=== PATIENT | male | born 1940 | race Caucasian/White ===

== ENCOUNTER 2023-07-18 09:03 | Outpatient (CLI) | payer MEDICARE, SELFPAY ==
--- OUTSIDE RECORDS SUMMARY | 2023-07-23 10:59 | XMS_ITS | Encounter Summary ---
Author Name Unknown Organization [facility] Address [address] [place] [address] Care Team Providers Care Resource Recovery Engineer Name Role Phone Jersey Wilson MD Primary Care Provider [phone] Reason for Visit * Reason Onset Date Comments Refill 05/27/2023 Encounter Details Date Type Department Care Team Description 05/27/2023 Refill [facility] [address] [place] [address] Gaston Ro MD [address] [place], [place] [id number] Refill Social History Tobacco Use Types Packs/Day Years Used Date Smoking Tobacco: Never Smokeless Tobacco: Never Alcohol Use Standard Drinks/Week Comments Yes 3 (1 standard drink = 0.6 oz pur e alcohol) 3-4 drinks a week PHQ-2 Answer Date Recorded PHQ-2 Score 0 11/10/2022 Sex and Gender Information Value Date Recorded Sex Assigned at Not on file Gender Identity Not on file Sexual Orientation Not on file documented as of this encounter Plan of Treatment Upcoming Encounters Date Type Department Care Team Description 07/30/2023 1:00 PM GUT SNATCHER Appointment [facility] [address] [facility] [place] [address] Jersey Wilson MD [address] [place] [address] 08/11/2023 2:15 PM GUT SNATCHER Appointment [facility] [address] [place] [address] Suzanna Terrell MD, PhD [address] [place] [id number] 11/17/2023 1:00 PM CDT Appointment [facility] [address] [place] [address] Jersey Wilson MD [address] [place] [address] documented as of this encounter Visit Diagnoses Not on filedocumented in this encounter Care Teams Resource Recovery Engineer Relationship Specialty Start Date End Date Jersey Wilson MD [address] [facility] [address] [id number] PCP - General Family Practice 07/23/16 documented as of this encounter
--- OUTSIDE RECORDS SUMMARY | 2023-07-23 10:59 | XMS_ITS | Encounter Summary ---
Author Name Unknown Organization [facility] Address [address], [place] [address] Care Team Providers Care External Relations Director Name Role Phone Jersey Wilson MD Primary Care Provider [phone] Reason for Visit * Reason Comments Spine Lumbar Encounter Details Date Type Department Care Team Description 07/06/2023 1:30 PM FLOOR RENOVATOR Therapy [facility] [place] [id number] [place] [phone] [place] [address] [place] [address] Acute bilateral low back pain with bilateral sciatica (HRC) (Primary Dx); Central stenosis of spinal canal Social History Tobacco Use Types Packs/Day Years [...] on file documented as of this encounter Progress Notes * Grace Condon, PT - 07/06/2023 1:30 PM CST [facility] Progress Note Visit Number: 11 Initial Certification Period: 03/10/2023 to 06/08/23; Re-certification Period: 06/08/2023 to 08/13/23 Referring Provider: Og Barnes MD Visit Diagnosis: 1. Acute bilateral low back pain with bilateral sciatica (HRC) 2. Central stenosis of spinal canal Precautions: A Fib. HTN SUBJECTIVE: Patient continues to have a lot of pain. He is overall feeling about the same this week. Woke with less pain this morning but by the time he walked 20 feet it was back. Did the SKTC exercises with out improvements. Reaching overhead is very painful when standing. Taking pain medication due to symptoms. 9/10 pain levels. Plans for surgery at [place] on 07/16/2023. Past Medical History: Pertinent diagnostic tests: MRI 03/09/2023 IMPRESSION: 1. Severe canal stenosis at L3-L4 where a prominent left subarticular disc protrusion also displaces the traversing left L4 nerve root. 2. Multilevel foraminal stenosis, moderate bilaterally at L3-L4. 3. Additional degenerative changes as detailed above. OBJECTIVE Flexed posture, increased thoracic kyphosis. Decreased flexibility of hip flexors and pectorals bilaterally. LE weakness with repeated sit to stand. Treatment/Education Today: Therapeutic Exercise x 42 min: NuStep Level 6, seat 10 x 8 min. Tolerated well with no complaints. Seated row yellow band x 10. Some buttock pain reported. Seated yellow band bilateral external rotation 2 x 10. Sit to stand x 5 from chair. Left LE fatigues. From table x 10 (24 inches). Side lying hip abduction 2 x 10 each LE. Good lateral hip work noted by patient bilaterally. Bridge x 10. Limited ROM today due to back and leg pain. SKTC 5 x 10 sec each LE hook lying. Decreased LE symptoms reported after 5 reps. LTR x 8 with limited ROM. Complaints of right posterior LE pain. Pec stretch hook lying hands behind head 2 x 20 sec. Tolerated well today. Supine hip flexor stretch x 20-30 sec each LE with contralateral knee to chest. Right knee pain. TrA with august hook lying and leg extensions x 5. Pretty easy for him. TrA 90/90 with bicycle x 10. Timed Code Treatment Minutes: 42 Total Treatment Minutes: 42 Current Home Exercise Program List: Access Code: [email or web address] URL: [email or web address] Audio/ Date: 05/14/2023 Prepared by: Grace Condon Exercises - Seated Scapular Retraction - 1 x daily - 7 x weekly - 1-2 sets - 10 reps - Sit to Stand Without Arm Support - 1 x daily - 5 x weekly - 1-2 sets - 10 reps - Standing March with Counter Support - 1 x daily - 5 x weekly - 1-2 sets - 10 reps - Standing Hip Abduction with Counter Support - 1 x daily - 5 x weekly - 1-2 sets - 10 reps - Supine Bridge - 2-3 x daily - 1 sets - 5 reps - 10 hold - Supine Lower Trunk Rotation - 2-3 x daily - 1 sets - 5 reps - 10 hold - Hooklying Single Knee to Chest Stretch - 2-3 x daily - 1 sets - 5 reps - 10 hold - Supine hip flexor stretch - 2-3 x daily - 1 sets - 5 reps - 10 hold ASSESSMENT/PROGRESS TOWARD GOALS: Atif presents with central canal and foraminal stenosis and disc protrusion L3-4 with generalized LE weakness and ROM deficits. He continues with high pain levels aggravated by standing, walking and extension. Exercises primarily done in seated and hook lying positions were tolerated best. Functional Goals/Outcomes: HEP/Independent Management: Demonstrate independence with HEP and self- management following each treatment session. Met Demonstrate normal upright posture in 3-4 weeks. Partially met ADL's: Stand for at least 20-30 minutes without increased symptoms in 8 weeks. 10 minutes at the most. Ambulation: Ambulate for community distance with normal gait without increased symptoms in 12 weeks. Able to ambulate for ADL's but has increased LE pain. PLAN: Discharge to home program as patient will be having surgery next week. Physical Therapy Discharge Summary Outcome measures at discharge: No outcome data collected. Attainment of goals: See above Patient Compliance with Therapy: Patient was compliant with attendance and therapy recommendations. Discharge recommendations: Patient will continue to work independently with home program/self management strategies. He will consult surgeon regarding any need for PT after surgery. R RENOVATOR documented in this encounter Plan of Treatment Upcoming Encounters Date Type Department Care Team Description 07/30/2023 1:00 PM FLOOR RENOVATOR Appointment [place] [place] [address] Jersey Wilson MD [address] [facility] [place] [address] 08/11/2023 2:15 PM FLOOR RENOVATOR Appointment [place] [address] [place] [address] Suzanna Terrell MD, PhD [address] [place] [address] 11/17/2023 1:00 PM CDT Appointment [address] [place] [address] [place] [address] [place] [phone] documented as of this encounter Visit Diagnoses Diagnosis Acute bilateral low back pain with bilateral sciatica (HRC)- Primary Central stenosis of spinal canal documented in this encounter Care Teams External Relations Director Relationship Specialty Start Date End Date Jersey Wilson MD [address] [place] [id number] PCP - General Family Practice 07/23/16 documented as of this encounter
--- OUTSIDE RECORDS SUMMARY | 2023-07-23 10:59 | XMS_ITS | Encounter Summary ---
Author Name Unknown Organization [facility] Address [address], [place] [address] Care Team Providers Care B2B Sales Professional Name Role Phone Jersey Wilson MD Primary Care Provider [phone] Reason for Visit * Reason Comments Spine Lumbar Encounter Details Date Type Department Care Team Description 06/29/2023 3:00 PM DRIER OPERATOR HELPER Therapy [facility] [place] [id number] [place] [address] [phone] [place] [address] [place] [address] Acute bilateral low back pain with bilateral [...] Progress Notes * Grace Condon, PT - 06/29/2023 3:00 PM CST Physical Therapy Re-certification of Plan of Care Re-certification Period: 06/08/2023 to 08/13/23 Treatment diagnosis: 1. Acute bilateral low back pain with bilateral sciatica (HRC) 2. Central stenosis of spinal canal Total visits in past certification period: 8 Updated status: Atif returns for ongoing PT due to ongoing radicular pain bilateral LE and difficulty standing and ambulating. Current beck objective findings: Flexed posture, increased thoracic kyphosis. Decreased flexibility of hip flexors and pectoral bilaterally. LE weakness with repeated sit to stand. ASSESSMENT/PROGRESS TOWARD GOALS: Progress toward goals/functional outcomes: HEP/Independent Management: Demonstrate independence with HEP and self- management following each treatment session. Ongoing Demonstrate normal upright posture in 3-4 weeks. 85% met ADL's: Stand for at least 20-30 minutes without increased symptoms in 8 weeks. Currently not met. Ambulation: Ambulate for community distance with normal gait without increased symptoms in 12 weeks. Able to ambulate for ADL's but has increased LE pain. Updated goals/functional outcomes for re-certification period: Continue above goals. PLAN: Frequency/duration: 1-2 time/week for 6 weeks Treatment Plan: Continue progressive therapeutic exercise for ROM, stretching and strengthening, and flexibility. Check Balance. Aerobic exercise. Consent: Patient and/or family are in agreement with the updated plan. The apartment house manager is completed by the therapist and the referring clinician's electronic signature certifies medical necessity for the plan above. [facility] Physical Therapy Progress Note Visit Number: 9 Initial Certification Period: 03/10/2023 to 06/08/23 Referring Provider: Og Barnes MD Visit Diagnosis: 1. Acute bilateral low back pain with bilateral sciatica (HRC) 2. Central stenosis of spinal canal Precautions: A Fib. HTN SUBJECTIVE: Since our last session the patient had COVID and had to cancel PT and then had to cancel due to a flat tire. He had COVID at the end of May. Injection 05/26/2023 resulted in 10 days of relief. He has had more pain the past 5 days needing to take pain medication. He describes bilateral posterior and anterior thigh pain, buttock and low back pain. He also has pain at the right calf. Standing tolerance is 10 minutes with pain going up to 8-9/10. Walking tolerance 50-100 feet with pain. Symptoms are relieved by sitting. Has worked a few minutes here and there in his kitchen but is frustratedwith his limitations now and after surgery. Plans for surgery at [place] on 07/16/2023. Past Medical History: Pertinent diagnostic tests: MRI 03/09/2023 IMPRESSION: 1. Severe canal stenosis at L3-L4 where a prominent left subarticular disc protrusion also displaces the traversing left L4 nerve root. 2. Multilevel foraminal stenosis, moderate bilaterally at L3-L4. 3. Additional degenerative changes as detailed above. OBJECTIVE Flexed posture, increased thoracic kyphosis. Decreased flexibility of hip flexors and pectoral bilaterally. LE weakness with repeated sit to stand. Treatment/Education Today: Therapeutic activities x 13 minutes: Reassessment of symptoms, response to injection and plan for upcoming surgery. Reassessment of goals for POC. Therapeutic Exercise x 31 min: -NuStep Level 5, seat 10 x 7 min. Tolerated well but had some right sided knee pain. -Pec stretch hook lying hands behind head 2 x 30 sec -LTR x 10 . Tolerated well. -SKTC x 30 sec each LE with contralateral leg flat. -Supine hip flexor stretch x 30 sec each LE. Mild knee pain but felt good hip stretch. -Bridge x 10. Limited ROM today in attempts to control right LE pain. -TrA with march hook lying x 10. -TrA 90/90 with toe taps x 8. -Sit to stand x 10 Timed Code Treatment Minutes: 44 Total Treatment Minutes: 44 Current Home Exercise Program List: Access Code: [email or web address] URL: [email or web address] Date: 05/14/2023 Prepared by: Grace Condon Exercises [...] generalized LE weakness and ROM deficits. He benefit today from gentle exercise reporting some relief at end of the session. He will benefit from additional physical therapy to address deficits, improve strength and mobility in preparation for upcoming surgery. Functional Goals/Outcomes: HEP/Independent Management: Demonstrate independence with HEP and self- management following each treatment session. Ongoing Demonstrate normal upright posture in 3-4 weeks. 85% met ADL's: Stand for at least 20-30 minutes without increased symptoms in 8 weeks. Currently not met. Ambulation: Ambulate for community distance with normal gait without increased symptoms in 12 weeks. Able to ambulate for ADL's but has increased LE pain. PLAN: Progress ROM, strengthening as able. 6 minutes walk test if walking tolerance improves. Balance work. R OPERATOR HELPER documented in this encounter Plan of Treatment Upcoming Encounters Date Type Department Care Team Description 07/30/2023 1:00 PM DRIER OPERATOR HELPER Appointment [address] [address] Jersey Wilson MD [address] [place] [address] 08/11/2023 2:15 PM DRIER OPERATOR HELPER Appointment [place] [address] D[address]ology [address] [place] [address] Suzanna Terrell MD, PhD [address] [place] [address] 11/17/2023 1:00 PM CDT Appointment [address] [place] [address] Jersey Wilson MD [address] [place] [address] documented as of this encounter Visit Diagnoses Diagnosis Acute bilateral low back pain with bilateral sciatica (HRC)- Primary Central stenosis of spinal canal documented in this encounter Care Teams B2B Sales Professional Relationship Specialty Start Date End Date Jersey Wilson MD [address] [facility] [place] [address] PCP - General Family Practice 07/23/16 documented as of this encounter
--- OUTSIDE RECORDS SUMMARY | 2023-07-23 10:59 | XMS_ITS | Encounter Summary ---
Author Name Unknown Organization [facility] Address [address], [place] [address] Care Team Providers Care Stove Installer Name Role Phone Jersey Wilson MD Primary Care Provider [phone] Reason for Visit * Reason Comments Spine Lumbar Encounter Details Date Type Department Care Team Description 07/02/2023 1:00 PM MD ALLERGY IMMUNOLOGY Therapy [facility] [place] [id number] [place] [phone] [place] [address] [place] [address] Acute bilateral low back pain with bilateral [...] Progress Notes * Grace Condon, PT - 07/02/2023 1:00 PM CST [facility] Progress Note Visit Number: 10 Initial Certification Period: 03/10/2023 to 06/08/23; Re-certification Period: 06/08/2023 to 08/13/23 Referring Provider: Og Barnes MD Visit Diagnosis: 1. Acute bilateral low back pain with bilateral sciatica (HRC) 2. Central stenosis of spinal canal Precautions: A Fib. HTN SUBJECTIVE: Patient reports that last session went well but he went grocery shopping after the session and had to lean on the cart, He also went to [employer] and had a lot of pain while shopping. Much work thatnight and into the next day. Used pain medication Wednesday and less activity yesterday. Standing tolerance is 10 minutes. Frustrated that he is losing strength. Plans for surgery at [place] on 07/16/2023. Past Medical History: Pertinent diagnostic [...] to stand. Treatment/Education Today: Therapeutic Exercise x 46 min: -NuStep Level 5, seat 10 x 8 min. Tolerated well but had some right sided knee pain. -Seated row red band x 20. Some buttock pain reported. -Sit to stand x 10 -Standing hip abduction x 15 each LE. Right buttock symptoms but patient felt he could exercise with the symptoms. -Lateral step ups x 10 at stair case. -LTR x 10 . Initially painful. Improved with repetition. -Pec stretch hook lying hands behind head 1 x 20 sec. Was increasing thigh symptoms so not repeatedtoday -SKTC 5 x 10 sec each LE hook lying. This provided a lot of relief today. Repeated at end of session. -Supine hip flexor stretch x 30 sec each LE with contralateral knee to chest. Right knee pain. -Bridge x 10. Limited ROM so tolerated well -TrA with august hook lying x 10 -TrA 90/90 with toe taps x 10. Timed Code Treatment Minutes: 46 Total Treatment Minutes: 46 Current Home Exercise Program List: Access Code: [email or web address] URL: [email or web address] Date: 05/14/2023 Prepared by: Grace Condon Exercises [...] generalized LE weakness and ROM deficits. He had more pain today and needed seated rest breaks between standing exercise. Good relief with SKTC during and at the end of the session. Functional Goals/Outcomes: HEP/Independent Management: Demonstrate independence with [...] pain. PLAN: Progress ROM, strengthening as able. Focus on seated and hook lying exercises to control symptoms as needed. ALLERGY IMMUNOLOGY documented in this encounter Plan of Treatment Upcoming Encounters Date Type Department Care Team Description 07/30/2023 1:00 PM MD ALLERGY IMMUNOLOGY Appointment [facility] [address] [facility] [place] [address] Jersey Wilson MD [address] [place] [address] 08/11/2023 2:15 PM MD ALLERGY IMMUNOLOGY Appointment [facility] [address] [place], [place] [address] Suzanna Terrell MD, PhD [address] [place] [address] 11/17/2023 1:00 PM CDT Appointment [facility] [address] [place] [address] Jersey Wilson MD [address] [place], [place] [phone] documented as of this encounter Visit Diagnoses Diagnosis Acute bilateral low back pain with bilateral sciatica (HRC)- Primary Central stenosis of spinal canal documented in this encounter Care Teams Stove Installer Relationship Specialty Start Date End Date Jersey Wilson MD [address] [place], [place] [address] PCP - General Family Practice 07/23/16 documented as of this encounter
--- OUTSIDE RECORDS SUMMARY | 2023-07-23 10:59 | XMS_ITS | Encounter Summary ---
Author Name Unknown Organization [facility] Address [address] [place] [address] Care Team Providers Care Handbag Parts Cutter Name Role Phone Jersey Wilson MD Primary Care Provider [phone] Reason for Visit * Reason Comments Injection * Procedure/Equipment (Routine) - Closed Specialty Diagnoses / Procedures Referred By Contac t Referred To Contact Diagnoses Spinal stenosis of lumbar region with neurogenic claudication Lumbar radiculopathy Procedures [place] Spinal Injection For Pain Management India Ho APRN, TAX INTERN [address] [place] [address] Referral ID Status Reason Start Date Expiration Date Visits Re quested Visits Authorized [id number] Closed 03/18/2023 06/16/2024 1 1 Encounter Details Date Type Department Care Team Description 04/07/2023 2:00 PM CDT Treatment [place] [facility] [address] [place], [place] [phone] India Ho APRN, TAX INTERN [address] [place] [address] Masha Russell, DO [address] [place] [address] Lumbar radiculopathy (Primary Dx); Spinal stenosis of lumbar region with neurogenic claudication Social History Tobacco Use Types Packs/Day Years [...] on file documented as of this encounter Last Filed Vital Signs Vital Sign Reading Time Taken Comments Blood Pressure 167/98 04/07/2023 1:45 PM CDT Pt reports that he did not take his BP mes today. Instructed pt to take to these once he gets home. Pulse 64 04/07/2023 1:45 PM CDT Temperature - - Respiratory Rate - - Oxygen Saturation - - Inhaled Oxygen Concentration - - Weight - - Height - - Body Mass Index - - documented in this encounter Progress Notes * Masha Russell DO - 04/07/2023 2:00 PM CDT Interventional Pain Management Procedure Note Patient name: Paul Rae Procedure Date: 04/07/2023 Referred by: India Ho APRN, TAX INTERN [address] [place] [address] Pre-Procedural Diagnosis: Lumbar Radiculopathy; Neuroforaminal Spinal Stenosis without myelopathy; Lumbar spondylosis Post-Procedural Diagnosis: Lumbar Radiculopathy; Neuroforaminal Spinal Stenosis without myelopathy;Lumbar spondylosis Name of Procedure: L3-L4 interlaminar epidural steroid injection Performed by: Masha Russell DO Description of Procedure: The patient denies fevers, chills, night sweats, or weight loss. The patient does not take blood thinners or antibiotics for an active infection. We reviewed the risks, alternatives, benefits, and potential complications of an epidural steroid injection which include but are not limited to bleeding, bruising, infection, allergic reaction, increased pain, headache, lack of pain relief, or nerve, spinal cord, and blood vessel injury. 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 After discussion with the patient, he has decided to proceed with the procedure. After verbal and written informed consent, the patient was taken to the procedure suite and placed in a prone position. A preprocedural pause was performed identifying appropriate patient, site, side, and nature of procedure. The overlying skin in the lumbar region was prepped with ChloraPrep solution and draped in a sterile fashion. Fluoroscopy was used to identify the L3-L4 interlaminar space, towards the left and the appropriate site was marked. Aseptic technique was used throughout the procedure. The skin was anesthetized with 1% lidocaine and using AP fluoroscopic guidance at the L3-L4 interspace, a 20-gauge Tuohy needle was advanced contacting the ligamentum flavum which was engaged. Loss of resistance to saline was crisp. A lateral fluoroscopic imaging (and/or Contralateral Oblique view) was used to confirmdepth. After negative aspiration of blood and CSF, a total of 1 mL of Isovue M200 was injected in both AP and lateral view to verify spread within the dorsal epidural space without vascular uptake. After repeat negative aspiration, then 40 mg of triamcinolone combined with 1 mL of preservative-freenormal saline and 2 ml preservative-free 1% lidocaine were injected slowly without difficulty or complication. The needle was removed intact with continuous flush of 1% lidocaine. A bandage was applied and the patient was taken to the recovery room where they were observed for 10- 20 minutes and discharged in good condition. There were no complications noted. 3 mL of Isovue M200 was drawn. 1 mL was used and 2 mL was discarded. 40 mg of triamcinolone was drawn. 40 mg was used and 0 mg was discarded Plan: -The patient will follow up in the outpatient clinic in 2-4 week(s), unless otherwise clinically indicated. -Should the patient have improved pain and/or function from the above injection, then we could consider repeating the injection up to 4 times per year. Masha Russell DO Physical Medicine and Rehabilitation Interventional Pain Management documented in this encounter Nursing Notes * Vangie Cisneros, RN - 04/07/2023 2:00 PM CDT Patient was monitored for 10 minutes post injection. Patient had no signs or symptoms of adverse reaction to injection. Patient was given oral and written discharge instructions and verbalized understanding. 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 documented in this encounter Plan of Treatment Upcoming Encounters Date Type Department Care Team Description 07/30/2023 1:00 PM ASPHALT HEATER OPERATOR Appointment [address] [address] Jersey Wilson MD [address] [place] [address] [phone] 08/11/2023 2:15 PM ASPHALT HEATER OPERATOR Appointment [place] [address] [place] [address] [id number] Suzanna Terrell MD, PhD [address] [place] [address] [phone] 11/17/2023 1:00 PM CDT Appointment [address] [address] Jersey Wilson MD [address] [place] [address] [phone] documented as of this encounter Procedures Procedure Name Priority Date/Time Associated Diagnosis Comments FL SPINAL INJECTION FOR PAIN MANAGEMENT Routine 04/07/2023 2:19 PM CDT Spinal stenosis of lumbar region with neurogenic claudication Lumbar radiculopathy documented in this encounter Results * FL Spinal Injection For Pain Management (04/07/2023 2:19 PM CDT) Anatomical Region Laterality Modality Spine, L-Spine, T-Spine, C-Spine Radiographic Imaging Narrative 04/07/2023 2:20 PM CDT These images were obtained during a surgical procedure. India Ho APRN, TAX INTERN RAD [place] documented in this encounter Visit Diagnoses Diagnosis Lumbar radiculopathy- Primary Thoracic or lumbosacral neuritis or radiculitis, unspecified Spinal stenosis of lumbar region with neurogenic claudication Spinal stenosis, lumbar region, with neurogenic claudication documented in this encounter Care Teams Handbag Parts Cutter Relationship Specialty Start Date End Date Jersey Wilson MD [address] [facility] [place] [address] PCP - General Family Practice 07/23/16 documented as of this encounter
--- OUTSIDE RECORDS SUMMARY | 2023-07-23 10:59 | XMS_ITS | Encounter Summary ---
Author Name Unknown Organization [facility] Address [address] [place] [address] Care Team Providers Care Gallery Manager Name Role Phone Jersey Wilson MD Primary Care Provider [phone] Reason for Visit * Reason Comments Injection * Procedure/Equipment (Routine) - Closed Specialty Diagnoses / Procedures Referred By Contac t Referred To Contact Diagnoses Spinal stenosis of lumbar region with neurogenic claudication Procedures [place] Spinal Injection For Pain Management India [place] APRN, [place] [address] [place] [address] Referral ID Status Reason Start Date Expiration Date Visits Re quested Visits Authorized [id number] Closed 05/11/2023 08/09/2024 1 1 Encounter Details Date Type Department Care Team Description 05/26/2023 1:00 PM BREAD DUMPER Treatment [place] [facility] [address] [place], [place] [phone] [place] [address] [place] [address] Masha Russell, DO [address] [place] [address] Lumbar radiculopathy (Primary Dx); Spinal stenosis of [...] Sign Reading Time Taken Comments Blood Pressure 159/79 05/26/2023 12:35 PM BREAD DUMPER Pulse 64 05/26/2023 12:35 PM BREAD DUMPER Temperature - - Respiratory Rate - - Oxygen Saturation - - Inhaled Oxygen Concentration - - Weight - - Height - - Body Mass Index - - documented in this encounter Progress Notes * Masha Russell DO - 05/26/2023 1:00 PM CST Interventional Pain Management Procedure Note Patient name: Paul Rae Procedure Date: 05/26/2023 Referred by: India Ho, FURNITURE [place] [address] [place] [address] Pre-Procedural Diagnosis: Lumbar Radiculopathy; Neuroforaminal Spinal Stenosis without myelopathy; Lumbar spondylosis Post-Procedural Diagnosis: Lumbar Radiculopathy; Neuroforaminal Spinal Stenosis without myelopathy;Lumbar spondylosis Name of Procedure: Right paramedian L3-L4 interlaminar epidural steroid injection Performed by: [...] 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 After discussion with the patient, he [...] identify the L3-L4 interlaminar space, towards the right and the appropriate site was marked. Aseptic technique was used throughout the procedure. The skin was anesthetized with 1% lidocaine and using AP fluoroscopic guidance at the L3-L4 interspace, a 20-gauge Tuohy needle was advanced contacting the ligamentum flavum which was engaged. Loss of resistance to saline was crisp. A lateral fluoroscopic imaging (and/or Contralateral Oblique view) was used to confirm depth. After negative aspiration of blood and CSF, a total of 1 mL of Isovue M200 was injected in both AP and lateral view to verify spread within the dorsal epidural space without vascular uptake. After repeat negative aspiration, then 40 mg of triamcinolone combined with 1 mL of preservative-free normal saline and 2 ml preservative-free 1% lidocaine [...] Physical Medicine and Rehabilitation Interventional Pain Management D DUMPER documented in this encounter Nursing Notes * Vangie Cisneros RN - 05/26/2023 1:00 PM CST Patient was monitored for 10 minutes post injection. Patient had no signs or symptoms of adverse reaction to injection. Patient was given oral and written discharge instructions and verbalized understanding. Patient [facility] to meet courier delivery driver. D DUMPER documented in this encounter Plan of Treatment Upcoming Encounters Date Type Department Care Team Description 07/30/2023 1:00 PM BREAD DUMPER Appointment [facility] [address] [place] [address] [place] [address] Jersey Wilson MD [address] [place], [place] [phone] 08/11/2023 2:15 PM BREAD DUMPER Appointment [place] [address] [place] [address] [phone] [place] [address] [place] [address] [phone] 11/17/2023 1:00 PM CDT Appointment [address] [place] [address] [place] [address] [place] [address] [phone] documented as of this encounter Procedures Procedure Name Priority Date/Time Associated Diagnosis Comments FL SPINAL INJECTION FOR PAIN MANAGEMENT Routine 05/26/2023 1:07 PM BREAD DUMPER Spinal stenosis of lumbar region with neurogenic claudication documented in this encounter Results * [place] Spinal Injection For Pain Management (05/26/2023 1:07 PM BREAD DUMPER) Anatomical Region Laterality Modality Spine, L-Spine, T-Spine, C-Spine Radiographic Imaging Narrative 05/26/2023 1:08 PM BREAD DUMPER These images were obtained during a surgical procedure. India Ho APRN, GRADUATE RN RAD [place] documented in this encounter Visit Diagnoses Diagnosis Lumbar radiculopathy- Primary Thoracic or lumbosacral neuritis or radiculitis, unspecified Spinal stenosis of lumbar region with neurogenic claudication Spinal stenosis, lumbar region, with neurogenic claudication documented in this encounter Care Teams Gallery Manager Relationship Specialty Start Date End Date Jersey Wilson MD [address] [facility] [place] [address] PCP - General Family Practice 07/23/16 documented as of this encounter
--- OUTSIDE RECORDS SUMMARY | 2023-07-23 10:59 | XMS_ITS | Encounter Summary ---
Author Name Unknown Organization [facility] Address [address] [place] [address] Care Team Providers Care Orthodontist Name Role Phone Jersey Wilson MD Primary Care Provider [phone] Reason for Referral * Procedure/Equipment (Routine) - Closed Specialty Diagnoses / Procedures Referred By Contac t Referred To Contact Diagnoses Spinal stenosis of lumbar region with neurogenic claudication Procedures [place] Spinal Injection For Pain Management India Ho APRN, ANA CRISTINA [address] [place] [address] Referral ID Status Reason Start Date Expiration Date Visits Re quested Visits Authorized [id number] Closed 05/11/2023 08/09/2024 1 1 CIATE CHIEF NURSE Reason for Visit * Reason Comments QUESTIONS, GENERAL Epidural Wearing Off Encounter Details Date Type Department Care Team Description 05/10/2023 [facility]phone [facility] [place] [facility] [address] [facility] [place] [address] India Ho APRN, CNP [address] [place] [address] QUESTIONS, GENERAL (Epidural Wearing Off) Social History Tobacco Use Types Packs/Day Years [...] on file documented as of this encounter Nursing Notes * Yesenia Flores RN - 05/11/2023 9:30 AM CST Repeat lumbar injection has been ordered and pt made aware. CIATE CHIEF NURSE * Lexy Dewey - 05/10/2023 1:05 PM CST GENERAL QUESTIONS How may we help you today? Patient had an epidural on 04/07/23 and his pain has returned. He would like to know if he can schedule another one. He rates his pain about the same as it was prior to theepidural. He is going to be flying to [place] for [place] and won't be able to make it if his pain remains the same. He is trying to do something before his pain returns to the way it was when hewas first seen. Describe your symptoms/concerns: Returning back pain When did the issue start: Has been increasing over the last several days Have you been seen for this recently?: Yes: Date: 03/18/2023 Provider: India Ho APRN, BROADCAST NEWS PRODUCER If we are unable to reach you can we leave a detailed message on your voicemail? Yes If we are unable to reach you can we send you a message in Digital H2O? No [Tangled Yarn Worker/Rod Puller: Relay to patient; We make every effort to get back to you sameday, however it may take 1-2 business days depending on the nature of the communication.] CIATE CHIEF NURSE documented in this encounter Plan of Treatment Upcoming Encounters Date Type Department Care Team Description 07/30/2023 1:00 PM ASSOCIATE CHIEF NURSE Appointment [address] [address] Jersey Wilson MD [address] [place], [place] [phone] 08/11/2023 2:15 PM ASSOCIATE CHIEF NURSE Appointment [facility] [address] [place] [phone] Suzanna Terrell MD[place] PhD [address] [place] [address] [phone] 11/17/2023 1:00 PM CDT Appointment [address] 467279 Jersey Wilson MD [address] [place] [address] [phone] documented as of this encounter Results * [place] Spinal Injection For Pain Management (05/26/2023 1:07 PM ASSOCIATE CHIEF NURSE) Anatomical Region Laterality Modality Spine, L-Spine, T-Spine, C-Spine Radiographic Imaging Narrative 05/26/2023 1:08 PM ASSOCIATE CHIEF NURSE These images were obtained during a surgical procedure. India Ho APRN, BROADCAST NEWS PRODUCER RAD [place] documented in this encounter Visit Diagnoses Diagnosis Spinal stenosis of lumbar region with neurogenic claudication- Primary Spinal stenosis, lumbar region, with neurogenic claudication Lumbar radiculopathy- Primary Thoracic or lumbosacral neuritis or radiculitis, unspecified Spinal stenosis of lumbar region with neurogenic claudication Spinal stenosis, lumbar region, with neurogenic claudication documented in this encounter Care Teams Orthodontist Relationship Specialty Start Date End Date Jersey Wilson MD [address] [place] [address] [phone] PCP - General Family Practice 07/23/16 documented as of this encounter
--- OUTSIDE RECORDS SUMMARY | 2023-07-23 10:59 | XMS_ITS | Encounter Summary ---
Author Name Unknown Organization [facility] Address [address] [place] [address] Care Team Providers Care Orthopedic Nurse Practitioner Name Role Phone Jersey Wilson MD Primary Care Provider [phone] Reason for Referral * Therapies (Routine) - New Request Specialty Diagnoses / Procedures Referred By Contac t Referred To Contact Diagnoses Acute bilateral low back pain with bilateral sciatica (HRC) Central stenosis of spinal canal Og Barnes MD [address] [place] [address] Referral ID Status Reason Start Date Expiration Date V isits Requested Visits Authorized [id number] New Request 04/13/2023 07/12/2024 1 1 Scheduling Instructions If scheduling assistance is needed, please inquire with the medical office staff upon exiting your appointment or contact the ordering clinic for recommended locations. This recommended service/s may not be covered by your insurance coverage. To find out your specific benefit coverage, please call the number on your insurance card. Question Answer Therapy Physical Therapy PT: Follow Up Every week How many times per week? 1 For how many weeks? 2 PT: Visit Type Follow Up PT: Type of Revisit In-Person Visit PT: Treatment Team Primary provider Reason for Visit * Reason Comments Spine Lumbar Encounter Details Date Type Department Care Team Description 04/13/2023 12:45 PM CDT Therapy [facility] [place] [address] [place] [address] [place] [address] [place] [address] Acute bilateral low back pain with bilateral [...] Progress Notes * Grace Condon, PT - 04/13/2023 12:45 PM CDT [facility] Physical Therapy Progress Note Visit Number: 7 Initial Certification Period: 03/10/2023 to 06/08/23 Referring Provider: Og Barnes MD Visit Diagnosis: 1. Acute bilateral low back pain with bilateral sciatica (HRC) 2. Central stenosis of spinal canal Precautions: A Fib. HTN, SUBJECTIVE: Patient had initial complaints of bilateral buttock and anterior and posterior thigh pain worse when standing and walking. He feels that PT gave him mixed results. However, he had an EDSI on 04/07/2023 and his low back is better. Also reports that his thighs are not bothering him since the injection. Catches self standing up straighter. Standing tolerance in his kitchen was 30-45 minutes prior toonset of pain. Walking for ADL's has been OK. Has not been ding his exercises due to the injection. Consulting [place] on 04/23/2023. Continues with knee pain. 1.5 weeks ago, he was lifting his leg and moving his knee in some ROM andnoticed more joint noise and pain since then. Past Medical History: Pertinent diagnostic tests: MRI 03/09/2023 IMPRESSION: 1. Severe canal stenosis at L3-L4 where a prominent left subarticular disc protrusion also displaces the traversing left L4 nerve root. 2. Multilevel foraminal stenosis, moderate bilaterally at L3-L4. 3. Additional degenerative changes as detailed above. OBJECTIVE Current Objective Findings: Much better upright posture today versus first session. Trunk extension Minimal. Low back pain. Trunk Sidebending right WNL (75% at initial session) and left WNL Treatment/Education Today: Therapeutic activities x 16 minutes: Discussed progress, posture, response to EDSI and knee symptoms. He plans to follow up with neurosurgeon at [place] and through [facility]. He is concerned about mcc back issues. Suggested he try cold pack for his knee pain. Reviewed body mechanics for lifting even though he is feeling better. Therapeutic Exercise x 31 min: Pec stretch hook lying 2 x 30 sec LTR x 10 Bridge x 10. Low back pain 1-2 reps then improved. Sit to stand x 10 Tried standing hip flexor stretch x 30 sec each LE. Reports some low back and buttock pain right soaltered to julee each LE x 30 sec. Did well. SKTC x 30 sec each LE with contralateral leg flat. TrA with march hook lying x 10. Timed Code Treatment Minutes:47 Total Treatment Minutes: 47 Current Home Exercise Program List: Access Code: [email or web address] URL: [email or web address] Date: 03/18/2023 Prepared by: Brittany June Exercises - Seated Scapular Retraction - 1 [...] and foraminal stenosis and disc protrusion L3-4 improved by EDSI with functional gains and decreased pain. He tolerated gentle return to exercise well today. He will benefit from additional physical therapy to address deficits, facilitate return to prior level of function and improve quality of life. Functional Goals/Outcomes: HEP/Independent Management: Demonstrate independence with HEP and self- management following each treatment session Demonstrate normal upright posture in 3-4 weeks. 85% met ADL's: Stand for at least 20-30 minutes without increased symptoms in 8 weeks. MET Ambulation: Ambulate for community distance with normal gait without increased symptoms in 12 weeks. Household/ADL ambulation WNL PLAN: Progress ROM, strengthening as able. 6 minutes walk test. Balance work. documented in this encounter Plan of Treatment Upcoming Encounters Date Type Department Care Team Description 07/30/2023 1:00 PM ELECTRONIC COMPONENTS ASSEMBLER Appointment [address] [place] [address] Jersey Wilson MD [address] [place] [phone] 08/11/2023 2:15 PM ELECTRONIC COMPONENTS ASSEMBLER Appointment [facility] [address] D[address] [place] [address] Suzanna Terrell MD, PhD [address] [place] [address] 11/17/2023 1:00 PM CDT Appointment [address] [place] [address] Jersey Wilson MD [address] [place] [address] Scheduled Referrals Name Type Priority Associated Diagnoses Orde r Schedule Rehab Therapies Follow Up Referral Routine Acute bilateral low back pain with bilateral sciatica (HRC) Central stenosis of spinal canal Ordered: 04/13/2023 documented as of this encounter Visit Diagnoses Diagnosis Acute bilateral low back pain with bilateral sciatica (HRC)- Primary Central stenosis of spinal canal documented in this encounter Care Teams Orthopedic Nurse Practitioner Relationship Specialty Start Date End Date Jersey Wilson MD [address] [facility] [place] [address] PCP - General Family Practice 07/23/16 documented as of this encounter
--- OUTSIDE RECORDS SUMMARY | 2023-07-23 10:59 | XMS_ITS | Encounter Summary ---
Author Name Unknown Organization [facility] Address [address] [place] [address] Care Team Providers Care Wet End Helper Name Role Phone Jersey Wilson MD Primary Care Provider [phone] Reason for Referral * Therapies (Routine) - New Request Specialty Diagnoses / Procedures Referred By Contac t Referred To Contact Diagnoses Acute bilateral low back pain with bilateral sciatica (HRC) Central stenosis of spinal canal Og Barnes MD [address] [place] [address] Referral ID Status Reason Start Date Expiration Date V isits Requested Visits Authorized [id number] New Request 05/14/2023 08/12/2024 1 1 Scheduling Instructions If scheduling assistance [...] per week? 1 For how many weeks? 6 PT: Visit Type Follow Up PT: Type of Revisit In-Person Visit PT: Treatment Team Team ING CARE PROFESSIONAL Reason for Visit * Reason Comments Spine Lumbar Encounter Details Date Type Department Care Team Description 05/14/2023 1:45 PM HEARING CARE PROFESSIONAL Therapy [facility] [place] [address] [place] [address] [place] [address] [place] [address] Acute bilateral low back pain with bilateral [...] as of this encounter Progress Notes * Tamera Condonorashantel Fried, PT - 05/14/2023 1:45 PM CST [facility] Physical Therapy Progress Note Visit Number: 8 Initial Certification Period: 03/10/2023 to 06/08/23 Referring Provider: Og Barnes MD Visit Diagnosis: 1. Acute bilateral low back pain with bilateral sciatica (HRC) 2. Central stenosis of spinal canal Precautions: A Fib. HTN, SUBJECTIVE: Patient reports that he is still experiencing pain in the low back, bilateral buttocks and posterior thigh. Pain is still worse when standing and walking. He reports that he had improvement in his symptoms for three weeks following his injection but has returned back to baseline with symptoms sincethen. His standing tolerance in his kitchen is 10-20 minutes prior to onset of pain. He notes he has still been completing household and yard tasks but has pain throughout the task. He has not been doing his HEP the past week due to pain. Atif noted that he has his next injection scheduled for 05/26/2023 and surgery scheduled for 07/16/2023. He noted his concerns for the outcome of the upcoming injection due to a scheduled family trip the week following the injection. Past Medical History: Pertinent diagnostic tests: MRI 03/09/2023 IMPRESSION: 1. Severe canal stenosis at L3-L4 where a prominent left subarticular disc protrusion also displaces the traversing left L4 nerve root. 2. Multilevel foraminal stenosis, moderate bilaterally at L3-L4. 3. Additional degenerative changes as detailed above. OBJECTIVE Treatment/Education Today: Therapeutic activities x 15 minutes: Discussed outcomes for his upcoming injection. He is concerned his back will not be well enough to travel out of town for the holidays. Educated the patient on the importance of HEP to continue mobility to improve low back and glute symptoms as tolerated. Discussed upcoming surgery and outcome benefits for symptom relief. Therapeutic Exercise x 32 min: NuStep Level 5, seat 6 x 7 min Pec stretch hook lying 2 x 30 sec LTR x 10 Moderate hip pain 1-2 reps then improved. Bridge x 10. Improved ROM from last session. SKTC x 30 sec each LE with contralateral leg flat. Supine hip flexor stretch x 30 sec each LE. Mild knee pain but felt good hip stretch. Added to HEP. TrA with march hook lying x 10. Progressed to 90/90 with toe taps x 10. Good challenge. Sit to stand x 10 Timed Code Treatment Minutes:47 Total Treatment Minutes: 47 Current Home Exercise Program List: Access Code: [email or web address] URL: [email or web address] Date: 05/14/2023 Prepared by: Grace Condon Exercises - Seated Scapular Retraction - 1 x daily - 7 x weekly - 1-2 sets - 10 reps - Sit to Stand Without Arm Support - 1 x daily - 5 x weekly - 1-2 sets - 10 reps - Standing August with Counter Support - 1 x daily [...] generalized LE weakness and ROM deficits. He tolerated gentle return to exercise well today despite his complaints of increased symptoms at the start of session. He will benefit from additional physical therapy toaddress deficits, facilitate return to prior level of [...] test if walking tolerance improves. Balance work. Note completed by Jannette CASILLAS, under the supervision of Grace Condon PT. Student performed part of all of the treatment with therapist present in the room directing the service, and making all skilled judgements and clinical decisions. ING CARE PROFESSIONAL documented in this encounter Plan of Treatment Upcoming Encounters Date Type Department Care Team Description 07/30/2023 1:00 PM HEARING CARE PROFESSIONAL Appointment [address] [address] Jersey Wilson MD [address] [place] [id number] 08/11/2023 2:15 PM HEARING CARE PROFESSIONAL Appointment [place] [address] [address] [place] [address] [place] [address] [place] [address] 11/17/2023 1:00 PM CDT Appointment [address] [address] Jersey Wilson MD [address] [place] [address] Scheduled Referrals Name Type Priority Associated Diagnoses Orde r Schedule Rehab Therapies Follow Up Referral Routine Acute bilateral low back pain with bilateral sciatica (HRC) Central stenosis of spinal canal Ordered: 05/14/2023 documented as of this encounter Visit Diagnoses Diagnosis Acute bilateral low back pain with bilateral sciatica (HRC)- Primary Central stenosis of spinal canal documented in this encounter Care Teams Wet End Helper Relationship Specialty Start Date End Date Jersey Wilson MD [address] [place] [address] PCP - General Family Practice 07/23/16 documented as of this encounter
--- OUTSIDE RECORDS SUMMARY | 2023-07-23 10:59 | XMS_ITS | Encounter Summary ---
Author Name Unknown Organization [facility] Address [address] [place] [address] Care Team Providers Care House Carpenter Name Role Phone Jersey Wilson MD Primary Care Provider [phone] Reason for Visit * Reason Comments Suture/Staple Removal Encounter Details Date Type Department Care Team Description 06/08/2023 Telephone [facility] Medicine [address] [facility] [place] [address] Jersey Wilson MD [address] [place], [place] [phone] Suture/Staple Removal Social History Tobacco Use Types Packs/Day Years [...] as of this encounter Nursing Notes * Aranza Bee - 06/15/2023 8:46 AM CST Pt is scheduled. UMER PRODUCT ADVISOR * Roopa Rao LPN - 06/15/2023 8:31 AM CST Spoke with patient. He was driving so requested to be called back to help get scheduled on 07/30 forsuture removal. UMER PRODUCT ADVISOR * Jersey Wilson MD - 06/13/2023 12:53 PM CST Okay to make appointment for suture removal. Patient should determine with surgeon if there are special instructions for this. UMER PRODUCT ADVISOR * Mike Schumacher MA - 06/08/2023 2:49 PM CST Clinician Action: Input needed regarding Suture Removal Clinician Next Step: Route to CSS (Clinical Credit Specialist) pool to follow up Specific Request(s): 1. Please review message below and advise if able/willing to remove sutures after surgery. UMER PRODUCT ADVISOR * Naomie Dugan - 06/08/2023 2:20 PM CST Other Questions/Concerns/FYI Is this a symptom? No What condition are you calling about? Suture Removal What is your question or concern? Pt is having Lumbar surgery at [facility] on 07/16/23 and will need sutures removed week 07/30/23 [place] suggested he check with PCP to see if they could remove sutures to save on a long drive back to [place] In winter. Patient is ok with anyone from [facility] removing them. All treatment other than surgery has all been done through [facility] Have you recently been seen for this? Yes: Jan or Feb - Is it okay to leave a detailed message on your voicemail? Yes Is there anything else I can help you with today? No UMER PRODUCT ADVISOR documented in this encounter Plan of Treatment Upcoming Encounters Date Type Department Care Team Description 07/30/2023 1:00 PM CONSUMER PRODUCT ADVISOR [address]ointment [address] [place] [address] Jersey Wilson MD [address] [facility] [place] [address] 08/11/2023 2:15 PM CONSUMER PRODUCT ADVISOR Appointment [place] [address] [place] [address] [place] [address] [place] [address] 11/17/2023 1:00 PM CDT Appointment [address] [place] [address] [place] [address] [place], [place] [address], [place] [phone] documented as of this encounter Visit Diagnoses Not on filedocumented in this encounter Care Teams House Carpenter Relationship Specialty Start Date End Date Jersey Wilson MD [address] [place], [place] [address] [address] PCP - General Family Practice 07/23/16 documented as of this encounter
--- OUTSIDE RECORDS SUMMARY | 2023-07-23 10:59 | XMS_ITS | Encounter Summary ---
Author Name Unknown Organization [facility] Address [address] [place] [address] Care Team Providers Care Communications Attendant Name Role Phone Jersey Wilson MD Primary Care Provider [phone] Reason for Visit * Reason Onset Date Comments COVID Questions 06/15/2023 Encounter Details Date Type Department Care Team Description 06/15/2023 9:00 AM AIRCRAFT MECHANIC STRUCTURES Lab Visit [facility] [address] [facility] [place], [place] [address] Encounter for screening for other viral diseases (Primary Dx) Social History Tobacco Use Types Packs/Day Years [...] Department Care Team Description 07/30/2023 1:00 PM AIRCRAFT MECHANIC STRUCTURES Appointment [facility] Medicine [address] [facility] [place] [address] Jersey Wilson MD [address] [facility] [place] [address] 08/11/2023 2:15 PM AIRCRAFT MECHANIC STRUCTURES Appointment [facility] [address] D[address] [place], [place] [phone] Suzanna Terrell MD, PhD [address] [place] [address] 11/17/2023 1:00 PM CDT Appointment [facility] [address] [facility] [place], [place] [phone] Jersey Wilson MD [address] [place], [place] [phone] documented as of this encounter Procedures Procedure Name Priority Date/Time Associated Diagnosis Comments 2019 NOVEL CORONAVIRUS Routine 06/15/2023 9:04 AM AIRCRAFT MECHANIC STRUCTURES Encounter for screening for other viral diseases documented in this encounter Results * (ABNORMAL) Asymptomatic - 2019 Novel Coronavirus (COVID-19) (06/15/2023 9:04 AM AIRCRAFT MECHANIC STRUCTURES) COVID-19 Interpretation Detected (A) Not Detected 06/15/2023 10:02 PM AIRCRAFT MECHANIC STRUCTURES [facility] Source Nares, left and right 06/15/2023 10:02 PM AIRCRAFT MECHANIC STRUCTURES [facility] Swab (Source Required) Non-blood Collection / Unknown 06/15/2023 9:04 AM AIRCRAFT MECHANIC STRUCTURES 06/15/2023 9:04 AM AIRCRAFT MECHANIC STRUCTURES Narrative [facility] - 06/15/2023 10:02 PM AIRCRAFT MECHANIC STRUCTURES Test performed by [employer] Operator Mediated Amplification. TMA has been shown to be equivalent to commercial real-time PCR tests. This test has been authorized by the FDA under Emergency Use Authorization (EUA) for use by authorized laboratories. Thai Mccauley MD LAB_1 [facility] [address] [address] [phone] documented in this encounter Visit Diagnoses Diagnosis Encounter for screening for other viral diseases- Primary documented in this encounter Care Teams Communications Attendant Relationship Specialty Start Date End Date Jersey Wilson MD [address] [facility] [place] [address] PCP - General Family Practice 07/23/16 documented as of this encounter
--- OUTSIDE RECORDS SUMMARY | 2023-07-23 10:59 | XMS_ITS | Clinical Summary ---
Author Name Unknown Organization [facility] Address [address] [place] [address] Care Team Providers Care Chief Psychology Name Role Phone Jersey Wilson MD Primary Care Provider [phone] Source Comments You are receiving this document as you are listed as the primary care provider,follow-up provider, or the patient has been referred to you for consultation.This is in compliance with the Medicare andMedicaid EHR Incentive Program,which states Providers who transition their patient to another setting of careor provider of care or refers their patient to another provider of care shouldprovide summary care record for each transition of care or referral. [facility] Allerg[facility] Active Allergy Reactions Criticality Noted Date Comments Hydromorphone Hcl Hives High 03/08/2023 Patient report Meperidine Other, see comments 04/19/2003 SEIZURE Meperidine Hcl Seizures 04/02/2023 Seafood Other, see comments,Hives High 12/11/2022 Shellfish-Derived Products Other, see comments 10/25/2014 Trazodone Syncope 11/10/2022 Medications Medication Sig Dispensed Refills Start Date End Date Status cholecalciferol (VITAMIND3) 50 MCG (1999 UT) tablet Take 1 Tablet (2,000 Units) by mouth daily. 0 Active olopatadine (PATANOL) 0.1 % eye drop solution Place 1-2 Drops into eye(s) two times daily as needed. 0 Active metoclopramide (REGLAN) 5 MG tabletIndications:G astroesophageal reflux disease without esophagitis Take 1 Tablet (5 mg) by mouth two times a day. 180 Tablet 3 11/10/[address] (PROTONIX) 40 MG tabletIndications:G astroesophageal reflux disease without esophagitis Take 1 Tablet (40 mg) by mouth daily. 90 Tablet 3 11/10/2022 Active tamsulosin (FLOMAX) 0.4 MG CAPS capsuleIndications: Benign prostatic hyperplasia, unspecified whether lower urinary tract symptoms present Take 1 Capsule (0.4 mg) by mouth daily. 90 Capsule 3 11/10/2022 Active finasteride (PROSCAR) 5 MG tablet Take 1 Tablet (5 mg) by mouth daily. 0 Active Tadalafil (CIALIS) 5 MG tablet Take 1 Tablet (5 mg) by mouth daily. 0 Active sildenafil (REVATIO) 20 MG tablet Take 1 Tablet (20 mg) by mouth as needed. 0 Active clotrimazole-betame thasone (LOTRISONE) 1-0.05 % cream Apply topically two times a day. 0 Active Loratadine (CLARITIN OR) 0 Active amitriptyline (ELAVIL) 25 MG tablet Take 4 tablets by mouth nightly. 360 Tablet 3 02/25/2023 Active topiramate (TOPAMAX) 100 MG tablet Take 1 Tablet (100 mg) by mouth daily at bedtime. 90 Tablet 3 02/25/2023 02/25/2024 Active SUMAtriptan (IMITREX) 100 MG tablet 1 tab at onset of typical headache. May repeat in 1-2 hours. Max 2/per day. Max 9 days per month. 9 Tablet 5 02/25/2023 Active carvedilol (COREG) 6.25 MG tablet Take 1 Tablet (6.25 mg) by mouth two times a day with meals. 180 Tablet 1 05/27/2023 05/26/2024 Active lisinopril-hydroCHL OROthiazide (PRINZIDE) 20-25 MG tablet Take 1 Tablet by mouth daily. 90 Tablet 1 05/27/2023 05/26/2024 Active oxyCODONE (ROXICODONE) 5 MG immediate release tabletIndications:S [place] stenosis of lumbar region with neurogenic claudication Take 1 Tablet (5 mg) by mouth daily as needed for Pain (severe). Caution with sedation, constipation, addiction. 30 Tablet 0 06/15/2023 Active Active Problems Problem Noted Date Diagnosed Date Leg edema 12/11/2022 History of squamous cell carcinoma of skin 08/03 Overview: SCC, left forehead 01/02 s/p MMS Total knee replacement status, right 03/03/2022 History of basal cell carcinoma 03/17/2021 Overview: Nodular BCC, right upper chest, treated with ED&C 03/17/2021 Adenomatous colon polyp 02/23/2017 Overview: Last done 11/2015; repeat due 11/2020 Obstructive sleep apnea on CPAP 02/19/2017 Overview: Setting: APAP 7-15 Supplied by: [facility] PSG done: 02/09/17 AHI 6 (HTN) RDI 16 Lowest O2 Sat: 83% Kelly/Beatriz 07/25/19 pressure change 02/16/17 new, change 03-09-17; 05/21/17 compliant Cerebral microvascular disease 04/16/2016 Hyperlipidemia 11/01/2015 Gastroesophageal reflux disease without esophagi tis 05/17/2015 Mild dilation of ascending aorta 10/12/2014 Overview: Repeat ECHO in one year. Migraine, chronic, without aura 05/25/2013 IFG (impaired fasting glucose) 02/02/2012 Benign prostatic hyperplasia 02/02/2012 Diverticulitis of colon 07/28/2009 Essential hypertension 03/02/2006 Resolved Problems Problem Noted Date Diagnosed Date Resolved Date Iron deficiency anemia 12/23/201502/23 Duodenal stricture 12/09/2015 8 Iron deficiency anemia 11/13/201512/30 Overview: Work up showed duodenum stricture. Bile-induced gastritis 05/17/201511/17 Situational depression 04/19/201506/30 Gastritis 04/19/2015 05/17/2015 TIA (transient ischemic attack) 10/25/2014 06/30/2017 TIA (transient ischemic attack) 10/19/2014 02/19/2022 Paroxysmal atrial fibrillation 07/15/2014 04/02/2023 Overview: Fibrillation Atrial Paroxysmal (PAF) Intractable chronic migraine without aura 02/23/2013 02/23/2017 Overview: Chronic migraine without aura, with intractable migraine, so stated, without mention of status migrainosus Medication overuse headache 02/23/2013 12/23/2015 Syncope and collapse 03/01/2009 016 Overview: LW Modifier: provoked by abd pain or diarrhea ; Syncope Cardiac dysrhythmia 03/01/2009 02/24/20 17 Overview: LW Modifier: mild chronotropic incompetence ; Bradycardia Cardiomegaly 03/01/2009 06/30/2017 Overview: Left Ventricular Hypertrophy Obesity 03/01/2009 02/23/2017 Cardiac dysrhythmia 03/01/2009 06/30/19 18 Overview: LW Modifier: slow atrial runs on Holter, asymptomatic ; Supraventricular Tachycardia Gastritis and gastroduodenitis 02/20/2009 05/17/2015 Overview: LW Modifier: bile- S/P EGD LW Onset: 08/2008 ; Gastritis Abnormal blood chemistry 04/12/2008 Overview: LW Modifier: Impaired fasting glucose ; Hyperglycemia Benign neoplasm of colon 09/02/200705/2017 Overview: LW Modifier: Repeat colonoscopy in 5 yrs LW Onset: 09/01/07 ; Polyp Colon Adenomatous Headache 03/02/2006 08/19/2011 Overview: LW Modifier: chronic daily ; Headache(784.0) Gastric ulcer 03/02/2006 05/17/2015 Overview: LW Modifier: Aspirin ; Ulcer Gastric Palpitations 03/02/2006 02/23/2017 Overview: LW Modifier: Holter showed PAC's and PVC's Chronic headaches 03/02/2006 06/30/2017 Encounters Date Type Department Care Team Description 07/06/2023 1:30 PM AUTO HIKER Therapy [facility] [place] [id number] [place] [address] Grace Condon, PT Acute bilateral low back pain with bilateral sciatica (HRC) (Primary Dx); Central stenosis of spinal canal 07/02/2023 1:00 PM AUTO HIKER Therapy [facility] [address] [address] Grace Condon, PT Acute bilateral low back pain with bilateral sciatica (HRC) (Primary Dx); Central stenosis of spinal canal 06/29/2023 3:00 PM AUTO HIKER Therapy [facility] [address] [address] Grace Condon, PT Acute bilateral low back pain with bilateral sciatica (HRC) (Primary Dx); Central stenosis of spinal canal 06/15/2023 9:00 AM AUTO HIKER Lab Visit [facility] [address] [place] [address] Encounter for screening for other viral diseases (Primary Dx) 06/11/2023 Nurse Triage [facility] [address] [place] [address] Jersey Wilson MD BACK PAIN 06/08/2023 Telephone [facility] [address] [place] [address] Jersey Wilson MD Suture/Staple Removal 05/27/2023 Refill [facility] [address] [place] [address] Gaston Ro MD Refill 05/26/2023 1:00 PM AUTO HIKER Treatment [facility] [address] [place] [address] India Ho, SWATCH PASTER, DATA ANALYTICS CHIEF SCIENTIST Masha Russell, DO Lumbar radiculopathy (Primary Dx); Spinal stenosis of lumbar region with neurogenic claudication 05/14/2023 1:45 PM AUTO HIKER Therapy [facility] [place] [address] [place] [address] Grace Condon E, PT Acute bilateral low back pain with bilateral sciatica (HRC) (Primary Dx); Central stenosis of spinal canal 05/10/[address] [facility] [address] [place] [address] India Ho, SWATCH PASTER, DATA ANALYTICS CHIEF SCIENTIST QUESTIONS, GENERAL (Epidural Wearing Off) 05/10/2023 Telephone [facility] [address] [place] [address] Masha Russell DO Questions from Last 3 Months Immunizations Name Administration Dates Next Due Flu Vac Preserv Free (3+yrs) 04/02/2012, 02/26/2010,02/20/2009,2005 Influenza IIV3 (Trivalent) F luthomas Highdose, 65+ Yrs (58[address]) 03/14/2019,03/28/2018,02/23/2017,2015,04/01/2015,03/22/2014 Influenza IIV4 (Quadrivalent ) 0.5mL (59793) 06/20/2013 Influenza IIV4 (Quadrivalent ) Fluad, 65+ Yrs 02/19/2022,03/27/2021,03/27/2020 Influenza, Unspecified Formulation 04/02/1995 Moderna Monovalent 12+ 05/02/2021,07/31/2020, PCV13 (Prevnar) 03/22/2014 PPSV23 (Pneumovax) 03/26/2006 TDAP (ADACEL) 02/02/2012 Td 05/08/2002,04/02/1995 Family History Medical History Relation Name Comments Cataract Father Coronary Artery Disease Father Heart Attack Father fatal Migraines Mother Heart Disease Brother Santos Him and 3 sons also Stroke Brother Santos Him and 3 sons also Migraines Daughter Amblyopia/Strabismus Negative Family History Diabetes Negative Family History Glaucoma Negative Family History Macular Degeneration Negative Family History Retinal Detachment Negative Family History Relation Name Status Comments Father Mother Brother Santos Daughter Maternal Grandfather Maternal Grandmother Paternal Grandfather Paternal Grandmother Social History Tobacco Use Types Packs/Day Years Used Date Smoking Tobacco: Never Smokeless Tobacco: Never Tobacco Cessation:Counseling Given: Not Answered Alcohol Use Standard Drinks/Week Comments Yes 3 (1 standard drink = 0.6 oz pur e alcohol) 3-4 drinks a week PHQ-2 Answer Date Recorded PHQ-2 Score 0 11/10/2022 Sex and Gender Information Value Date Recorded Sex Assigned at Not on file Gender Identity Not on file Sexual Orientation Not on file Last Filed Vital Signs Vital Sign Reading Time Taken Comments Blood Pressure 159/79 05/26/2023 12:35 PM AUTO HIKER Pulse 64 05/26/2023 12:35 PM AUTO HIKER Temperature 36.3 ??C (97.3 ??F) 03/16/2023 12:23 PM C DT Respiratory Rate 14 02/25/2023 1:10 PM CDT Oxygen Saturation 98% 11/24/2021 7:22 PM CDT Inhaled Oxygen Concentration - - Weight 92.1 kg (203 lb) 04/02/2023 10:11 AM CDT Height 177.8 cm (5' 10) 04/02/2023 10:11 AM CDT Body Mass Index 29.13 04/02/2023 10:11 AM CDT Plan of Treatment Upcoming Encounters Date Type Department Care Team Description 07/30/2023 1:00 PM AUTO HIKER Appointment [facility] [address] [place] [address] Jersey Wilson MD [address] [facility] [place] [facility] [place] [address] 08/11/2023 2:15 PM AUTO HIKER Appointment [place] [address] [address] [place], [place] [address] Suzanna Terrell MD, PhD [address] [place], [place] [id number] 11/17/2023 1:00 PM CDT Appointment [facility] [address] [place] [address] Jersey Wilson MD [address] [facility] [place] [address] Health Maintenance Due Date Last Done Comments Zoster/Shingles (1 of 2) 1991 Colonoscopy 12/14/2020 12/14/2017, 09/09/2012 (Completed), 07/06/2007 DTaP/Tdap/Td (2 - Tdap) 02/01/2022 02/02/20 12, 05/08/2002, 04/02/1995 COVID-19 Vaccine ( season) 2023 05/02/2021, 07/31/2020, 07/03/2020 Influenza (#1) 2023 02/19/2022, 03/14, 03/27/2020, Additional history exists Medicare Annual Wellness Visit 06/14/2023 11/10/2022, 07/23/2021, 08/27/2020, Additional history exists Prediabetes: HGBA1C 11/11/2023 11/10/2022, 06/02/2021, 05/28/2020, Additional history exists Pneumococcal 65+ Yrs Completed 03/22/2014, 03/26/20 06 HepA Aged Out No longer eligi ble based on patient's age to complete this topic HepB Aged Out No longer eligi ble based on patient's age to complete this topic Hib Aged Out No longer eligi ble based on patient's age to complete this topic IPV (Polio) Aged Out No longer eligi ble based on patient's age to complete this topic MCV4 Aged Out No longer eligi ble based on patient's age to complete this topic Procedures Procedure Name Priority Date/Time Associated Diagnosis Comments 2019 NOVEL CORONAVIRUS Routine 06/15/2023 9:04 AM AUTO HIKER Encounter for screening for other viral diseases [place] SPINAL INJECTION FOR PAIN MANAGEMENT Routine 05/26/2023 1:07 PM AUTO HIKER Spinal stenosis of lumbar region with neurogenic claudication from Last 3 Months Results * (ABNORMAL) Asymptomatic - 2019 Novel Coronavirus (COVID-19) (06/15/2023 9:04 AM AUTO HIKER) COVID-19 Interpretation Detected (A) Not Detected 06/15/2023 10:02 PM AUTO HIKER [facility] Source Nares, left and right 06/15/2023 10:02 PM AUTO HIKER [facility]AL [facility] Swab (Source Required) Non-blood Collection / Unknown 06/15/2023 9:04 AM AUTO HIKER 06/15/2023 9:04 AM AUTO HIKER Narrative [facility] - 06/15/2023 10:02 PM AUTO HIKER Test performed by Pad Assembler Mediated Amplification. TMA has been shown to be equivalent to commercial real-time PCR tests. This test has been authorized by the FDA under Emergency Use Authorization (EUA) for use by authorized laboratories. Thai Mccauley MD LAB_1 [facility] C[facility]AL LAB [address] [phone] * FL Spinal Injection For Pain Management (05/26/2023 1:07 PM AUTO HIKER) Anatomical Region Laterality Modality Spine, L-Spine, T-Spine, C-Spine Radiographic Imaging Narrative 05/26/2023 1:08 PM AUTO HIKER These images were obtained during a surgical procedure. India Ho APRN, DATA ANALYTICS CHIEF SCIENTIST RAD FL from Last 3 Months Care Teams Chief Psychology Relationship Specialty Start Date End Date Jersey Wilson MD [address] [facility] [place] [address] PCP - General Family Practice 07/23/16
--- OUTSIDE RECORDS SUMMARY | 2023-07-23 10:59 | XMS_ITS | Encounter Summary ---
Author Name Unknown Organization [facility] Address [address] [place] [address] Care Team Providers Care Antique Furniture Reproducer Name Role Phone Jersey Wilson MD Primary Care Provider [phone] Reason for Visit * Reason Comments BACK PAIN Encounter Details Date Type Department Care Team Description 06/11/2023 Nurse Triage [facility] [address] [facility] [place], [place] [id number] Jersey Wilson MD [address] [place], [place] [phone] BACK PAIN Social History Tobacco Use Types Packs/Day Years [...] as of this encounter Nursing Notes * Roopa Rao LPN - 06/15/2023 9:05 AM CST Spoke with [facility] and cancelled prescription. TRUING MACHINE OPERATOR * Jersey Wilson MD - 06/15/2023 8:34 AM CST Please call to cancel prescription to [facility]. New prescription sent to [facility]. TRUING MACHINE OPERATOR * Roopa Rao LPN - 06/15/2023 8:28 AM CST Spoke with patient and informed him that it is not recommended that he takes oxycodone for long-term pain control. Will refill once. Needs to be seen to discuss ongoing pain management if not improving with surgery. Also recommended that he ask his surgeon if there are special requirements for suture removal. Patient is requesting that refill be sent to [facility] in [place] instead of [facility]. TRUING MACHINE OPERATOR * Jersey Wilson MD - 06/13/2023 1:08 PM CST PDMP reviewed. Plan: Please call. Would not recommend oxycodone for long-term pain control. Will refill once. Needs to be seen to discuss ongoing pain management if not improving with surgery. Okay to use same day slot for suture removal. After surgery, recommend patient ask their surgeon if there are special requirements for suture removal. TRUING MACHINE OPERATOR * Laurie Petersen RN - 06/11/2023 3:49 PM CST Clinician: Review and advise and Route to CSS Patient/senior care specialist request: New medication - Oxycodone 5 mg. Specific Request: If Pt needs an Appt for this request, OK to use a Same Day slot? He will be having back surgery at [place] on 07-16-2023. He feels he will need more Oxy prior to his surgery. His last Refill was 04-09-2023, # 14 tablets. He has 1 left. His last steroid injection from 05-26-2023 was no longer effective as of 06-07-2023. Pt states he is fairly comfortable with sitting, with pain rated 2-3/10. He is unable to be on his feet for more than about 10 minutes as the pain increases to severe while on his feet longer than that. He is taking Acetaminophen 1 g once or twice daily, with minimal relief. He is able to sleep pretty well. His Oxycodone had been prescribed by a [facility] Provider, who advised he see the pain clinic or discuss further refills with his PCP. Problem list reviewed as related to this call. Reason for Disposition Back pain present > 2 weeks (Recommend physical therapy if no improvement after 2 weeks of home management) Protocols used: Back [id number] with SO TRUING MACHINE OPERATOR * Maxime Ceja - 06/11/2023 3:35 PM CST Other Questions/Concerns/FYI Is this a symptom? No What condition are you calling about? What is your question or concern? Have you recently been seen for this? No Is it okay to leave a detailed message on your voicemail? Yes Is there anything else I can help you with today? TRUING MACHINE OPERATOR documented in this encounter Plan of Treatment Upcoming Encounters Date Type Department Care Team Description 07/30/2023 1:00 PM BALL TRUING MACHINE OPERATOR Appointment [facility] [address] [facility] [place] [address] Jersey Wilson MD [address] [place] [address] 08/11/2023 2:15 PM BALL TRUING MACHINE OPERATOR Appointment [place] [address] Dermatology [address] [place], [place] [address] Suzanna Terrell MD, PhD [address] [place] [address] 11/17/2023 1:00 PM CDT Appointment [facility] [address] [facility] [place] [address] Jersey Wilson MD [address] [facility] [place] [address] documented as of this encounter Visit Diagnoses Diagnosis Spinal stenosis of lumbar region with neurogenic claudication Spinal stenosis, lumbar region, with neurogenic claudication documented in this encounter Care Teams Antique Furniture Reproducer Relationship Specialty Start Date End Date Jersey Wilson MD [address] [facility] [place] [address] PCP - General Family Practice 07/23/16 documented as of this encounter
--- OUTSIDE RECORDS SUMMARY | 2023-07-23 10:59 | XMS_ITS | Encounter Summary ---
Author Name Unknown Organization [facility] Address [address] [place] [address] Care Team Providers Care Certified Nurses Aide Name Role Phone Jersey Wilson MD Primary Care Provider [phone] Reason for Visit * Reason Comments Questions Encounter Details Date Type Department Care Team Description 05/10/2023 Telephone [facility] [address] [place] [address] Masha Russell, DO [address] [place] [address] Questions Social History Tobacco Use Types Packs/Day Years [...] as of this encounter Nursing Notes * Minna Kelly RN - 05/10/2023 1:06 PM CST Patient called in to report his LESI on 04/07 ordered by Orthopedic Provider India Ho CNP only last 4 weeks. Patient has not been evaluated by one of our providers since his consult with Dr. Teixeira over a year ago on 10/14/21. States he wants a repeat injection. Informed him he will need to discuss this with India's team or schedule a follow up with Dr. Teixeira. Reports he is hoping to get a repeat injection before 06/03. Discussed with him that identical injections can only be repeated every 3 months and that we cannot guarantee he would be scheduled with us sooner than 06/03. Informed him there are other health care facilities in the [facility] that may be able to get him in before then but he will need a new order for it. Patient continued to [place] around to the same concern reporting he is anxious about it. Reminded him the first step to take is to call India's office and gave him the phone number. Patient verbalized understanding and took it down. No further questions or concerns noted at this time. [facility] documented in this encounter Plan of Treatment Upcoming Encounters Date Type Department Care Team Description 07/30/2023 1:00 PM EP[facility] Appointment [address] [address] [place] [address] [place] [address] 08/11/2023 2:15 PM EPIC [facility] Appointment [facility] [address] D[address]atology [address] [place] [address] [place] [address] [place] [address] 11/17/2023 1:00 PM CDT Appointment [facility] [address] [place] [address] [place] [address] [place] [address] documented as of this encounter Visit Diagnoses Not on filedocumented in this encounter Care Teams Certified Nurses Aide Relationship Specialty Start Date End Date Jersey Wilson MD [address] [place] [address] PCP - General Family Practice 07/23/16 documented as of this encounter
--- OUTSIDE RECORDS SUMMARY | 2023-07-23 10:59 | XMS_ITS | Encounter Summary ---
Author Name Unknown Organization [facility] Address [address] [place] [address] Care Team Providers Care Sales Trader Name Role Phone Jersey Wilson MD Primary Care Provider [phone] Reason for Visit * Reason Comments Refill Encounter Details Date Type Department Care Team Description 04/08/2023 Refill [facility] [address] [place] [address] India Ho, ASSET PROTECTION SPECIALIST, HEALTH AND SAFETY TRAINER [address] [place] [address] Refill Social History Tobacco Use Types Packs/Day [...] as of this encounter Nursing Notes * Shanti Morgan RN - 04/09/2023 12:50 PM CDT Left vm message informing pt of India's response. Left [facility] call back number if pt has any further questions or would like a referral to the pain clinic. I refilled the prescription for #14; so for 7 days. Please let the patient know I do not recommend continued opioids for pain and he can either follow up with his PCP per our discussion at his clinicvisit or we can refer him to pain management. Thank you. * Mayra Merino - 04/08/2023 11:59 AM CDT MEDICATION QUESTIONS / REFILL REQUESTS Are you calling about medication questions or a refill request? Refill Request REFILL REQUEST What medication are you asking to refill (name or type -- ask patient to provide proper spelling from prescription container): Oxycodone Dose: 5 mg Date last filled: 03/18/2023 Patient states currently takin tabs [facility] [place] [place] [address] [facility] [address] How many doses do you have left: 0 Comments: Patient is calling to report that he would like a refill of this medication to get him through a [address] for a . Patient had his injection on 04/07/2023, but it will not kick in in time for the drive. Patient only wants enough medication to get him through the drive there andback. Patient leaves on Wednesday at the latest, the is on Wednesday. Is another medication refill needed: No If we are unable to reach you can we leave a detailed message on your voicemail? Yes If we are unable to reach you can we send you a message in Vitrina? No [Musculoskeletal Physiotherapist/Event Specialist: Relay to patient; We make every effort to get to you same day,however it may take 1-2 business days depending on the nature of the communication] documented in this encounter Plan of Treatment Upcoming Encounters Date Type Department Care Team Description 07/30/2023 1:00 PM ALARM TECHNICIAN Appointment [facility] [address] [place] [address] [place] [address] Jersey Wilson MD [address] [facility] [place] [address] 08/11/2023 2:15 PM ALARM TECHNICIAN Appointment [place] [address] Dermatology [address] [place] [address] Suzanna Terrell MD, PhD [address] [place] [address] 11/17/2023 1:00 PM CDT [address]ointment [address] [place] [address] Jersey Wilson MD [address] [place], [place] [address] documented as of this encounter Visit Diagnoses Diagnosis Spinal stenosis of lumbar region with neurogenic claudication- Primary Spinal stenosis, lumbar region, with neurogenic claudication documented in this encounter Care Teams Sales Trader Relationship Specialty [place] [address] [place], [place] [address] [address] PCP - General Family Practice 07/23/16 documented as of this encounter
--- OUTSIDE RECORDS SUMMARY | 2023-07-23 11:00 | XMS_ITS | Encounter Summary ---
Author Name Unknown Organization [facility] Address [address] [place] [address] Care Team Providers Care Histologic Aide Name Role Phone Jersey Wilson MD Primary Care Provider [phone] Encounter Details Date Type Department Care Team Description 04/05/2023 Notes/Orders [facility] [address] [facility] [place] [address] Jersey Wilson MD [address] [facility] [place], [place] [address] Social History Tobacco Use Types Packs/Day Years [...] Department Care Team Description 07/30/2023 1:00 PM BLACK TOP ROLLER Appointment [facility] [address] [facility] [place] [place] [address] Jersey Wilson MD [address] [facility] [place] [address] 08/11/2023 2:15 PM BLACK TOP ROLLER Appointment [place] [address] Dermatology [address] [place] [address] Suzanna Terrell MD, PhD [address] [place] [address] 11/17/2023 1:00 PM CDT Appointment [facility] [address] [facility] [place] [address] Jersey Wilson MD [address] [facility] [place] [address] documented as of this encounter Visit Diagnoses Not on filedocumented in this encounter Additional Health Concerns Infection Onset Date Last Indicated Resolved Time COVID19 06/15/2023 06/15/2023 06/26/2023 3:17 AM BLACK TOP ROLLER documented as of this encounter Care Teams Histologic Aide Relationship Specialty Start Date End Date Jersey Wilson MD [address] [facility] [place] [address] PCP - General Family Practice 07/23/16 documented as of this encounter
--- OUTSIDE RECORDS SUMMARY | 2023-07-23 11:00 | XMS_ITS | Encounter Summary ---
Author Name Unknown Organization [facility] Address [address] [place] [address] Care Team Providers Care Pneumatic Tester Mechanic Name Role Phone Jersey Wilson MD Primary Care Provider [phone] Reason for Visit * Reason Comments APPOINTMENT REQUEST Encounter Details Date Type Department Care Team Description 03/22/2023 Telephone [facility] [address] [place] [address] Masha Russell, [address] [place] [address] APPOINTMENT REQUEST Social History Tobacco Use Types Packs/Day Years [...] Nursing Notes * Minna Kelly RN - 03/22/2023 2:41 PM CDT Patient called and reports he is scheduled for a LESI on 04/07 [address] Russell in clinicbefore that and she does not have an opening by then. Informed him he can ask to be added to the cancellation list or ask to see if another provider in our department is available sooner. Patient reports he only wants to go to [place] and does not want to see a PA-C or METAL BASE BLOCKER. Nurse discussed that if he cannot get in with a MD/DO before 04/07 he can consider going to an Orthopedic Urgent Care such as [facility]. Patient verbalized understanding. Nurse offered to transfer patient and he accepted but then suddenly said goodbye and ended the call. documented in this encounter Plan of Treatment Upcoming Encounters Date Type Department Care Team Description 07/30/2023 1:00 PM SENIOR CORPORATE RECRUITER Appointment [address] [address] Jersey Wilson MD [address] [place] [address] 08/11/2023 2:15 PM SENIOR CORPORATE RECRUITER Appointment [facility] [address] Dermatology [address] [place] [address] Suzanna Terrell MD, PhD [address] [place] [address] 11/17/2023 1:00 PM CDT Appointment [address] [address] [place] [address] [place] [address] documented as of this encounter Visit Diagnoses Not on filedocumented in this encounter Care Teams Pneumatic Tester Mechanic Relationship Specialty Start Date End Date Jersey Wilson MD [address] [place] [address] [place] [address] PCP - General Family Practice 07/23/16 documented as of this encounter
--- OUTSIDE RECORDS SUMMARY | 2023-07-23 11:00 | XMS_ITS | Encounter Summary ---
Author Name Unknown Organization [facility] Address [address] [place] [address] Care Team Providers Care Yardage Control Operator Forming Name Role Phone Jersey Wilson MD Primary Care Provider [phone] Reason for Visit * Reason Comments Appt. Work In Request Encounter Details Date Type Department Care Team Description 03/29/2023 Telephone [facility] Medicine [address] [facility] [place] [address] Jersey Wilson MD [address] [place], [place] [address] Appt. Work In Request Social History Tobacco Use Types Packs/Day Years [...] as of this encounter Nursing Notes * Ofelia Motta RN - 03/30/2023 7:58 AM CDT Spoke with patient. Patient is inquiring about scheduling a pre-op appointment for a colonoscopy. Scheduled on 04/05. Patient scheduled for 04/02. Patient verbalizes understanding and no further questions. * Maxime Ceja - 03/29/2023 5:59 PM CDT Appointments - Same Day/Next Day Patient would like appointment with his provider. Current PCP: Jersey Wilson MD If requested clinician is unavailable, is it okay to be seen by another clinician? Yes What is the patient requesting to be seen for? Pre-Op Wants/Needs to be seen within: DOS 04/07/23 Additional comments (related to the above concern): If there are questions regarding your request, is it okay to leave detailed message on your voicemail? Yes documented in this encounter Plan of Treatment Upcoming Encounters Date Type Department Care Team Description 07/30/2023 1:00 PM HAND SOLE SEWER Appointment [address] [place] [address] Jersey Wilson MD [address] [place] [address] 08/11/2023 2:15 PM HAND SOLE SEWER Appointment [place] [address] [address] [place] [address] Suzanna Terrell MD, PhD [address] [place] [address] 11/17/2023 1:00 PM CDT Appointment [facility] [address] [place] [address] [place] [address] Jersey Wilson MD [address] [facility] [place] [address] documented as of this encounter Visit Diagnoses Not on filedocumented in this encounter Care Teams Yardage Control Operator Forming Relationship Specialty Start Date End Date Jersey Wilson MD [address] [facility] [place] [address] PCP - General Family Practice 07/23/16 documented as of this encounter
--- OUTSIDE RECORDS SUMMARY | 2023-07-23 11:00 | XMS_ITS | Encounter Summary ---
Author Name [facility] Address [address] [place] [address] Care Team Providers Care Supervisor Belt And Link Assembly Name Role Phone Jersey Wilson MD Primary Care Provider [phone] Reason for Referral * Therapies (Routine) - New Request Specialty Diagnoses / Procedures Referred By Myrna t Referred To Contact Diagnoses Acute midline low back pain with bilateral sciatica (HRC) Central stenosis of spinal canal Og Barnes MD [address] [place] [address] Referral ID Status Reason Start Date Expiration Date V isits Requested Visits Authorized [id number] New Request 03/09/2023 03/08/2024 [id number] Scheduling Instructions Your clinician has recommended an appointment with [facility]. You can quickly make your appointment online at [employer]/schedule. You can also call [phone] for help scheduling your appointment. We suggest you call your health insurance company about your coverage and benefits for this appointment. Question Answer Appointment Urgency? Non-Urgent Requested Services Evaluate and treat May use saline for irrigation or cleansing Yes dexamethasone use Yes May check glucose per protocol (see policy link below) or if patient has symptoms? Yes Reason for Visit * Reason Comments MRI Results MRI Results lumbar s pine Encounter Details Date Type Department Care Team Description 03/09/2023 2:00 PM CDT Office Visit [facility] [address] [place] [address] Og Barnes MD [address] [place] [address] Acute midline low back pain with bilateral sciatica (HRC) (Primary Dx); Central stenosis of spinal canal; History of gastric ulcer Social History Tobacco Use Types Packs/Day Years [...] Sign Reading Time Taken Comments Blood Pressure - - Pulse - - Temperature 36.3 ??C (97.3 ??F) 03/09/2023 2:01 PM CD T Respiratory Rate - - Oxygen Saturation - - Inhaled Oxygen Concentration - - Weight - - Height - - Body Mass Index - - documented in this encounter Patient Instructions * Patient Instructions* Saira Lam, ATC - 03/09/2023 2:00 PM CDT Thank you for choosing [facility] for your health care visit today. If you have any questions regarding your visit or next steps, please contact us at [phone]. Og Barnes MD Medication Requests: Prescriptions are filled on Weekdays before 3:00PM For all medication refills: Request a refill using MyChart or contact your Pharmacy Paperwork Requests: FMLA or disability paperwork can be faxed to: [phone] Please allow 7-10 business days for completion of all paperwork. [facility] Worker's Compensation Services: E-mail Address: [email or web address] What is Know Your Cost? Know Your Cost is a service for patients and patient/members to call and receive personalized cost information and estimates across our care group. The phone number is (COST) Wednesday - Wednesday 8 AM to 5 PM To request copies of your medical records, call: [phone] (option 4) Diagnosis: Encounter Diagnoses Name Primary? Acute midline low back pain with bilateral sciatica (HRC) Yes Central stenosis of spinal canal History of gastric ulcer Plan: Follow Up: As needed if symptoms are not improving or worsen. Physical Therapy: Our physical therapist will see you today. Subsequent appointments can be made bycalling [phone]. Medications: . -reviewed MRI -start physical therapy today -start Prednisone anti-inflammatory -tylenol - 1-2 tabs 3 times a day at baseline -continue Amitriptyline before bed -- good for sleep and nerve pain -add in Oxycodone for severe pain, take 0.5-2 tabs as needed, use sparingly - caution with sedation, constipation, addiction -- more than 3 tabs in 24hr -stool softener -- sennakot or Miralax daily -Follow up in 1wk - consider TALYA * Attachments The following attachments cannot be sent through Care Everywhere. * Lumbar Spinal Stenosis: Surgery: Deciding About (Tajik) * Herniated Disc (Tajik) documented in this encounter Progress Notes * Og Barnes MD - 03/09/2023 2:00 PM CDT [facility] Date of Service: 03/09/2023 ASSESSMENT/PLAN 1. Acute midline low back pain with bilateral sciatica (HRC) 2. Central stenosis of spinal canal 3. History of gastric ulcer -reviewed MRI -start physical therapy today -start Prednisone anti-inflammatory -tylenol - 1-2 tabs 3 times a day at baseline -continue Amitriptyline before bed -- good for sleep and nerve pain -add in Oxycodone for severe pain, take 0.5-2 tabs as needed, use sparingly - caution with sedation, constipation, addiction -- more than 3 tabs in 24hr -stool softener -- sennakot or Miralax daily -Follow up in 1wk - consider TALYA left L3-L4 Atif Rae is a 83 y.o. male who presents for follow-up on lower back pain with bilateral leg pain particularly down the anterior thighs. Overall patient reports pain is worse in the legs in theback. Pain is definitely worse in the front of the legs and the back of the legs today. Reviewed MRI which is notable for severe spinal canal stenosis with a large disc protrusion at left L3-4. This is consistent with patient's pain and suspect that this is also the cause of his right-sided leg pain. Patient did not start steroids last night due to error of not sending them in. I apologized for this. Patient did use oxycodone which was helpful for sleep. Again emphasized need to take Tylenol atbaseline and then add oxycodone on top. Again patient has history of gastric ulcer so recommend agai nst NSAIDs for him. Reviewed that we already taking a risk with oral steroids but given patient's severe pain feel this is important. Consider option of TALYA injection but patient would like to try the medications 1st given this has fairly invasive. Emphasized concerned about his independence given his difficulty with ADLs related to pain. We will do close follow-up. Orders Placed This Encounter Physical Therapy Og Barnes MD Primary Care Sports Medicine, [facility] SUBJECTIVE MRI Results (MRI Results lumbar spine ) () HPI Back pain Wort pain in legs > back Pain worst in the front of legs Started Oxycodone OBJECTIVE Temp 36.3 ??C (97.3 ??F) (Temporal Artery) Pain Assessment Pain Side/Orientation: lower Pain Location: back (0-10) Pain Rating: Rest: 8 (0-10) Pain Rating: Activity: 9 MR Lumbar Spine WO IV Cont INDICATION: rule out canal stenosis vs bilateral S1 TECHNIQUE: Routine non-contrast MRI of the lumbar spine. COMPARISON: Plain film 03/08/2023. FINDINGS: Five lumbar-type vertebral bodies. The conus medullaris terminates at the level of the [id number]. Normal cord signal. Scattered small Schmorl's nodes. Redundancy of the nerve roots below the L3-L4 stenosis described below. Normal alignment. The visualized paraspinal structures are unremarkable. Axial: T12-L1: Unremarkable. L1-2: Unremarkable. L2-3: Disc bulge. Bilateral facet hypertrophy. Mild canal and mild bilateral foraminal stenosis. L3-4: Large disc bulge and left subarticular disc protrusion.. Mass effect on the traversing left L4 nerve root. Severe canal stenosis. Moderate bilateral foraminal stenosis. L4-5: Disc bulge and small central disc protrusion. Mild facet degenerative changes. Mild bilateralforaminal stenosis. L5-S1: Mild disc bulge. Right extraforaminal annular fissure. No canal stenosis. No foraminal stenosis. IMPRESSION: 1. Severe canal stenosis at L3-L4 where a prominent left subarticular disc protrusion also displaces the traversing left L4 nerve root. 2. Multilevel foraminal stenosis, moderate bilaterally at L3-L4. 3. Additional degenerative changes as detailed above. Comment: Many lumbar spine MRI findings are so common that while we may have reported their presence, they must be interpreted with caution and in the context of the clinical situation. The frequencyof these findings in adults WITHOUT low back pain increases with age and are as follows: disk degeneration (37-96%), disk height loss (24-84%), disk bulge (30-84%), disk protrusion (29- 43%), annular fissure (19-29%), and facet degeneration (4-83%). Frequency percentages adapted from Adithya W, Luyesy PH, Marianna B, et al. AJNR AM J Neuroradiol 2015:36:811-16. documented in this encounter Plan of Treatment Upcoming Encounters Date Type Department Care Team Description 07/30/2023 1:00 PM HOSPITAL CORPSMAN Appointment [address] [place] [address] Jersey Wilson MD [address] [place], [place] [address] [address] 08/11/2023 2:15 PM HOSPITAL CORPSMAN Appointment [address] [place] [address] Suzanna Terrell MD, PhD [address] [place] [address] 11/17/2023 1:00 PM CDT Appointment [facility] [address] [facility] [place], [place] [address] Jersey Wilson MD 1415 [facility] [place], [place] [address] Scheduled Referrals Name Type Priority Associated Diagnoses Orde r Schedule Physical Therapy Referral Routine Acute midline low back pain with bilateral sciatica (HRC) Central stenosis of spinal canal Ordered: 03/09/2023 documented as of this encounter Visit Diagnoses Diagnosis Acute midline low back pain with bilateral sciatica (HRC)- Primary Central stenosis of spinal canal History of gastric ulcer Personal history of other diseases of digestive system documented in this encounter Care Teams Supervisor Belt And Link Assembly Relationship Specialty Start Date End Date Jersey Wilson MD [address] [facility] [place], [place] [address] PCP - General Family Practice 07/23/16 documented as of this encounter
--- OUTSIDE RECORDS SUMMARY | 2023-07-23 11:00 | XMS_ITS | Encounter Summary ---
Author Name Unknown Organization [facility] Address [address] [address] Care Team Providers Care Nickel Plant Operator Name Role Phone Jersey Wilson MD Primary Care Provider [phone] Reason for Visit * Reason Comments Spine Lumbar * Therapies (Routine) - New Request Specialty Diagnoses / Procedures Referred By Contac t Referred To Contact Diagnoses Acute midline low back pain with bilateral sciatica (HRC) Central stenosis of spinal canal Og Barnes MD [address] [place] [address] Referral ID Status Reason Start Date Expiration Date V isits Requested Visits Authorized [id number] New Request 03/09/2023 03/08/2024 999 [id number] Encounter Details Date Type Department Care Team Description 03/15/2023 2:45 PM CDT Therapy [facility] [address] [address] [place] [address] [place], [place] [phone] Acute bilateral low back pain with bilateral [...] as of this encounter Progress Notes * Tye Silverman, PT - 03/15/2023 2:45 PM CDT [facility] Physical Therapy Progress Note Visit Number: 2 Initial Certification Period: 03/10/2023 to 06/08/23 Referring Provider: Og Barnes MD Visit Diagnosis: 1. Acute bilateral low back pain with bilateral sciatica (HRC) 2. Central stenosis of spinal canal Precautions: A Fib. HTN, SUBJECTIVE: New to this PT today. Patient sates he is not any better since his previous visit, still has days where it is much worse. Pain is more in back today but it can be in both legs. Back of leg is more pain, anterior more tingling which is here now and always there. Can't do the one exercise that he's supposed to do on the floor (trunk rotation). Right now back pain is 5-6/10 sitting, 8-9/10 upon standing. Past Medical History: Pertinent diagnostic tests: MRI 03/09/2023 IMPRESSION: 1. Severe canal stenosis at L3-L4 where a prominent left subarticular disc protrusion also displaces the traversing left L4 nerve root. 2. Multilevel foraminal stenosis, moderate bilaterally at L3-L4. 3. Additional degenerative changes as detailed above. Aggravating factors: standing, walking. Relieving factors: Today he is better when sitting. OBJECTIVE Current Objective Findings: Treatment/Education Today: Therapeutic Activity x 30 min: Discussed at great length patient's condition and why he has pain with standing and they are reduced with sitting Discussed possibility of using a walker to allow him to bend forward a little vs being in 8-9/10 pain while walking without walker Discussed with patient that PT will try to help him maintain ROM the best we can to keep him be as active as possible, but also help him modify activity so he can do them in a more tolerable amount of discomfort Therapeutic Exercise x 15 min: Nu step x 8 min Sit to stands x 5 Standing hip flexion x 8 each leg Standing hip abduction x 8 each leg Standing hip extension performed in partial ROM due to back pain at full ROM x 5 each leg Timed Code Treatment Minutes: 45 Total Treatment Minutes: 45 Current Home Exercise Program List: Access Code: [email or web address] URL: [email or web address] Date: 03/15/2023 Prepared by: Tye Silverman Exercises - Seated Scapular Retraction - 1 [...] weekly - 1-2 sets - 10 reps ASSESSMENT/PROGRESS TOWARD GOALS: Atif presents with central canal and foraminal stenosis and disc protrusion L3-4 leading to radiating anterior and posterior LE pain. Patient had some confusion about his condition, stating that he must've just slept wrong. Spend significant amount of time educating patient on his condition and howPT can help benefit him by maintaining/improving functional ROM and finding modifications for the ac tivities he would like to do. Symptoms improve with trunk flexion and worsen with extension, can bepretty severe 8-9/10 with any sort of extension and does go down his legs at times. Patient was able to verbalize understanding. He will benefit from additional physical therapy to address deficits, facilitate return to prior level of function and improve quality of life Functional Goals/Outcomes: HEP/Independent Management: Demonstrate independence with HEP and self- management following each treatment session Demonstrate normal upright posture in 3-4 weeks. ADL's: Stand for at least 20-30 minutes without increased symptoms in 8 weeks. Ambulation: Ambulate for community distance with normal gait without increased symptoms in 12 weeks. PLAN: Try additional lumbar mobility exercises as able, symptoms appear to be pretty severe when he triesto stand up straight. documented in this encounter Plan of Treatment Upcoming Encounters Date Type Department Care Team Description 07/30/2023 1:00 PM ROTO MIXER OPERATOR Appointment [facility] [address] [facility]. [place] [address] Jersey Wilson MD [address] [facility] [place] [address] 08/11/2023 2:15 PM ROTO MIXER OPERATOR Appointment [facility] [address] Dermatology [address] [place] [address] Suzanna Terrell MD, PhD [address] [place], [place] [address] 11/17/2023 1:00 PM CDT Appointment [facility] [address] [place], [place] [address] Jersey Wilson MD [address] [place] [address] Scheduled Referrals Name Type Priority Associated Diagnoses Orde r Schedule Physical Therapy Referral Routine Acute midline low back pain with bilateral sciatica (HRC) Central stenosis of spinal canal Ordered: 03/09/2023 documented as of this encounter Visit Diagnoses Diagnosis Acute bilateral low back pain with bilateral sciatica (HRC)- Primary Central stenosis of spinal canal documented in this encounter Care Teams Nickel Plant Operator Relationship Specialty Start Date End Date Jersey Wilson MD [address] [place] [address] PCP - General Family Practice 07/23/16 documented as of this encounter
--- OUTSIDE RECORDS SUMMARY | 2023-07-23 11:00 | XMS_ITS | Encounter Summary ---
Author Name Unknown Organization [facility] Address [address], [place] [address] Care Team Providers Care Php Software Engineer Name Role Phone Jersey Wilson MD Primary Care Provider [phone] Reason for Visit * Reason Comments Spine Lumbar Encounter Details Date Type Department Care Team Description 04/02/2023 11:45 AM CDT Therapy [facility] [place] [id number] [place] [id number] [place] [address] [place], [place] [phone] Acute bilateral low back pain with bilateral [...] Progress Notes * Tye Silverman, PT - 04/02/2023 11:45 AM CDT Marleni Bolanos [facility] Physical Therapy Progress Note Visit Number:5 Initial Certification Period: 03/10/2023 to 06/08/23 Referring Provider: Og Barnes MD Visit Diagnosis: 1. Acute bilateral low back pain with bilateral sciatica (HRC) 2. Central stenosis of spinal canal Precautions: A Fib. HTN, SUBJECTIVE: No pain pill today so not sure how it will go today. [place] good after last session. Had a pre-op appointment today for his back and everything seemed to check out ok. Colonoscopy on Wednesday, epidural on Wednesday. R knee is hurting him today and he's not sure why. Past Medical History: Pertinent diagnostic tests: MRI 03/09/2023 IMPRESSION: 1. Severe canal stenosis at L3-L4 where a prominent left subarticular disc protrusion also displaces the traversing left L4 nerve root. 2. Multilevel foraminal stenosis, moderate bilaterally at L3-L4. 3. Additional degenerative changes as detailed above. Aggravating factors: standing, walking. Relieving factors: sitting OBJECTIVE Current Objective Findings: Leaning forward at the waist with gait. Back pain today 10/21 R knee pain -01/21 Treatment/Education Today: Therapeutic Exercise x 40 min: above objective measures and: NuStep x 6 min level 5 resistance Sit to stands 2x15 with no UE assistance to get up initially Standing bird dog while leaning on table 2x15 [address] way Standing abduction 2x10 B cues to turn toes in Lateral step ups 1x20 B on first step of stairs Crossover step ups 1x20 B in first step of stairs Less rest breaks needed today Timed Code Treatment Minutes:40 Total Treatment Minutes: 40 Current Home Exercise Program List: Access Code: [email or web address] URL: [email or web address] Date: 03/18/2023 Prepared by: Brittany June Exercises [...] to radiating anterior and posterior LE pain. Able to tolerate increase in activity today despite not taking any of his pain medication. Patient will be having a colonoscopy on 04/05 and an epidural 04/07. He will benefit from additional physical therapy to address deficits, facilitate return to prior level offunction and improve quality of life. Functional Goals/Outcomes: HEP/Independent Management: Demonstrate independence with HEP and self- management following each treatment session Demonstrate normal upright posture in 3-4 weeks. ADL's: Stand for at least 20-30 minutes without increased symptoms in 8 weeks. Ambulation: Ambulate for community distance with normal gait without increased symptoms in 12 weeks. PLAN: Progress ROM, strength as able. EDSI pending 04/07/23. May benefit from more balance work to prevent falls in general documented in this encounter Plan of Treatment Upcoming Encounters Date Type Department Care Team Description 07/30/2023 1:00 PM TRANSPORTATION COORDINATOR Appointment [address] [address] Jersey Wilson MD [address] [place] [address] 08/11/2023 2:15 PM TRANSPORTATION COORDINATOR Appointment [place] [address] [place] [address] Suzanna Terrell MD, PhD [address] [place] [address] 11/17/2023 1:00 PM CDT Appointment [address] [place] [address] Jersey Wilson MD [address] [place] [address] documented as of this encounter Visit Diagnoses Diagnosis Acute bilateral low back pain with bilateral sciatica (HRC)- Primary Central stenosis of spinal canal documented in this encounter Care Teams Php Software Engineer Relationship Specialty Start Date End Date Jersey Wilson MD [address] [facility] [place] [address] PCP - General Family Practice 07/23/16 documented as of this encounter
--- OUTSIDE RECORDS SUMMARY | 2023-07-23 11:00 | XMS_ITS | Encounter Summary ---
Author Name Unknown Organization [facility] Address [address] [place] [address] Care Team Providers Care Cam Specialist Name Role Phone Jersey Wilson MD Primary Care Provider [phone] Encounter Details Date Type Department Care Team Description 04/02/2023 10:30 AM CDT Lab Visit [facility] 14[address] [facility] [place], [place] [address] Preop examination; Essential hypertension (HRC) Social History Tobacco Use Types Packs/Day Years [...] Department Care Team Description 07/30/2023 1:00 PM HUMANITIES PROFESSOR Appointment [facility] [address] [facility] [place] [address] Jersey Wilson MD 14[address] [facility] [place], [place] [address] 08/11/2023 2:15 PM HUMANITIES PROFESSOR Appointment [facility] [address] Derm[address] [place] [address] Suzanna Terrell MD, PhD [address] [place] [address] 11/17/2023 1:00 PM CDT Appointment [facility] [address] [facility] [place], [place] [address] Jersey Wilson MD [address] [place] [address] documented as of this encounter Procedures Procedure Name Priority Date/Time Associated Diagnosis Comments CREATININE / GFR Routine 04/02/2023 10:3 7 AM CDT Preop examination Essential hypertension (HRC) POTASSIUM Routine 04/02/2023 10:37 AM CDT Preop examination Essential hypertension (HRC) documented in this encounter Results * Potassium (04/02/2023 10:37 AM CDT) Potassium 4.2 3.5 - 5.1 mmol/L 04/02/2023 5:54 PM CDT [facility] Blood Venipuncture / Unknown 04/02/2023 10:37 AM CDT 04/02/2023 10:37 AM CDT Jersey Wilson MD LAB_1 [facility] [address] [place] [address], [facility] [phone] * Creatinine / GFR (04/02/2023 10:37 AM CDT) Creatinine 1.10 0.73 - 1.18 mg/dL 04/02/2023 5:54 PM CDT [facility] GFR, Estimated >60 >60 mL/min/1.7 3m2 04/02/2023 5:54 PM CDT [facility] Blood Venipuncture / Unknown 04/02/2023 10:37 AM CDT 04/02/2023 10:37 AM CDT Jersey Wilson MD LAB_1 [facility] [address] [place] [address], [facility] [phone] documented in this encounter Visit Diagnoses Diagnosis Preop examination Preoperative examination, unspecified Essential hypertension (HRC) Unspecified essential hypertension documented in this encounter Care Teams Cam Specialist Relationship Specialty Start Date End Date Jersey Wilson MD [address] [place] [address] PCP - General Family Practice 07/23/16 documented as of this encounter
--- OUTSIDE RECORDS SUMMARY | 2023-07-23 11:00 | XMS_ITS | Encounter Summary ---
Author Name Unknown Organization [facility] Address [address] [place] [address] Care Team Providers Care Promotion Specialist Name Role Phone Jersey Wilson MD Primary Care Provider [phone] Reason for Referral * Consult/Transfer Care (Routine) - New Request Specialty Diagnoses / Procedures Referred By Contac t Referred To Contact Diagnoses Acute midline low back pain with bilateral sciatica (HRC) Central stenosis of spinal canal History of gastric ulcer Og Barnes MD [address] [place] [address] Referral ID Status Reason Start Date Expiration Date V isits Requested Visits Authorized [id number] New Request 03/16/2023 06/14/2024 1 1 Scheduling Instructions Your clinician has recommended an appointment for with [facility]. You can quickly make your appointment online at Socowave/schedule. You can also call [phone] for help scheduling your appointment. We suggest you call your health insurance company about your coverage and benefits for this appointment. Question Answer Appointment Urgency? [facility] evaluation for possible lumbar surgery? No Reason for visit? central stenois of spinal canal Comments Vic scheduled Reason for Visit * Reason Comments Follow-up Low back pain Encounter Details Date Type Department Care Team Description 03/16/2023 12:30 PM CDT Office Visit [facility] [address] [place] [address] Og Barnes MD [address] [place] [address] Acute midline low back pain with [...] - - Temperature 36.3 ??C (97.3 ??F) 03/16/2023 12:23 PM C DT Respiratory Rate - - Oxygen Saturation - - Inhaled Oxygen Concentration - - Weight - - Height - - Body Mass Index - - documented in this encounter Patient Instructions * Patient Instructions* Leonid Kay - 03/16/2023 12:30 PM CDT Thank you for choosing [facility] for your health care visit today. Diagnosis: 1. Acute midline low back pain with bilateral sciatica (HRC) 2. Central stenosis of spinal canal 3. History of gastric ulcer Plan: Spine clinic consult soonest available Continue physical therapy Continue tylenol max 4000mg per day Continue oxycodone, max 15mg per day Order 4 wheeled walker Referral(s): You are being referred to spine clinic for further care. Our office will help coordinate that appointment. * Attachments The following attachments cannot be sent through Care Everywhere. * Lumbar Epidural Steroid Injections: General Info (Bermudian) documented in this encounter Progress Notes * Og Barnes MD - 03/16/2023 12:30 PM CDT [facility] Date of Service: 03/16/2023 ASSESSMENT/PLAN 1. Acute midline low back pain with bilateral sciatica (HRC) 2. Central stenosis of spinal canal 3. History of gastric ulcer Spine clinic consult soonest available Patient will think about TALYA injection bilateral TFESI L3-L4 Continue physical therapy Continue tylenol max 4000mg per day Continue oxycodone, max 15mg per day Order 4 wheeled walker, safe to use, needed for ADLs, relieves symptoms with ability to flex Follow up with spine Atif Rae is a 83 y.o. male who presents for follow-up on severe lower back pain that radiates into both legs equally to the anterior thigh. It does not go past the knees. MRI showed severe spinal canal stenosis with impingement at L3-L4 with disc herniation. Patient reports pain has been persistent despite steroid/prednisone completion. He has been trying to do physical therapy exercises but it is so painful for him to simply lay down that it is difficult. He has been using max Tylenol. He can not take NSAIDs due to history of gastric ulcer. He reports difficulty with ADLs including walking around the house. It is better when he leans forward so requesting walker which is appropriateand will help him significantly. Recommend patient see spine surgery given his ongoing pain that isdifficult to treat plus chronic nature of his problem. Discussed option of TALYA injection but patient wants to hold off. Given information about spinal canal stenosis with extensive discussion about anatomy and mechanics. Also given information about TALYA injections. Orders Placed This Encounter Spine-Medical Consult Adult Walker, Rollating with 4 wheels and seat (E0143, E0156) Og Barnes MD Primary Care Sports Medicine, [facility] SUBJECTIVE Follow-up (Low back pain) () Lowe rback pain Mostly in legs Left = right Worst in anterior legs Some back pain No weakness No numbness Used prednisone -- not helpful Tried Oxycodone -- does not feel dose is high enough, dos not last long -- did not take a ist, forgot Tylenol Tried ot do physical therapy exercises -- very hard jus to get flat OBJECTIVE Pain Assessment (0-10) Pain Rating: Rest: 7 (0-10) Pain Rating: Activity: 8 Back Sensation intact light touch L3 nl, L4 nl, L5 nl, S1 nl Strength hip flexion 5,knee extension 5, dorisflex 5, plantar flex 5, EHL 5 MR Lumbar Spine WO IV Cont INDICATION: rule out canal stenosis vs bilateral S1 TECHNIQUE: Routine non-contrast MRI of the lumbar spine. COMPARISON: Plain film 03/08/2023. FINDINGS: Five lumbar-type vertebral bodies. The conus medullaris terminates at the level of the [id number]. Normal cord signal. Scattered small Schmorl's nodes. [...] (4-83%). Frequency percentages adapted from Adithya W, Taylor PH, Marianna B, et al. AJNR AM J Neuroradiol 2015:36:811-16. documented in this encounter Plan of Treatment Upcoming Encounters Date Type Department Care Team Description 07/30/2023 1:00 PM EDITOR NEWSPAPER Appointment [facility] [address] [facility] [place] [address] Jersey Wilson MD 1415 [facility], [place] [address] 08/11/2023 2:15 PM EDITOR NEWSPAPER Appointment [facility] [address] Dermatology [address] [place], [place] [address] Suzanna Terrell MD, PhD [address] [place], [place] [address] 11/17/2023 1:00 PM CDT Appointment [facility] [address] [place] [address] [place] [address] [place] [address] [place] [phone] Scheduled Referrals Name Type Priority Associated Diagnoses Orde r Schedule Spine-Medical Consult Adult Referral Routine Acute midline low back pain with bilateral sciatica Central stenosis of spinal canal History of gastric ulcer Ordered: 03/16/2023 documented as of this encounter Visit Diagnoses Diagnosis Acute midline low back pain with bilateral sciatica (HRC)- Primary Central stenosis of spinal canal History of gastric ulcer Personal history of other diseases of digestive system documented in this encounter Care Teams Promotion Specialist Relationship Specialty [place] [address] [place], [place] [address], [place] [address] PCP - General Family Practice 07/23/16 documented as of this encounter
--- OUTSIDE RECORDS SUMMARY | 2023-07-23 11:00 | XMS_ITS | Encounter Summary ---
Author Name Unknown Organization [facility] Address [address], [place] [address] Care Team Providers Care Film Editor Supervisor Name Role Phone Jersey Wilson MD Primary Care Provider [phone] Reason for Visit * Reason Comments Questions Encounter Details Date Type Department Care Team Description 03/30/2023 Telephone [facility] [address] [place] [address] Jersey Wilson MD [address] [place], [place] [phone] Questions Social History Tobacco Use Types Packs/Day [...] as of this encounter Nursing Notes * Emily Carvalho RN - 03/30/2023 10:42 PM CDT Pt calling to confirm upcoming appointments. Relayed future appointment information. Future Appointments Provider Department Center 03/31/2023 4:00 PM Tye Silverman, PT [facility] [place] [id number] 04/02/2023 10:00 AM Jersey Wilson MD [facility] [place] 04/02/2023 11:45 AM Tye Silverman, PT [facility] [place] [id number] documented in this encounter Plan of Treatment Upcoming Encounters Date Type Department Care Team Description 07/30/2023 1:00 PM CAR SEAT UPHOLSTERER Appointment [facility] [address] [place] [address] [place] [address] Jersey Wilson MD [address] [place] [address] 08/11/2023 2:15 PM CAR SEAT UPHOLSTERER Appointment [place] [address] [place] [address] Suzanna Terrell MD, PhD [address] [place] [address] 11/17/2023 1:00 PM CDT Appointment [facility] [address] [place] [address] [address] [place] [address] [place] [address] documented as of this encounter Visit Diagnoses Not on filedocumented in this encounter Care Teams Film Editor Supervisor Relationship Specialty [place] [address] [place] [phone] PCP - General Family Practice 07/23/16 documented as of this encounter
--- OUTSIDE RECORDS SUMMARY | 2023-07-23 11:00 | XMS_ITS | Encounter Summary ---
Author Name Unknown Organization [facility] Address [address], [place] [address] Care Team Providers Care Air Transport Professionals Name Role Phone Jersey Wilson MD Primary Care Provider [phone] Reason for Visit * Reason Comments Spine Lumbar Encounter Details Date Type Department Care Team Description 03/26/2023 2:00 PM CDT Therapy [facility] [address] [address] [place] [address] [place] [address] Acute bilateral low back pain with bilateral [...] as of this encounter Progress Notes * Brittany June, PT - 03/26/2023 2:00 PM CDT Marleni Bolanos [facility] Services Physical Therapy Progress Note Visit Number:4 Initial Certification Period: 03/10/2023 to 06/08/23 Referring Provider: Og Barnes MD Visit Diagnosis: 1. Acute bilateral low back pain with bilateral sciatica (HRC) 2. Central stenosis of spinal canal Precautions: A Fib. HTN, SUBJECTIVE: Atif presents for PT follow up. He report persistent moderate to severe central lbp with intermittent bilateral LE radicular pain that increases with sit to stand, standing and gait. Notes no bowel or bladder changes. Pain level a 8/10 at worst. He reports that he had [facility] consultation for consideration of EDSI and has one scheduled for 04/07/23. He notes that he has multiple questions regarding the procedure and eventually would like to discuss possible spinal surgery as a more permanentsolution to his symptoms with a spine surgeon. Past Medical History: Pertinent diagnostic tests: MRI 03/09/2023 IMPRESSION: 1. Severe canal stenosis at L3-L4 where a prominent left subarticular disc protrusion also displaces the traversing left L4 nerve root. 2. Multilevel foraminal stenosis, moderate bilaterally at L3-L4. 3. Additional degenerative changes as detailed above. Aggravating factors: standing, walking. Relieving factors: sitting OBJECTIVE Current Objective Findings: Sit to stand antalgic Standing, gait FF at waist. Independent without AD, short stride. Lumbar AROM is guarded all motions with extension 30% FF 50% feels good Rotation 30% bilaterally Treatment/Education Today: Therapeutic Exercise x 15 min: above objective measures and: Continue diligent self stretches: Supine SKTC x 5 reps . Supine hip sways x 10 reps. Supine bridge x 10 reps. Continue as HEP. Continue sit to stand as exercise Continue standing march and hip abduction Self care x 15': Discussed general injection information. Completed under guided imaging. Anticipation of pain relief for a short period of time. Focus on increasing mobility and strength in the interim. He can attempt to schedule with one of our spine surgeons to see if he is even a surgical candidate. He reports that he has forwarded his imaging to [place]. Proper posture and ergonomic needs for work, sleep and adls discussed and demonstrated in detail with hand out provided. No prolonged sit, walk often. Timed Code Treatment Minutes:30 Total Treatment Minutes: 30 Current Home Exercise Program List: Access Code: [email or web address] URL: [email or web address] Date: 03/18/2023 Prepared by: Brittany June Exercises [...] to radiating anterior and posterior LE pain. Limited ROM, decreased sit to stand and gait ease impacting adls.He will benefit from additional physical therapy to [...] ROM, strength as able. EDSI pending 04/07/23. documented in this encounter Plan of Treatment Upcoming Encounters Date Type Department Care Team Description 07/30/2023 1:00 PM MINE MOTOR OPERATOR Appointment [facility] [address] [place] [address] Jersey Wilson MD [facility] [facility] [address] 08/11/2023 2:15 PM MINE MOTOR OPERATOR Appointment [place] [address] [place] [address] [place] [address] Suzanna Terrell MD, PhD [address] [place] [address] 11/17/2023 1:00 PM CDT Appointment [facility] [address] [facility] [place] [address] Jersey Wilson MD [address] [place] [address] documented as of this encounter Visit Diagnoses Diagnosis Acute bilateral low back pain with bilateral sciatica (HRC)- Primary Central stenosis of spinal canal documented in this encounter Care Teams Air Transport Professionals Relationship Specialty Start Date End Date Jersey Wilson MD [address] [place], [place] [address] PCP - General Family Practice 07/23/16 documented as of this encounter
--- OUTSIDE RECORDS SUMMARY | 2023-07-23 11:00 | XMS_ITS | Encounter Summary ---
Author Name Unknown Organization [facility] Address [address] [place] [address] Care Team Providers Care Manual Arts Teacher Name Role Phone Jersey Wilson MD Primary Care Provider [phone] Reason for Visit * Reason Onset Date Comments Medication Questions 03/26/2023 Encounter Details Date Type Department Care Team Description 03/26/2023 Telephone [facility] Medicine [address] [facility] [place] [address] Jersey Wilson MD [address] [place] [address] Medication Questions Social History Tobacco Use Types Packs/Day [...] as of this encounter Nursing Notes * Tracy Zimmerman LPN - 03/26/2023 1:41 PM CDT Spoke with pharmacist about information proved by pcp * Jersey Wilson MD - 03/26/2023 1:02 PM CDT Please call. This medication was started by Gastroenterology. Okay to stop Reglan and continue pantoprazole. Recommend contacting Gastroenterology for further instructions. * Ofelia Motta RN - 03/26/2023 12:18 PM CDT Clinician Action: Input needed regarding medication Clinician Next Step: pharmacy awaiting pcp input Specific Request(s): 1. Approval on continuing metoclopramide Faxed received from pharmacy. Requesting pcp approval/input on continuing metoclopramide due to black box warning. * Nayely Chávez - 03/26/2023 12:12 PM CDT Fax received from pt's pharmacy, in regards to metoclopramide (REGLAN) 5 MG tablet , with the following message: Your patient is requesting metoclopramide treatment for a duration excedding 12 weeks (84 days). Metoclopramide has a black box warning for causing tardive dyskinesia (TD), which is often irreversible. The risk of TD increases with duration of treatment and cumulative dose Please advise, thank you. [facility] # Case Item# [id number] Rx# [id number] documented in this encounter Plan of Treatment Upcoming Encounters Date Type Department Care Team Description 07/30/2023 1:00 PM VIOLIN TEACHER Appointment [facility] [address] [facility]. [place] [address] Jersey Wilson MD 14[address] [facility] [place] [address] 08/11/2023 2:15 PM VIOLIN TEACHER Appointment [facility] [address] Dermatology [address] [place] [address] Suzanna Terrell MD, PhD [address] [place] [address] 11/17/2023 1:00 PM CDT Appointment [facility] [address] [facility] [place] [address] Jersey Wlison MD [address] [place] [address] documented as of this encounter Visit Diagnoses Not on filedocumented in this encounter Care Teams Manual Arts Teacher Relationship Specialty Start Date End Date Jersey Wilson MD [address] [place] [address] PCP - General Family Practice 07/23/16 documented as of this encounter
--- OUTSIDE RECORDS SUMMARY | 2023-07-23 11:00 | XMS_ITS | Encounter Summary ---
Author Name Unknown Organization [facility] Address [address], [place] [address] Care Team Providers Care Crocodile Farmer Name Role Phone Jersey Wilson MD Primary Care Provider [phone] Reason for Visit * Reason Comments Spine Lumbar Encounter Details Date Type Department Care Team Description 03/31/2023 4:00 PM CDT Therapy [facility] [place] [id number] [place] [id number] [place] [address] [place], [place] [id number] Acute bilateral low back pain with bilateral [...] Progress Notes * Tye Silverman, PT - 03/31/2023 4:00 PM CDT Marleni Bolanos [facility] Services Physical Therapy Progress Note Visit Number:4 Initial Certification Period: 03/10/2023 to 06/08/23 Referring Provider: Og Barnes MD Visit Diagnosis: 1. Acute bilateral low back pain with bilateral sciatica (HRC) 2. Central stenosis of spinal canal Precautions: A Fib. HTN, SUBJECTIVE: Had some really bad pain today in his legs on 2 different occasions. Legs were crossed in gerard position at the time with R over left. Got a lot of knee pain and back pain that lasted into the next day. Pain was severe and he took oxycodone right away. Concerned that epidural with help with pain but not really be helpful for his function. Would still like to have surgery if able to help more withthis. Past Medical History: Pertinent diagnostic tests: MRI [...] 30% bilaterally Treatment/Education Today: Therapeutic Exercise x 40 min: above objective measures and: NuStep x 5 min level 5 resistance Sit to stands 2x10 with UE assistance to get up initially Supine Bridge 9n7--ail some leg pain getting out of this position Standing abduction 2x10 B Lateral step ups 1x15 B on first step of stairs Crossover step ups 1x15 B in first step of stairs Timed Code Treatment Minutes:40 Total Treatment Minutes: 40 Current Home Exercise Program List: Access Code: [email or web address] URL: [email or web address] Date: 03/18/2023 Prepared by: Brittany June Exercises [...] to radiating anterior and posterior LE pain. Did well with session today. He overall has decent functional strength, but does have the occasional shooting pain down into his legs. He will benefit from additional physical therapy [...] Department Care Team Description 07/30/2023 1:00 PM MARINE PIPEFITTER HELPER Appointment [address] [address] Jersey Wilson MD [address] [place] [address] 08/11/2023 2:15 PM MARINE PIPEFITTER HELPER Appointment [place] [address] Dermatology [address] [place] [address] Suzanna Terrell MD, PhD [address] [place] [address] 11/17/2023 1:00 PM CDT Appointment [address] [address] Jersey Wilson MD [address] [facility] [place] [address] documented as of this encounter Visit Diagnoses Diagnosis Acute bilateral low back pain with bilateral sciatica (HRC)- Primary Central stenosis of spinal canal documented in this encounter Care Teams Crocodile Farmer Relationship Specialty Start Date End Date Jersey Wilson MD 14[address] [facility] [place] [address] PCP - General Family Practice 07/23/16 documented as of this encounter
--- OUTSIDE RECORDS SUMMARY | 2023-07-23 11:00 | XMS_ITS | Encounter Summary ---
Author Name Unknown Organization [facility] Address [address], [place] [address] Care Team Providers Care Liquid Natural Gas Plant Operator Name Role Phone Jersey Wilson MD Primary Care Provider [phone] Reason for Visit * Reason Comments Spine Lumbar Encounter Details Date Type Department Care Team Description 03/10/2023 1:30 PM CDT Office Visit [facility] Acute Physical Therapy [address] [place] [address] [place] [address] [place] [address] Acute bilateral low back pain with bilateral [...] Progress Notes * Grace Condon, PT - 03/10/2023 1:30 PM CDT [facility] Physical Therapy - Acute Lumbar Spine Evaluation/Plan of Care Initial Certification Period: 03/10/2023 to 06/08/23 Referring Provider: Og Barnes MD Visit Diagnosis: 1. Acute bilateral low back pain with bilateral sciatica (HRC) 2. Central stenosis of spinal canal Precautions: A Fib. HTN, Orders: Evaluate & treat Onset/Referral Date: Referral date 03/09/2023 SUBJECTIVE Reason for Visit: Paul Rae presents to [facility] with complaints of bilateral buttock and LE pain present for 3-4 months and worsening over the past month. 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 He also was pulling weedsabout 1 month ago and did fall twice needing assist from neighbors to stand up due to his knee. No injury at the time. He started Prednisone yesterday and reports some improvements with walking. Painis located in the anterior thighs bilaterally and posterior thighs bilaterally. Unclear if he has LE paresthesia as he points to some located at the knee but states this seems unrelated. Better when sitting today but this is not consistent. Standing upright increases anterior thigh pain. His steps are short when ambulating but this is better today. Utilizing Tylenol for pain as well. Work/Leisure/Sport: Retired. Recently Experienced (Red Flags): None Recently Experienced (Yellow Flags): None Patient Therapy Goals:not asked. Past Medical History: Pertinent diagnostic tests: MRI 03/09/2023 IMPRESSION: 1. Severe canal stenosis at L3-L4 where a prominent left subarticular disc protrusion also displaces the traversing left L4 nerve root. 2. Multilevel foraminal stenosis, moderate bilaterally at L3-L4. 3. Additional degenerative changes as detailed above. X ray 03/08/2023 IMPRESSION COMPARISON: None. FINDINGS: No acute fracture. No dislocation. Mild/moderate multilevel degenerative changes. Prominent stool in the colon. Patient has a current medication list which includes the following prescription(s): amitriptyline, carvedilol, cholecalciferol, clotrimazole- betamethasone, finasteride, lisinopril-hydrochlorothiazide, loratadine, metoclopramide, olopatadine, oxycodone, pantoprazole , prednisone, sildenafil, sumatriptan, tadalafil, tamsulosin, and topiramate. 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), Gastritis #*LW 9 (02/20/2009), Gastroesophageal reflux disease with esophagitis (04/06/2015), Hyperlipidemia ([facility]) (11/01/2015), Hypertension #*LW 1 (03/02/2006), IFG (impaired fasting glucose) (02/02/2012), Iron deficiency anemia (11/2015), Left Ventricular Hypertrophy #*LW 12 (03/01/2009), Mild dilation of ascending aorta ([facility]) (10/2014), Palpitations #*LW 6 (03/02/2006), 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 Previous Treatment: Medication Benefited from previous treatment: Yes, starting the steroid yesterday has helped. Pain details: Aggravating factors: standing, walking. Relieving factors: Today he is better when sitting. Patient History: Moderate Complexity: 1-2 personal factors and/or comorbidities that impact plan of care: Advanced age. OBJECTIVE Observation: Flexed posture standing and ambulating. Slow january and short step length. Limited right knee extension during stance. Lumbar Exam: Standing Lumbar AROM: Flexion fingertips to mid donald. Reports that this is his norm. Extension Not quite to neutral. Anterior thigh pain. Sidebend left WNL Sidebend right 75% right lateral rib pain SLR Left: Positive for reproduction of symptoms at 40 degrees (hamstring and buttock pain) SLR Right: Positive for hamstring tightness at 45 degrees Hip Screen: Impaired: PROM: right hip flexion 90 degrees with left hip pain. Right external rotation WNL, and internal rotation 20 degrees. Left hip flexion WNL with right hip pain. Left hip externalrotation WNL and internal rotation 10 degrees. From hook lying, patient has full hip flexion bilaterally with out pain. Knee: right knee lacks approximately 15 degrees of extension. Joint Mobility: Not tested today Palpation/Tenderness Right lumbar paraspinals Clinical Examination: High Complexity: Addressed 4 or more elements from body structures and functions (see above), and/or functional limitations as noted below. Today's Intervention/Charges: Physical Therapy Evaluation was completed and the patient was educated on the condition, planned therapy intervention and expectations from treatment. Therapeutic exercise x 18 minutes: Access Code: [email or web address] URL: [email or web address] Date: 03/10/2023 Prepared by: Grace Condon Exercises - Supine Lower Trunk Rotation - 2 x daily - 7 x weekly - 1 sets - 10 reps. Pain free ROM. - Seated Transversus Abdominis Bracing - 2 x daily - 7 x weekly - 1 sets - 10 reps - 5 sec hold - Seated Gluteal Sets - 2 x daily - 7 x weekly - 1 sets - 10 reps - Seated Scapular Retraction - 2 x daily - 7 x weekly - 1 sets - 10 reps - Attempted supine and seated small ROM pelvic tilts but he had significant increase in pain today with attempts so held for now. Therapeutic activities x 5 minutes: Posture. Encouraged patient to work into upright posture as pain allows. Suggested use of cane for support as needed during gait. He has a cane he can use but prefers to avoid use. Answered questions to the best of my ability regarding reason for steroid medication. Timed Code Treatment Minutes: 23 Total Treatment Minutes: 35 Home Program/Gastrofybridge: Access Code: [email or web address] ASSESSMENT Therapist Impression/Summary: Atif presents with central canal and foraminal stenosis and disc protrusion L3-4 leading to radiating anterior and posterior LE pain. Patient demonstrates flexed postureand postural restrictions, loss of range of motion (trunk extension and bilateral hip), and alteredneurodynamics,. He will benefit from additional physical therapy to address deficits, facilitate return to prior level of function and improve quality of life PT Clinical Presentation: High Complexity: Evolving Clinical Presentation with unstable and unpredictable characteristics Clinical Decision Making: Moderate Complexity Significant Impairments: Pain, Muscle tightness/decreased flexibility, ROM Limitation, Postural restrictions, Neurological signs/symptoms Functional Limitations: difficulty with gait and standing Goals/Functional Outcomes: HEP/Independent Management: Demonstrate independence with HEP and self- management following each treatment session Demonstrate normal upright posture in 3-4 weeks. ADL's: Stand for at least 20-30 minutes without increased symptoms in 8 weeks. Ambulation: Ambulate for community distance with normal gait without increased symptoms in 12 weeks. Barriers to Goal Achievement or Learning: none Prognosis: Good PLAN Planned Intervention/Education: Manual Therapy, Neuromuscular Re-education, Therapeutic Activities,Therapeutic Exercise Frequency: 1 x week Duration: 90 days Discharge Plan: Patient will be discharged from therapy when goals are achieved or patient plateausin progress. Informed Consent: Patient and/or family in agreement with the care plan. Plan for Next Treatment: Try additional lumbar mobility exercises as pain improves. Neutral core stability. Chest expansion/thoracic extension. Encourage upright posture. Side lying rotational mobilization. The plastic surgeon is completed by the therapist and the referring clinician's electronic signature certifies medical necessity for the plan above. documented in this encounter Plan of Treatment Upcoming Encounters Date Type Department Care Team Description 07/30/2023 1:00 PM CUTTER BANANA ROOM Appointment [address] [place] [address] Jersey Wilson MD [address] [place] [address] 08/11/2023 2:15 PM CUTTER BANANA ROOM Appointment [place] [address] [place] [address] Suzanna Terrell MD, PhD [address] [place] [address] 11/17/2023 1:00 PM CDT [address]ment [address] [place] [address] Jersey Wilson MD [address] [place], [place] [address] [address] documented as of this encounter Visit Diagnoses Diagnosis Acute bilateral low back pain with bilateral sciatica (HRC)- Primary Central stenosis of spinal canal documented in this encounter Care Teams Liquid Natural Gas Plant Operator Relationship Specialty Start Date End Date Jersey Wilson MD [address] [place] [address] PCP - General Family Practice 07/23/16 documented as of this encounter
--- OUTSIDE RECORDS SUMMARY | 2023-07-23 11:00 | XMS_ITS | Encounter Summary ---
Author Name Unknown Organization [facility] Address [address], [place] [address] Care Team Providers Care Boat Worker Name Role Phone Jersey Wilson MD Primary Care Provider [phone] Reason for Visit * Reason Comments Spine Lumbar Encounter Details Date Type Department Care Team Description 03/18/2023 1:15 PM CDT Therapy [facility] [address] [address] [place] [address] [place] [address] Acute bilateral low back pain with bilateral [...] Progress Notes * Brittany June, PT - 03/18/2023 1:15 PM CDT Marleni Bolanos [facility] Services Physical Therapy Progress Note Visit Number:3 Initial Certification Period: 03/10/2023 to 06/08/23 Referring Provider: Og Barnes MD Visit Diagnosis: 1. Acute bilateral low back pain with bilateral sciatica (HRC) 2. Central stenosis of spinal canal Precautions: A Fib. HTN, SUBJECTIVE: New to this PT today. Persistent moderate to severe central lbp with intermittent bilateral LE radicular pain that increases with sit to stand, standing and gait. Notes no bowel or bladder changes. Pain level a 8/10 at worst. Past Medical History: Pertinent diagnostic tests: MRI 03/09/2023 IMPRESSION: 1. Severe canal stenosis at L3-L4 where a prominent left subarticular disc protrusion also displaces the traversing left L4 nerve root. 2. Multilevel foraminal stenosis, moderate bilaterally at L3-L4. 3. Additional degenerative changes as detailed above. Aggravating factors: standing, walking. Relieving factors: Today he is better when sitting. OBJECTIVE Current Objective Findings: Sit to stand antalgic Standing, gait FF at waist. Independent without AD Lumbar AROM is guarded all motions with extension 30% FF 50% feels good Rotation 30% bilaterally Treatment/Education Today: Therapeutic Exercise x 30 min: above objective measures and: Supine SKTC x 5 reps . Add to HEP. Supine hip sways x 10 reps. Add to HEP. Supine bridge x 10 reps. Add to HEP. Log rolling technique for sit to stand. Proper posture and ergonomic needs for work, sleep and adls discussed and demonstrated in detail with hand out provided. No prolonged sit, walk often. The importance of movement, walking stressed. Ortho follow up this afternoon for pain control options. Continue diligent strength as demonstrated at last session. Timed Code Treatment Minutes:30 Total Treatment Minutes: 30 Current Home Exercise Program List: Access Code: [email or web address] URL: [email or web address] Date: 03/18/2023 Prepared by: Brittany June Exercises [...] weeks. PLAN: Progress ROM, strength as able. documented in this encounter Plan of Treatment Upcoming Encounters Date Type Department Care Team Description 07/30/2023 1:00 PM CHILD ATTENDANT Appointment [address] [address] Jersey Wilson MD [address] [place] [address] 08/11/2023 2:15 PM CHILD ATTENDANT Appointment [place] [address] [place] [address] Suzanna Terrell MD, PhD [address] [place] [address] 11/17/2023 1:00 PM CDT Appointment [address] [place] [address] Jersey Wilson MD [address] [facility] [place] [address] documented as of this encounter Visit Diagnoses Diagnosis Acute bilateral low back pain with bilateral sciatica (HRC)- Primary Central stenosis of spinal canal documented in this encounter Care Teams Boat Worker Relationship Specialty Start Date End Date Jersey Wilson MD [address] [place] [address] PCP - General Family Practice 07/23/16 documented as of this encounter
--- OUTSIDE RECORDS SUMMARY | 2023-07-23 11:00 | XMS_ITS | Encounter Summary ---
Author Name Unknown Organization [facility] Address [address] [place] [address] Care Team Providers Care Student Assistance Counselor Name Role Phone Jersey Wilson MD Primary Care Provider [phone] Reason for Referral * Procedure/Equipment (Routine) - New Request Specialty Diagnoses / Procedures Referred By Contac t Referred To Contact Diagnoses Spinal stenosis of lumbar region with neurogenic claudication Lumbar radiculopathy Procedures Walker, folding with wheels and seat, bariatric ([id number], [id number]) India Ho APRN, RANGER AIDE [address] [place] [address] POS NOT ON FILE Referral ID Status Reason Start Date Expiration Date V isits Requested Visits Authorized [id number] New Request 03/18/2023 09/14/2023 1 1 * Procedure/Equipment (Routine) - Closed Specialty Diagnoses / Procedures Referred By Contac t Referred To Contact Diagnoses Spinal stenosis of lumbar region with neurogenic claudication Lumbar radiculopathy Procedures [place] Spinal Injection For Pain Management India Ho APRN, RANGER AIDE [address] [place] [address] Referral ID Status Reason Start Date Expiration Date Visits Re quested Visits Authorized [id number] Closed 03/18/2023 06/16/2024 1 1 Reason for Visit * Reason Comments CONSULT Low back pain * Consult/Transfer Care (Routine) - New Request Specialty Diagnoses / Procedures Referred By Contac t Referred To Contact Diagnoses Acute midline low back pain with bilateral sciatica (HRC) Central stenosis of spinal canal History of gastric ulcer Og Barnes MD [address] [place] [address] Referral ID Status Reason Start Date Expiration Date V isits Requested Visits Authorized [id number] New Request 03/16/2023 06/14/2024 1 1 Encounter Details Date Type Department Care Team Description 03/18/2023 3:00 PM CDT Office Visit [facility] [address] [place] [address] India Ho APRN, CNP [address] [place] [address] Spinal stenosis of lumbar region with neurogenic claudication (Primary Dx); Lumbar radiculopathy; Acute bilateral low back pain with bilateral sciatica (HRC); Lumbar foraminal stenosis Social History Tobacco Use Types Packs/Day Years [...] on file documented as of this encounter Patient Instructions * Patient Instructions* India Ho APRN, CNP - 03/18/2023 3:00 PM CDT 1) For pain relief: -Trial of heat and/or ice -Over the counter pain medications -Stretches and core exercising as tolerated 2) An L3-4 interlaminar lumbar epidural steroid injection has been ordered for your low back and leg pain. The injection is used both for pain relief and diagnostic purposes. The injection may take up to 10-14 days to feel the full effect. - If you are diabetic the steroid used in the injection may increase your blood sugars. Please monitor your blood sugars closely post injection. Please follow up in clinic or via phone visit 2-3 weeks following the injection. Appointment Scheduling: The clinic will contact you to schedule your injection. 3) Oxycodone as needed for pain sparingly India Ho CNP Orthopedic [facility] documented in this encounter Progress Notes * India Ho APRN, CNP - 03/18/2023 3:00 PM CDT Images from the original note were not included. [facility]: HPI: Paul Rae is an 83 y.o. male who presents today for initial consult for low back pain. He notes having lower back pain all summer but didn't really realize it was pain, I though it was just maybe from gaining weight. He describes the pain worsening a little over a week ago and wasseen at the [facility] initially on 03/08/2023 and was prescribed Oxycodone and oral steroids. A lumbar MRIwas ordered as well with showed severe L3-4 canal stenosis. He states the steroid was helpful and he has decreased his use of Oxycodone to once daily prn. He takes Tylenol prn. He rates his pain 6-9/10. He describes his pain as a constant pain across the lower back with pain along the anterior and posterior thigh. He denies pain extending past the knee. He denies N/T. He denies weakness to the BLE, foot drop/drag or falls. He denies changes to bowel or bladder. He has increased pain with walking and finds it difficult to walk 1/2 a block without significant pain. He has had PT x2. He has not had lumbar injections. He has a h/o TIAs; he denies taking blood thinners. Patient Active Problem List Diagnosis Essential hypertension (HRC) IFG (impaired fasting glucose) Benign prostatic hyperplasia Migraine, chronic, without aura Mild dilation of ascending aorta (HRC) Gastroesophageal reflux disease without esophagitis Hyperlipidemia (HRC) Cerebral microvascular disease Obstructive sleep apnea on CPAP Adenomatous colon polyp History of basal cell carcinoma Paroxysmal atrial fibrillation (HRC) Diverticulitis of colon History of squamous cell carcinoma of skin Leg edema Total knee replacement status, right Past Medical History: Diagnosis Date Bile-induced gastritis 04/06/2015 EGD BPH (benign prostatic hypertrophy) 02/02/2012 Bradycardia #*LW 11 03/01/2009 Cataract RE Cerebral microvascular disease 04/16/2016 Chronic headaches 03/02/2006 Duodenal stricture 12/09/2015 Gastritis #*LW 9 02/20/2009 Gastroesophageal reflux disease with esophagitis 04/06/2015 EGD Hyperlipidemia (HRC) 11/01/2015 Hypertension #*LW 1 03/02/2006 IFG (impaired fasting glucose) 02/02/2012 Iron deficiency anemia 11/2015 Followed by Hematology. Treated with iron infusions. Last GI workup and 12/2017 was negative for GI bleeding. Left Ventricular Hypertrophy #*LW 12 03/01/2009 Improved on ECHO in 07/2018. Mild dilation of ascending aorta (HRC) 10/2014 Last echo on 12/05/22. Repeat due every 2-3 years. Palpitations #*LW 6 03/02/2006 Polyp Colon Adenomatous #*LW 7 09/02/200712/2017. Consider repeat 12/2022 Syncope #*LW 10 03/01/2009 TIA (transient ischemic attack) (ACG) 10/25/2014 Ulcer Gastric #*LW 5 03/02/2006 Review Of Systems Musculoskeletal: back pain Neurologic: negative ROS: 10 point ROS neg other than the symptoms noted above in the HPI. PHYSICAL EXAM: HEENT: Normocephalic, atraumatic. Heart: No peripheral edema Lungs: No SOB Skin: Warm and dry, good capillary refill. Extremities: no edema, cyanosis NEUROLOGICAL EXAMINATION: Mental status: Awake and alert; answers questions appropriately, speech is fluent. Cranial nerves: II-XII grossly intact. Motor: Shoulder Abduction: Right: 5/5 Left: 5/5 Biceps: Right: 5/5 Left: 5/5 Triceps: Right: 5/5 Left: 5/5 Wrist Extensors: Right: 5/5 Left: 5/5 Wrist Flexors: Right: 5/5 Left: 5/5 interosseus : Right: 5/5 Left: 5/5 Hip Flexor: Right: 5/5 Left: 5/5 Hip Adductor: Right: 5/5 Left: 5/5 Hip Abductor: Right: 5/5 Left: 5/5 Gastroc Soleus: Right: 5/5 Left: 55 Tib/Ant: Right: 5 Left: 55 EHL: Right: 5/5 Left: 55 Reflexes: BLE DTR: Patellar: 1+ symmetric Achilles: 1+ symmetric Sensation intact to light touch to BLE Clonus negative Gait: Gait is slow and steady. He has a cane. Cervical examination reveals good range of motion. No tenderness to palpation of the cervical spineor paraspinous muscles bilaterally. Lumbar examination reveals tenderness of the spine midline and bilateral paraspinous muscles. Limited ROM. Hip height is symmetrical. Negative SI joint, sciatic notch or greater trochanteric tenderness to palpation bilaterally. Straight leg raise is negative bilaterally. Imaging: MR Lumbar Spine WO IV Cont Order: [id number] Status: Final result Visible to patient: Yes (seen) Next appt: 03/26/2023 at 02:00 PM in Physical Therapy (Brittany June, PT) Dx: History of gastric ulcer; Severe pain... Details Reading Physician Reading Date Result Priority Tye Candelario MD [phone] 03/09/2023 Routine Narrative & Impression IMPRESSION INDICATION: rule out canal stenosis vs bilateral S1 TECHNIQUE: Routine non-contrast MRI of the lumbar spine. COMPARISON: Plain film 03/08/2023. FINDINGS: Five lumbar-type vertebral bodies. The conus medullaris terminates at the level of the [id number]. Normal cord signal. Scattered small Schmorl's nodes. [...] et al. AJNR AM J Neuroradiol [id number]. Specimen Collected: 03/09/23 13:04 Last Resulted: 03/09/23 13:51 XR Lumbar Spine 2-3 Views Order: [id number] Status: Final result Visible to patient: Yes (seen) Next appt: 03/26/2023 at 02:00 PM in Physical Therapy (Brittany June, PT) Dx: Acute midline low back pain with bila... Details Reading Physician Reading Date Result Priority Bradly Fink, 03/08/2023 Routine Narrative & Impression IMPRESSION COMPARISON: None. FINDINGS: No acute fracture. No dislocation. Mild/moderate multilevel degenerative changes. Prominent stool in the colon. Specimen Collected: 03/08/23 18:28 Last Resulted: 03/08/23 18:43 Assessment: The patient's lumbar MRI films and dermatome map were reviewed in detail. He has severe canal stenosis at L3-L4 where a prominent left subarticular disc protrusion also displaces the traversing left L4 nerve root. He describes his pain consistent with the L3 and L4 dermatomes and has neurogenic claudication. Per records an injection was discussed at the [facility] appointment, however, the patient wanted to think about it. I reviewed ordering an L3-4 lumbar epidural steroid injections in detail and the patient would like to proceed. He does have a colonoscopy scheduled for later this month and will need to schedule his injection around this. He also inquired about a 4WW to use when he has to do any distance walking; I reviewed focusing on standing upright while using his walker. He will follow up after his injection and if he has any increased pain, leg weakness/falls he will contact the clinic. I did refill his Oxycodone for once to twice daily. I reviewed proper use of the medication and to take sparingly and taper off of it as he feels better. If he feels he may need continued prescriptions he plans to discuss with his PCP and understands that I do not recommend ongoing use of the medication. Plan: 1) For pain relief: -Trial of heat and/or ice -Over the counter pain medications -Stretches and core exercising as tolerated 2) An L3-4 interlaminar lumbar epidural steroid injection has been ordered for your low back and leg pain at [facility] in [place]. The injection is used both for pain relief and diagnostic purposes. The injection may take up to 10-14 days to feel the full effect. - If you are diabetic the steroid used in the injection may increase your blood sugars. Please monitor your blood sugars closely post injection. Please follow up in clinic or via phone visit 2-3 weeks following the injection. Appointment Scheduling: The clinic will contact you to schedule your injection. 3) Oxycodone as needed for pain sparingly India Ho CNP [facility] documented in this encounter Plan of Treatment Upcoming Encounters Date Type Department Care Team Description 07/30/2023 1:00 PM DATABASE SECURITY EXPERT Appointment [place] [facility] Medicine [address] [place] [address] Jersey Wilson MD [address] [address] 08/11/2023 2:15 PM DATABASE SECURITY EXPERT Appointment [facility] [address] [place] [address] Suzanna Terrell MD, PhD [address] [place] [address] 11/17/2023 1:00 PM CDT Appointment [facility] [address] [facility] [place], [place] [id number] Jersey Wilson MD [address] [facility] [place], [place] [address] documented as of this encounter Results * FL Spinal Injection For Pain Management (04/07/2023 2:19 PM CDT) Anatomical Region Laterality Modality Spine, L-Spine, T-Spine, C-Spine Radiographic Imaging Narrative 04/07/2023 2:20 PM CDT These images were obtained during a surgical procedure. India Ho APRN, RANGER AIDE RAD [place] documented in this encounter Visit Diagnoses Diagnosis Spinal stenosis of lumbar region with neurogenic claudication- Primary Spinal stenosis, lumbar region, with neurogenic claudication Lumbar radiculopathy Thoracic or lumbosacral neuritis or radiculitis, unspecified Acute bilateral low back pain with bilateral sciatica (HRC) Lumbar foraminal stenosis Spinal stenosis, lumbar region, without neurogenic claudication Lumbar radiculopathy- Primary Thoracic or lumbosacral neuritis or radiculitis, unspecified Spinal stenosis of lumbar region with neurogenic claudication Spinal stenosis, lumbar region, with neurogenic claudication documented in this encounter Care Teams Student Assistance Counselor Relationship Specialty Start Date End Date Jersey Wilson MD [address] [facility] [place], [place] [id number] PCP - General Family Practice 07/23/16 documented as of this encounter
--- OUTSIDE RECORDS SUMMARY | 2023-07-23 11:00 | XMS_ITS | Encounter Summary ---
Author Name Unknown Organization [facility] Address [address] [place] [address] Care Team Providers Care Outfitter Cabin Name Role Phone Jersey Wilson MD Primary Care Provider [phone] Reason for Visit * Reason Comments PRE-OP EXAM Encounter Details Date Type Department Care Team Description 04/02/2023 10:00 AM CDT Pre-Op Visit [facility] [address] [facility] [place], [place] [id number] Jersey Wilson MD [address] [place], [place] [phone] Preop examination (Primary Dx); Adenomatous polyp of colon, unspecified part of colon; Essential hypertension (HRC); Cerebral microvascular disease; Gastroesophageal reflux disease without esophagitis; Mild dilation of ascending aorta (HRC); Obstructive sleep apnea on CPAP Social History Tobacco Use Types Packs/Day Years [...] Sign Reading Time Taken Comments Blood Pressure 130/79 04/02/2023 10:11 AM CDT Pulse 81 04/02/2023 10:11 AM CDT Temperature - - Respiratory Rate - - Oxygen Saturation - - Inhaled Oxygen Concentration - - Weight 92.1 kg (203 lb) 04/02/2023 10:11 AM CDT Height 177.8 cm (5' 10) 04/02/2023 10:11 AM CDT Body Mass Index 29.13 04/02/2023 10:11 AM CDT documented in this encounter Patient Instructions * Patient Instructions* Jersey Wilson MD - 04/02/2023 10:00 AM CDT lisinopril-hydroCHLOROthiazide (PRINZIDE) 20-25 MG tablet [[id number]] - Do not take on morning of procedure. Tadalafil (CIALIS) 5 MG tablet [[id number]] - Do not take within 48 hours of procedure. oxyCODONE (ROXICODONE) 5 MG immediate release tablet [[id number]] - Continue taking your usual doseof this medication. Follow your individualized medication recommendations as described above. In addition, please stop all bije-wzf-uzyskdf medications including aspirin, ibuprofen (Advil, Motrin), naproxen (Aleve, Naprosyn), herbal remedies and supplements one week prior to procedure unless directed otherwise by your care team. You may continue to take acetaminophen (Tylenol) up to the dayof your procedure. Continue all other medications as currently taking. Let your care team know if you have questions. On the day of your procedure, do not wear any hair product including hair sprays and gels and avoidusing body sprays and deodorants/antiperspirants. Bring with you to the site of the procedure: Any oral appliances or CPAP equipment related to sleep apnea Any other health-related equipment or devices you use daily documented in this encounter Progress Notes * Jersey Wilson MD - 04/02/2023 10:00 AM CDT Pre-Operative Assessment 04/02/2023 ET Amb PreOp Assessment Details Procedure Colonoscopy Surgeon Dr Hilario Procedure Date 04/05/2023 Fax Number INOCENCIO Subjective Atif is a 83 y.o. old male here for pre-operative evaluation for procedure noted above. History of essential hypertension, cerebral microvascular disease, GERD, mild dilatation of the ascending aorta, MELECIO. Patient Active Problem List Diagnosis Date Noted Leg edema 12/11/2022 History of squamous cell carcinoma of skin 08/03/2022 Overview Note: SCC, left forehead 01/02 s/p MMS Total knee replacement status, right 03/03/2022 History of basal cell carcinoma 03/17/2021 Overview Note: Nodular BCC, right upper chest, treated with ED&C 03/17/2021 Adenomatous colon polyp 02/23/2017 Overview Note: Last done 11/2015; repeat due 11/2020 Obstructive sleep apnea on CPAP 02/19/2017 Overview Note: Setting: APAP 7-15 Supplied by: [facility] PSG done: 02/09/17 AHI 6 (HTN) RDI 16 Lowest O2 Sat: 83% Kelly/Beatriz 07/25/19 pressure change 02/16/17 new, change 03-09-17; 05/21/17 compliant Cerebral microvascular disease 04/16/2016 Hyperlipidemia (HRC) 11/01/2015 Gastroesophageal reflux disease without esophagitis 05/17/2015 Mild dilation of ascending aorta (HRC) 10/12/2014 Overview Note: Repeat ECHO in one year. Migraine, chronic, without aura 05/25/2013 IFG (impaired fasting glucose) 02/02/2012 Benign prostatic hyperplasia 02/02/2012 Diverticulitis of colon 07/28/2009 Essential hypertension (HRC) 03/02/2006 Past Medical History: Diagnosis Date Bile-induced gastritis [...] (ACG) 10/25/2014 Ulcer Gastric #*LW 5 03/02/2006 Past Surgical History: Procedure Laterality Date CATARACT REMOVAL Left 11/02/2007 [facility] CATARACT REMOVAL Right 03/01/2017 ZCB00 +20.5 Target: [facility] EYE SURGERY 2009 GASTRECTOMY Gastrectomy Partial HX APPENDECTOMY LAP CHOLECYSTECTOMY Cholecystectomy Laparoscopic s/p Current Outpatient Medications Medication Instructions amitriptyline (ELAVIL) 25 MG tablet Take 4 tablets by mouth nightly. carvedilol (COREG) 6.25 mg, Oral, BID WITH MEALS cholecalciferol (VITAMIND3) 50 MCG (1999 UT) tablet 1 Tablet, Oral, DAILY clotrimazole-betamethasone (LOTRISONE) 1-0.05 % cream Topical, BID finasteride (PROSCAR) 5 mg, Oral, DAILY lisinopril-hydroCHLOROthiazide (PRINZIDE) 20-25 MG tablet 1 Tablet, Oral, DAILY Loratadine (CLARITIN OR) No dose, route, or frequency recorded. metoclopramide (REGLAN) 5 mg, Oral, BID olopatadine (PATANOL) 0.1 % eye drop solution 1-2 Drops, Ophthalmic, BID PRN oxyCODONE (ROXICODONE) 5 mg, Oral, Q12H PRN, Caution with sedation, constipation, addiction. pantoprazole DR (PROTONIX) 40 mg, Oral, DAILY sildenafil (REVATIO) 20 mg, Oral, PRN SUMAtriptan (IMITREX) 100 MG tablet 1 tab at onset of typical headache. May repeat in 1-2 hours. Max 2/per day. Max 9 days per month. Tadalafil (CIALIS) 5 mg, Oral, DAILY tamsulosin (FLOMAX) 0.4 mg, Oral, DAILY topiramate (TOPAMAX) 100 mg, Oral, HS Allergies Allergen Reactions Dilaudid [Hydromorphone Hcl] Hives Patient report Seafood Other, see comments and Hives Meperidine Other, see comments SEIZURE Meperidine Hcl Seizures Shellfish-Derived Products Other, see comments Trazodone Syncope Social History Occupational History Occupation: [employer] Employer: [employer] Tobacco Use Smoking status: Never Smokeless tobacco: Never Vaping Use Vaping Use: Never used Substance and Sexual Activity Alcohol use: Yes Alcohol/week: 3.0 - 4.0 standard drinks of alcohol Types: 5 - 6 Standard drinks or equivalent per week Comment: 3-4 drinks a week Drug use: Never Sexual activity: Not Currently Partners: Female No LMP for male patient. Family History Problem Relation Age of Onset Coronary Artery Disease Father Cataract Father Heart Attack Father 59 fatal Migraines Mother Migraines Daughter Stroke Brother 68 Him and 3 sons also Heart Disease Brother Him and 3 sons also Diabetes Negative Family History Glaucoma Negative Family History Macular Degeneration Negative Family History Retinal Detachment Negative Family History Amblyopia/Strabismus Negative Family History Review of Systems: 04/02/2023 ET Amb PreOp Assessment Sx Have you had a heart attack in the last 30 days? No Have you experienced chest tightening or chest pressure with activity? No Do you wake at night with difficulty breathing? No Do you have swelling in your feet or ankles? No Do you get short of breath if lying flat at night? No Do you hear wheezing or whistling when you breathe? No Have you had a cough, runny nose, or cold symptoms in the last 2 weeks? No Have you tested positive for Covid in the last 6 months? No Do you have a long-standing cough? No Do you snore or are you sleepy during the day? Yes Do you or close relatives have bleeding or clotting problems? No Have you taken Aspirin, Ibuprofen (Advil) or Naproxen (Aleve) in the last 7 days? No Do you or close relatives have a history of a severe or life-threatening reaction to anesthesia? Yes Estimated Functional Capacity: Can you climb one flight of stairs, or walk up a gradual uphill without stopping? yes, functional capacity is more than or equal to 4 METS Objective BP 130/79 (BP Location: Left Arm, BP Cuff Size: Regular) Pulse 81 Ht 5' 10 (1.778 m) Wt 203 lb (92.1 kg) BMI 29.13 kg/m?? Physical Exam: General Appearance: alert, well appearing, and in no apparent distress Eyes: lids normal, sclera clear, and conjunctiva normal ENT: oropharynx clear Neck: no lymphadenopathy and no thyromegaly or nodules Heart: regular rate and rhythm and no murmurs, gallops or rubs Lungs: clear to auscultation and no wheezes, rales or rhonchi Abdomen: soft, nondistended, nontender, no palpable masses, and no organomegaly Extremities: no edema Skin: no rashes or worrisome lesions Neurologic: normal speech, no facial droop, alert and oriented x 3, cranial nerves 2 -12 intact, and normal and symmetric deep tendon reflexes upper and lower extremities Data: Labs: Today: 04/02/2023. Latest Reference Range & Units 04/02/23 10:37 Potassium 3.5 - 5.1 mmol/L 4.2 Creatinine 0.73 - 1.18 mg/dL 1.10 GFR, Estimated >60 mL/min/1.73m2 >60 . Latest Reference Range & Units 11/10/22 11:33 WBC 3.5 - 10.5 x10(9)/L 5.4 RBC 4.32 - 5.72 x10(12)/L 4.91 Hemoglobin 13.5 - 17.5 g/dL 15.5 HCT 38.8 - 50.0 % 44.0 MCV 80.0 - 100.0 fL 89.6 MCH 27.6 - 33.3 pg 31.6 MCHC 31.5 - 35.2 g/dL 35.2 RDW 11.9 - 15.5 % 11.9 Platelets 150 - 450 x10(9)/L 230 ECG: Today: 04/02/2023. Sinus rhythm Normal ECG When compared with ECG of 31-DEC-2021 13:25, No significant change was found . Cardiac echo: 11/25/2022.CONCLUSIONS 1. Normal left ventricular size and global and regional function. Mild (1.1-1.3 cm) concentric wall thickening consistent with left ventricular hypertrophy is present. Thickening of the anteroseptal septum [sigmoid septum] is present. Left ventricular ejection fraction is visually estimated at 60%. 2. Normal right ventricle size and normal global function. 3. Trace to mild aortic regurgitation. 4. Estimated pulmonary artery systolic pressure is 21 mm Hg plus right atrial pressure. (normal) 5. Mild dilation of the aorta is present involving the sinuses of Valsalva. (Maximal dimension 4.2 cm). Compared to the prior study dated August 2020, there is no significant change. Aorta dimension is fairly stable. Assessment/Plan Patient is medically optimized for planned procedure(s). ICD-10-CM 1. Preop examination Z01.818 Creatinine / GFR Potassium ECG 12 Lead Outpatient CANCELED: ECG 12 Lead Outpatient 2. Adenomatous polyp of colon, unspecified part of colon D12.6 3. Essential hypertension (HRC) I10 Creatinine / GFR Potassium CANCELED: ECG 12 Lead Outpatient 4. Cerebral microvascular disease I67.89 5. Gastroesophageal reflux disease without esophagitis K21.9 6. Mild dilation of ascending aorta (HRC) I77.810 7. Obstructive sleep apnea on CPAP G47.33 Special risks: At risk for or history of sleep apnea. Recommend RT assessment. Medication recommendations: Patient Instructions lisinopril-hydroCHLOROthiazide (PRINZIDE) 20-25 MG tablet [[id number]] - Do not take on morning of procedure. Tadalafil (CIALIS) 5 MG tablet [[id number]] - Do not take within 48 hours of procedure. oxyCODONE (ROXICODONE) 5 MG immediate release tablet [[id number]] - Continue taking your usual doseof this medication. Follow your individualized medication recommendations as described above. In addition, please stop all sxxh-hlk-rytthbd medications including aspirin, ibuprofen (Advil, Motrin), naproxen (Aleve, Naprosyn), herbal remedies and supplements one week prior to procedure unless directed otherwise by your care team. You may continue to take acetaminophen (Tylenol) up to the dayof your procedure. Continue all other medications as currently taking. Let your care team know if you have questions. On the day of your procedure, do not wear any hair product including hair sprays and gels and avoidusing body sprays and deodorants/antiperspirants. Bring with you to the site of the procedure: Any oral appliances or CPAP equipment related to sleep apnea Any other health-related equipment or devices you use daily Electronically signed by: Jersey Wilson MD 04/02/2023, 10:22 AM documented in this encounter Plan of Treatment Upcoming Encounters Date Type Department Care Team Description 07/30/2023 1:00 PM COLD HEADER OPERATOR Appointment [facility] [address] [place] [address] [place] [address] [place] [address] [phone] 08/11/2023 2:15 PM COLD HEADER OPERATOR Appointment [place] [address] [address] [place] [address] [phone] [place] [address] [place] [address] [phone] 11/17/2023 1:00 PM CDT Appointment [address] [address] [place] [address] [place] [address] [phone] documented as of this encounter Procedures Procedure Name Priority Date/Time Associated Diagnosis Comments ECG 12 LEAD OUTPATIENT Routine 04/02/2023 10:28 AM CDT Preop examination documented in this encounter Results * Potassium (04/02/2023 10:37 AM CDT) [facility] Potassium 4.2 3.5 - 5.1 mmol/L 04/02/2023 5:54 PM CDT [facility] Blood Venipuncture / Unknown 04/02/2023 10:37 AM CDT 04/02/2023 10:37 AM CDT Jersey Wilson MD LAB_1 [facility] [address] [place] [address], [place] [phone] * Creatinine / GFR (04/02/2023 10:37 AM CDT) Creatinine 1.10 0.73 - 1.18 mg/dL 04/02/2023 5:54 PM CDT [facility] GFR, Estimated >60 >60 mL/min/1.7 3m2 04/02/2023 5:54 PM CDT [facility] Blood Venipuncture / Unknown 04/02/2023 10:37 AM CDT 04/02/2023 10:37 AM CDT Jersey Wilson MD LAB_1 Performing Organization Address [facility] Co de Phone Number [facility] [address] [place] [address], [facility] [phone] * ECG 12 Lead Outpatient (04/02/2023 10:28 AM CDT) Ventricular Rate 73 BPM [facility] Atrial Rate 73 BPM [facility] P-R Interval 188 ms [facility] QRS Duration 96 ms [facility] QT 402 ms [facility] QTc 442 ms [facility] P [place] 58 degrees [facility] R [place] -13 degrees [facility] T [place] 25 degrees [facility] 04/02/2023 10:2 8 AM CDT Narrative [facility] - 04/02/2023 10:54 AM CDT Sinus rhythm Normal ECG When compared with ECG of 31-DEC-2021 13:25, No significant change was found Confirmed by Frankie Mancuso ([id number]) on 04/02/2023 10:54:08 AM Procedure Note Frankie Mancuso MD - 04/02/2023 Sinus rhythm Normal ECG When compared with ECG of 31-DEC-2021 13:25, No significant change was found Confirmed by Frankie Mancuso ([id number]) on 04/02/2023 10:54:08 AM Jersey Wilson MD PN ECG ORDERABLES Performing Organization Address City/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
--- OUTSIDE RECORDS SUMMARY | 2023-07-23 11:01 | XMS_ITS | Encounter Summary ---
Author Name Unknown Organization [facility] Address [address] [place] [address] Care Team Providers Care Chemical Reclamation Equipment Operator Name Role Phone Jersey Wilson MD Primary Care Provider [phone] Reason for Visit * Procedure/Equipment (Routine) - Incomplete Specialty Diagnoses / Procedures Referred By Myrna maki Referred To Contact Diagnoses Acute midline low back pain with bilateral sciatica (HRC) Severe pain History of gastric ulcer Procedures MR Lumbar Spine WO IV Cont Og Barnes MD [address] [id number] Referral ID Status Reason Start Date Expiration Date V isits Requested Visits Authorized [id number] Incomplete 03/08/2023 06/06/2024 1 1 Encounter Details Date Type Department Care Team Description 03/09/2023 1:30 PM CDT Ancillary Procedure [facility] [place] [address] [place] [address] Og Barnes MD [address] [address] Acute midline low back pain with bilateral sciatica (HRC); Severe pain; History of gastric ulcer Social History Tobacco [...] Department Care Team Description 07/30/2023 1:00 PM TAPER OPERATOR Appointment [facility] [address] [place] [address] [place] [address] [place] [address] [phone] 08/11/2023 2:15 PM TAPER OPERATOR Appointment [place] [address] [place] [address] [phone] Suzanna Terrell MD, PhD [address] [place] [address] [phone] 11/17/2023 1:00 PM CDT Appointment [address] [address] Jersey Wilson MD [address] [place] [address] [phone] documented as of this encounter Procedures Procedure Name Priority Date/Time Associated Diagnosis Comments MR LUMBAR SPINE WO IV CONT Routine 03/09/2023 1:25 PM CDT Acute midline low back pain with bilateral sciatica (HRC) Severe pain History of gastric ulcer documented in this encounter Results * MR Lumbar Spine WO IV Cont (03/09/2023 1:25 PM CDT) Anatomical Region Laterality Modality Spine, L-Spine, Skeletal, MSK Ma gnetic Resonance 03/09/2023 1:04 PM CDT Impressions 03/09/2023 1:51 PM CDT INDICATION: rule out canal stenosis vs bilateral S1 TECHNIQUE: ??Routine non-contrast MRI of the lumbar spine. COMPARISON: Plain film 03/08/2023. FINDINGS: Five lumbar-type vertebral bodies. The conus medullaris terminates at the level of the ??L1 vertebra. ??Normal cord signal. ??Scattered small Schmorl's nodes. Redundancy of the nerve roots below the L3-L4 stenosis described below. Normal alignment. The visualized paraspinal structures are unremarkable. Axial: T12-L1: Unremarkable. L1-2: Unremarkable. L2-3: Disc bulge. Bilateral facet hypertrophy. Mild canal and mild bilateral foraminal stenosis. ?? L3-4: Large disc bulge and left subarticular disc protrusion.. Mass effect on the traversing left L4 nerve root. Severe canal stenosis. Moderate bilateral foraminal stenosis. L4-5: Disc bulge and small central disc protrusion. Mild facet degenerative changes. Mild bilateral foraminal stenosis. ?? L5-S1: Mild disc bulge. Right extraforaminal annular fissure. No canal stenosis. No foraminal stenosis. ?? IMPRESSION: ?? 1. Severe canal stenosis at L3-L4 where [...] the context of the clinical situation. The frequency of these findings in adults WITHOUT low back pain increases with age and are as follows: disk degeneration (37-96%), disk height loss (24-84%), disk bulge (30-84%), disk protrusion (29-43%), annular fissure (19- 29%), and facet degeneration (4-83%). Frequency percentages adapted from Brjoannaikji W, Luetmer PH, [place] B, et al. AJNR AM J Neuroradiol 2015:36:811-16. Narrative Procedure Note Tye Candelario MD - 03/09/2023 IMPRESSION INDICATION: rule out canal stenosis vs bilateral S1 TECHNIQUE: Routine non-contrast MRI of the lumbar spine. COMPARISON: Plain film 03/08/2023. FINDINGS: Five lumbar-type vertebral bodies. The conus medullaristerminates at the level of the L1 vertebra. Normal cord signal.Scattered small Schmorl's nodes. Redundancy of the nerve roots below theL3-L4 stenosis described below. Normal alignment. The visualizedparaspinal structures are unremarkable. Axial: T12-L1: Unremarkable. L1-2: Unremarkable. L2-3: Disc bulge. Bilateral facet hypertrophy. Mild canal and mildbilateral foraminal stenosis. L3-4: Large disc bulge and left subarticular disc protrusion.. Mass effecton the traversing left L4 nerve root. Severe canal stenosis. Moderatebilateral foraminal stenosis. L4-5: Disc bulge and small central disc protrusion. Mild facetdegenerative changes. Mild bilateral foraminal stenosis. L5-S1: Mild disc bulge. Right extraforaminal annular fissure. No canalstenosis. No foraminal stenosis. IMPRESSION: 1. Severe canal stenosis at L3-L4 where a prominent left subarticular discprotrusion also displaces the traversing left L4 nerve root. 2. Multilevel foraminal stenosis, moderate bilaterally at L3-L4. 3. Additional degenerative changes as detailed above. Comment: Many lumbar spine MRI findings are so common that while we mayhave reported their presence, they must be interpreted with caution and inthe context of the clinical situation. The frequency of these findings inadults WITHOUT low back pain increases with age and are as follows: diskdegeneration (37-96%), disk height loss (24-84%), disk bulge (30-84%),disk protrusion (29-43%), annular fissure (19- 29%), and facet degeneration(4-83%). Frequency percentages adapted from Adithya W, Luetmer PH, [place] B, etal. AJNR AM J Neuroradiol 2015:36:811-16. Og Barnes MD RAD MRI documented in this encounter Visit Diagnoses Diagnosis Acute midline low back pain with bilateral sciatica (HRC) Severe pain History of gastric ulcer Personal history of other diseases of digestive system documented in this encounter Care Teams Chemical Reclamation Equipment Operator Relationship Specialty Start Date End Date Jersey Wilson MD [address] [place] [address] PCP - General Family Practice 07/23/16 documented as of this encounter
--- OUTSIDE RECORDS SUMMARY | 2023-07-23 11:01 | XMS_ITS | Encounter Summary ---
Author Name Unknown Organization [facility] Address [address] [place] [address] Care Team Providers Care Lehr Attendant Name Role Phone Ursula Olea MD Primary Care Provider [phone] Reason for Visit * Consult/Transfer Care (Routine) - New Request Specialty Diagnoses / Procedures Referred By Myrna t Referred To Contact Cardiology Diagnoses Mild dilation of ascending aorta (HRC) Ursula Olea MD [address] [place] [address] Referral ID Status Reason Start Date Expiration Date V isits Requested Visits Authorized [id number] New Request 11/10/2022 02/09/2024 1 1 Encounter Details Date Type Department Care Team Description 12/11/2022 1:30 PM CDT Initial Consult [facility] [address] [place] [id number] Gaston Huerta MD [address] [place] [address] Nurse, Cardiology II [facility] [address] [place] [phone] Ascending aorta dilatation (HRC) (Primary Dx); Essential hypertension (HRC); Leg edema Social History Tobacco Use Types Packs/Day Years [...] Sign Reading Time Taken Comments Blood Pressure 174/85 12/11/2022 1:37 PM CDT Pulse 60 12/11/2022 1:37 PM CDT apica l, reg Temperature - - Respiratory Rate - - Oxygen Saturation - - Inhaled Oxygen Concentration - - Weight 94.3 kg (208 lb) 12/11/2022 1:37 PM CDT Height 175.3 cm (5' 9) 12/11/2022 1:37 PM CDT Body Mass Index 30.72 12/11/2022 1:37 PM CDT documented in this encounter Progress Notes * Gaston Huerta MD - 12/11/2022 12:00 AM CDT NAME: PAUL SAEED CSN: [id number] CLINIC NOTE CARDIOLOGY CONSULTATION DATE OF SERVICE: 12/11/2022 : 1940 CHIEF COMPLAINT: Followup for uncontrolled hypertension, mild ascending aortic dilation, which is stable. HISTORY OF PRESENT ILLNESS: Mr. Saeed is an 82-year-old male with a longstanding history of hypertension, mild ascending aortic dilation, stable over a decade or so, and mild leg edema, who comes for routine followup. He had an echocardiogram, which showed that his aorta is mildly dilated and stable. The patient has elevated blood pressure here, systolic blood pressure 170 to 180 mmHg. The previousblood pressure was about 130 mmHg in the office. He does not take his blood pressure at home. The patient reports that he is not involved in any regular exercise program because of knee surgery, which went well. He has no symptoms with activity in his chest including any shortness of breath or chest pain. No sensation of palpitations. He has edema, which is mild, dependent. He was on amlodipine in the past, but that has been discontinued. The patient tells me that he had tendency to bradycardia while on higher dose of metoprolol. He is on Toprol 25 mg a day now. PAST MEDICAL HISTORY: As dictated in my note from March 01, 2009. CURRENT MEDICATIONS: Verified with the patient include metoprolol 25 mg daily, Oretic 12.5 mg daily, lisinopril 30 mg daily. ALLERGIES: LISTED IN MEDICAL RECORD. SOCIAL HISTORY: Denies active smoking. Denies excessive alcohol use. He is not involved in any regular exercise program. REVIEW OF SYSTEMS: CONSTITUTIONAL: Weight is slightly on the higher end. No fever. CARDIOVASCULAR: No chest pain, shortness of breath. He does complain of mild dependent leg edema. No recent palpitations. No history ofrecent syncope. PHYSICAL EXAMINATION: GENERAL: The patient is alert and oriented x3, not in apparent distress. VITAL SIGNS: Blood pressure 174/85, Omron is 181/93, heart rate of 60, weight is 208. NECK: No JVD. JVP is normal. LUNGS: Clear to auscultation. HEART: Regular. No pathologic murmur. PMI is not displaced. ABDOMEN: Soft, nontender. EXTREMITIES: With trivial edema. LABORATORY DATA: Hemoglobin of 15.5, potassium of 4.1, creatinine 1.2. Lipids from May 2021 showed LDL of 110, TSH of 0.93 from October 2022. Echocardiogram from November 25, 2022, showed normal LV systolic performance, mild concentric LVH, trivial valvular abnormalities. The sinus of Valsalva measured 4.2 cm. There were no major changes compared comparing to 2 years ago. EKG independently reviewed by me from December 31, 2021, showed sinus rhythm with sinus arrhythmia. ThePR interval was normal. IMPRESSION: An 82-year-old male with hypertension, mild ascending aortic dilation. 1. Hypertension associated with left ventricular hypertrophy, control unclear. 2. Mild aortic dilation, stable over a decade. 3. Elevated BMI. 4. Dependent leg edema. RECOMMENDATIONS: 1. The patient sees me for followup of his mild aortic dilation, it is in the range of 4 cm over the last 10 years or so. He may have periodic imaging, but I think it does need to occur more often than every 2 to 3 years given stability of his aorta over a decade. 2. We will focus on blood pressure control. When he is out of lisinopril and HCTZ, he will start combo pill of lisinopril and HCTZ 20/25 mg daily. He can also switch from metoprolol to Coreg 6.25 mg twice a day. 3. The patient expresses some concerns about beta fabiola since he seems to have mild chronotropic incompetence with higher doses. If he needs additional blood pressure medications, Norvasc could be considered, but he also had edema. another option is to consider spironolactone with careful followup potassium and creatinine. I would probably favor increasing dose of Coreg if necessary for blood pressure control and tolerated. He is aware that goal is 130/80 mmHg or lower. If it is not achieved,he should call my office. 4. He will have the echocardiogram with primary care physician in 3 years to look at his aorta. He will get in touch with my office if any new symptoms. Otherwise, follow up in Cardiology on p.r.n. basis. GASTON HUERTA MD MJK/AQS /[id number] cc: URSULA OLEA MD [address] [place] [address] documented in this encounter Plan of Treatment Upcoming Encounters Date Type Department Care Team Description 07/30/2023 1:00 PM BUNG REMOVER Appointment [address] [place] [address] Ursula Olea MD [address] [place] [address] [place] [address] 08/11/2023 2:15 PM BUNG REMOVER Appointment [place] [address] [place] [address] Suzanna Terrell MD, PhD [address] [place] [address] 11/17/2023 1:00 PM CDT Appointment [facility] [address] [facility] [place] [address] Ursula Olea MD [address] [facility] [place] [address] documented as of this encounter Visit Diagnoses Diagnosis Ascending aorta dilatation (HRC)- Primary Thoracic aortic ectasia Essential hypertension (HRC) Unspecified essential hypertension Leg edema Edema documented in this encounter Care Teams Lehr Attendant Relationship Specialty Start Date End Date Ursula Olea MD [address] [facility] [place] [phone] PCP - General Family Practice 07/23/16 documented as of this encounter
--- OUTSIDE RECORDS SUMMARY | 2023-07-23 11:01 | XMS_ITS | Encounter Summary ---
Author Name Unknown Organization [facility] Address [address] [place] [address] Care Team Providers Care Sanitary Landfill Operator Name Role Phone Jersey Wilson MD Primary Care Provider [phone] Encounter Details Date Type Department Care Team Description 11/10/2022 11:30 AM CDT Lab Visit [facility] [address] [facility] [place], [place] [address] Essential hypertension (HRC); IFG (impaired fasting glucose) Social History Tobacco Use Types Packs/Day Years [...] Department Care Team Description 07/30/2023 1:00 PM BOATSWAIN MATE Appointment [facility] [address] [facility] [place], [place] [phone] Jersey Wilson MD [address] [facility] [address] [facility] [place], [place] [address] 08/11/2023 2:15 PM BOATSWAIN MATE Appointment [facility] [address] Dermatology [address] [place], [place] [phone] Suzanna Terrell MD, PhD [address] [place], [place] [address] 11/17/2023 1:00 PM CDT Appointment [facility] [address] [facility] [place], [place] [phone] Jersey Wilson MD [address] [place] [address] documented as of this encounter Procedures Procedure Name Priority Date/Time Associated Diagnosis Comments BASIC METABOLIC PANEL Routine 11/10/2022 11:33 AM CDT Essential hypertension (HRC) COMPLETE BLOOD COUNT-NO DIFF Routine 11/10/2022 11:33 AM CDT Essential hypertension (HRC) TSH, SENSITIVE (WITH REFLEX) Routine 11/10/2022 11:33 AM CDT Essential hypertension (HRC) HGB A1C Routine 11/10/2022 11:33 AM CDT IFG (impaired fasting glucose) documented in this encounter Results * TSH with Free T4 (if TSH Abnormal) (11/10/2022 11:33 AM CDT) TSH, Reflex 0.98 0.30 - 4.50 uIU/mL 11/10/2022 7:15 PM CDT [facility] Blood Venipuncture / Unknown 11/10/2022 11:33 AM CDT 11/10/2022 11:33 AM CDT Jersey Wilson MD LAB_1 [facility] [address] [place], [place] [address] * Hgb A1C (11/10/2022 11:33 AM CDT) Hemoglobin A1C 5.1 <=5.6 % 11/11/2022 8:52 AM CDT [facility] Estimated Average Glucose (Calc) 100 < 117 mg/dL 11/11/2022 8:52 AM CDT [facility] Comment:Estimated average gl ucose (eAG) converts A1c into glucose units (mg/dL) and estimates average glucose over the past approximately 3 months. The eAG reference interval (<117 mg/dL) corresponds to an A1c of <5.7%. Blood Venipuncture / Unknown 11/10/2022 11:33 AM CDT 11/10/2022 11:33 AM CDT Jersey Wilson MD LAB_1 Performing Organization Address City/State/[facility] Co de Phone Number [facility] [address] [phone] * Complete Blood Count-No Diff (11/10/2022 11:33 AM CDT) WBC 5.4 3.5 - 10.5 x10(9)/L 11/10/2022 11:42 AM CDT [facility] RBC 4.91 4.32 - 5.72 x10(12)/L 11/10/2022 11:42 AM CDT [facility] Hemoglobin 15.5 13.5 - 17.5 g/dL 11/10/2022 11:42 AM CDT [facility] HCT 44.0 38.8 - 50.0 % 11/10/2022 11:42 AM CDT [facility] MCV 89.6 80.0 - 100.0 fL 11/10/2022 11:42 AM CDT [facility] MCH 31.6 27.6 - 33.3 pg 11/10/2022 11:42 AM CDT [facility] MCHC 35.2 31.5 - 35.2 g/dL 11/10/2022 11:42 AM CDT [facility] RDW 11.9 11.9 - 15.5 % 11/10/2022 11:42 AM CDT [facility] Platelets 230 150 - 450 x10(9)/L 11/10/2022 11:42 AM [facility] Blood Venipuncture / Unknown 11/10/2022 11:33 AM CDT 11/10/2022 11:33 AM CDT Jersey Wilson MD LAB_1 [facility] [address] [place] [address], [facility] [phone] * (ABNORMAL) Basic Metabolic Panel (11/10/2022 11:33 AM CDT) Sodium 137 136 - 145 mmol/L 11/10/2022 4:19 PM [facility] Potassium 4.1 3.5 - 5.1 mmol/L 11/10/2022 4:19 PM [facility] Chloride 102 98 - 109 mmol/L 11/10/2022 4:19 PM [facility] CO2 24 20 - 29 mmol/L 11/10/2022 4:19 PM [facility] Anion Gap 11 7 - 16 mmol/L 11/10/2022 4:19 PM [facility] Calcium 9.8 8.4 - 10.4 mg/dL 11/10/2022 4:19 PM [facility] BUN 18 7 - 26 mg/dL 11/10/2022 4:19 PM [facility] Creatinine 1.20(H) 0.73 - 1.18 mg/dL 11/10/2022 4:19 PM [facility] Glucose 111(H) 70 - 100 mg/dL 11/10/2022 4:19 PM [facility] Comment:The given reference range is for the fasting state. Non-fasting reference range for glucose is 70 - 180 mg/dL. Hours Fasting 15 11/10/2022 4:19 PM [facility] GFR, Estimated >60 >60 mL/min/1.7 3m2 11/10/2022 4:19 PM [facility] Blood Venipuncture / Unknown 11/10/2022 11:33 AM CDT 11/10/2022 11:33 AM CDT Jersey Wilson MD LAB_1 [facility] [address] [place] [address], [facility] [phone] [facility] [address] [place] [phone], [facility] [phone] documented in this encounter Visit Diagnoses Diagnosis Essential hypertension (HRC) Unspecified essential hypertension IFG (impaired fasting glucose) Impaired fasting glucose documented in this encounter Care Teams Sanitary Landfill Operator Relationship Specialty Start Date End Date Jersey Wilson MD [address] [place], [place] [address] PCP - General Family Practice 07/23/16 documented as of this encounter
--- OUTSIDE RECORDS SUMMARY | 2023-07-23 11:01 | XMS_ITS | Encounter Summary ---
Author Name Unknown Organization [facility] Address [address] [place] [address] Care Team Providers Care Access Consultant Name Role Phone Ursula Olea MD Primary Care Provider [phone] Reason for Visit * Reason Comments Refill tamsulosin (FLOMAX) 0.4 MG CAPS capsule [Pharmacy Med Name: TAMSULOSIN HCL CAPS 0.4MG] Encounter Details Date Type Department Care Team Description 02/06/2023 Refill [facility] [address] [facility]. [place], [place] [phone] Ursula Olea MD [address] [place], [place] [phone] Refill (tamsulosin (FLOMAX) 0.4 MG CAPS capsule [Pharmacy Med Name: TAMSULOSIN HCL CAPS 0.4MG]) Social History Tobacco Use Types Packs/Day Years [...] as of this encounter Nursing Notes * Interface, Out Surescripts Prov Query - 02/06/2023 5:43 PM CDT tamsulosin (FLOMAX) 0.4 MG CAPS capsule [Pharmacy Med Name: TAMSULOSIN HCL CAPS 0.4MG] Medication started: 05/28/2020 Last ordered by URSULA OLEA: 11/10/2022 (88 days ago) QTY: 90, Refills: 3, Sig: take 1 capsule (0.4 mg) by mouth daily. (changed but equivalent) -> The patient is requesting refills too soon, the current prescription is due to run out on 11/05/2023. -> Refill x 12 months, qty: 90, refills: 3 (until due for an office visit) Last qualifying visit: 11/10/2022 (with URSULA OLEA) Next scheduled visit: None Quotations Book Embedded Refills, Reference: [id number], 02/06/2023 5:43:37 PM CDT, Pool: HÉCTOR KEYILL ([id number]) documented in this encounter Plan of Treatment Upcoming Encounters Date Type Department Care Team Description 07/30/2023 1:00 PM CASE RESOURCE MANAGER Appointment [facility] [address] [facility]. [place] [address] Ursula Olea MD [address] [facility] [place] [address] 08/11/2023 2:15 PM CASE RESOURCE MANAGER Appointment [place] [address] Dermatology [address] [place] [address] [place] [address] [place] [phone] 11/17/2023 1:00 PM CDT Appointment [facility] [address] [place] [address] [place] [address] Ursula Olea MD [address] [place] [address] documented as of this encounter Visit Diagnoses Diagnosis Benign prostatic hyperplasia, unspecified whether lower urinary tract symptoms present documented in this encounter Care Teams Access Consultant Relationship Specialty Start Date End Date Ursula Olea MD [address] [place], [place] [phone] PCP - General Family Practice 07/23/16 documented as of this encounter
--- OUTSIDE RECORDS SUMMARY | 2023-07-23 11:01 | XMS_ITS | Encounter Summary ---
Author Name Unknown Organization [facility] Address [address] [place] [address] Care Team Providers Care Manager Night Name Role Phone Jersey Wilson MD Primary Care Provider [phone] Reason for Referral * (Routine) - New Request Specialty Diagnoses / Procedures Referred By Contac t Referred To Contact Diagnoses Adenomatous polyp of colon, unspecified part of colon Procedures Endoscopy, Colon, Screening/Diagnostic Jersey Wilson MD [address] [place] [id number] Referral ID Status Reason Start Date Expiration Date V isits Requested Visits Authorized [id number] New Request 11/10/2022 11/10/2024 1 1 * Consult/Transfer Care (Routine) - New Request Specialty Diagnoses / Procedures Referred By Contac t Referred To Contact Cardiology Diagnoses Mild dilation of ascending aorta (HRC) Jersey Wilson MD [address] [place] [id number] Referral ID Status Reason Start Date Expiration Date V isits Requested Visits Authorized [id number] New Request 11/10/2022 02/09/2024 1 1 Scheduling Instructions Your provider has recommended an appointment with [facility]. You can quickly make your appointment online at [employer]/schedule. You can also call [phone] for help scheduling your appointment. We suggest you call your health insurance company about your coverage and benefits for this appointment. Question Answer Appointment Urgency? Non-Urgent * Procedure/Equipment (Routine) - New Request Specialty Diagnoses / Procedures Referred By Contac t Referred To Contact Diagnoses Mild dilation of ascending aorta (HRC) Procedures Echocardiogram Jersey Wilson MD [address] [facility] [place] [address] Referral ID Status Reason Start Date Expiration Date V isits Requested Visits Authorized [id number] New Request 11/10/2022 02/09/2024 1 1 Reason for Visit * Reason Comments FATIGUE Sleeping too much, l ow energy Annual Exam Encounter Details Date Type Department Care Team Description 11/10/2022 10:30 AM CDT Office Visit [facility] [address] [facility]. [place], [place] [phone] [place] [address] [place] [phone] Encounter for Medicare annual wellness exam (Primary Dx); Well adult exam; Essential hypertension (HRC); Hyperlipidemia, unspecified hyperlipidemia type (HRC); IFG (impaired fasting glucose); Gastroesophageal reflux disease without esophagitis; Cerebral microvascular disease; Benign prostatic hyperplasia, unspecified whether lower urinary tract symptoms present; Mild dilation of ascending aorta (HRC); Chronic migraine without aura without status migrainosus, not intractable; Obstructive sleep apnea on CPAP; Adenomatous polyp of colon, unspecified part of colon Social History Tobacco Use Types Packs/Day Years [...] Sign Reading Time Taken Comments Blood Pressure 130/74 11/10/2022 10:19 AM CDT Pulse 73 11/10/2022 10:19 AM CDT Temperature - - Respiratory Rate - - Oxygen Saturation - - Inhaled Oxygen Concentration - - Weight 91 kg (200 lb 11.2 oz) 11/10/2022 10:19 A M CDT Height 177 cm (5' 9.69) 11/10/2022 10:19 AM CDT Body Mass Index 29.06 11/10/2022 10:19 AM CDT documented in this encounter Patient Instructions * Patient Instructions* Jersey Wilson MD - 11/10/2022 10:30 AM CDT Annual Wellness Visit Summary Your care team is recommending the following tests, procedures or services. Some of these recommendations may not be fully covered by Medicare or your insurance. If you have questions, check with your insurance to determine coverage before completing these services. Health Maintenance Due Health Maintenance Due Topic Date Due ??? Zoster/Shingles (1 of 2) Never done ??? Colonoscopy 12/14/2020 ??? COVID-19 Vaccine (4 - Booster for Moderna series) 06/27/2021 ??? DTaP/Tdap/Td (2 - Tdap) 02/01/2022 ??? Prediabetes: HGBA1C 06/02/2022 ??? Medicare Annual Wellness Visit 06/14/2022 If your Medicare Welcome or Annual Wellness Visit is showing you are due in the above list, this will be updated after this visit. You had this completed today and are not due for another year. documented in this encounter Progress Notes * Jersey Wilson MD - 11/10/2022 10:30 AM CDT Medicare Annual Wellness Visit Subjective/Historical: Paul Rae is a 82 y.o. old male Chief Complaint Patient presents with FATIGUE Sleeping too much, low energy Annual Exam Current Concerns: See below. Mini-Cog was administered today with a total score of: Word Recall: 2 Clock Draw: 2 Total: 4 PHQ-2 was administered today with a total score of: 0 Medicare Annual Wellness Smart Form 11/10/2022 10:30 AM MEDICARE ANNUAL WELLNESS CONCERNS In general, would you say your health is: -- In general, would you say your dental health is: -- Do you or any of your family members have any concerns about your memory? No Does urination or leaking urine cause any problems with your daily activities or sleep? -- Do you have difficulty hearing? Yes Do you use a hearing aid? No Do you have concerns about your sexual health? -- How many servings of fruits and vegetables do you eat a day? 2 to 4 Do you get at least 2 1/2 hours of physical activity in an average week? No Do you have anyone nearby who can help you when needed? -- Do you have difficulty doing any of the following activities? Sleeping Do you have someone to help you with the activities that are difficult? -- Do you miss taking medicine or skip a dose more than once a week? Yes Do you feel unsteady when walking? -- Do you have rugs (not carpet) in your home? -- Have you had any auto accidents in the last 12 months while you were driving? -- Do you always fasten your seat belt when you are in an automobile? -- Do you take illegal drugs or use prescription medications for reasons other than prescribed by a doctor? -- Do you have concerns about your finances? -- Do you ever worry you'll run out of food or medicines before you have money to buy more? -- Advance Directives: No advance directives are on file. Discussed completing advance directives. Written information for advance directives was given. Observed Vitals: BP 130/74 (BP Location: Right Arm, BP Cuff Size: Large) Pulse 73 Ht 5' 9.69 (1.77 m) Wt 200 lb 11.2 oz (91 kg) BMI 29.06 kg/m?? See below. Assessment/Plan Encounter for Medicare annual wellness exam Essential hypertension (HRC) - Basic Metabolic Panel; Future - Complete Blood Count-No Diff; Future Hyperlipidemia, unspecified hyperlipidemia type (HRC) IFG (impaired fasting glucose) - Hgb A1C; Future Gastroesophageal reflux disease without esophagitis Cerebral microvascular disease Benign prostatic hyperplasia, unspecified whether lower urinary tract symptoms present Mild dilation of ascending aorta (HRC) Chronic migraine without aura without status migrainosus, not intractable Obstructive sleep apnea on CPAP Adenomatous polyp of colon, unspecified part of colon Other orders - finasteride (PROSCAR) 5 MG tablet; Take 1 Tablet (5 mg) by mouth daily. - Tadalafil (CIALIS) 5 MG tablet; Take 1 Tablet (5 mg) by mouth daily. 1.Counseling and education provided today includes proper nutrition and health habits, fall prevention, and for those items ordered above. See plan for future preventive services in Patient Instructions. Jersey Wilson MD 11/10/2022, 10:35 AM Preventive Exam SUBJECTIVE: Patient presents for a routine preventive physical exam. Essential hypertension. Treated with hydrochlorothiazide 12.5 mg daily, lisinopril 30 mg daily, and metoprolol XL 25 mg daily. No chest pain or shortness of breath. Hyperlipidemia. No longer taking statin therapy due to side effects. Impaired fasting glucose. No polyuria or polydipsia. Little exercise and not following diet. GERD. Treated with Reglan 5 mg daily and pantoprazole 40 mg daily. Symptoms are well controlled. No melena, no hematochezia. No dysphagia. Cerebrovascular disease. Blood pressure is being treated for hypertension and hyperlipidemia. No longer taking aspirin due to GI issues. No focal weakness, numbness or tingling. BPH. Treated with Flomax 0.4 mg daily and Proscar 5 mg per day. Symptoms controlled. Mild dilatation of the aorta. This was noted on cardiac echo in 10/2014. Repeat cardiac echo in 07/2018 was stable. No chest pain or shortness of breath. Chronic migraine. He is following with Neurology. He is treated with Imitrex, Topamax and amitriptyline. MELECIO. He is followed by Pulmonology. Patient has noticed increased fatigue since not using his CPAP regularly. He has a new machine but is not using it yet. Adenomatous colon polyps. Last colonoscopy done in 12/2017. Consider repeat in 12/2022. Past Medical History: Diagnosis Date Bile-induced gastritis 04/06/15 EGD BPH (benign prostatic hypertrophy) 02/02/2012 Bradycardia #*LW 11 03/01/2009 Cataract RE Cerebral microvascular disease 04/16/2016 Chronic headaches 03/02/2006 Duodenal stricture 12/09/2015 Gastritis #*LW 9 02/20/2009 Gastroesophageal reflux disease with esophagitis 04/06/15 EGD Hyperlipidemia (HRC) 11/01/2015 Hypertension #*LW 1 03/02/2006 IFG (impaired fasting glucose) 02/02/2012 Iron deficiency anemia 11/2015 Followed by Hematology. Treated with iron infusions. Last GI workup and 12/2017 was negative for GI bleeding. Left Ventricular Hypertrophy #*LW 12 03/01/2009 Improved on ECHO in 07/2018. Mild dilation of ascending aorta ([facility]) 10/2014 Last ECHO was 08/2020. Stable. Recheck in 1-2 years. Palpitations #*LW 6 03/02/2006 Polyp Colon Adenomatous #*LW 7 09/02/200712/2017. Consider repeat 12/2022 Syncope #*LW 10 03/01/2009 TIA (transient ischemic attack) [place] 10/25/2014 Ulcer Gastric #*LW 5 03/02/2006 Past Surgical History: Procedure Laterality Date CATARACT REMOVAL Left 11/02/2007 [facility] ABW CATARACT REMOVAL Right 03/01/2017 ZCB00 +20.5 Target: [place] ABW EYE SURGERY 2010 GASTRECTOMY Gastrectomy Partial HX APPENDECTOMY LAP CHOLECYSTECTOMY Cholecystectomy Laparoscopic s/p Allergies Allergen Reactions Meperidine Other, see comments SEIZURE Shellfish-Derived Products Other, see comments Trazodone Syncope Outpatient Medications Prior to Visit Medication Sig Dispense Refill amitriptyline (ELAVIL) 25 MG tablet Take 5 Tablets (125 mg) by mouth daily. 70 Tablet 1 cholecalciferol (VITAMIND3) 50 MCG (2000 UT) tablet Take 1 Tablet (2,000 Units) by mouth daily. finasteride (PROSCAR) 5 MG tablet Take 1 Tablet (5 mg) by mouth daily. hydroCHLOROthiazide 12.5 MG capsule TAKE 1 CAPSULE DAILY 90 Capsule 0 lisinopril (ZESTRIL) 30 MG tablet TAKE 1 TABLET DAILY 90 Tablet 0 metoclopramide (REGLAN) 5 MG tablet TAKE 1 TABLET TWICE A DAY 180 Tablet 1 metoprolol succinate (TOPROL XL) 25 MG 24 hour release tablet TAKE 1 TABLET DAILY 90 Tablet 0 olopatadine (PATANOL) 0.1 % eye drop solution Place 1-2 Drops into eye(s) two times daily as needed. pantoprazole DR (PROTONIX) 40 MG tablet TAKE 1 TABLET DAILY 90 Tablet 0 SUMAtriptan (IMITREX) 100 MG tablet Take 1 Tablet (100 mg) by mouth as needed. Tadalafil (CIALIS) 5 MG tablet Take 1 Tablet (5 mg) by mouth daily. tamsulosin (FLOMAX) 0.4 MG CAPS capsule TAKE 1 CAPSULE DAILY 90 Capsule 0 topiramate (TOPAMAX) 100 MG tablet Take 1 Tablet (100 mg) by mouth daily at bedtime. 90 Tablet 1 hydroCHLOROthiazide (ORETIC) 12.5 MG tablet Take 12.5 mg by mouth daily. nirmatrelvir & ritonavir 300/100 (PAXLOVID) 300 mg & 100 mg tablet combo pack Take 2 nirmatrelvir tablets (300mg) and 1 ritonavir tablet (100mg) by mouth twice daily for 5 days 30 Each 0 topiramate (TOPAMAX) 25 MG tablet TAKE 4 TABLETS AT NIGHT. 360 Tablet 3 No facility-administered medications prior to visit. Family History Problem Relation Age of Onset Coronary Artery Disease Father Cataract Father Heart Attack Father 59 fatal Migraines Mother Migraines Daughter Stroke Brother 68 Him and 3 sons also Heart Disease Brother Him and 3 sons also Diabetes Negative Family History Glaucoma Negative Family History Macular Degeneration Negative Family History Retinal Detachment Negative Family History Amblyopia/Strabismus Negative Family History Habits: Social History Tobacco Use Smoking Status Never Smokeless Tobacco Never Social History Substance and Sexual Activity Alcohol Use Yes Alcohol/week: 3.0 - 4.0 standard drinks Types: 5 - 6 Standard drinks or equivalent per week Comment: 3-4 drinks a week Preventive Health Assessment: Preventive Health screen was reviewed and updated today in EMR. Colonoscopy done: 12/2017. Repeat due 12/2022. Exercise is adequate. Tetanus immunization is up-to-date. Review of Systems: Review of Systems - General ROS: Fatigue Psychological ROS: negative Ophthalmic ROS: negative ENT ROS: negative Hematological and Lymphatic ROS: negative Endocrine ROS: negative Respiratory ROS: negative Cardiovascular ROS: negative Gastrointestinal ROS: negative Genito-Urinary ROS: negative Neurological ROS: negative Dermatological ROS: negative OBJECTIVE: Filed Vitals: 11/10/22 1019 BP: 130/74 Pulse: 73 Weight: 200 lb 11.2 oz (91 kg) Height: 5' 9.69 (1.77 m) General: Patient alert, in NAD. Non-ill appearing HEENT: NC/AT. PERRLA/EOMI. Bilateral TM's, external canals, oropharynx normal. Neck: Supple, without LAD or thyromegaly. CV: RRR without murmurs, rubs or gallops. Resp: Clear to auscultation without crackles, wheezes or distress. Abdomen: Soft, non-tender, non-distended without hepatosplenomegaly, masses. Bowel sounds positive. Extremities: No cyanosis, clubbing or edema. Positive pulses x 4. Genitalia: Testes descended bilaterally. No masses or hernias. Rectal: Normal tone. Prostate is normal size. No nodules noted. Skin: Warm and dry. No rash. Neuro: Alert and oriented x3. CN II-XII are intact. DTR 2+ and symmetric. Normal muscle bulk and tone. Psychiatric: Normal affect and insight. Patient does not appear depressed or anxious. LABS : Pending Cardiac echo: 09/06/2020. 1. Moderate left ventricular hypertrophy. 2. Normal left ventricular function with a visually estimated ejection fraction of 55% and no regional wall motion abnormalities. 3. The aortic valve is tricuspid. There is mild aortic sclerosis without significant stenosis and trace aortic insufficiency. 4. Mild dilation of the aorta measuring 4.1 cm at the sinuses of Valsalva. ASSESSMENT: Diagnosis and Associated Orders ICD-10-CM 1. Encounter for Medicare annual wellness exam Z00.00 2. Well adult exam Z00.00 3. Essential hypertension (HRC) I10 Basic Metabolic Panel Complete Blood Count-No Diff 4. Hyperlipidemia, unspecified hyperlipidemia type (HRC) E78.5 5. IFG (impaired fasting glucose) R73.01 Hgb A1C 6. Gastroesophageal reflux disease without esophagitis K21.9 7. Cerebral microvascular disease I67.89 8. Benign prostatic hyperplasia, unspecified whether lower urinary tract symptoms present N40.0 9. Mild dilation of ascending aorta (HRC) I77.810 10. Chronic migraine without aura without status migrainosus, not intractable G43.709 11. Obstructive sleep apnea on CPAP G47.33 Z99.89 12. Adenomatous polyp of colon, unspecified part of colon D12.6 PLAN: 2. Will check CBC, Lipid panel and BMP. Encouraged regular exercise and healthy diet. Follow-up in 1 year, sooner PRN any concerns. 3. Continue lisinopril, hydrochlorothiazide, and metoprolol XL. Check CBC, TSH and BMP. Recheck in 6-12 months, earlier if blood pressure is not at goal. 4. No longer taking statin therapy. Treat with diet and exercise. Recheck in 6- 12 months, earlier if having abnormal muscle aches or weakness. 5. Check a fasting glucose and A1c. Treat with low-carb diet and recommend regular exercise. Will recheck in 6-12 months depending on results. 6. Continue Reglan and Protonix. Further management per GI. Recheck in 6-12 months. Earlier if symptoms not controlled. 7. Blood pressure is adequately controlled. Patient no longer taking statin therapy. Recheck in 6-12 months. Follow-up immediately if having focal weakness, numbness or tingling. 8. Continue Flomax and Proscar.. PSA is no longer indicated. Recheck in 6-12 months. Earlier if symptoms are not controlled. 9. Last cardiac echo was 08/2020. Arrange for follow-up cardiac echo. Recheck in 6-12 months. Follow up earlier if having symptoms. 10. Continue Imitrex, Topamax and amitriptyline. Further management per Neurology. 11. Restart CPAP. Will check CBC, BMP, TSH to evaluate fatigue further. Follow up with Pulmonology if energy level continues to be low. 12. Consider repeat colonoscopy in 12/2022. He wishes to proceed with colonoscopy through [place] [facility]. Referral provided. Labs: We will send lab results to patient by mail or [employer] account. Preventive health counseling provided: Encouraged regular cardiovascular exercise and balanced diet. 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 [place] [address] Jersey Wilson MD [address] [place] [address] 08/11/2023 2:15 PM MOTION PICTURE PROJECTIONIST Appointment [place] [address] [place] [address] [facility] [place] [address] Suzanna Terrell MD, PhD [address] [place], [place] [id number] 11/17/2023 1:00 PM CDT Appointment [facility] [address] [facility]. [place], [place] [address] Jersey Wilson MD [address] [facility] [place], [place] [phone] Scheduled Orders Name Type Priority Associated Diagnoses Orde r Schedule Endoscopy, Colon, Screening/Diagnosti c GI Routine Adenomatous polyp of colon, unspecified part of colon 1 Occurrences starting 11/10/2022 until 11/10/2024 Scheduled Referrals Name Type Priority Associated Diagnoses Orde r Schedule Cardiology Consult-Adults Referral Routine Mild dilation of ascending aorta (HRC) Ordered: 11/10/2022 documented as of this encounter Results * TSH with Free T4 (if TSH Abnormal) (11/10/2022 11:33 AM CDT) TSH, Reflex 0.98 0.30 - 4.50 uIU/mL 11/10/2022 7:15 PM CDT [facility] Blood Venipuncture / Unknown 11/10/2022 11:33 AM CDT 11/10/2022 11:33 AM CDT Jersey Wilson MD LAB_1 [facility] [address] [place], [place] [address] * Hgb A1C (11/10/2022 11:33 AM CDT) Hemoglobin A1C 5.1 <=5.6 % 11/11/2022 8:52 AM CDT [facility] Estimated Average Glucose (Calc) 100 < 117 mg/dL 11/11/2022 8:52 AM CDT [facility] Comment:Estimated average gl ucose (eAG) converts A1c into glucose units (mg/dL) and estimates average glucose over the past approximately 3 months. The eAG reference interval (<117 mg/dL) corresponds to an A1c of <5.7%. Blood Venipuncture / Unknown 11/10/2022 11:33 AM CDT 11/10/2022 11:33 AM CDT Jersey Wilson MD LAB_1 [facility] [address] [phone] * Complete Blood Count-No Diff (11/10/2022 11:33 AM CDT) WBC 5.4 3.5 - 10.5 x10(9)/L 11/10/2022 11:42 AM CDT [facility] RBC 4.91 4.32 - 5.72 x10(12)/L 11/10/2022 11:42 AM CDT [facility] Hemoglobin 15.5 13.5 - 17.5 g/dL 11/10/2022 11:42 AM CDT [facility] HCT 44.0 38.8 - 50.0 % 11/10/2022 11:42 AM CDT [facility] MCV 89.6 80.0 - 100.0 fL 11/10/2022 11:42 AM CDT [facility] MCH 31.6 27.6 - 33.3 pg 11/10/2022 11:42 AM CDT [facility] MCHC 35.2 31.5 - 35.2 g/dL 11/10/2022 11:42 AM CDT [facility] RDW 11.9 11.9 - 15.5 % 11/10/2022 11:42 AM CDT [facility] Platelets 230 150 - 450 x10(9)/L 11/10/2022 11:42 AM CDT [facility] Blood Venipuncture / Unknown 11/10/2022 11:33 AM CDT 11/10/2022 11:33 AM CDT Jersey Wilson MD LAB_1 Performing Organization Address [facility]/ZIP Co de Phone Number [facility] [address] [place] [address], [facility] [phone] * (ABNORMAL) Basic Metabolic Panel (11/10/2022 11:33 AM CDT) Sodium 137 136 - 145 mmol/L 11/10/2022 4:19 PM [facility] Potassium 4.1 3.5 - 5.1 mmol/L 11/10/2022 4:19 PM [facility] Chloride 102 98 - 109 mmol/L 11/10/2022 4:19 PM [facility] CO2 24 20 - 29 mmol/L 11/10/2022 4:19 PM [facility] Anion Gap 11 7 - 16 mmol/L 11/10/2022 4:19 PM [facility] Calcium 9.8 8.4 - 10.4 mg/dL 11/10/2022 4:19 PM [facility] BUN 18 7 - 26 mg/dL 11/10/2022 4:19 PM [facility] Creatinine 1.20(H) 0.73 - 1.18 mg/dL 11/10/2022 4:19 PM [facility] Glucose 111(H) 70 - 100 mg/dL 11/10/2022 4:19 PM [facility] Comment:The given reference range is for the fasting state. Non-fasting reference range for glucose is 70 - 180 mg/dL. Hours Fasting 15 11/10/2022 4:19 PM [facility] GFR, Estimated >60 >60 mL/min/1.7 3m2 11/10/2022 4:19 PM [facility] Blood Venipuncture / Unknown 11/10/2022 11:33 AM CDT 11/10/2022 11:33 AM CDT Jersey Wilson MD LAB_1 Performing Organization Address [facility]/ZIP Co de Phone Number [facility] [address] [place] [address], [facility] [phone] [facility] [address] [place] [address], [facility] [phone] documented in this encounter Visit Diagnoses Diagnosis Encounter for Medicare annual wellness exam- Primary Well adult exam Routine general medical examination at a [facility] facility Essential hypertension (HRC) Unspecified essential hypertension Hyperlipidemia, unspecified hyperlipidemia type (HRC) IFG (impaired fasting glucose) Impaired fasting glucose Gastroesophageal reflux disease without esophagitis Esophageal reflux Cerebral microvascular disease Cerebrovascular disease, unspecified Benign prostatic hyperplasia, unspecified whether lower urinary tract symptoms present 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
--- OUTSIDE RECORDS SUMMARY | 2023-07-23 11:01 | XMS_ITS | Encounter Summary ---
Author Name Unknown Organization [facility] Address [address] [place] [address] Care Team Providers Care Drawing Box Tender Name Role Phone Ursula Olea MD Primary Care Provider [phone] Reason for Visit * Reason Comments Refill pantoprazole DR (PRO TONIX) 40 MG tablet [Pharmacy Med Name: PANTOPRAZOLE SODIUM DR TABS 40MG]; metoprolol succinate (TOPROL XL) 25 MG 24 hour release tablet [Pharmacy Med Name: METOPROLOL SUCCINATE ER TABS 25MG] Encounter Details Date Type Department Care Team Description 10/22/2022 Refill [facility] [address] [facility] [place] [address] Ursula Olea MD [address] [place] [address] Refill (pantoprazole DR (PROTONIX) 40 MG tablet [Pharmacy Med Name: PANTOPRAZOLE SODIUM DR TABS 40MG]; metoprolol succinate (TOPROL XL) 25 MG 24 hour release tablet [Pharmacy Med Name: METOPROLOL SUCCINATE ER TABS 25MG]) Social History Tobacco Use Types Packs/Day Years [...] as of this encounter Nursing Notes * Nga Wylie, RN - 10/22/2022 4:07 PM CDT Renewed medication per medication refill protocol. Requested Prescriptions Pending Prescriptions Disp Refills pantoprazole DR (PROTONIX) 40 MG tablet [Pharmacy Med Name: PANTOPRAZOLE SODIUM DR TABS 40MG] 90 Tablet 0 Sig: TAKE 1 TABLET DAILY metoprolol succinate (TOPROL XL) 25 MG 24 hour release tablet [Pharmacy Med Name: METOPROLOL SUCCINATE ER TABS 25MG] 90 Tablet 0 Sig: TAKE 1 TABLET DAILY Future Appointments Date Time Provider Department Center 11/10/2022 10:30 AM Ursula Olea MD [facility] 11/11/2022 2:00 PM Makenna Osorio, OD [facility] E[facility] PN RG 02/25/2023 1:15 PM Anushka Curran, PA-C [id number] [facility] PN 3931 08/11/2023 2:15 PM Suzanna Terrell MD, PhD P3800 [facility] PN [id number] * Interface, Out Surescripts Prov Query - 10/22/2022 12:26 PM CDT metoprolol succinate (TOPROL XL) 25 MG 24 hour release tablet [Pharmacy Med Name: METOPROLOL SUCCINATE ER TABS 25MG] Medication started: 12/30/2016 Last ordered by URSULA OLEA: 06/02/2021 (507 days ago) QTY: 90, Refills: 3, Sig: take 1 tablet by mouth daily. (changed but equivalent) -> Refill x 3 months (until due for an office visit) Last qualifying visit: 12/31/2021 (with URSULA OLEA) (A more recent visit (in Family Practice with MARGARET KRISHNA) was found) Next scheduled visit: None [facility] Embedded Refills, Reference: [id number], 10/22/2022 12:26:45 PM CDT, Pool: HÉCTOR REFILL ([id number]) pantoprazole DR (PROTONIX) 40 MG tablet [Pharmacy Med Name: PANTOPRAZOLE SODIUM DR TABS 40MG] Medication started: 06/30/2017 Last ordered by URSULA OLEA: 06/02/2021 (507 days ago) QTY: 90, Refills: 3, Sig: take 1 tablet by mouth daily. (changed but equivalent) -> Refill x 3 months (until due for an office visit) Last qualifying visit: 12/31/2021 (with URSULA OLEA) (A more recent visit (in Family Practice with MARGARET KRISHNA) was found) Next scheduled visit: None [facility] Embedded Refills, Reference: [id number], 10/22/2022 12:26:45 PM CDT, Pool: HÉCTOR REFILL ([id number]) documented in this encounter Plan of Treatment Upcoming Encounters Date Type Department Care Team Description 07/30/2023 1:00 PM ACTUARY CLERK Appointment [facility] [address] [place] [address] Ursula Olea MD [address] [place], [place] [id number] 08/11/2023 2:15 PM ACTUARY CLERK Appoint[address] [facility] [address] [place], [place] [address] Suz[place] [address] [place] [id number] 11/17/2023 1:00 PM CDT Appointment [facility] [address] [facility] [place] [address] [place] [address] [place] [address] [phone] documented as of this encounter Visit Diagnoses Diagnosis Benign prostatic hyperplasia, unspecified whether lower urinary tract symptoms present Essential hypertension (HRC) Unspecified essential hypertension Gastroesophageal reflux disease without esophagitis Esophageal reflux documented in this encounter Care Teams Drawing Box Tender Relationship Specialty [place] [address] [place] [address] [phone] PCP - General Family Practice 07/23/16 documented as of this encounter
--- OUTSIDE RECORDS SUMMARY | 2023-07-23 11:01 | XMS_ITS | Encounter Summary ---
Author Name Unknown Organization [facility] Address [address] [place] [address] Care Team Providers Care Government Program Manager Name Role Phone Jersey Wilson MD Primary Care Provider [phone] Reason for Visit * Reason Comments Refill amitriptyline (ELAVI L) 25 MG tablet [Pharmacy Med Name: AMITRIPTYLINE HCL TABS 25MG] Encounter Details Date Type Department Care Team Description 02/08/2023 Refill [facility] [address] [place], [place] [phone] Kusum Agustin PA-C [address] [place], [place] [phone] Refill (amitriptyline (ELAVIL) 25 MG tablet [Pharmacy Med Name: AMITRIPTYLINE HCL TABS 25MG]) Social History Tobacco Use Types [...] * Interface, Out Surescripts Prov Query - 02/08/2023 11:42 PM CDT amitriptyline (ELAVIL) 25 MG tablet [Pharmacy Med Name: AMITRIPTYLINE HCL TABS 25MG] Antidepressants 1 -> An office visit is overdue (performed over 17 months ago, required every 12 months). Last qualifying visit: 09/10/2021 (in [facility] with KUSUM AGUSTIN) Next scheduled visit: 02/25/2023 (in [facility] with KUSUM AGUSTIN) Last ordered by KUSUM AGUSTIN: 08/13/2022 (179 days ago) QTY: 70, Refills: 1, Sig: take 5 tablets(125 mg) by mouth daily. (changed but equivalent) [facility] Emb[facility]ded Refills, Reference: [id number], 02/08/2023 11:42:34 PM CDT, Pool: [facility]-PN ([id number]) documented in this encounter Plan of Treatment Upcoming Encounters Date Type Department Care Team Description 07/30/2023 1:00 PM WEB MANAGER Appointment [facility] [address] [facility] [place] [address] Jersey Wilson MD [address] [facility] [place] [address] 08/11/2023 2:15 PM WEB MANAGER Appointment [facility] [address] [place], [place] [address] Suzanna Terrell MD, PhD [address] [place] [address] 11/17/2023 1:00 PM CDT Appointment [facility] [address] [place] [address] Jersey Wilson MD [address] [place] [address] documented as of this encounter Visit Diagnoses Not on filedocumented in this encounter Care Teams Government Program Manager Relationship Specialty Start Date End Date Jersey Wilson MD [address] [place], [place] [phone] PCP - General Family Practice 07/23/16 documented as of this encounter
--- OUTSIDE RECORDS SUMMARY | 2023-07-23 11:01 | XMS_ITS | Encounter Summary ---
Author Name Unknown Organization [facility] Address [address] [place] [address] Care Team Providers Care Senior Account Clerk Name Role Phone Jersey Wilson MD Primary Care Provider [phone] Reason for Visit * Reason Comments Eye Exam Encounter Details Date Type Department Care Team Description 11/11/2022 2:00 PM CDT Office Visit [facility] [address] [place], [place] [phone] Makenna Osorio, OD [address] [place] [address] Examination of eyes and vision (Primary Dx); Fuchs' corneal dystrophy of both eyes; Pseudophakia; Regular astigmatism of both eyes; Presbyopia Social History Tobacco Use Types Packs/Day Years [...] this encounter Patient Instructions * Patient Instructions* Makenna Oosrio, OD - 11/11/2022 2:00 PM CDT If you have questions, you can send me a message through [employer] or call [phone]. Call [phone] or [phone] (after hours) with any new or worsening eye symptoms. New glasses prescription given. Fuch's Corneal Dystrophy Fuch's corneal dystrophy is a condition where the front part of the eye (the cornea) becomes cloudy. This can lead to blurry vision. Sometimes zhet-ret-wyzkoau eye drops called Malcolm-128 (or generic sodium chloride 5%) can help improve the vision. The drops may burn when you put them in because theyare salt-based. Use the drops 4 times daily. I also recommend using Malcolm-128 ointment at bedtime. You can also continue to use artificial tear (lubricant) eye drops (like Refresh or Systane) throughout the day. documented in this encounter Progress Notes * Makenna Osorio, OD - 11/11/2022 2:00 PM CDT Paul Rae (Mike) presents for an eye exam. He is alert, well appearing and in no apparent distress. Assessment and Plan: ICD-10-CM 1. Examination of eyes and vision Z01.00 Refractive State, Determination Of 2. Fuchs' corneal dystrophy of both eyes H18.513 3. Pseudophakia Z96.1 4. Regular astigmatism of both eyes H52.223 Refractive State, Determination Of 5. Presbyopia H52.4 Refractive State, Determination Of 1/2. Recommend using the Malcolm 128 drops QID BE, and isai at bedtime. Can consider DMEK in the futureif symptoms progress, but pt got a nice VA improvement with new MR- recommend updating glasses at this time. 3. PCIOL's clear and centered, monitor. 4/5. Update glasses Rx. - New spectacle Rx given. Follow-up in 1 year for eye exam; sooner as needed. The printed AVS handout was given. Call with any changes. documented in this encounter Plan of Treatment Upcoming Encounters Date Type Department Care Team Description 07/30/2023 1:00 PM DIRECTOR ONLINE MARKETING Appointment [facility] [address] [place] [address] [place] [address] Jersey Wilson MD [address] [facility] [place] [address] 08/11/2023 2:15 PM DIRECTOR ONLINE MARKETING Appointment [place] [address] [address] [place] [address] [place] [address] [place] [phone] 11/17/2023 1:00 PM CDT [address]ointment [address] [place] [address] [place] [address] [place], [place] [address] [address] documented as of this encounter Visit Diagnoses Diagnosis Examination of eyes and vision- Primary Fuchs' corneal dystrophy of both eyes Pseudophakia Lens replaced by other means Regular astigmatism of both eyes Regular astigmatism Presbyopia documented in this encounter Care Teams Senior Account Clerk Relationship Specialty Start Date End Date Jersey Wilson MD [address] [place], [place] [address], [place] [address] PCP - General Family Practice 07/23/16 documented as of this encounter
--- OUTSIDE RECORDS SUMMARY | 2023-07-23 11:01 | XMS_ITS | Encounter Summary ---
Author Name Unknown Organization [facility] Address [address] [place] [address] Care Team Providers Care Sole Buffer Name Role Phone Ursula Olea MD Primary Care Provider [phone] Reason for Visit * Reason Comments Refill tamsulosin (FLOMAX) 0.4 MG CAPS capsule [Pharmacy Med Name: TAMSULOSIN HCL CAPS 0.4MG]; hydroCHLOROthiazide 12.5 MG capsule [Pharmacy Med Name: HYDROCHLOROTHIAZIDE CAPS 12.5MG]; lisinopril (ZESTRIL) 30 MG tablet [Pharmacy Med Name: LISINOPRIL TABS 30MG] Encounter Details Date Type Department Care Team Description 10/22/2022 Refill [facility] [address] [place] [address] Ursula Olea MD [address] [place] [address] Refill (tamsulosin (FLOMAX) 0.4 MG CAPS capsule [Pharmacy Med Name: TAMSULOSIN HCL CAPS 0.4MG]; hydroCHLOROthiazide 12.5 MG capsule [Pharmacy Med Name: HYDROCHLOROTHIAZIDE CAPS 12.5MG]; lisinopril (ZESTRIL) 30 MG tablet [Pharmacy Med Name: LISINOPRIL TABS 30MG]) Social History Tobacco Use Types Packs/Day Years [...] Nursing Notes * Nga Wylie, RN - 10/26/2022 6:59 AM CDT Renewed medication per medication refill protocol. Requested Prescriptions Pending Prescriptions Disp Refills tamsulosin (FLOMAX) 0.4 MG CAPS capsule [Pharmacy Med Name: TAMSULOSIN HCL CAPS 0.4MG] 90 Capsule 0 Sig: TAKE 1 CAPSULE DAILY hydroCHLOROthiazide 12.5 MG capsule [Pharmacy Med Name: HYDROCHLOROTHIAZIDE CAPS 12.5MG] 90 Capsule0 Sig: TAKE 1 CAPSULE DAILY lisinopril (ZESTRIL) 30 MG tablet [Pharmacy Med Name: LISINOPRIL TABS 30MG] 90 Tablet 0 Sig: TAKE 1 TABLET DAILY * Interface, Out Surescripts Prov Query - 10/22/2022 12:26 PM CDT hydroCHLOROthiazide 12.5 MG capsule [Pharmacy Med Name: HYDROCHLOROTHIAZIDE CAPS 12.5MG] Medication started: 06/30/2017 Last ordered by URSULA OLEA: 06/02/2021 (507 days ago) QTY: 90, Refills: 3, Sig: take 1 capsule by mouth daily. (changed but equivalent) -> This medication was discontinued on 02/19/2022 by LEANNA LEAVITT -> Refill x 3 months (until due for a(n) Na check) Last qualifying visit: 12/31/2021 (with URSULA OLEA) (A more recent visit (in Family Practice with MARGARET KRISHNA) was found) Next scheduled visit: None Cr: 1.1 mg/dL on 12/31/2021 Na: 135 mEq/L on 11/20/2021 K: 4.1 mEq/L on 12/31/2021 [facility] Embedded Refills, Reference: [id number], 10/22/2022 12:26:46 PM CDT, Pool: HÉCTOR KEYILL ([id number]) lisinopril (ZESTRIL) 30 MG tablet [Pharmacy Med Name: LISINOPRIL TABS 30MG] Medication started: 02/23/2017 Last ordered by URSULA OLEA: 06/02/2021 (507 days ago) QTY: 90, Refills: 3, Sig: take 1 tablet by mouth daily. (changed but equivalent) -> The most recent order on 06/02/2022. -> Refill x 3 months (until due for an office visit, Cr check and K check) Last qualifying visit: 12/31/2021 (with URSULA OLEA) (A more recent visit (in Family Practice with MARGARET KRISHNA) was found) Next scheduled visit: None Cr: 1.1 mg/dL on 12/31/2021 K: 4.1 mEq/L on 12/31/2021 [facility] Embedded Refills, Reference: [id number], 10/22/2022 12:26:46 PM CDT, Pool: HÉCTOR REFILL ([id number]) tamsulosin (FLOMAX) 0.4 MG CAPS capsule [Pharmacy Med Name: TAMSULOSIN HCL CAPS 0.4MG] Medication started: 05/28/2020 Last ordered by URSULA OLEA: 06/02/2021 (507 days ago) QTY: 90, Refills: 3, Sig: take 1 capsule by mouth daily. (changed but equivalent) -> The most recent order on 06/02/2022. -> Refill x 3 months (until due for an office visit) Last qualifying visit: 12/31/2021 (with URSULA OLEA) (A more recent visit (in Family Practice with MARGARET KRISHNA) was found) Next scheduled visit: None [facility] Embedded Refills, Reference: [id number], 10/22/2022 12:26:46 PM CDT, Pool: HÉCTOR REFILL ([id number]) * Interface, Out Surescripts Prov Query - 10/22/2022 12:26 PM CDT The following lab order(s) may be associated with the following Patient Result Comment (Entered by Ursula Olea MD at 12/31/2021 6:28 PM): POTASSIUM Potassium and kidney function tests are normal. * Interface, Out Surescripts Prov Query - 10/22/2022 12:26 PM CDT The following lab order(s) may be associated with the following Patient Result Comment (Entered by Ursula Olea MD at 12/31/2021 6:29 PM): CREATININE / GFR Potassium and kidney function tests are normal. documented in this encounter Plan of Treatment Upcoming Encounters Date Type Department Care Team Description 07/30/2023 1:00 PM DEVELOPMENTAL ELECTRONICS ASSEMBLER Appointment [address] [address] Ursula Olea MD [address] [place] [address] 08/11/2023 2:15 PM DEVELOPMENTAL ELECTRONICS ASSEMBLER Appointment [facility] [address] [place] [address] Suzanna Terrell MD, PhD [address] [place] [address] 11/17/2023 1:00 PM CDT Appointment [address] [place] [address] Ursula Olea MD [address] [place] [phone] documented as of this encounter Visit Diagnoses Not on filedocumented in this encounter Care Teams Sole Buffer Relationship Specialty Start Date End Date Ursula Olea MD [address] [place] [address] PCP - General Family Practice 07/23/16 documented as of this encounter
--- OUTSIDE RECORDS SUMMARY | 2023-07-23 11:01 | XMS_ITS | Encounter Summary ---
Author Name Unknown Organization [facility] Address [address], [place] [address] Care Team Providers Care Stonemason Apprentice Name Role Phone Jersey Wilson MD Primary Care Provider [phone] Reason for Referral * Consult/Transfer Care (Routine) - Incomplete Specialty Diagnoses / Procedures Referred By Contsally t Referred To Contact Diagnoses Depressed mood Anushka Curran, ARVIND-C [address] [place] [address] Referral ID Status Reason Start Date Expiration Date V isits Requested Visits Authorized [id number] Incomplete 02/25/2023 05/26/2024 1 1 Scheduling Instructions Your clinician has recommended an appointment with Behavioral Health. You may call [phone] to schedule your appointment. This recommended service/s may not be covered by your health plan (health insurance). To find out your specific benefit coverage, please call the number on your insurance card.?? Please note that in order to maintain access for all patients, Behavioral Health does have a late cancellation policy. In order to avoid being restricted from scheduling future appointments in Behavioral Health you will need to cancel at least 24 hours in advance. We request you that you arrive 30 minutes before your first appointment to complete paperwork. Question Answer Appointment Urgency? Non-Urgent Reason for request? Depression Requested Services? Therapy/Counseling Pt aware and agrees to this order: Confirmed with patient Reason for Visit * Reason Comments Follow-up Encounter Details Date Type Department Care Team Description 02/25/2023 1:15 PM CDT Office Visit [facility] [address] [place] [address] Anushka Curran PA-C [address], [place] [phone] Chronic migraine without aura without status migrainosus, not intractable (Primary Dx); Insomnia, unspecified type; Essential hypertension (HRC); MELECIO (obstructive sleep apnea); Depressed mood Social History Tobacco Use Types Packs/Day Years [...] Sign Reading Time Taken Comments Blood Pressure 162/82 02/25/2023 1:10 PM CDT Pulse 60 02/25/2023 1:10 PM CDT Temperature - - Respiratory Rate 14 02/25/2023 1:10 PM CDT Oxygen Saturation - - Inhaled Oxygen Concentration - - Weight 91.2 kg (201 lb) 02/25/2023 1:10 PM CDT Height - - Body Mass Index 29.68 12/11/2022 1:37 PM CDT documented in this encounter Patient Instructions * Patient Instructions* Anushka Curran PA-C - 02/25/2023 1:15 PM CDT Chronic migraine Prevention (daily) therapy Continue Amitriptyline 100 mg and Topiramate 100 mg Acute (as needed) therapy Sumatriptan (Imitrex)100 mg - 1 tab at onset of typical headache. May repeat in 1-2 hours. Max 2/per day. Max 9 days per month. Please schedule next follow-up visit in 6-12 months with ARVIND Hopson ([phone]). Please bring your headache calendars to the follow-up appointment. Consider scheduling visit with behavioral health therapist ([phone]) documented in this encounter Progress Notes * Anushka Curran PA-C - 02/25/2023 1:15 PM CDT Clinic Follow-up Date of Visit: 02/25/2023 Date of : 1940 Reason for Visit: Follow-up headache Chief Complaint Patient presents with Follow-up HPI: Atif Rae is a very pleasant 83 year-old male who presents for follow-up of headache. He is a former patient of Dr. Oden, Dr. Woo, Dr. Reese, Dr. Lacey and [facility], [facility]. I saw him initially on and last saw him on 09/10/21. He reported longstanding history of headaches, onset dating to his early 30s with progression to chronic daily pattern many years ago. He was placed on amitriptyline many years ago and has been taking up to 175 mg a day. Whenever he would attempt to lower the dose, would have difficulty sleeping. His primary provider placed him on topiramate, and he was taking 50 mg a day. Due to ongoing high frequency of headache,he was recommended to increase the dose to 50 mg 2 times a day. He was taking ibuprofen 8-14 pills a day, and Fioricet intermittently. He was consuming diet soda. He was recommendeddiscontinuation of Ibuprofen, Fioricet and diet soda. When he developed persistent eye pain, Topiramate was increased to 200 mg. He reported improvement in headache condition. He was feeling the best that he had felt in 40 years. He noted that he had filed for bankruptcy which was a very stressful time, but this had passed which had helped to decrease his stress burden.His has alzheimer's and their DYNAMICS AX SOLUTION ARCHITECT had left the weekprior which was stressful. His daughter also has early-onset alzheimers. He was taking Imitrex 2-3 times per month, which successfully would abort headache. On most days, he did have low grade headache but these were almost unnoticeable and he would not treat these headaches. Vision headaches, which he related to working on the computer, were typically located behind his eyes and in his forehead. Migraines are right-sided. We discussed reducing medications. Advised that he taper down on Topiramate to 100 mg. For acute, continued with Sumatriptan 100 mg. At the time of his next visit, he reported worsened headache condition. He reported that headaches started to worsen two days after his previous visit. He had reduced Topiramate from 200 mg to 100 mg, but was not sure that this had contributed, as headaches had already started increasing. He felt strongly that the increase in headaches was related to stress. He elected to continue with Topiramate 100 mg. We also discussed reducing Amitriptyline. At the time of his next visit, he reported improvement in headache condition. He reported getting amigraine once every two weeks with some scattered lower grade headaches. He had reduced Amitriptyline to 6 tablets and had increased topiramate to 5 tablets daily. He was facing a challenging time with progression of his 's dementia. He elected to continue with Topiramate 125 mg daily and Amitriptyline 150 mg daily. For acute, continued with Sumatriptan 100 mg. At the time of his next visit, he reported that he had been doing well in regard to headaches. He needed to use his Sumatriptan twice per month. Typically he would need to take it two days in a row to abort the headache but he did feel that it was doing its job. He did have frequently lower grade headaches that could come and go throughout the day. These were typically attributed to stress. He was in the process of looking for a snf for his , Raquel. He indicated that her alzheimers had significantly worsened since we had last talked. She at times would become violent and angry. Despite the stress, he felt that he had been coping well. His daughter, whom also has alzheimers andlives in [place] had COVID and was ill again at the time of our visit. Atif had decreased Amitriptyline to 125 mg daily and continued on Topiramate 125 mg daily. He was happy with his current plan. He did see pulmonary/sleep medicine but this was to address sleep apnea, not insomnia. He was not having trouble with sleep. He elected to continue with Amitriptyline 125 mg and Topiramate 125 mg daily. For acute, continued with Imitrex 100 mg. From last visit, 09/10/21: Since his last visit, he reports that things have been going well in regards to migraine. He statesthat with the exception of the last two weeks, his migraines have been in the best shape they have ever been. He is taking Amitriptyline 125 mg nightly. He takes 100 mg instead here and there and states that this is hit or miss. Sometimes he does okay at this dose, other times may get no sleep at al l during the night. He states however that it doesn't seem to matter how much Topiramate he takes. Because he was given a 30 day supply, he was having to ration and at lower doses, did not notice anydifference in symptoms. He is using Sumatriptan 1-3 times per month and this takes effect within 30minutes without side effect. He has had a lot of stress in the last couple years. [facility] and she is now in hospice. He states that despite the increased stress, migraines have overall remained well controlled. The week before last he did have a headache that lasted for four days in a row. He again had a severe headache this week. Yesterday he had treated a headache with Tylenol 3 that he had left from a cyst removal from under his fingernail and a few hours after had severe pain below his right rib cage. EMS was called. He states that this resolvedafter 45 minutes. Atif notes today that in the past he found lidocaine injections to be very helpful in the occipital region and down his neck. He has been having discomfort in this familiar region and notes that it does respond to Sumatriptan but would like to get back in for injections because hewould rather take care of the pain this way. Following last visit, continued with Amitriptyline 125 mg nightly. Advised reducing topiramate to 100 mg daily. For acute, continued with Imitrex 100 mg. He was referred for TPI/ONB. He had TPI on 10/14/21. Atif reports today that there have been a lot of changes since his last visit. His passed awayin April. His son and [id number]-som were unable to find jobs in [place] so moved back and in with him for a while. They have now moved out and are living in [place]. His dog , he now has a new dog. He also underwent knee surgery and was unable to complete PT as recommended because he was taking care of his . He has recognized that he is depressed, not very active at home, and still having trouble with his 's . Atif reports that he is typically getting 3-4 migraines per month. Typically these are 3-4 days in a row. It is rare, but could have up to 8 headache days in a row. Does treat with Sumatriptan each of these days which aborts headache but headache returns the next day. He notes that headaches were more frequent when blood pressure control was poor. He has nothad any migraines in the last month. Atif has reduced topiramate to 100 mg daily and amitriptyline to 100 mg daily. Review of Systems: Pertinent positives as summarized above in history of present illness. Remainder of complete reviewof systems is negative. Past Medical History: Diagnosis Date Bile-induced gastritis [...] in 07/2018. Mild dilation of ascending aorta ([facility]) 10/2014 Last echo on 12/05/22. Repeat due every 2-3 years. Palpitations #*LW 6 03/02/2006 Polyp Colon Adenomatous #*LW 7 09/02/200712/2017. Consider repeat 12/2022 Syncope #*LW 10 03/01/2009 TIA (transient ischemic attack) ([facility]) 10/25/2014 Ulcer Gastric #*LW 5 03/02/2006 Past Surgical History: Procedure Laterality Date CATARACT REMOVAL Left 11/02/2007 [facility] ABW CATARACT REMOVAL Right 03/01/2017 ZCB00 +20.5 [facility]: [facility] ABW EYE SURGERY 2010 GASTRECTOMY Gastrectomy Partial HX APPENDECTOMY LAP CHOLECYSTECTOMY Cholecystectomy Laparoscopic s/p Allergies Allergen Reactions Seafood Other, see comments and Hives Meperidine Other, see comments SEIZURE Shellfish-Derived Products Other, see comments Trazodone Syncope Outpatient Medications Prior to Visit Medication Sig Dispense Refill amitriptyline (ELAVIL) 25 MG tablet TAKE 5 TABLETS DAILY 450 Tablet 0 carvedilol (COREG) 6.25 MG tablet Take 1 Tablet (6.25 mg) by mouth two times a day with meals. 180 Tablet 3 cholecalciferol (VITAMIND3) 50 MCG (2000 UT) tablet Take 1 Tablet (2,000 Units) by mouth daily. clotrimazole-betamethasone (LOTRISONE) 1-0.05 % cream Apply topically two times a day. finasteride (PROSCAR) 5 MG tablet Take 1 Tablet (5 mg) by mouth daily. lisinopril-hydroCHLOROthiazide (PRINZIDE) 20-25 MG tablet Take 1 Tablet by mouth daily. 90 Tablet 3 Loratadine (CLARITIN OR) metoclopramide (REGLAN) 5 MG tablet Take 1 Tablet (5 mg) by mouth two times a day. 180 Tablet 3 olopatadine (PATANOL) 0.1 % eye drop solution Place 1-2 Drops into eye(s) two times daily as needed. pantoprazole DR (PROTONIX) 40 MG tablet Take 1 Tablet (40 mg) by mouth daily. 90 Tablet 3 sildenafil (REVATIO) 20 MG tablet Take 1 Tablet (20 mg) by mouth as needed. SUMAtriptan (IMITREX) 100 MG tablet Take 1 Tablet (100 mg) by mouth as needed. Tadalafil (CIALIS) 5 MG tablet Take 1 Tablet (5 mg) by mouth daily. tamsulosin (FLOMAX) 0.4 MG CAPS capsule Take 1 Capsule (0.4 mg) by mouth daily. 90 Capsule 3 topiramate (TOPAMAX) 100 MG tablet Take 1 Tablet (100 mg) by mouth daily at bedtime. 90 Tablet 1 No facility-administered medications prior to visit. Past Medications Tried: Amitriptyline, Topiramate, Migranal , Sumatriptan Family History Problem Relation Age of Onset Coronary Artery Disease Father Cataract Father Heart Attack Father 59 fatal Migraines Mother Migraines Daughter Stroke Brother 68 Him and 3 sons also Heart Disease Brother Him and 3 sons also Diabetes Negative Family History Glaucoma Negative Family History Macular Degeneration Negative Family History Retinal Detachment Negative Family History Amblyopia/Strabismus Negative Family History Social History Tobacco Use Smoking status: Never Smokeless tobacco: Never Vaping Use Vaping Use: Never used Substance Use Topics Alcohol use: Yes Alcohol/week: 3.0 - 4.0 standard drinks of alcohol Types: 5 - 6 Standard drinks or equivalent per week Comment: 3-4 drinks a week Drug use: Never EXAM: BP (!) 162/82 (BP Location: Left Arm, BP Cuff Size: Regular) Pulse 60 Resp 14 Wt 201 lb (91.2kg) BMI 29.68 kg/m?? GENERAL: Alert, in no acute distress. Appears well for stated age. Maintains good eye contact. NEUROLOGICAL EXAM: Alert and oriented x3. Speech and conversational language are normal. Recent andremote memory intact. Normal attention span and concentration. Fund of knowledge is appropriate. Cranial nerve exam 2 through 12 is normal. ASSESSMENT: 1. Chronic migraine without aura 2. Chronic gastritis and esophagitis 3. Hypertension, controlled on medication. 4. Situational anxiety and depression. 5. Possible transient ischemic attack in October 2014, with negative stroke workup. 6. MELECIO, on CPAP RECOMMENDATIONS: For prophylactic therapy, will continue with topiramate 100 mg daily and amitriptyline 100 mg daily. For acute treatment, will continue with Sumatriptan 100 mg. Discussed that this should be limited to 2-3 days in a week at most. I have placed a referral to behavioral health for therapy in regards to depressed mood. He will follow-up in 6-12 months or sooner if needed. Total time 38 minutes. Anushka Curran PA-C 02/25/2023 documented in this encounter Plan of Treatment Upcoming Encounters Date Type Department Care Team Description 07/30/2023 1:00 PM SCRAP SORTER Appointment [facility] [address] [place] [address]. [place] [address] Jersey Wilson MD [address] [facility] [place], [place] [id number] 08/11/2023 2:15 PM SCRAP SORTER Appointment [facility] [address] [place] [address] [place] [address] [place] [phone] 11/17/2023 1:00 PM CDT Appointment [facility] [address] [facility] [place], [place] [address] Jersey Wilson MD [address] [facility] [place], [place] [address] Scheduled Referrals Name Type Priority Associated Diagnoses Orde r Schedule Behavioral Health Adult/Peds Referral Routine Depressed mood Ordered: 02/25/2023 documented as of this encounter Visit Diagnoses Diagnosis Chronic migraine without aura without status migrainosus, not intractable- Primary Chronic migraine without aura, without mention of intractable migraine without mention of status migrainosus Insomnia, unspecified type Essential hypertension (HRC) Unspecified essential hypertension MELECIO (obstructive sleep apnea) Obstructive sleep apnea (adult) (pediatric) Depressed mood documented in this encounter Care Teams Stonemason Apprentice Relationship Specialty Start [place] [address] [place], [place] [address] [place], [place] [address] PCP - General Family Practice 07/23/16 documented as of this encounter
--- OUTSIDE RECORDS SUMMARY | 2023-07-23 11:01 | XMS_ITS | Encounter Summary ---
Author Name Unknown Organization [facility] Address [address] [place] [address] Care Team Providers Care Auditing Coder Name Role Phone Jersey Wilson MD Primary Care Provider [phone] Reason for Visit * Procedure/Equipment (Routine) - Incomplete Specialty Diagnoses / Procedures Referred By Contac t Referred To Contact Diagnoses Acute midline low back pain with bilateral sciatica (HRC) Procedures XR Lumbar Spine 2-3 Views Og Barnes MD [address] [address] Referral ID Status Reason Start Date Expiration Date V isits Requested Visits Authorized [id number] Incomplete 03/08/2023 06/06/2024 1 1 Encounter Details Date Type Department Care Team Description 03/08/2023 6:35 PM CDT Ancillary Procedure [facility] [address] [address] [address] [place] [address] Og Barnes MD [address] [address] Acute midline low back pain with bilateral sciatica (HRC) Social History Tobacco Use Types Packs/Day [...] Department Care Team Description 07/30/2023 1:00 PM TELEGRAPH OFFICE MANAGER Appointment [address] [place] [address] [place] [address] [place] [phone] 08/11/2023 2:15 PM TELEGRAPH OFFICE MANAGER Appointment [place] [address] [place] [address] Suzanna Terrell MD, PhD [address] [place] [address] [id number] 11/17/2023 1:00 PM CDT Appointment [address] [address] Jersey Wilson MD [address] [place] [address] documented as of this encounter Procedures Procedure Name Priority Date/Time Associated Diagnosis Comments XR LUMBAR SPINE 2-3 VIEWS Routine 03/08/2023 6:39 PM CDT Acute midline low back pain with bilateral sciatica (HRC) documented in this encounter Results * XR Lumbar Spine 2-3 Views (03/08/2023 6:39 PM CDT) Anatomical Region Laterality Modality Spine, L-Spine Digital Radiogra phy 03/08/2023 6:28 PM CDT Impressions 03/08/2023 6:43 PM CDT COMPARISON: ??None. FINDINGS: ??No acute fracture. No dislocation. Mild/moderate multilevel degenerative changes. Prominent stool in the colon. Narrative Procedure Note Bradly Fink, DO - 03/08/2023 IMPRESSION COMPARISON: None. FINDINGS: No acute fracture. No dislocation. Mild/moderate multileveldegenerative changes. Prominent stool in the colon. Og Barnes MD RAD GD documented in this encounter Visit Diagnoses Diagnosis Acute midline low back pain with bilateral sciatica (HRC) documented in this encounter Care Teams Auditing Coder Relationship Specialty Start Date End Date Jersey Wilson MD [address] [place] [address] PCP - General Family Practice 07/23/16 documented as of this encounter
--- OUTSIDE RECORDS SUMMARY | 2023-07-23 11:01 | XMS_ITS | Encounter Summary ---
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) Severe pain History of gastric ulcer Procedures MR Lumbar Spine WO IV Cont Boyd Chapa MD [address] [place] [address] Referral ID Status Reason Start Date Expiration Date V isits Requested Visits Authorized [id number] Incomplete 03/08/2023 06/06/2024 1 1 * Procedure/Equipment (Routine) - Incomplete Specialty Diagnoses / Procedures Referred By Contac t Referred To Contact Diagnoses Acute midline low back pain with bilateral sciatica (HRC) Procedures XR Lumbar Spine 2-3 Views Boyd Chapa MD [address] [address] Referral ID Status Reason Start Date Expiration Date V isits Requested Visits Authorized [id number] Incomplete 03/08/2023 06/06/2024 1 1 Reason for Visit * Reason Comments BACK PAIN, LOW Bilateral with bilat eral radiculopathy, no injury, ongoing x1 month. 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/2022 Encounter Details Date Type Department Care Team Description 03/08/2023 5:10 PM CDT Office Visit [facility] [address] [place] [address] Boyd Chapa MD [address] [address] Acute midline low back pain with bilateral sciatica (HRC) (Primary Dx); Severe pain; History of gastric ulcer Social [...] - - Temperature 36.3 ??C (97.3 ??F) 03/08/2023 5:24 PM CD T Respiratory Rate - - Oxygen Saturation - - Inhaled Oxygen Concentration - - Weight 94.8 kg (209 lb) 03/08/2023 5:24 PM CDT Height 177.8 cm (5' 10) 03/08/2023 5:24 PM CDT Body Mass Index 29.99 03/08/2023 5:24 PM CDT documented in this encounter Patient Instructions * Patient Instructions* Leonid Kay P - 03/08/2023 5:10 PM CDT Thank you for choosing [facility] for your health care visit today. If you have any questions regarding your visit or next steps, please contact us at [phone]. Boyd Chapa MD Medication Requests: Prescriptions are filled on Weekdays before 3:00PM For all medication refills: Request a refill using [employer] or contact your Pharmacy Paperwork Requests: FMLA or disability paperwork can be faxed to: [phone] Please allow 7-10 business days for completion of all paperwork. KATELYNNLuz Maria Worker's Compensation Services: E-mail Address: [email or web address] What is Know Your Cost? Know Your Cost is a service for patients and patient/members to call and receive personalized cost information and estimates across our care group. The phone number is (COST) Wednesday - Wednesday 8 AM to 5 PM To request copies of your medical records, call: [phone] (option 4) Diagnosis: Encounter Diagnoses Name Primary? Acute midline low back pain with bilateral sciatica (HRC) Yes Severe pain History of gastric ulcer Plan: start Prednisone anti-inflammatory, start in morning, do not take with NSAIDs -- can start Ibuprofen once done taking if needed -take tylenol - 1-2 tabs 3 times a day at baseline -continue Amitriptyline before bed -- good for sleep and nerve pain -add in Oxycodone for severe pain, take 0.5-2 tabs as needed, use sparingly - caution with sedation, constipation, addiction -- more than 3 tabs in 24hr -start at stool softener -- sennakot or Miralax daily Follow Up: After MRI results. You may walk-in after your MRI scan, or schedule an appointment for follow-up. Imaging: You will be scheduled for an MRI of your bilateral back. - If your imaging procedure was scheduled before 7:00 pm, please return to the [facility] for your results. Results may take up to 1-2 hours to be read by the radiologist. If you are unable to wait, please schedule a follow up appointment. documented in this encounter Progress Notes * Boyd Chapa MD - 03/08/2023 5:10 PM CDTAddended by: BOYD CHAPA on: 03/09/2023 11:17 AM Modules accepted: Orders * Boyd Chapa MD - 03/08/2023 5:10 PM CDT [facility] Date of Service: 03/08/2023 ASSESSMENT/PLAN 1. Acute midline low back pain with bilateral sciatica (HRC) 2. Severe pain 3. History of gastric ulcer -XR interpreted by myself: lumbar - no fracture, mild to moderate arthritis, no major malalignment -order MRI lumbar - rule out canal stenosis vs bilateral S1 bilateral; no claustrophobic; -start Prednisone anti-inflammatory, start in morning, do not take with NSAIDs -take tylenol - 1-2 tabs 3 times a day at baseline -continue Amitriptyline before bed -- good for sleep and nerve pain -add in Oxycodone for severe pain, take 0.5-2 tabs as needed, use sparingly - caution with sedation, constipation, addiction -- more than 3 tabs in 24hr -start at stool softener -- sennakot or Miralax daily -Follow up at [facility] urgent care for MRI results Atif Rae is a 83 y.o. male who presents with acute pain that started about 1 month ago. 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 He has discussed this with his orthopedic surgeon. He is not had back pain problems in the past. He describes pain radiating down both legs both posteriorly and anteriorly. Pain typically goes down the front legs to just above the knee bilaterally and down posteriorly sometimes to the calf. He denies any tingling or numbness. He denies any weakness. He denies any new incontinence or retention. He describes the pain is so severe he has difficulty getting out of bed. He has been so desperate forpain control he is used old Percocet he had from prior surgery. On exam he has no obvious neuro deficits. He does have some lower midline tenderness. Patient has a history of skin cancer but no known prostate cancer. Obtain x-ray of lumbar without obvious fracture, major malalignment, malignancy. Overall very concerned about new problem with this severity affecting patient's ADLs without clear etiology. Recommend MRI with consideration for occult fracture versus spinal canal stenosis that wouldaffect both legs versus bilateral S1 nerve impingement. In the meantime recommend trial of prednisone with a short course. Patient does have a history of a stomach ulcer that he reports is will managed. Emphasized that the prednisone will only be for a few days but this can have impact of the stomach so if he has any pain he should stop immediately. Recommend against any NSAIDs. Discussed use of b aseline Tylenol. Patient again requesting strong pain medication such as the Percocet he has required for the last few days. We will give him oxycodone to avoid overdosing on Tylenol but had long discussion about concerns for use of opioids for back pain, in the elderly, with side effects particularly being affecting the bowels and bladder and increased risk of falls. Orders Placed This Encounter XR Lumbar Spine 2-3 Views MR Lumbar Spine WO IV Cont oxyCODONE (ROXICODONE) 5 MG immediate release tablet Boyd Chapa MD Primary Care Sports Medicine, [facility] Orth[facility] SUBJECTIVE BACK PAIN, LOW (Bilateral with bilateral radiculopathy, no injury, ongoing x1 month. 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 No NSAIDs due to ulcer OBJECTIVE Temp 36.3 ??C (97.3 ??F) Ht 1.778 m (5' 10) Wt 94.8 kg (209 lb) BMI 29.99 kg/m?? Pain Assessment (0-10) Pain Rating: Rest: 9 (0-10) Pain Rating: Activity: 10 Back: --no swelling, no deformity --Tenderness: lower lumbar midline, yes bilateral SI joint --SLR L nl, SLR R nl --Strength out of 5: hip flex L 5, hip flex R 5 quad L 5, quad R 5 Plantar flex L 5, plantar flex R 5 Dorsiflex L 5, dorsiflex R 5 EHL L 5, EHL R 5 yes able to toe walk yes able to heel walk --Sensation: L3 nl, L4 nl, L5 nl, S1 nl documented in this encounter Plan of Treatment Upcoming Encounters Date Type Department Care Team Description 07/30/2023 1:00 PM TELEPHONE SERVICES SALES REPRESENTATIVE Appointment [address] [address] [place] [address] [place] [id number] 08/11/2023 2:15 PM TELEPHONE SERVICES SALES REPRESENTATIVE Appointment [place] [address] [facility] [address] [place], [place] [address] Suzanna Terrell MD, PhD [address] [place] [address] 11/17/2023 1:00 PM CDT Appointment [address] [address] Jersey Wilson MD [address] [place] [address] documented as of this encounter Results * MR Lumbar Spine [...] percentages adapted from Adithya W, Luetmer PH, Marianna B, etal. AJNR AM J Neuroradiol 2015:36:811-16. Boyd Chapa MD RAD MRI * XR Lumbar Spine 2-3 Views (03/08/2023 [...] multileveldegenerative changes. Prominent stool in the colon. Boyd Chapa MD RAD GD documented in this encounter Visit Diagnoses Diagnosis Acute midline low back pain with bilateral sciatica (HRC)- Primary Severe pain History of gastric ulcer Personal history of other diseases of digestive system Acute midline low back pain with bilateral sciatica (HRC) Acute midline low back pain with bilateral sciatica (HRC) Severe pain History of gastric ulcer Personal history of other diseases of digestive system documented in this encounter Care Teams Pediatric Critical Care Nurse Relationship Specialty Start Date End Date Jersey Wilson MD [address] [place] [address] PCP - General Family Practice 07/23/16 documented as of this encounter
--- OUTSIDE RECORDS SUMMARY | 2023-07-23 11:01 | XMS_ITS | Encounter Summary ---
Author Name Unknown Organization [facility] Address [address] [place] [address] Care Team Providers Care Paradichlorobenzene Tender Name Role Phone Jersey Wilson MD Primary Care Provider [phone] Reason for Visit * Reason Comments Refill Encounter Details Date Type Department Care Team Description 03/09/2023 Telephone [facility] [address] [place] [address] Og Barnes MD [address] [address] Refill Social History Tobacco Use Types Packs/Day [...] as of this encounter Nursing Notes * Carolann Robertson RN - 03/09/2023 11:23 AM CDT Informed Atif of refill via preferred phone VM; requested RCTC if has further questions. * Larsia Serrano RN - 03/09/2023 10:30 AM CDT Pt saw Dr. Barnes yesterday and was told a Prednisone script would be sent in to his pharmacy on file. Pharmacy doesn't have the script. Please advise is you are sending this script. [facility] Orth[facility] Care Date of Service: 03/08/2023 [...] sennakot or Miralax daily -Follow up at [facility] urgent care for MRI results * Lexi Villegas - 03/09/2023 10:26 AM CDT Has the patient recently had surgery or an injury? No How may we help you today? Patient would like a call from the Care Team. Describe your symptoms/concerns: Og Barnes MD prescribed Prednisone to patient. This medicationdid not go the pharmacy. Patient needs this for pain and is asking we send to [facility] [address] [place], [place] [phone]. When did the issue start: NA Have you been seen for this recently?: Yes [Engineer Third Assistant/Appt Center: If yes, please include date and provider.] Is it okay to leave detailed message on your voicemail? Yes [Engineer Third Assistant/Appt Center: If this call is after 3 p.m., communicate to patient: If we are not able to get back to you by the end of the day and your symptoms worsen please contact the Careline] documented in this encounter Plan of Treatment Upcoming Encounters Date Type Department Care Team Description 07/30/2023 1:00 PM RACE ENGINE BUILDER Appointment [facility] [address] [facility] [place] [address] Jersey Wilson MD [address] [facility] [place] [address] 08/11/2023 2:15 PM RACE ENGINE BUILDER Appointment [place] [address] [address] [place] [address] Suzanna Terrell MD, PhD [address] [place] [address] 11/17/2023 1:00 PM CDT Appointment [facility] [address] [facility] [place] [address] Jersey Wilson MD [address] [facility] [place] [address] documented as of this encounter Visit Diagnoses Not on filedocumented in this encounter Care Teams Paradichlorobenzene Tender Relationship Specialty Start Date End Date Jersey Wilson MD [address] [facility] [place] [id number] PCP - General Family Practice 07/23/16 documented as of this encounter
--- OUTSIDE RECORDS SUMMARY | 2023-07-23 11:01 | XMS_ITS | Encounter Summary ---
Author Name Unknown Organization [facility] Address [address] [place] [address] Care Team Providers Care Glue Machine Operator Name Role Phone Ursula Olea MD Primary Care Provider [phone] Reason for Referral * (Routine) - New Request Specialty Diagnoses / Procedures Referred By Contac t Referred To Contact Diagnoses Ascending aorta dilatation (HRC) Procedures Outreach Echocardiogram Ursula Olea MD [address] [place] [address] Referral ID Status Reason Start Date Expiration Date V isits Requested Visits Authorized [id number] New Request 11/25/2022 02/24/2024 1 1 Encounter Details Date Type Department Care Team Description 11/25/2022 12:00 PM CDT - 11/25/2022 11:59 PM CDT Hospital En[facility] [address] [place] [address] Ascending aorta dilatation (HRC) (Primary Dx) Discharge Disposition: Home Social History Tobacco Use Types Packs/Day Years [...] on file documented as of this encounter Medications at Time of Discharge Medication Sig Dispensed Refills Start Date End Date cholecalciferol (VITAMIND3) 50 MCG (1999) tablet Take 1 Tablet (2,000 Units) by mouth daily. 0 finasteride (PROSCAR) 5 MG tablet Take 1 Tablet (5 mg) by mouth daily. 0 metoclopramide (REGLAN) 5 MG tabletIndications:Gastro esophageal reflux disease without esophagitis Take 1 Tablet (5 mg) by mouth two times a day. 180 Tablet 3 11/10/2022 olopatadine (PATANOL) 0.1 % eye drop solution Place 1-2 Drops into eye(s) two times daily as needed. [address] (PROTONIX) 40 MG tabletIndications:Gastro esophageal reflux disease without esophagitis Take 1 Tablet (40 mg) by mouth daily. 90 Tablet 3 11/10/2022 Tadalafil (CIALIS) 5 MG tablet Take 1 Tablet (5 mg) by mouth daily. 0 tamsulosin (FLOMAX) 0.4 MG CAPS capsuleIndications:Benig n prostatic hyperplasia, unspecified whether lower urinary tract symptoms present Take 1 Capsule (0.4 mg) by mouth daily. 90 Capsule 3 11/10/2022 amitriptyline (ELAVIL) 25 MG tablet Take 5 Tablets (125 mg) by mouth daily. 70 Tablet 1 08/13/2022 02/09/2023 hydroCHLOROthiazide 12.5 MG capsuleIndications:Essen tial hypertension (HRC) Take 1 Capsule (12.5 mg) by mouth daily. 90 Capsule 3 11/10/2022 12/11/2022 lisinopril (ZESTRIL) 30 MG tabletIndications:Essent ial hypertension (HRC) Take 1 Tablet (30 mg) by mouth daily. 90 Tablet 3 11/10/2022 12/11/2022 metoprolol succinate (TOPROL XL) 25 MG 24 hour release tabletIndications:Essent ial hypertension (HRC) Take 1 Tablet (25 mg) by mouth daily. 90 Tablet 3 11/10/2022 12/11/2022 SUMAtriptan (IMITREX) 100 MG tablet Take 1 Tablet (100 mg) by mouth as needed. 0 02/25/2023 topiramate (TOPAMAX) 100 MG tablet Take 1 Tablet (100 mg) by mouth daily at bedtime. 90 Tablet 1 08/13/2022 02/25/2023 documented as of this encounter Plan of Treatment Upcoming Encounters Date Type Department Care Team Description 07/30/2023 1:00 PM PATTERN ROOM ATTENDANT Appointment [facility] [address] [facility] [place] [address] Ursula Olea MD [address] [place] [address] 08/11/2023 2:15 PM PATTERN ROOM ATTENDANT Appointment [place] [address] [address] [place] [address] Suzanna Terrell MD, PhD [address] [place] [address] 11/17/2023 1:00 PM CDT Appointment [facility] [address] [place] [address] [place] [address] [place] [address] documented as of this encounter Procedures Procedure Name Priority Date/Time Associated Diagnosis Comments OUTREACH ECHOCARDIOGRAM Routine 11/26/19 11:29 AM CDT Ascending aorta dilatation (HRC) documented in this encounter Results * Outreach Echocardiogram (11/25/2022 11:29 AM CDT) 11/25/2022 11:2 9 AM CDT Narrative PN ECHO - 11/25/2022 3:45 PM CDT OUTREACH ECHOCARDIOGRAM. Date: 11/25/2022 Start: 11:29 AM Facility: [facility] CONCLUSIONS 1. Normal left ventricular size and global [...] significant change. Aorta dimension is fairly stable. FINDINGS MITRAL VALVE Normal mitral valve structure and function. Trace mitral regurgitation. AORTIC VALVE Normal aortic valve structure and function. Aortic valve is tricuspid. Trace to mild aortic regurgitation. TRICUSPID VALVE Normal tricuspid valve structure and function. Trace to mild tricuspid insufficiency noted. (Physiologic) Estimated pulmonary artery systolic pressure is 21 mm Hg plus right atrial pressure. (normal) PULMONIC VALVE Moderate pulmonic regurgitation. LEFT ATRIUM Normal left atrial size. Left atrial volume index is 31 mL/m^2 LEFT VENTRICLE Normal left ventricular size and global and regional function. Mild (1.1-1.3 cm) concentric wall thickening consistent with left ventricular hypertrophy is present. Thickening of the anteroseptal septum [sigmoid septum] is present. Left ventricular ejection fraction is visually estimated at 60%. Automated 3D left ventricular ejection fraction (heart model) is calculated at 62%. RIGHT ATRIUM Normal right atrium. RIGHT VENTRICLE Normal right ventricle size and normal global function. PERICARDIAL EFFUSION No pericardial effusion is present. MISCELLANEOUS Mild dilation of the aorta is present involving the sinuses of Valsalva. (Maximal dimension 4.2 cm). The ascending aorta measures 4 cm ( <= 4.0 cm is generally considered normal for adults over the age of 40). M-MODE/2D MEASUREMENTS & CALCULATIONS LV Diastolic Dimension: 3.64 cm LV PW Diastolic: 1.23 cm Septum Diastolic: 1.2 cm CO: 4.34 l/min ?LA Dimension: 3.7 cm CI: 2.01 l/m*m^2 ?Aortic Annulus: 4.1 cm ? LA Area: 17.3 cm^2 LV Area Diastolic: 29 cm^2 LV Area Systolic: 16.4 cm^2 ? LA/Aorta: 0.9 LV Systolic Dimension: 2.21 cm ?Ascending Aorta: 3.9 cm LV Volume Diastolic: 94.1 ml ?LA volume index: 31.2 LV Volume Systolic: 37.1 ml ? ml/m^2 LV EDV/LV EDV Index: 94.1 ml/44 m^2 ? RA Area: 12.5 cm^2 LV ESV/LV ESV Index: 37.1 ml/17 m^2EF Estimated: 60 % LV Length: 7.47 cm LVOT: 2.4 cm DOPPLER MEASUREMENTS & CALCULATIONS MV Peak E-Wave: 0.5 m/s MV Peak A-Wave: 0.7 m/s MV E/A Ratio: 0.77 MV Peak Gradient: 1.01 ?LVOT Peak Velocity: 0.8 m/sLVOT Mean mmHg ?Velocity: 0.5 m/s ? LVOT Peak Gradient: 2 mmHg MV Deceleration Time: 275 LVOT Mean Gradient: 1 mmHg msec E' Velocity: 0.03 m/s ? TR Velocity:2.3 m/s ? TR Gradient:21 mmHg ? PV Peak Velocity: 0.6 m/s ? PV Peak Gradient: 1.67 mmHg Qs:82 AV Peak Velocity: 1 m/s ?? DE ED Velocity: 1.3 m/s AV Peak Gradient: 3.96 mmHg AV Mean Velocity: 0.7 m/s AV Mean Gradient: 2 mmHg AV VTI: 22.9 cm AV Area (Continuity):3.57 cm^2 LVOT VTI: 18.1 cm PROCEDURE Doppler Quality: Adequate quality pulse, continuous wave, and color Doppler was performed and interpreted. 2-D Quality: Adequate quality 2-dimensional echo was performed and interpreted. Indications: Ascending aorta dilatation. Contrast Medium: Not Applicable. Height: 70 inches Weight: 217 pounds BSA: 2.16 m^2 BMI: 31.14 kg/m^2 Rhythm: Sinus HR: 53 bpm BP: 152/67 mmHg Gender: ? Male SIGNATURE DEMOGRAPHICS Patient Name ??CHRISTOPHE ?Room Number ?OUTPT ? PAUL Patel Patient ? [id number] ?Date of Study ?11/25/2022 Number Accession ? [id number] ?Interpreting ? FRANKIE MONTANA MD Number ?Provider Date of 1940 ?Ordering Provider ??URSULA OLEA ? Primary ? Metal Finisher Provider Procedure Note Frankie Montana MD - 11/25/2022 OUTREACH ECHOCARDIOGRAM. Date: 11/25/2022 Start: 11:29 AM Facility: [facility] CONCLUSIONS 1. Normal left ventricular size and global [...] significant change. Aorta dimension is fairly stable. FINDINGS MITRAL VALVE Normal mitral valve structure and function. Trace mitral regurgitation. AORTIC VALVE Normal aortic valve structure and function. Aortic valve is tricuspid. Trace to mild aortic regurgitation. TRICUSPID VALVE Normal tricuspid valve structure and function. Trace to mild tricuspid insufficiency noted. (Physiologic) Estimated pulmonary artery systolic pressure is 21 mm Hg plus right atrial pressure. (normal) PULMONIC VALVE Moderate pulmonic regurgitation. LEFT ATRIUM Normal left atrial size. Left atrial volume index is 31 mL/m^2 LEFT VENTRICLE Normal left ventricular size and global and regional function. Mild (1.1-1.3 cm) concentric wall thickening consistent with left ventricular hypertrophy is present. Thickening of the anteroseptal septum [sigmoid septum] is present. Left ventricular ejection fraction is visually estimated at 60%. Automated 3D left ventricular ejection fraction (heart model) is calculated at 62%. RIGHT ATRIUM Normal right atrium. RIGHT VENTRICLE Normal right ventricle size and normal global function. PERICARDIAL EFFUSION No pericardial effusion is present. MISCELLANEOUS Mild dilation of the aorta is present involving the sinuses of Valsalva. (Maximal dimension 4.2 cm). The ascending aorta measures 4 cm ( <= 4.0 cm is generally considered normal for adults over the age of 40). M-MODE/2D MEASUREMENTS & CALCULATIONS LV Diastolic Dimension: 3.64 cm LV PW Diastolic: 1.23 cm Septum Diastolic: 1.2 cm CO: 4.34 l/min LA Dimension: 3.7 cm CI: 2.01 l/m*m^2 Aortic Annulus: 4.1 cm LA Area: 17.3 cm^2 LV Area Diastolic: 29 cm^2 LV Area Systolic: 16.4 cm^2 LA/Aorta: 0.9 LV Systolic Dimension: 2.21 cm Ascending Aorta: 3.9 cm LV Volume Diastolic: 94.1 ml LA volume index: 31.2 LV Volume Systolic: 37.1 ml ml/m^2 LV EDV/LV EDV Index: 94.1 ml/44 m^2 RA Area: 12.5 cm^2 LV ESV/LV ESV Index: 37.1 ml/17 m^2EF Estimated: 60 % LV Length: 7.47 cm LVOT: 2.4 cm DOPPLER MEASUREMENTS & CALCULATIONS MV Peak E-Wave: 0.5 m/s MV Peak A-Wave: 0.7 m/s MV E/A Ratio: 0.77 MV Peak Gradient: 1.01 LVOT Peak Velocity: 0.8 m/sLVOT Mean mmHg Velocity: 0.5 m/s LVOT Peak Gradient: 2 mmHg MV Deceleration Time: 275 LVOT Mean Gradient: 1 mmHg msec E' Velocity: 0.03 m/s TR Velocity:2.3 m/s TR Gradient:21 mmHg PV Peak Velocity: 0.6 m/s PV Peak Gradient: 1.67 mmHg Qs:82 AV Peak Velocity: 1 m/s DE ED Velocity: 1.3 m/s AV Peak Gradient: 3.96 mmHg AV Mean Velocity: 0.7 m/s AV Mean Gradient: 2 mmHg AV VTI: 22.9 cm AV Area (Continuity):3.57 cm^2 LVOT VTI: 18.1 cm PROCEDURE Doppler Quality: Adequate quality pulse, continuous wave, and color Doppler was performed and interpreted. 2-D Quality: Adequate quality 2-dimensional echo was performed and interpreted. Indications: Ascending aorta dilatation. Contrast Medium: Not Applicable. Height: 70 inches Weight: 217 pounds BSA: 2.16 m^2 BMI: 31.14 kg/m^2 Rhythm: Sinus HR: 53 bpm BP: 152/67 mmHg Gender: Male SIGNATURE DEMOGRAPHICS Patient Name CHRISTOPHE Room Number REBECA Patel Patient [id number] Date of Study 11/25/2022 Number Interpreting FRANKIE MONTANA MD Number Provider Date of 1940 Ordering Provider URSULA OLEA MD Primary Metal Finisher Provider Ursula Olea MD PN ECHO ORDERABLES PN ECHO documented in this encounter Visit Diagnoses Diagnosis Ascending aorta dilatation (HRC)- Primary Thoracic aortic ectasia documented in this encounter Care Teams Glue Machine Operator Relationship Specialty Start Date End Date Ursula Olea MD [address] [facility] [place] [address] PCP - General Family Practice 07/23/16 documented as of this encounter
--- OUTSIDE RECORDS SUMMARY | 2023-07-23 11:02 | XMS_ITS | Encounter Summary ---
Author Name Unknown Organization [facility] Address [address] [place] [address] Care Team Providers Care Desktop Support Consultant Name Role Phone Jersey Wilson MD Primary Care Provider [phone] Reason for Referral * (Routine) - New Request Specialty Diagnoses / Procedures Referred By Myrna maki Referred To Contact Diagnoses Actinic keratosis Procedures DE DESTRUC BENIGN/PREMAL,2-14 LESIONS Suzanna Terrell MD, PhD [address] [place] [address] Referral ID Status Reason Start Date Expiration Date V isits Requested Visits Authorized [id number] New Request 08/03/2022 11/02/2023 1 1 DING MACHINE OPERATOR Reason for Visit * Reason Comments Skin Check NMSC history ,New [facility] ,January 2022 still having a lot of pain .Scalp ,paola.acid shampoo ,cradle cap as a child .TSAL Use at times Encounter Details Date Type Department Care Team Description 08/03/2022 2:15 PM BRANDING MACHINE OPERATOR Office Visit [place] [address] [place] [phone] Suzanna [place] [address] [place] [phone] Sun-damaged skin (Primary Dx); Multiple benign nevi; Seborrheic keratosis; Ashton angioma; Actinic keratosis; Seborrheic dermatitis; Purpura simplex (HRC) Social History Tobacco Use Types Packs/Day Years Used Date Smoking Tobacco: Never Smokeless Tobacco: Never Alcohol Use Standard Drinks/Week Comments Yes 3 (1 standard drink = 0.6 oz pur e alcohol) 3-4 drinks a week PHQ-2 Answer Date Recorded PHQ-2 Score 0 07/23/2021 Sex and Gender Information Value Date Recorded Sex Assigned at Not on file Gender Identity Not on file Sexual Orientation Not on file documented as of this encounter Patient Instructions * Patient Instructions* Ramandeep Sauer MA, LP - 08/03/2022 2:15 PM BRANDING MACHINE OPERATOR Ceramide based Moisturizers There are several new moisturizers, body washes and cleansers on the market that have ceramides in them. Ceramides are a major part of the lipids (fats) that the skin needs to stay healthy. Like adding more glue between the bricks that make up your skin wall.' In General: 1. Thicker is better!!! Use CREAM not LOTION (it be written right on the lable) 2. Apply at least twice a day, more frequently is better if you can manage it. Hands should be moisturized after EVERY wash Brand is not important, but be sure the word cermide is on the ingrediant list. Most brands now have several products that include this, and CeraVe is a complany that put it in all their products. Examples to help you find them faster at the store: CeraVe: all their products contain ceramides- makes both a cream and an ointment Cetaphil: Restoraderm Pro Eczeama moisturizer. Between a lotion and cream in thickness. Best for summer or people who don't like thicker creams. Eucerin: Advanced Repair, Eczema Relief Aveeno: Eczema Therapy Skin Relief Intense Repair, Curel: Most product lines! Difficult to find a cream (vs lotion), but typically great texture Liquid Nitrogen Treatment (Cryotherapy) How it Works: Liquid nitrogen (Cryotherapy) is a cold liquified gas, with a temperature of -321?? F. It's used to freeze and destroy superficial skin growths. Treatment Goals: Treatment with liquid nitrogen may cause the treated area to appear red or swollenanywhere from a few hours to a couple of days. Usually a scab/crust forms, which will fall off by itself in 1 to 3 weeks. The skin growth will fall off with the scab, leaving healthy new skin. This new skin is typically cannon fire direction specialist, and will usually blend in color-singh over time. You May Experience: Liquid nitrogen causes stinging and mild pain while the growth is being frozen and then thaws. The worst discomfort occurs during the first five to 10 minutes of the procedure, but can sometimes last longer. A blister, sometimes a blood blister, may form. If this occurs, you may pop the blister with a clean needle, but leave the roof of the blister intact on the skin. If this does happen, keep the area covered with a Band-Aid and use Vaseline ointment. Areas that are prone to blistering are the eyelidsand hands. The blisters and swelling are part of the treatment and will gradually heal. No special care is needed, you can wash as usual and use makeup or other cosmetics. You also may experience some redness, swelling, tenderness, weeping, or crusts/scabs. Try not to pick at, itch, or scrub the area. If the treated sore area feels sore or irritated, you can keep it covered. Avoid excessive sun exposure since this can result in persistent darkening at the treated sites. 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 Scalp ,paola.acid shampoo ,cradle cap as a child .TSAL Use at times History of Present Illness: Atif is a 82 y.o. male with a history of NMSC who presents to clinic today for Skin Check (NMSC history ,New knee ,January 2022 still having a lot of pain ./Scalp ,paola.acid shampoo ,cradle cap as a child .TSAL Use at times ) . He was last seen in Dermatology on 04/08/[address] Michael. At that time, patient underwent Mohs on his left forehead for a proven SCC. Today, the patient reports no new spots of concern. He is still using OTC Tsal shampoo for his seborrheic dermatitis. He is heeling well from his Mohs surgery in March 2022. Patient denies any other new, changing, itching, bleeding, or tender lesions that he is aware of. No other skin concerns atthis time. Past Medical History: Nodular BCC, right upper chest, treated with ED&C 03/17/2021 SCC, left forehead, s/p Mohs 04/08/2022 AKs- cryotherapy History of V1 shingles 2003 Social History: in April 2022. Family wants him to move to [place] and into independent living down there. Physical Examination: General: Well-appearing male, in no distress, alert and oriented. Skin: Full body skin exam performed including the scalp, face, ears, eyelids, neck, abdomen, chest,back, buttocks, bilateral upper and lower extremities. Did not examine genitals. Pertinent findingsincluded below. Exam otherwise normal. Combined Exam and Specific Assessment and Plan: 1. History of previous skin cancer and diffuse photo damage. - Surgical scars are noted without abnormal contour, pigment or other evidence of recurrence. - No lesions worrisome for melanoma or non-melanoma skin cancer on exam today Reviewed importance of daily sun protection with the goal to minimize any kulkarni lines with sunscreen of at least SPF30, hats, clothing, and timing of activities in the sun. Reviewed warning signs of skin cancer, need for regular self skin exams, and return to clinic if any new or worrisome spots arise. 2. Actinic Keratoses - Patient has poorly demarcated erythema without friability or nodularity on the forehead and scalpx4 Treated with liquid nitrogen in standard fashion a 4 discrete sites. Oral and written wound care instructions given. Discussed actinic keratoses can progress to non-melanoma skin cancer, and patient should follow up if the treated areas fail to respond or recur. 3. Benign-appearing nevi. - Scattered compound congenital nevi and junctional nevi are noted in examined areas. They are well-demarcated and symmetrical in pigmentation. Dermoscopic features are regular without atypia. No clinical outliers or lesions worrisome for melanoma observed on exam today. Continue with self exams regularly and return to clinic if any changes or concerns. 4. Seborrheic keratoses and Ashton angiomas. - Brown, woody stuck-on appearing papules are visualized on the trunk and extremities classic for seborrheic keratoses. In the lesions examined with dermoscopy, milia-like cysts and comedo-like openings are visualized. - Bright red 1-3 mm papules classic for ashton angiomas present. Reassured patient regarding the benign nature of this finding. Discussed etiology and expectations for gradual accumulation of these over their lifetime. 5. Seborrheic dermatitis - clear today. Discussed etiology and diagnosis. Patient should continue OTC T-paola for flares. He finds this is controlling the dermatitis well. Reassured him that the roughness he is feeling is consistent with theactinic change treated with cryotherapy today. 6. 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 - There are scattered superficial senile purpura on the bilateral forearms. Accentuated in areas ofpressure or distal extremities with diffuse residual hemosiderin staining of the skin. Dicussed etiology and expectations. Reassured this is a normal consequence of fat loss in the skin with aging. Reviewed that some reports of lactic acid based moisturizers as helpful are in the literature, but I think the benefit is mild. These are available for purchase OTC without a prescription. Follow up: Return to clinic in 1 year for full body exam, sooner for new concerns. Orders Placed: Orders Placed This Encounter DE DESTRUC BENIGN/PREMAL,FIRST LESION DE DESTRUC BENIGN/PREMAL,2-14 LESIONS Scribe Disclosure: I, Amrita Greenfield, am serving as a scribe to document services personally performed by Suzanna Terrell MD, PhD at this visit, based upon the providers statements to me. Entered on 08/03/22 at 4:16 PM. DING MACHINE OPERATOR documented in this encounter Plan of Treatment Upcoming Encounters Date Type Department Care Team Description 07/30/2023 1:00 PM BRANDING MACHINE OPERATOR Appointment [address] [address] Jersey Wilson MD [address] [place] [address] 08/11/2023 2:15 PM BRANDING MACHINE OPERATOR Appointment [place] [address] [address] [place] [address] Suzanna Terrell MD, PhD [address] [place] [address] 11/17/2023 1:00 PM CDT Appointment [address] [address] Jersey Wilson MD [address] [place] [address] documented as of this encounter Visit Diagnoses Diagnosis Sun-damaged skin- Primary Other chronic dermatitis due to solar radiation Multiple benign nevi Benign neoplasm of skin, site unspecified Seborrheic keratosis Other seborrheic keratosis Ashton angioma Nevus, non-neoplastic Actinic keratosis Seborrheic dermatitis Seborrheic dermatitis, unspecified Purpura simplex (HRC) Other nonthrombocytopenic purpuras documented in this encounter Care Teams Desktop Support Consultant Relationship Specialty Start Date End Date Jersey Wilson MD [address] [place] [address] PCP - General Family Practice 07/23/16 documented as of this encounter
--- OUTSIDE RECORDS SUMMARY | 2023-07-23 11:02 | XMS_ITS | Encounter Summary ---
Author Name Unknown Organization [facility] Address [address], [place] [address] Care Team Providers Care Rubber Goods Repairer Name Role Phone Jesrey Wilson MD Primary Care Provider [phone] Reason for Visit * Reason Comments Refill Encounter Details Date Type Department Care Team Description 08/13/2022 Refill [facility] [address] [place], [place] [phone] Anushka Curran PA-C [address] [place], [place] [phone] Refill Social History Tobacco Use Types Packs/Day [...] as of this encounter Nursing Notes * Grace Hernandez RN - 08/13/2022 1:37 PM CST Patient called to ask about Amitriptyline refill. He continues to take 125mg at bedtime. Reviewed chart-it was stopped in error. Refill sent for mailorder plus a 2 week supply local pharmacy. See medlist. Transferred to scheduled to schedule next appointment. R REVERSE ENGINEER documented in this encounter Plan of Treatment Upcoming Encounters Date Type Department Care Team Description 07/30/2023 1:00 PM CYBER REVERSE ENGINEER Appointment [facility] [address] [place] [address] Jersey Wilson MD [address] [place] [address] 08/11/2023 2:15 PM CYBER REVERSE ENGINEER Appointment [place] [address] Dermatology [address] [place] [address] Suzanna Terrell MD, PhD [address] [place], [place] [phone] 11/17/2023 1:00 PM CDT Appointment [facility] [address] [facility] [address] [place] [address] [place] [address] documented as of this encounter Visit Diagnoses Diagnosis Chronic migraine without aura without status migrainosus, not intractable Chronic migraine without aura, without mention of intractable migraine without mention of status migrainosus documented in this encounter Care Teams Rubber Goods Repairer Relationship Specialty [place] [address] [place] [address] [phone] PCP - General Family Practice 07/23/16 documented as of this encounter
--- OUTSIDE RECORDS SUMMARY | 2023-07-23 11:02 | XMS_ITS | Encounter Summary ---
Author Name Unknown Organization [facility] Address [address] [place] [address] Care Team Providers Care Coin Machine Operator Name Role Phone Jersey Wilson MD Primary Care Provider [phone] Reason for Visit * Reason Comments Refill metoclopramide (REGL AN) 5 MG tablet [Pharmacy Med Name: METOCLOPRAMIDE TABS 5MG] Encounter Details Date Type Department Care Team Description 08/20/2022 Refill [facility] [address] [facility]. [place], [place] [id number] Jersey Wilson MD [address] [place], [place] [id number] Refill (metoclopramide (REGLAN) 5 MG tablet [Pharmacy Med Name: METOCLOPRAMIDE TABS 5MG]) Social History Tobacco Use Types Packs/Day Years [...] as of this encounter Nursing Notes * Yadira Morton, RN - 08/24/2022 8:40 AM CDT Further Assistance Needed on Refill from Clinician RN reviewed. Signed order needed. Requested medication listed as historical Last OV-06/02/21 #180 with 3 refills Last refill-12/31/21 (Dr. Wilson) Review pended order for accuracy and sign if appropriate Requested Prescriptions Pending Prescriptions Disp Refills metoclopramide (REGLAN) 5 MG tablet [Pharmacy Med Name: METOCLOPRAMIDE TABS 5MG] 180 Tablet 1 Sig: TAKE 1 TABLET TWICE A DAY Spoke with pt. Has been taking the Reglan twice a day for years. Last refilled by main PCP. Has been out for 2 days now. Routing to provider per distribution. No other requests. * Jeana Scherer RN - 08/23/2022 6:30 AM CDT Further Assistance Needed on Refill from Nursing/Triage Requested medication listed as historical. Please clarify how patient is taking medication. Different dose/sig on medication list Next steps: Nursing/Triage to complete refill as appropriate. Requested Prescriptions Pending Prescriptions Disp Refills metoclopramide (REGLAN) 5 MG tablet [Pharmacy Med Name: METOCLOPRAMIDE TABS 5MG] 180 Tablet 0 Sig: TAKE 1 TABLET TWICE A DAY * Interface, Out Surescripts Prov Query - 08/20/2022 11:35 PM CST metoclopramide (REGLAN) 5 MG tablet [Pharmacy Med Name: METOCLOPRAMIDE TABS 5MG] Medication started: 01/12/2017 Last ordered by UNKNOWN, PHYSICIAN: 02/19/2022 (182 days ago as Historical on 02/19/2022 by LEANNA LEAVITT), Sig: take 5 mg by mouth daily. (changed) -> The requested medication was previously set to Historical. -> Unable to determine if sig has changed, review required. -> A qualifying visit was not found within the last 2 years. Last qualifying visit: None (A recent visit (in Family Practice with MARGARET KRISHNA) was found) Next scheduled visit: None [facility] Embedded Refills, Reference: [id number], 08/20/2022 11:35:10 PM TRIAGE LICENSED PRACTICAL NURSE, Pool: HÉCTOR REFILL ([id number]) documented in this encounter Plan of Treatment Upcoming Encounters Date Type Department Care Team Description 07/30/2023 1:00 PM TRIAGE LICENSED PRACTICAL NURSE Appointment [address] [address] Jersey Wilson MD [address] [place] [id number] 08/11/2023 2:15 PM TRIAGE LICENSED PRACTICAL NURSE Appointment [place] [address] [place] [phone] Suzanna Terrell MD, PhD [address] [place] [id number] 11/17/2023 1:00 PM CDT Appointment [address] [place] [address] Jersey Wilson MD [address] [id number] documented as of this encounter Visit Diagnoses Not on filedocumented in this encounter Care Teams Coin Machine Operator Relationship Specialty Start Date End Date Jersey Wilson MD [address] [id number] PCP - General Family Practice 07/23/16 documented as of this encounter
--- OUTSIDE RECORDS SUMMARY | 2023-07-23 11:02 | XMS_ITS | Continuity of Care Document ---
Author Name Unknown Address [address] [place] [address] Phone [phone] Organization [facility] Address [address] [facility] [place] [address] Care Team Providers Care Car Pincher Name Role Phone URSULA OLEA Primary Care Provider Assessment Encounter Date Assessment Date Assessment LastModified by Organization Details LastModified Time 07/05/2023 07/05/2023 83-year-old male with penile erythema, slowing of his urinary stream, and erectile dysfunction. Of note a total of 25 minutes was spent: preparing to see the patient by reviewing records, images, and laboratory data; obtaining/revie wing separately obtained history; performing physical examination, counseling and educating patient/family/ caregiver; ordering appropriate medications, labs, imaging or procedures; documenting the clinical encounter; and coordination of care. [email or web address] Not available 07/05/2023 16:33:32 Plan of Treatment Reminders Order Date Submit Date Provider Last Modified By Organization Details Last Modified Time Details Appointments ESTABLISH ED 10 2023 01:30P Ko West MD Not available Not available Not available Lab None recorded. Referral None recorded. Procedures None recorded. Surgeries None recorded. Imaging None recorded. Medication Orders None recorded. Patient TargetsNo targets recorded. Patient InstructionsNo instructions recorded. Reason for Referral None Reported. Procedures Surgical History Date Name Laterality Status Provider Name and Address Organization Details Recorded Time 03/03/20 total knee replacement completed Randa pratt [facility] 05/20/2022 14:07:10 Billroth I gastric antrectomy completed Randa pratt [facility] 05/20/2022 14:05:23 Cholecystectomy completed Randa pratt, [facility] 05/20/2022 14:05:28 procedure on finger completed Ana pratt [facility] 05/20/2022 14:05:55 Imaging Results None recorded. Procedure Notes None recorded. Medical Equipment None Reported. Allergies Allergen ID Allergen Name Allergen Category Reaction Reaction Severity Criticality Documentation Date Start Date Code Code System Note Provider Name and Address Organization Details Recorded Time 097410 meperidin e medicatio n Not available Not available Not available 05/20/2022 6754 RxNorm Randa Calderonquis shanthi pratt [facility] 2 14:02:57 021233 Demerol medicatio n Not available Not available Not available 05/20/2022 36466 1 RxNorm Randa Yumikoquraul pratt [facility] 2 14:02:22 260025 trazodone medicatio n Not available Not available Not available 05/20/2022 63604 RxNorm Randa Calderonquraul pratt [facility] 2 14:03:03 Medications Name Sig Start Date Stop Date Status Note LastModified by Organization Details LastModified Time celecoxib 200 mg capsule TAKE ONE CAPSULE BY MOUTH EVERY DAY NEEDED 11/16 completed Not Available Not Available Not Available carvedilol 6.25 mg tablet TAKE ONE TABLET BY MOUTH TWICE A DAY WITH MEALS active Not Available Not Available No t Available prednisone 10 mg tablet TAKE 4 TABLETS BY MOUTH DAILY FOR 2 DAYS THEN 3 TABLETS DAILY FOR 2 DAYS THEN 2 TABLETS DAILY FOR 2 DAYS THEN 1 TABLET DAILY FOR 2 DAYS. 07/05 completed Not Available Not Available Not Available trazodone 50 mg tablet TAKE ONE TABLET BY MOUTH AT BEDTIME 05/20 completed Not Available Not Available Not Available atorvastati n 10 mg tablet 11/16 completed Not Available Not Available Not Available azithromyci n 250 mg tablet 05/20 completed Not Available Not Available Not Available sumatriptan 100 mg tablet active Not Available Not Available Not Available topiramate 25 mg tablet 11/16 completed Not Available Not Available Not Available acetaminoph en 300 mg-codeine 30 mg tablet 11/16 completed Not Available Not Available Not Available hydromorpho ne 2 mg tablet 11/16 completed Not Available Not Available Not Available amitriptyli ne 25 mg tablet TAKE FIVE TABLETS BY MOUTH EVERY DAY active Not Available Not Available No t Available metoclopram matt 5 mg tablet 07/05 completed Not Available Not Available Not Available tamsulosin 0.4 mg capsule active Not Available Not Available Not Available benzonatate 100 mg capsule 11/16 completed Not Available Not Available Not Available pantoprazol e 40 mg tablet,diana yed release active Not Available Not Available Not Available clotrimazol e-betametha sone 1 %-0.05 % topical cream APPLY TO AFFECTED AND SURROUNDI NG AREAS OF SKIN BY TOPICAL ROUTE 2 TIMES PER DAY IN THE MORNING AND EVENING FOR 2 WEEKS active Not Available Not Available No t Available olopatadine 0.1 % eye drops PLACE 1-2 DROPS INTO BOTH EYES 2 TIMES DAILY NEEDED FOR ALLERGIES . 11/16 completed Not Available Not Available Not Available polymyxin B sulfate 10,000 unit-trimet hoprim 1 mg/mL eye drops PLACE 1 DROP INTO BOTH EYES EVERY 6 HOURS. USE UNTIL SYMPTOMS RESOLVED FOR 24 HOURS 11/16 completed Not Available Not Available Not Available hydrochloro thiazide 12.5 mg capsule 07/05 completed Not Available Not Available Not Available lisinopril 30 mg tablet 07/05 completed Not Available Not Available Not Available lisinopril 20 mg-hydrochl orothiazide 25 mg tablet TAKE ONE TABLET BY MOUTH EVERY DAY active Not Available Not Available No t Available metoprolol succinate ER 25 mg tablet,exte nded release 24 hr 07/05 completed Not Available Not Available Not Available ondansetron 4 mg disintegrat ing tablet DISSOLVE ONE TABLET BY MOUTH THREE TIMES A DAY 11/16 completed Not Available Not Available Not Available topiramate 100 mg tablet active Not Available Not Available Not Available finasteride 5 mg tablet Take 1 tablet(s) every day by oral route. active Not Available Not Available No t Available oxycodone 5 mg tablet TAKE ONE TABLET BY MOUTH EVERY DAY NEEDED FOR SEVERE PAIN. active Not Available Not Available No t Available tadalafil 5 mg tablet TAKE ONE TABLET BY MOUTH EVERY DAY IN COMBIMATI ON WITH ON DEMAND SILDENAFI L active Not Available Not Available No t Available sildenafil (pulmonary hypertensio n) 20 mg tablet TAKE 2-3 TABLETS BY MOUTH ON DEMAND NEEDED BEFORE ACTIVITY & TO BE TAKEN IN COMBINATI ON WITH DAILY TADALAFIL . active Not Available Not Available No t Available Vitals Date Recorded Body height Body mass index (BMI) Body weight Provider Name and Address Organization Details Last Updated DateTime 07/05/2023 177.8 cm 27.8 kg/m2 15244.92 g Randa pratt [facility] 07/05/2023 15:54:20 Social History Question Answer Notes LastModified by Organizat ion Details LastModified Time Tobacco Smoking Status Never Smoker Randa Julio pratt [facility] 05/20/2022 14:04:26 What Is Your Level Of Alcohol Consumption? Occasional Information not available 05/20/2022 What Was The Date Of Your Most Recent Tobacco Screening? 07/05/2023 Information not available 07/05/2023 Has Tobacco Cessation Counseling Been Provided? No Information not available 07/05/2023 Do You Or Have You Ever Used Any Other Forms Of Tobacco Or Nicotine? No Information not available 07/05/2023 Sex: Male Functional Status None recorded. Mental Status None recorded. Family History Nothing Reported. Medical History Condition Response High Blood Pressure Y GERD/Acid Reflux Y Immunizations Vaccine Type Date Status Provider Name and Address Organization Details Recorded Time Influenza, injectable,quadrival ent, preservative free, pediatric 06/20/2013 completed Michelle pratt [facility] 04/07/2023 09:47:40 Influenza vaccine, quadrivalent, adjuvanted 02/19/2022 joselito pratt [facility] 04/07/2023 09:47:41 Influenza vaccine, quadrivalent, adjuvanted 03/27/2020 completed Michelle pratt [facility] 04/07/2023 09:47:41 Influenza vaccine, quadrivalent, adjuvanted 03/27/2021 joselito pratt [facility] 04/07/2023 09:47:41 COVID-19, mRNA, LNP-S, PF, 100 mcg/0.5mL dose or 50 mcg/0.25mL dose 07/03/2020 completed Michelle pratt [facility] 04/07/2023 09:47:41 COVID-19, mRNA, LNP-S, PF, 100 mcg/0.5mL dose or 50 mcg/0.25mL dose [facility]31[facility] 09:47:41 COVID-19, mRNA, LNP-S, PF, 100 mcg/0.5mL dose or 50 mcg/0.25mL dose 05/02/2021 [facility] 09:47:41 pneumococcal polysaccharide PPV23 03/26/2006 [facility] 04/07/2023 09:47:41 influenza, unspecified formulation 02/20/2009 [facility] 04/07/2023 09:47:41 influenza, unspecified formulation 02/26/2010 [facility] 04/07/2023 09:47:41 influenza, unspecified formulation 03/26/2006 [facility] 04/07/2023 09:47:41 Tdap 02/02/2012 [facility]/07[facility]2023 09:47:41 Pneumococcal conjugate PCV 13 03/22/2014 [facility]/07[facility]2023 09:47:41 Influenza, high dose seasonal 02/04/2016 [facility] 04/07/2023 09:47:41 Influenza, high dose seasonal 02/23/2017 [facility] 09:47:41 Influenza, high dose seasonal [facility]14/2019 [facility] 09:47:41 Influenza, high dose seasonal 03/22/2014 [facility] 09:47:41 Influenza, high dose seasonal 03/28/2018 completed Michelle pratt [facility] 04/07/2023 09:47:41 Influenza, high dose seasonal 04/01/2015 completed Michelle pratt [facility] 04/07/2023 09:47:41 Influenza, seasonal, injectable, preservative free 04/02/2012 completed Michelle pratt [facility] 04/07/2023 09:47:41 Td (adult), 2 Lf tetanus toxoid, preservative free, adsorbed 04/02/1995 completed Michelle pratt [facility] 04/07/2023 09:47:41 Td (adult), 2 Lf tetanus toxoid, preservative free, adsorbed 05/08/2002 completed Michelle pratt [facility] 04/07/2023 09:47:41 Past Encounters Encounter ID Performer Location Encounter Start Date Encounter Closed Date Diagnosis/Indication [id number] Uche West MD [facility] [address] [address] 07/05/2023 15:49:59 07/07/2023 15:39:50 Lesion of penis Slowing of urinary stream Primary erectile dysfunction Health Concerns Section Related Observation LastModified by Organization Detai ls LastModified Time None Recorded Concern Status LastModified by Organization Details LastModified Time None Recorded Payers Encounter Date Sequence Insurance Name Policy Number Policy Welch Covered Member ID Welch Member ID Guarantor Name 07/05/2023 1 [employer] - INDIVIDUAL AND FAMILY (HMO) [id number] 1 Paul Rae [id number] Paul Rae Notes Date Note Type Note Provider Name and Address Organization Details Recorded Time 07/05/2023 text/html HPI Notes: Mr. Rae is a very pleasant 83-year-old gentleman referred to me by his primary care provider, Dr. Ursula Olea, regarding penile lesion noted on preoperative evaluation for his total knee. Patient believe this is due to an inadvertent event in which he dog licked him. He has noticed some redness along the curve of his kang from 8:00 to 4:00. He denies any puritis, pain, or discharge. He has also been having significant slowing of his stream and nocturia. He has been maintained on tamsulosin which has helped but still bothered. Finally he reports a long history of erectile dysfunction. He has used sildenafil 100 mg which has been intermittently successful. 11/16/2022: Here for follow-up weakened urinary stream, nocturia, erectile dysfunction, and penile lesion. Patient states that he never started the steroid/antifungal cream and does not feel as though there is any significant difference in his penile rash. Reports that the change from sildenafil to tadalafil was initially very helpful but effect does seem to have waned a bit. And he already is feeling significant urination improvement on the combination therapy. His AUA symptom score today is 12 with a [id number] 2 (previously score of 26 [id number] 4) 07/05/2023: Here for follow-up weakened urinary stream, nocturia, erectile dysfunction, and penile lesion. Reports that overall he has been doing well, urination does still include urinary frequency, urgency, and nocturia. Seems to have found a plateau in his medication therapy. He is scheduled for lower back procedure next week. Uche West MD [address] [facility],[address], [place], [address], [facility] 07/05/2023 16:33:42
--- OUTSIDE RECORDS SUMMARY | 2023-07-23 11:02 | XMS_ITS | Clinical Summary ---
Author Name Unknown Organization [facility] Address [place], [place] [address] Care Team Providers Care Therapeutic Consultant Name Role Phone [place] billy MD Primary Care Provider Allergies Active Allergy Reactions Criticality Noted Date Comments Meperidine Seizures 07/29/2006 pt. doesn't think he had a seizure Hydromorphone Hives High 07/18/2023 Shellfish Containing Products Hives 2008 Medications Medication Sig Dispensed Refills Start Date End Date Status amitriptyline (ELAVIL) 25 mg tabletIndications:mi graine prevention Take 150 mg by mouth at bedtime. Take 6 tabs by mouth once daily at nighttime Indications: migraine prevention 0 Active topiramate (TOPAMAX) 50 mg tablet Take 50 mg by mouth 2 times daily. 0 Active lisinopril (PRINIVIL; ZESTRIL) 30 mg tablet Take 30 mg by mouth once daily. 0 Active metoprolol succinate (TOPROL XL) 25 mg Sustained-Release tablet Take 25 mg by mouth once daily. 0 Active atorvastatin (LIPITOR) 10 mg tabletIndications:pr evention of cerebrovascular accident Take 10 mg by mouth once daily. Indications: PREVENTION OF CEREBROVASCULAR ACCIDENT 0 Active Cholecalciferol, Vitamin D3, 2,000 unit tablet Take 2,000 Units by mouth once daily. 0 Active pantoprazole (PROTONIX) 40 mg delayed-release tablet Take 40 mg by mouth once daily. 0 Active polyethylene glycol (MIRALAX; GLYCOLAX) 17 g powder for solution Take 1 Packet by mouth once daily if needed. As needed 0 Active metoclopramide HCl (REGLAN) 5 mg tablet Take 5 mg by mouth 2 times daily. 0 02/23/2017 Active SUMAtriptan (IMITREX) 25 mg tablet Take 25 mg by mouth 2 times daily if needed for Migraine. Give at minimum 2hrs apart. Max Dose: 200mg per 24hrs. 0 Active mupirocin (BACTROBAN OINTMENT) ointmentIndications: Skin tear of right hand without complication, initial encounter Apply topically to affected area(s) 3 times daily. 22 g 0 08/13/2020 Active acetaminophen-codein e (TYLENOL #3) 300-30 mg per tabletIndications:In jury of finger of left hand, initial encounter Take 1 Tablet by mouth every 4 hours if needed for Pain. Max acetaminophen dose: 4000mg in 24 hrs. 12 Tablet 0 08/20/2021 Active Active Problems Problem Noted Date Diagnosed Date Iron deficiency anemia, unspecified 12/19/2015 Overview: 2016 Microcytic anemia, ferritin <5 TIA (transient ischemic attack) 10/19/2014 Gastroenteritis 07/28/2009 Diverticulitis of colon (without mention of hemo rrhage) 07/28/2009 GERD (gastroesophageal reflux disease) 0 HTN (hypertension) 07/28/2009 Encounters Date Type Department Care Team Description 07/18/2023 9:59 AM DIGITAL MARKETING APPRENTICE - 07/18/2023 5:15 PM DIGITAL MARKETING APPRENTICE Emergency [address] [id number] Payton Rodriguez MD Acute midline low back pain without sciatica (Primary Dx); Post-operative pain Discharge Disposition: Short Term/PPS Hosp 07/18/2023 Travel from Last 3 Months Immunizations Name Administration Dates Next Due Influenza, IIV3 (Age >=3 years) 03/22/2014 Social History Tobacco Use Types Packs/Day Years Used Date Smoking Tobacco: Never Smokeless Tobacco: Never Alcohol Use Standard Drinks/Week Comments Yes 0 (1 standard drink = 0.6 oz pure alcohol) social, three times per week, wine Sex and Gender Information Value Date Recorded Sex Assigned at Not on file Gender Identity Not on file Sexual Orientation Not on file Obstetrics History Last Filed Vital Signs Vital Sign Reading Time Taken Comments Blood Pressure 154/68 07/18/2023 5:00 PM DIGITAL MARKETING APPRENTICE Pulse 82 07/18/2023 5:00 PM DIGITAL MARKETING APPRENTICE Temperature 37 ??C (98.6 ??F) 07/18/2023 1:00 PM DIGITAL MARKETING APPRENTICE Respiratory Rate 16 07/18/2023 5:00 PM DIGITAL MARKETING APPRENTICE Oxygen Saturation 95% 07/18/2023 5:00 PM DIGITAL MARKETING APPRENTICE Inhaled Oxygen Concentration - - Weight 93 kg (205 lb) 07/18/2023 10:14 AM DIGITAL MARKETING APPRENTICE Height 177.8 cm (5' 10) 07/18/2023 10:14 AM DIGITAL MARKETING APPRENTICE Body Mass Index 29.41 07/18/2023 10:14 AM DIGITAL MARKETING APPRENTICE Plan of Treatment Health Maintenance Due Date Last Done Comments Tdap 01/12/1951 Depression screening for age 12+ 1953 Tetanus booster 1961 Zoster (shingles) series for age 50+ (1 of 2) 1991 Medicare Wellness for age 65+ 2006 Pneumococcal series for age 65+ (1 of 1 - PCV) 2006 BMI (ht and wt on same day) for age 18+ 01/26/2017 01/27/2016 COVID-19 vaccine series ( season) 2023 05/02/2021, 07/31/2020, 07/03/2020 Influenza for age 65+ 02/12/2023 03/22/2014 Procedures Procedure Name Priority Date/Time Associated Diagnosis Comments CT ABDOMEN PELVIS STONE PROTOCOL WO STAT 07/18/2023 10:48 AM DIGITAL MARKETING APPRENTICE CK TOTAL STAT 07/18/2023 10:26 AM DIGITAL MARKETING APPRENTICE BASIC METABOLIC PANEL STAT 07/18/2023 10:26 AM DIGITAL MARKETING APPRENTICE CBC W PLT NO DIFF STAT 07/18/2023 10: 26 AM DIGITAL MARKETING APPRENTICE from Last 3 Months Results * CT ABDOMEN PELVIS STONE PROTOCOL WO (07/18/2023 10:48 AM DIGITAL MARKETING APPRENTICE) Anatomical Region Laterality Modality Abdomen, Pelvis, AORTA, LIVER, SPLEEN Computed Tomography 07/18/2023 11:0 6 AM DIGITAL MARKETING APPRENTICE Impressions 07/18/2023 11:06 AM DIGITAL MARKETING APPRENTICE 1. Postsurgical changes involving the spine with recent laminectomy at L3-L4. Small amount of postoperative soft tissue gas. 2. No acute fractures. 3. Focal wall thickening involving the left aspect of the urinary bladder which may relate to a bladder tumor. There is an adjacent urinary bladder diverticulum. Urinary bladder is distended. Prostate enlarged. 4. No hydronephrosis. No renal or ureteral calculus. 5. Colonic diverticulosis without acute diverticulitis. No colitis or bowel obstruction. There is a moderate amount of stool within the colon. 6. Prior cholecystectomy. Please note that all CT scans at this facility use dose modulation, iterative reconstruction, and/or weight-based dosing when appropriate to reduce radiation dose to as low as reasonably achievable. Dictated by Louis Brown MD @ 07/18/2023 11:06:06 AM (Electronically Signed) Narrative 07/18/2023 11:06 AM DIGITAL MARKETING APPRENTICE For Patients: ??As a result of the Cures Act, medical imaging exams and procedure reports are released immediately into your electronic medical record. ??You may view this report before your referring provider. ??If you have questions, please contact your health care provider. HISTORY: Fall. Postoperative pain. TECHNIQUE: Noncontrast CT of the abdomen and pelvis. COMPARISON: 03/23/2016. FINDINGS: There is no focal liver lesion. Patient is status post cholecystectomy. Spleen size within normal limits. Adrenal glands normal. No focal pancreatic abnormality. Fluid density renal lesion on the left is enlarged from the prior CT though may still reflect a cyst. It measures approximately 2.2 cm on image #78 of series 3. There is no renal or ureteral calculus. Urinary bladder is distended. There is focal wall thickening of the left aspect of the urinary bladder wall on image #195 series 3. This may reflect a tumor bladder wall. Just above that level there is a bladder diverticulum. Prostate is enlarged. Noninflamed duodenal diverticulum. No small bowel obstruction. There is colonic diverticulosis without acute diverticulitis. Moderate stool within the colon. No fluid collection or free air. Atherosclerotic changes of the abdominal aorta without aneurysm. Areas of atelectasis and/or scarring within the lung bases. Postsurgical changes involving the spine with laminectomies at L3-L4. Small amount of postoperative gas within the spinal canal. Small amount of gas within the posterior soft tissues. Degenerative changes of the sacroiliac joints and hips. No acute fractures. Procedure Note Louis Brown MD - 07/18/2023 For Patients: As a result of the Cures Act, medical imagingexams and procedure reports are released immediately into your electronicmedical record. You may view this report before your referring provider.If you have questions, please contact your health care provider. HISTORY: Fall. Postoperative pain. TECHNIQUE: Noncontrast CT of the abdomen and pelvis. COMPARISON: 03/23/2016. FINDINGS: There is no focal liver lesion. Patient is status post cholecystectomy.Spleen size within normal limits. Adrenal glands normal. No focalpancreatic abnormality. Fluid density renal lesion on the left is enlarged from the prior CTthough may still reflect a cyst. It measures approximately 2.2 cm on image#78 of series 3. There is no renal or ureteral calculus. Urinary bladderis distended. There is focal wall thickening of the left aspect of theurinary bladder wall on image #195 series 3. This may reflect a tumorbladder wall. Just above that level there is a bladder diverticulum.Prostate is enlarged. Noninflamed duodenal diverticulum. No small bowel obstruction. There iscolonic diverticulosis without acute diverticulitis. Moderate stool withinthe colon. No fluid collection or free air. Atherosclerotic changes of the abdominal aorta without aneurysm. Areas of atelectasis and/or scarring within the lung bases. Postsurgical changes involving the spine with laminectomies at L3-L4.Small amount of postoperative gas within the spinal canal. Small amount ofgas within the posterior soft tissues. Degenerative changes of thesacroiliac joints and hips. No acute fractures. IMPRESSION: 1. Postsurgical changes involving the spine with recent laminectomy atL3-L4. Small amount of postoperative soft tissue gas. 2. No acute fractures. 3. Focal wall thickening involving the left aspect of the urinary bladderwhich may relate to a bladder tumor. There is an adjacent urinary bladderdiverticulum. Urinary bladder is distended. Prostate enlarged. 4. No hydronephrosis. No renal or ureteral calculus. 5. Colonic diverticulosis without acute diverticulitis. No colitis orbowel obstruction. There is a moderate amount of stool within the colon. 6. Prior cholecystectomy. Please note that all CT scans at this facility use dose modulation,iterative reconstruction, and/or weight-based dosing when appropriate toreduce radiation dose to as low as reasonably achievable. Dictated by Louis Brown MD @ 07/18/2023 11:06:06 AM (Electronically Signed) Payton Rodriguez MD CT * (ABNORMAL) CBC W PLT NO DIFF (07/18/2023 10:26 AM DIGITAL MARKETING APPRENTICE) WHITE BLOOD COUNT 8.2 4.5 - 11.0 thou/cu mm 07/18/2023 10:35 AM [facility] RED BLOOD COUNT 3.92(L) 4.30 - 5.90 mil/cu mm 07/18/2023 10:35 AM [facility] HEMOGLOBIN 12.6(L) 13.5 - 17.5 g/dL 07/18/2023 10:35 AM [facility] HEMATOCRIT 36.2(L) 37.0 - 53.0 % 07/18/2023 10:35 AM [facility] MCV 92 80 - 100 fL 07/18/2023 10:35 AM [facility] MCH 32.1 26.0 - 34.0 pg 07/18/2023 10:35 AM [facility] MCHC 34.8 32.0 - 36.0 g/dL 07/18/2023 10:35 AM [facility] RDW 12.1 11.5 - 15.5 % 07/18/2023 10:35 AM [facility] PLATELET COUNT 213 140 - 440 thou/cu mm 07/18/2023 10:35 AM [facility] MPV 9.9 6.5 - 11.0 fL 07/18/2023 10:35 AM [facility] NRBC 0.0 % 07/18/2023 10:35 AM [facility] ABS NRBC 0.0 thou /cu mm 07/18/2023 10:35 AM [facility] Blood BLOOD SPECIMEN / Unknown Non-Lab [place]fly / Unknown 07/18/2023 10:26 AM DIGITAL MARKETING APPRENTICE 07/18/2023 10:33 AM DIGITAL MARKETING APPRENTICE Payton Rodriguez MD HEMATOLOGY Performing Organization Address City/[facility]/ZIP Co de Phone Number [address] [address] * CK TOTAL (07/18/2023 10:26 AM DIGITAL MARKETING APPRENTICE) CK,TOTAL 210 39 - 308 IU/L 07/18/2023 10:58 AM DIGITAL MARKETING APPRENTICE [facility] Blood BLOOD SPECIMEN / Unknown Non-Lab Butterfly / Unknown 07/18/2023 10:26 AM DIGITAL MARKETING APPRENTICE 07/18/2023 10:33 AM DIGITAL MARKETING APPRENTICE Payton Rodriguez MD CHEMISTRY Performing Organization Address [facility] Co de Phone Number [address] [address] * (ABNORMAL) BASIC METABOLIC PANEL (07/18/2023 10:26 AM DIGITAL MARKETING APPRENTICE) SODIUM 135(L) 136 - 145 mmol/L 07/18/2023 10:58 AM [facility] POTASSIUM 4.0 3.5 - 5.1 mmol/L 07/18/2023 10:58 AM [facility] CHLORIDE 100 98 - 107 mmol/L 07/18/2023 10:58 AM [facility] CO2,TOTAL 26 22 - 29 mmol/L 07/18/2023 10:58 AM [facility] ANION GAP 9 5 - 18 07/18/2023 10:58 AM [facility] GLUCOSE 111(H) 70 - 99 mg/dL 07/18/2023 10:58 AM [facility] CALCIUM 9.2 8.8 - 10.2 mg/dL 07/18/2023 10:58 AM [facility] BUN 18 8 - 23 mg/dL 07/18/2023 10:58 AM [facility] CREATININE 0.85 0.70 - 1.20 mg/dL 07/18/2023 10:58 AM [facility] BUN/CREAT RATIO 21(H) 10 - 20 10:58 AM [facility] eGFR 87(L) >90 mL/min/1.7 3m2 07/18/2023 10:58 AM DIGITAL MARKETING APPRENTICE [facility] Comment:As of 2021, eG FR is calculated by the CKD-EPI creatinine equation without race adjustment. ??eGFR can be influenced by muscle mass, exercise, and diet. ??The reported eGFR is an estimation only and is only applicable if the renal function is stable. Blood BLOOD SPECIMEN / Unknown Non-Lab Butterfly / Unknown 07/18/2023 10:26 AM DIGITAL MARKETING APPRENTICE 07/18/2023 10:33 AM DIGITAL MARKETING APPRENTICE Payton Rodriguez MD CHEMISTRY [id number] [place] [address] from Last 3 Months Advance Directives Latest Code Status on File Code Status Date Activated Date Inactivated Comments Full Code 08/20/2021 10:08 AM 08/20/2021 3:15 PM Question Answer Comments Code Status Discussion: Not Discussed Code Status History Code Status Date Activated Date Inactivated Comments Full Code 04/08/2015 9:42 AM 04/08/2015 1:26 PM Full Code 10/19/2014 7:24 PM 10/20/2014 3:01 PM Question Answer Comments Code Status Discussion: Per Existing Order Discussed Full Code 02/15/2013 11:22 AM 02/16/2013 2:17 AM Full Code 07/28/2009 3:21 AM 07/30/2009 5:00 PM Care Teams Therapeutic Consultant Relationship Specialty Start Date End Date Jersey Wilson MD [address] [facility] [place] [id number] PCP - General 09/24/06
--- OUTSIDE RECORDS SUMMARY | 2023-07-23 11:02 | XMS_ITS | Data Portability ---
Author Name Unknown Address [address] [place] [address] Phone [phone] Organization [facility] Address [address] [place] [address] Care Team Providers Care Mva Reactor Operator Head Name Role Phone URSULA OLEA Primary Care Provider [phone] Assessment Encounter Date Assessment Date Assessment LastModified by Organization Details LastModified Time 05/20/2022 05/20/2022 82-year-old male with penile erythema, slowing of his urinary stream, and erectile dysfunction. Not available 05/20/2022 23:15:47 11/16/2022 11/16/2022 82-year-old male with penile erythema, slowing of his urinary stream, and erectile dysfunction. [email or web address] Not available 11/13/2022 14:05:21 07/05/2023 07/05/2023 83-year-old male with penile erythema, [...] the clinical encounter; and coordination of care. Not available 07/05/2023 16:33:32 Plan of Treatment Reminders Order Date Submit Date Provider Last Modified By Organization Details Last Modified Time Details Appointments ESTABLISH ED 10 2023 01:30P M Uche West MD Not available Not available Not available Lab None recorded. Referral None recorded. Procedures None recorded. Surgeries None recorded. Imaging None recorded. Medication Orders tadalafil 5 mg tablet 06/05/ 2023 06/05/2 023 Basilio Leroy, [address], [place], [address], 11/16/2022 14:57:55 sildenafi l (pulmonar y hypertens ion) 20 mg tablet 2022 023 Basilio Leroy, [address], [place], [address], 11/16/2022 14:57:55 tadalafil 5 mg tablet 2021 022 Basilio Leroy, [address], [place], [address], 05/20/2022 14:28:59 clotrimaz ole-betam ethasone 1 %-0.05 % topical cream 2021 022 Basilio Leroy, [address], [place], [address], 05/20/2022 14:28:59 finasteri de 5 mg tablet 2021 022 Basilio Leroy, [address], [place], [address], 05/20/2022 14:29:01 Patient TargetsNo targets recorded. Patient InstructionsNo instructions recorded. Reason for Referral None Reported. Procedures Surgical History Date Name Laterality Status Provider Name and Address Organization Details Recorded Time 03/03/20 total knee replacement completed Randa pratt [facility] 05/20/2022 14:07:10 Billroth I gastric antrectomy completed Randa pratt, [facility] 05/20/2022 14:05:23 Cholecystectomy completed Randa pratt [facility] 05/20/2022 14:05:28 procedure on finger completed Ana pratt [facility] 05/20/2022 14:05:55 Imaging Results None recorded. Procedure Notes None recorded. Medical Equipment None Reported. Allergies Allergen ID Allergen Name Allergen Category Reaction Reaction Severity Criticality Documentation Date Start Date Code Code System Note Provider Name and Address Organization Details Recorded Time 873128 meperidin e medicatio n Not available Not available Not available 05/20/2022 6754 RxNorm Randa Stromquis t null, [facility] 2 14:02:57 825686 Demerol medicatio n Not available Not available Not available 05/20/2022 83067 1 RxNorm Randa Stromquis t null, [facility] 2 14:02:22 364807 trazodone medicatio n Not available Not available Not available 05/20/2022 29235 RxNorm Randa Stromquis t null, [facility] 2 14:03:03 Medications Name Sig Start Date [...] and Address Organization Details Last Updated DateTime 05/20/2022 177.8 cm 27.8 kg/m2 21722.92 g Randadeven Calderonjoanna pratt [facility] 05/20/2022 14:01:50 Date Recorded Body height Body mass index (BMI) Body weight Provider Name and Address Organization Details Last Updated DateTime 11/16/2022 177.8 cm 27.8 kg/m2 44446.92 g Randa Julio [facility] 11/16/2022 14:27:18 Date Recorded Body height Body mass index (BMI) Body weight Provider Name and Address Organization Details Last Updated DateTime 07/05/2023 177.8 cm 27.8 kg/m2 50528.92 g Randadeven Kim [facility] 07/05/2023 15:54:20 Social History Question Answer Notes LastModified by Organizat ion Details LastModified Time Tobacco Smoking Status Never Smoker Randa pratt [facility] 05/20/2022 14:04:26 What Is Your Level Of [...] History Nothing Reported. Medical History Condition Response GERD/Acid Reflux Y High Blood Pressure Y Immunizations Vaccine Type Date Status Provider Name and Address Organization Details Recorded Time Influenza, injectable,quadrival ent, preservative free, pediatric 06/20/2013 completed Michelle pratt [facility] 04/07/2023 09:47:40 Influenza vaccine, quadrivalent, adjuvanted 02/19/2022 joselito pratt [facility] 04/07/2023 09:47:41 Influenza vaccine, quadrivalent, adjuvanted 03/27/2020 joselito pratt [facility] 04/07/2023 09:47:41 Influenza vaccine, quadrivalent, adjuvanted 03[facility]27[facility]2021 [facility] 09:47:41 COVID-19, mRNA, LNP-S, PF, 100 mcg/0.5mL dose or 50 mcg/0.25mL dose 07/03/2020 [facility] 09:47:41 COVID-19, mRNA, LNP-S, PF, 100 mcg/0.5mL dose or 50 mcg/0.25mL dose 07/31/2020 [facility] 09:47:41 COVID-19, mRNA, LNP-S, PF, 100 mcg/0.5mL dose or 50 mcg/0.25mL dose 05/02/2021 [facility] 09:47:41 pneumococcal polysaccharide PPV23 03/26/2006 [facility] 09:47:41 influenza, unspecified formulation 02/20/2009 [facility] 09:47:41 influenza, unspecified formulation 02/26/2010 [facility]07[facility]23 09:47:41 influenza, unspecified formulation 03/26/2006 [facility] 09:47:41 Tdap 02/02/2012 [facility] 09:47:41 Pneumococcal conjugate PCV 13 03/22/2014 [facility] 09:47:41 Influenza, high dose seasonal 02/04/2016 [facility] 09:47:41 Influenza, high dose seasonal [facility]23[facility] 09:47:41 Influenza, high dose seasonal 03/14/2019 completed Michelle pratt [facility] 04/07/2023 09:47:41 Influenza, high dose seasonal 03/22/2014 [facility] 09:47:41 Influenza, high dose seasonal 03/28/2018 completed Michelle pratt [facility] 04/07/2023 09:47:41 Influenza, high dose seasonal 04/01/2015 [facility]23 09:47:41 Influenza, seasonal, injectable, preservative free 04/02/2012 completed Michelle pratt [facility] 04/07/2023 09:47:41 Td (adult), 2 Lf tetanus toxoid, preservative free, adsorbed 04/02/1995 completed Michelle pratt [facility] 04/07/2023 09:47:41 Td (adult), 2 Lf tetanus toxoid, preservative free, adsorbed 05/08/2002 [facility] 09:47:41 Past Encounters Encounter ID Performer Location Encounter Start Date Encounter Closed Date Diagnosis/Indication [id number] MD PATRICE Trotter_[facility] [address] [address] 05/20/2022 13:40:08 05/22/2022 10:38:33 Lesion of penis Slowing of urinary stream Primary erectile dysfunction [id number] MD PATRICE Trotter_Camille [address] [place] [address] 11/16/2022 14:25:16 11/18/2022 15:05:58 Lesion of penis Slowing of urinary stream Primary erectile dysfunction [id number] MD Lala Trotter [address] [place] [address] 07/05/2023 15:49:59 07/07/2023 15:39:50 Lesion of penis Slowing of urinary stream Primary erectile dysfunction Health Concerns Section Related Observation LastModified by Organization Detai ls LastModified Time None Recorded Concern Status LastModified by Organization Details LastModified Time None Recorded Advance Directives Directive None Recorded Payers Encounter Date Sequence Insurance Name Policy Number Policy Welch Covered Member ID Welch Member ID Guarantor Name 07/05/2023 1 [employer] - INDIVIDUAL AND FAMILY (HMO) [id number] 1 Paul Rae [id number] Paul Rae 11/16/2022 1 [employer] FAMILY (HMO) [id number] 1 Paul Rae [id number] Paul Rae 05/20/2022 1 [employer] - DOS PRIOR TO 2021 [id number] 1 Paul Rae [id number] Paul Rae Notes Date Note Type Note Provider Name and Address Organization Details Recorded Time 05/20/2022 text/html HPI Notes: Mr. Rae is a very pleasant 82-year-old gentleman referred to me by his primary [...] 100 mg which has been intermittently successful. Uche West MD [address] [place] [address],[address], [address], [facility] 05/20/2022 23:18:01 11/16/2022 text/html HPI Notes: Mr. Rae is a very pleasant 82-year-old gentleman referred to me by his primary [...] symptom score today is 12 with a jkbpogm-mk-ysbe 2 (previously score of 26 yejabxx-xv-pkla 4) Uche West MD [address], [place], [address], [facility] 11/16/2022 14:58:11 07/05/2023 text/html HPI Notes: Mr. Rae is [...] symptom score today is 12 with a omywohg-cm-xxlp 2 (previously score of 26 elaovgv-sz-ibow 4) 07/05/2023: Here for follow-up weakened urinary stream, nocturia, erectile dysfunction, and penile lesion. Reports that overall he has been doing well, urination does still include urinary frequency, urgency, and nocturia. Seems to have found a plateau in his medication therapy. He is scheduled for lower back procedure next week. Uche West MD [address], [place], [address], [facility] 07/05/2023 16:33:42
== END 2023-07-18 09:04 | disposition home or self-care (01) ==
LOC: AMB 07-23 10:56
PROVIDERS: Visit Provider Emergency Medicine
DX: R53.1 Weakness (principal)
CPT/HCPCS: A0425; A0427

== ENCOUNTER 2024-01-25 08:09 | Outpatient (CLI) | payer MEDICARE, SELFPAY ==
--- OUTSIDE RECORDS SUMMARY | 2024-01-25 08:13 | XMS_ITS | Encounter Summary ---
Author Organization [facility] Address [address] [place] [phone] Care Team Providers Care Paper Cutter Operator Name Role Phone Elsewhere, Pcp Primary Care Provider Unavailabl e Reason for Referral * Outpatient (Routine) - Authorized Specialty Diagnoses / Procedures Referred By Contac t Referred To Contact Radiation Oncology Anita Alvarez APRN, C.N.PTona, D.N.P. [address] [place] [phone] Collette Phillip M.D. 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 [address] [place] [phone] [facility] Referral ID Status Reason Start Date Expiration Date V isits Requested Visits Authorized [id number] Authorized 01/17/2024 01/16/2025 1 1 * MRI/CAT/PET Scan (Routine) - Authorized Specialty Diagnoses / Procedures Referred By Contac t Referred To Contact Radiology Diagnoses 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) Procedures CT Urogram without and with IV Contrast Anita Alvarez APRN C.N.PTona, D.N.P. [address] [place] [phone] [facility] Referral ID Status Reason Start Date Expiration Date V isits Requested Visits Authorized [id number] Authorized 01/17/2024 01/16/2025 1 1 * Outpatient (Routine) - Closed Specialty Diagnoses / Procedures Referred By Contac t Referred To Contact Radiation Oncology Collette Phillip M.D. 200 [place] [phone] [facility] Region Referral ID Status Reason Start Date Expiration Date Visits Re quested Visits Authorized [id number] Closed 12/15/2023 06/15/2025 1 1 Reason for Visit * Outpatient (Routine) - Closed Specialty Diagnoses / Procedures Referred By Contac t Referred To Contact Radiation Oncology Collette Phillip M.D. [address] [place] [phone] [facility] Region Referral ID Status Reason Start Date Expiration Date Visits Re quested Visits Authorized [id number] Closed 12/15/2023 06/15/2025 1 1 Encounter Details Date Type Department Care Team (Latest Contact Info) Description 01/17/2024 2:29 PM CDT - 01/17/2024 4:58 PM CDT Hospital Encounter Department of Radiation Oncology in [place], [place] [address] [place] [phone] Collette Phillip M.D. 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 No 07/19/2023 Humiliation, Afraid, Rape, and Kick questionnair e Answer Date Recorded Within the last year, have y ou been afraid of your partner or ex-partner? No 07/19/2023 Within the last year, have y ou been humiliated or emotionally abused in other ways by your partner or ex-partner? No Within the last year, have y ou been kicked, hit, slapped, or otherwise physically hurt by your partner or ex-partner? No 07/19/2023 Within the last year, have y ou been raped or forced to have any kind of sexual activity by your partner or ex-partner? No 07/19/2023 Overall Financial Resource Strain (CARDIA) Answe r Date Recorded How hard is it for you to pa y for the very basics like food, housing, medical care, and heating? Somewhat hard 04/23/2023 Exercise Vital Sign Answer Date Recorde d On average, how many days pe r week do you engage in moderate to strenuous exercise (like a brisk walk)? 2 days Minutes of Exercise per Session Not on file 04/23/2023 Hunger Vital Sign Answer Date Recorded Within the past 12 months, y ou worried that your food would run out before you got the money to buy more. Never true 07/19/19 24 Within the past 12 months, t he food you bought just didn't last and you didn't have money to get more. Never true 07/19/2023 PRAPARE - Transportation Answer Date Re corded In the past 12 months, has l ack of transportation kept you from medical appointments or from getting medications? No 10/2023 In the past 12 months, has l ack of transportation kept you from meetings, work, or from getting things needed for daily living? No 07/19/2023 Nutrition Answer Date Recorded On average, how many serving s of fruits and vegetables do you eat per day (serving size is equal to 1 cup or approximately the size of a tennis ball)? 3-5 04/23/2023 Dental Answer Date Recorded Dental: Regular Dentist Yes 04/23/20 Employment Answer Date Recorded Employment status Retired 04/23/2023 Housing Stability Answer Date Recorded What is your living situation today? 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 Sexual Orientation Straight 04/23/2023 8: 28 AM AUTOMOTIVE GLASS MECHANIC documented as of this encounter Last Filed Vital Signs Vital Sign Reading Time Taken Comments Blood Pressure 149/76 01/17/2024 2:38 PM CDT Pulse 70 01/17/2024 2:38 PM CDT Temperature 36.7 ??C (98 ??F) 01/17/2024 2:38 PM CDT Respiratory Rate - - Oxygen Saturation - - Inhaled Oxygen Concentration - - Weight 94.2 kg (207 lb 10.8 oz) 01/17/2024 2:38 PM CDT Height - - Body Mass Index 31.88 12/02/2023 2:36 PM CDT documented in this encounter Medications at Time of Discharge Medication Sig Dispensed Refills Start Date End Date amitriptyline (ELAVIL) 25 mg tablet Take 100 mg by mouth at bedtime. 07/15/2014 carvediloL (COREG) 6.25 mg tablet Take 1 tablet by mouth 2 (two) times a day with meals. 12/11/2022 cholecalciferol (VITAMIN D3) 50 mcg (2,000 Unit) tablet Take 1 tablet by mouth daily. clotrimazole-betametha sone (LOTRISONE) 1-0.05 % cream Apply 1 Application topically 2 (two) times a day as needed (irritation). diazePAM (VALIUM) 5 mg tablet Take 0.5 tablets (2.5 mg total) by mouth 3 (three) times a day as needed for muscle spasms. 25 tablet 07/17/2023 finasteride (PROSCAR) 5 mg tablet Take 5 mg by mouth daily. 02/12/2023 lisinopril-hydroCHLORO thiazide (PRINZIDE,ZESTORETIC) 20-25 mg per tablet Take 1 tablet by mouth daily. 07/15/2014 loratadine (CLARITIN REDITABS) 10 mg disintegrating tablet Dissolve 10 mg in the mouth daily. oxyCODONE (ROXICODONE) 5 mg immediate release tabletIndications:Acut e Pain Exception Take 1 tablet (5 mg total) by mouth every 4 (four) hours as needed for moderate pain or score 4-6 of 10 Indication: Acute Pain Exception. 25 tablet 07/28/2023 pantoprazole (PROTONIX) 40 mg EC tablet Take 40 mg by mouth every morning before breakfast. 11/10/2022 polyethylene glycol (MIRALAX) 17 gram powder packet Take 1 packet by mouth daily. Dissolve each 17 g dose in 240 mLs (8 ounces) of beverage. Take this medication while you are taking narcotic painkillers such as oxycodone to prevent constipation. 28 packet 07/17/2023 sennosides-docusate sodium (SENOKOT-S) 8.6-50 mg per tablet Take 2 tablets by mouth daily with lunch. Take this medication while you are taking narcotic painkillers such as oxycodone to prevent constipation. 100 tablet 07/17/2023 sildenafil (REVATIO) 20 mg tablet Take 20 mg by mouth as needed. sulfamethoxazole-trime thoprim (BACTRIM DS) 800-160 mg per tablet Take 1 tablet by mouth 2 (two) times a day. Please start morning of stent removal 2 tablet 11/18/2023 SUMAtriptan (IMITREX) 100 mg tablet Take 100 mg by mouth as needed. 02/25/2023 tadalafiL (CIALIS) 5 mg tablet Take 5 mg by mouth daily. tamsulosin (Flomax) 0.4 mg 24 hr capsule Take 2 capsules (0.8 mg total) by mouth daily. 180 capsule 3 12/07/2023 12/06/2024 topiramate (TOPAMAX) 100 mg tablet Take 100 mg by mouth at bedtime. 02/25/2023 trospium (Sanctura) 20 mg tablet Take 1 tablet (20 mg total) by mouth 2 (two) times a day as needed (bladder spasms). 20 tablet 1 12/07/2023 01/19/2024 documented as of this encounter Progress Notes * Anita Alvarez APRN, C.N.P., D.N.P. - 01/17/2024 3:00 PM CDT SUBJECTIVE DIAGNOSIS 1. 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 HISTORY OF PRESENT ILLNESS Paul Rae is a 84 y.o. male with muscle invasive high grade bladder cancer. He completed radiation therapy with concurrent chemotherapy on December 20, 2023. He returns for follow up. His oncologic history is as follows: Oncology History Overview Note September 2023: Urine retention,Urgency frequency nocturia> CT lateral wall lesion. TURBT multifocalpapillary tumors along the left lateral bladder wall, right bladder dome, and left anterolateral bladder wall. Largest tumor 2 cm on left anterolateral wall. At least 15 tiny 2-3 mm papillary satellite lesions were visualized. Invasive high-grade urothelial carcinoma with micropapillary histology involving lamina propria and muscularis propria. PET CT disease confined to bladder 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) 09/10/[address] urogram demonstrated: 1. Increased in size of the enhancing left lateral wall bladder mass from 07/18/2023 which is highly suspicious for urothelial carcinoma. There are also surrounding features such as soft tissue stranding and nodularity which suggest possible local invasion. Further characterization with cystoscopy is recommended. 2. No evidence of other upper urogenital neoplasm or distant metastatic disease within the abdomen or pelvis. 3. Postsurgical changes of decompression and fusion of the L3-4 vertebrae. Persistent soft tissue inflammation and fluid collections with foci of air likely represent postoperative changes, however are indeterminant for abscesses. 09/28/2023 Surgery and Procedures Cystoscopy with biopsy 1. Cystoscopy demonstrated multifocal papillary tumors along the left lateral bladder wall, right bladder dome, and left anterolateral bladder wall. Largest tumor 2 cm on left anterolateral wall. At least 15 tiny 2-3 mm papillary satellite lesions were visualized. 2. Bipolar loop and cold cup biopsy forceps were used to resect and biopsy tumors. Largest area of resection 3 cm. Bipolar loop was used to achieve hemostasis. 3. Placement of [address] [place] [address] Phelps catheter with 10 cc in the balloon, irrigated to clear Pyridium. 4. Bimanual examination negative for evidence of T3 or T4 disease. 09/28/2023 Biopsy/Pathology Pathology revealed: Urinary bladder, tumor, transurethral resection: Invasive high-grade urothelial carcinoma with micropapillary histology involving lamina propria and muscularis propria. 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 Comment: An immunohistochemical stain is pending to rule out angiolymphatic invasion. 10/14/2023 Initial Diagnosis 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) 10/14/2023 Critical Imaging PET/CT demonstrated: 1. Moderately FDG avid wall thickening in the anterior and left lateral bladder wall, correspondingwith the known urothelial neoplasm. 2. No FDG avid metastatic disease. 3. Focal metabolic activity in the proximal small bowel without corresponding abnormality on the prior CT urogram, indeterminate but favored physiologic. Attention on follow-up is suggested. 11/04/2023 Surgery and Procedures Cystoscopy 1. Cystoscopy demonstrated healing changes at resection beds on the left lateral bladder wall and left bladder wall posterior. Healing changes was also noted on the right bladder wall posterior. Otherwise, multiple papillary change noted on the anterior bladder wall and around resection beds. Largest resection of single tumor is more than 7 cm. 2. Uncomplicated resection of bladder lesion. Visually complete resection down to muscle. No concern for perforation. 3. Left retrograde pyelogram demonstrated no filling defect, hydronephrosis, stricture, or contrastextravasation. 4. Left ureteral stent placement, 7 Fr x 22 cm, off dangle 5. Excellent hemostasis at the conclusion of the procedure. 6. Bimanual exam was performed and negative for evidence of T3 or T4 disease. 7. Placement of 22 [place] Phelps catheter with 15 cc in the balloon. 11/04/2023 Biopsy/Pathology Pathology revealed: A. Urinary bladder, anterior wall/dome, transurethral resection: Noninvasive high-grade papillary urothelial carcinoma. Muscularis propria is not identified. B. Urinary bladder, left lateral wall, transurethral resection: Invasive high- grade papillary urothelial carcinoma, infiltrating the muscularis propria. Urothelial carcinoma in situ also identified. Lymphovascular invasion and perineural invasion are present. Background of therapy-related changes. C. Urinary bladder, right posterior wall, transurethral resection: Urothelial carcinoma in situ. Muscularis propria is present and uninvolved. Background of therapy-related changes. 11/19/2023 Surgery and Procedures Uncomplicated left ureteral stent removal. Brief cystoscopy revealed multiple areas of prior recent resection with overlying necrotic debris, no large obvious tumor visualized. 11/22/2023 - 12/20/2023 Radiation Therapy Radiation Therapy Treatment Details (Noted on 10/21/2023) Site: Bladder Technique: No technique specified Goal: Curative Fraction: 20 Dose: 5500 11/22/2023 - 12/13/2023 Chemotherapy Patient is receiving Mitomycin C and Infusional F-5U under the direction of Dr. Akers at [facility]. She is considering Nivolumab maintenance. INTERVAL HISTORY The patient was seen and examined today with Dr. Phillip. The patient reports doing well overall. He reports a significant improvement in his urination symptoms with the help of Flomax and trospium. He currently takes 0.8 mg Flomax daily along with 20 mg trospium twice a day. He denies any dizziness while on Flomax. He has noticed an improvement in urinary frequency and urgency, in addition to nocturia. He reports nocturia on average x3. He continues experiencing urinary urgency at times and has a occasional leakage if he does not get to the bathroom in time, but this is very intermittent. He continues experiencing some urinary frequency but he doesdrink a lot throughout the day. Denies any hematuria or dysuria. Dysuria following radiation treatment has completely resolved. He reports normal bowel movements without blood or pain. He denies any concerns with diarrhea. His ECOG performance status is 0. REVIEW OF SYSTEMS Review of systems was negative except as documented above. OBJECTIVE BP 149/76 (BP Location: Right arm, Patient Position: Sitting, Cuff Size: Regular) Pulse 70 Temp36.7 ??C (Temporal) Wt 94.2 kg BMI 31.88 kg/m?? PHYSICAL EXAM General: Patient is alert and oriented in no apparent distress. Neck: Supple. Lymph: No palpable cervical, supraclavicular, infraclavicular, axillary, or inguinal adenopathy. Lungs: Clear to auscultation bilaterally. Heart: Regular rate and rhythm. Normal S1 and S2. Abdomen: Soft, non-tender, non-distended. Normal active bowel sounds are present. 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 He is doing well now 1 month out from radiation treatment with concurrent chemotherapy. Trospium and Flomax continue to help his urinary symptoms. He is very happy with his urinary symptom results following radiation treatment. He experiences occasional urinary urgency and frequency. He is scheduled for post treatment surveillance CT abdomen/pelvis and follow up with Dr. Akers next week. She is contemplating giving maintenance nivolumab. She will decide based off the imaging results We will see Paul Rae in a follow-up visit in [address] urogram and cystoscopy in [place]. Patient seen in collaboration with Dr. Phillip, please review her attestation for additional information. The patient was asked to contact us with questions or concerns. He verbally expressed his understanding of the plan. EDUCATION Ready to learn, no apparent learning barriers were identified; learning preferences include listening. Explained diagnosis and treatment plan; patient expressed understanding of the content. I personally spent 25 minutes in care of the patient today. Time includes both non face to face andface to face patient care. Signed by: Anita Alvarez APRN, C.N.P., D.N.P. 01/17/2024 3:42 PM CDT [facility] [address] [place] [address] Associated attestation - Collette Phillip M.D. - 01/17/2024 4:58 PM CDT I saw and evaluated the patient and participated in the beck portions of the service as noted below.Ms. Anita Alvarez APRN note for additional details. Collette Phillip M.D., 01/17/2024 documented in this encounter Plan of Treatment Upcoming Encounters Date Type Department Care Team (Late st Contact Info) Description 03/21/2024 9:30 AM CDT Appointment Department of Laboratory Medicine and Pathology, [facility] in [place], [place] [address] [place] [phone] Anita Alvarez APRN, C.N.P., D.N.P. [address] [place] [phone] 03/21/2024 10:30 AM CDT Appointment Department of Radiology, [facility], in [place], [place] [address] [place] [phone] Anita Alvarez APRN, C.N.P., D.N.P. [address] [place] [phone] 03/21/2024 3:30 PM CDT Procedure visit Department of Urology in [place], [place] [address] [place] [phone] Anita Alvarez APRN, C.N.P., D.N.P. [address] [place] [phone] 03/27/2024 11:30 AM CDT Appointment Department of Radiation Oncology in [place], [place] [address] [place] [phone] Collette Phillip M.D. [address] [place] [phone] Scheduled Orders Name Type Priority Associated Diagnoses Order Schedule CT Urogram without and with IV Contrast Imaging RAD - Routine (most inpatients and all outpatients) 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) Expected: 03/21/2024 (Approximate), Expires: 04/18/2025 Creatinine with Estimated GFR Lab Routine 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) 1 Occurrences starting 01/17/2024 until 04/18/2025 Scheduled Referrals Name Type Priority Associated Diagnoses Order Schedule Radiation Oncology office visit (clinic) Outpatient Referral Routine Once for 1 Occurrences starting 01/17/2024 until 01/17/2024 Radiation Oncology office visit (clinic) Outpatient Referral Routine Expected: (Approximate), Expires: 04/18/2025 documented as of this encounter Visit Diagnoses Diagnosis 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)- Primary documented in this encounter Care Teams Paper Cutter Operator Relationship Specialty Start Date End Date Elsewhere, Pcp PCP - General Internal Medicine 07/14/23 documented as of this encounter
--- OUTSIDE RECORDS SUMMARY | 2024-01-25 08:13 | XMS_ITS | Encounter Summary ---
Author Organization [facility] Address [address] [place] [phone] Care Team Providers Care Trapeze Artist Name Role Phone Elsewhere, Pcp Primary Care Provider Unavailabl e Reason for Visit * Radiation Therapy (Routine) - Authorized Specialty Diagnoses / Procedures Referred By Myrna maki Referred To Contact Diagnoses 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) Lesion Bladder Frequency Urinary Procedures Prior Auth Rad Tx ID IMRT COMPLEX IMRT Kash Hernandez M.D., Ph.D. [address] [place] [address] [facility] Referral ID Status Reason Start Date Expiration Date V isits Requested Visits Authorized [id number] Authorized 11/17/2023 06/13/2024 20 20 Encounter Details Date Type Department Care Team (Latest Contact Info) Description 12/20/2023 2:59 PM CDT - 12/20/2023 11:59 PM CDT Hospital Encounter Department of Radiation Oncology in [place], [place] [address] [place] [phone] Collette Phillip M.D. [address] [place] [phone] Discharge Disposition: Home or Self Care Social History Tobacco Use Types Packs/Day Years Used Date Smoking Tobacco: Never Smokeless Tobacco: Never Alcohol Use Standard Drinks/Week Comments Yes 3 (1 standard drink = 0.6 oz pur e alcohol) [facility] Utilities Answer Date Recorded In the past 12 months has [employer], gas, oil, or water [employer] threatened to shut off services in your [...] Date Recorded Dental: Regular Dentist Yes 04/23/20 23 Employment Answer Date Recorded Employment status Retired 04/23/2023 Housing Stability Answer Date Recorded What is your living situation today? 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 [address] [place] [phone] 03/21/2024 10:30 AM CDT Appointment Department of Radiology, [facility] in [place], [place] [address] [place] [phone] Anita Alvarez APRN, C.N.P., D.N.P. [address] [place] [phone] 03/21/2024 3:30 PM CDT Procedure visit Department of Urology in [place], [place] [address] [place] [phone] Anita Alvarez APRN, C.N.P., D.N.P. [address] [place] [phone] 03/27/2024 11:30 AM CDT Appointment Department of Radiation Oncology in [place], [place] [address] [place] [phone] Collette Phillip M.D. [address] [place] [phone] documented as of this encounter Visit Diagnoses Not on filedocumented in this encounter Care Teams Trapeze Artist Relationship Specialty Start Date End Date Elsewhere, Pcp PCP - General Internal Medicine 07/14/23 documented as of this encounter
--- OUTSIDE RECORDS SUMMARY | 2024-01-25 08:13 | XMS_ITS ---
Author Organization [facility] Address [address] [place] [address] Care Team Providers Care Marine Engine Mechanic Name Role Phone Unavailable Unavailable Unavailable Surgery Details Not on file Complications Check Surgery Details section. Procedure Estimated Blood Loss Check Surgery Details section. Procedure Findings Check Surgery Details section. Procedure Specimens Taken Check Surgery Details section.
--- OUTSIDE RECORDS SUMMARY | 2024-01-25 08:13 | XMS_ITS | Encounter Summary ---
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 [address] [place] [address] [facility] Referral ID Status Reason Start Date Expiration Date V isits Requested Visits Authorized [id number] Authorized 11/17/2023 06/13/2024 20 20 Encounter Details Date Type Department Care Team (Latest Contact Info) Description 12/14/2023 2:19 PM CDT - 12/14/2023 11:59 PM CDT Hospital Encounter Department of Radiation Oncology in [place], [place] [address] [place] [phone] Collette Phillip M.D. [address] [place] [phone] Discharge Disposition: Home or Self Care Social History Tobacco Use Types Packs/Day Years Used Date Smoking Tobacco: Never Smokeless Tobacco: Never Alcohol Use Standard Drinks/Week Comments Yes 3 (1 standard drink = 0.6 oz pur e alcohol) [facility] Utilities Answer Date Recorded In the past 12 months has [employer], gas, oil, or water [employer] threatened to shut off services in your [...] your living situation today? I have a [facility] place to live 07/19/2023 Sex and Gender Information Value Date Recorded Sex Assigned at Male 04/23/2023 8:28 AM EXPLOSIVES DETONATOR Gender Identity Male 04/23/2023 8:28 AM EXPLOSIVES DETONATOR Sexual Orientation Straight 04/23/2023 8: 28 AM EXPLOSIVES DETONATOR documented as of this encounter Medications at [...] Appointment Department of Laboratory Medicine and Pathology, [facility] in [place], [place] [address] [place] [phone] Anita Alvarez APRN, C.N.P., D.N.P. [address] [place] [phone] 03/21/2024 10:30 AM CDT Appointment Department of Radiology, [facility] in [place], [place] [address] [place] [phone] Anita Alvarez APRN, C.N.P., D.N.P. [address] [place] [phone] 03/21/2024 3:30 PM CDT Procedure visit Department of Urology in [place], [place] [address] [place] [address] Anita Alvarez APRN, C.N.P., D.N.P. [address] [place] [phone] 03/27/2024 11:30 AM CDT Appointment Department of Radiation Oncology in [place], [place] [address] [place] [phone] Collette Phillip M.D. [address] [place] [phone] documented as of this encounter Visit Diagnoses Not on filedocumented in this encounter Care Teams Ground Systems Engineer Relationship Specialty Start Date End Date Elsewhere, Pcp PCP - General Internal Medicine 07/14/23 documented as of this encounter
--- OUTSIDE RECORDS SUMMARY | 2024-01-25 08:13 | XMS_ITS | Clinical Summary ---
Author Organization [facility] Address [address] [place] [address] Care Team Providers Care Gold Stamper Name Role Phone Elsewhere, Pcp Primary Care Provider Unavailabl e Source Comments Patient records contain information from all sites at [facility]. For routine questions regarding patient records, call [phone] during business hours, M-F 8:00 AM - 5:00 PM Central Time. Record requests for emergency care only can be directed to [phone] at any time.[facility] Allergies Active Allergy Reactions Criticality Noted Date Comments Hydromorphone Hives only, no other systemic symptoms 04/23/2023 Back breakout Meperidine Other (see comments),Seizure High 04/19/2003 SEIZURE pt. doesn't think he had a seizure seizure Shrimp Hives (Reselect Reaction),Rash High 12/11/2022 Trazodone Other (see comments) 11/10/2022 Medications Medication Sig Dispensed Refills Start Date End Date Status amitriptyline (ELAVIL) 25 mg tablet Take 100 mg by mouth at bedtime. 07/15/2014 Active carvediloL (COREG) 6.25 mg tablet Take 1 tablet by mouth 2 (two) times a day with meals. 12/11/2022 Active cholecalciferol (VITAMIN D3) 50 mcg (2,000 Unit) tablet Take 1 tablet by mouth daily. Active clotrimazole-betame thasone (LOTRISONE) 1-0.05 % cream Apply 1 Application topically 2 (two) times a day as needed (irritation). Active finasteride (PROSCAR) 5 mg tablet Take 5 mg by mouth daily. 02/12/2023 Active lisinopril-hydroCHL OROthiazide (PRINZIDE,ZESTORETI C) 20-25 mg per tablet Take 1 tablet by mouth daily. 07/15/2014 Active loratadine (CLARITIN REDITABS) 10 mg disintegrating tablet Dissolve 10 mg in the mouth daily. Active pantoprazole (PROTONIX) 40 mg EC tablet Take 40 mg by mouth every morning before breakfast. 11/10/2022 Active sildenafil (REVATIO) 20 mg tablet Take 20 mg by mouth as needed. Active SUMAtriptan (IMITREX) 100 mg tablet Take 100 mg by mouth as needed. 02/25/2023 Active tadalafiL (CIALIS) 5 mg tablet Take 5 mg by mouth daily. Active topiramate (TOPAMAX) 100 mg tablet Take 100 mg by mouth at bedtime. 02/25/2023 Active diazePAM (VALIUM) 5 mg tablet Take 0.5 tablets (2.5 mg total) by mouth 3 (three) times a day as needed for muscle spasms. 25 tablet 07/17/2023 Active polyethylene glycol (MIRALAX) 17 gram powder packet Take 1 packet by mouth daily. Dissolve each 17 g dose in 240 mLs (8 ounces) of beverage. Take this medication while you are taking narcotic painkillers such as oxycodone to prevent constipation. 28 packet 07/17/2023 Active sennosides-docusate sodium (SENOKOT-S) 8.6-50 mg per tablet Take 2 tablets by mouth daily with lunch. Take this medication while you are taking narcotic painkillers such as oxycodone to prevent constipation. 100 tablet 07/17/2023 Active acetaminophen (TYLENOL) 500 mg tablet Take 2 tablets (1,000 mg total) by mouth every 6 (six) hours for 28 days. Once you are off narcotic pain medications, you can use pain as your guide to gradually taper this medication. 224 tablet 07/17/2023 Active oxyCODONE (ROXICODONE) 5 mg immediate release tabletIndications:A cute Pain Exception Take 1 tablet (5 mg total) by mouth every 4 (four) hours as needed for moderate pain or score 4-6 of 10 Indication: Acute Pain Exception. 25 tablet 07/28/2023 Active sulfamethoxazole-tr imethoprim (BACTRIM DS) 800-160 mg per tablet Take 1 tablet by mouth 2 (two) times a day. Please start morning of stent removal 2 tablet 11/18/2023 Active tamsulosin (Flomax) 0.4 mg 24 hr capsule Take 2 capsules (0.8 mg total) by mouth daily. 180 capsule 3 12/07/2023 12/07/19 25 Active trospium (Sanctura) 20 mg tablet Take 1 tablet (20 mg total) by mouth 2 (two) times a day as needed (bladder spasms). 20 tablet 1 01/19/2024 Active trospium (Sanctura) 20 mg tablet Take 1 tablet (20 mg total) by mouth 2 (two) times a day as needed (bladder spasms). 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 08/02/2023 Retention Urinary 08/02/2023 Lesion Bladder 08/02/2023 Urgency Urinary 08/02/2023 Incontinence Urinary 08/02/2023 Nocturia 08/02/2023 Frequency Urinary 08/02/2023 Dysfunction Erectile 08/02/2023 Aftercare Orthopedic Postoperative Non-Injury Aftercare Spinal Cord Surgery 07/16/2023 Migraine Headache 07/15/2023 Radiculopathy Lumbar 04/23/2023 Stenosis Spinal Lumbar With Neurogenic Claudicat ion 04/23/2023 Apnea Sleep Obstructive 02/19/2017 Overview (04/23/2023): Setting: APAP 7-15 Supplied by: [facility] PSG done: 02/09/17 AHI 6 (HTN) RDI 16 Lowest O2 Sat: 83% Kelly/Beatriz 07/25/19 pressure change 02/16/17 new, change 03-09-17; 05/21/17 compliant Hyperlipidemia 11/01/2015 Ectasia Thoracic Aortic 10/12/2014 Overview (04/23/2023): Repeat ECHO in one year. Hypertension Essential Primary 07/15/2014 Overview (11/03/2016): Hypertension (HTN) NOS Atrial Fibrillation Paroxysmal 07/15/2014 Overview (11/03/2016): Fibrillation Atrial Paroxysmal (PAF) Gastroesophageal Reflux Disease Without Esophagi tis 07/28/2009 Encounters Date Type Department Care Team Description 01/19/2024 Clinical Communication Department of Radiation Oncology in [address] [address] Collette Phillip M.D. 01/17/2024 2:29 PM CDT - 01/17/2024 4:58 PM CDT Hospital Encounter Department of Radiation Oncology in [address] [address] Collette Phillip M.D. 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 Discharge Disposition: Home or Self Care 12/20/2023 Documentation Department of Radiation Oncology in [address] [address] Collette Phillip M.D. 12/17/2023 1:35 PM CDT - 12/17/2023 11:59 PM CDT Hospital Encounter Department of Radiation Oncology in [address] [address] Collette Phillip M.D. Discharge Disposition: Home or Self Care 12/15/2023 2:45 PM CDT - 12/15/2023 11:59 PM CDT Hospital Encounter Department of Radiation Oncology in [address] [address] Collette Phillip M.D. Discharge Disposition: Home or Self Care 12/15/2023 2:00 PM CDT - 12/15/2023 2:44 PM CDT Hospital Encounter Department of Radiation Oncology in [address] [address] Collette Phillip M.D. 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); Lesion Bladder; Frequency Urinary 12/14/2023 2:19 PM CDT - 12/14/2023 11:59 PM CDT Hospital Encounter Department of Radiation Oncology in [address] [address] Collette Phillip M.D. Discharge Disposition: Home or Self Care 12/13/2023 12:37 PM CDT - 12/13/2023 11:59 PM CDT Hospital Encounter Department of Radiation Oncology in [address] [address] Collette Phillip M.D. Discharge Disposition: Home or Self Care 12/10/2023 2:20 PM CDT - 12/10/2023 11:59 PM CDT Hospital Encounter Department of Radiation Oncology in [address] [address] Collette Phillip M.D. Discharge Disposition: Home or Self Care 12/09/2023 2:22 PM CDT - 12/09/2023 11:59 PM CDT Hospital Encounter Department of Radiation Oncology in [address] [address] Collette Phillip M.D. Discharge Disposition: Home or Self Care 12/08/2023 9:46 AM CDT - 12/08/2023 11:59 PM CDT Hospital Encounter Department of Radiation Oncology in [address] [address] Collette Phillip M.D. Discharge Disposition: Home or Self Care 12/07/2023 2:53 PM CDT - 12/07/2023 4:57 PM CDT Hospital Encounter Department of Radiation Oncology in [address] [address] Collette Phillip M.D. 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 Discharge Disposition: Home or Self Care 12/06/2023 2:31 PM CDT - 12/06/2023 11:59 PM CDT Hospital Encounter Department of Radiation Oncology in [address] [address] Collette Phillip M.D. Discharge Disposition: Home or Self Care 12/03/2023 2:28 PM CDT - 12/03/2023 11:59 PM CDT Hospital Encounter Department of Radiation Oncology in [address] [address] Collette Phillip M.D. Discharge Disposition: Home or Self Care 12/02/2023 2:30 PM CDT - 12/02/2023 11:59 PM CDT Hospital Encounter Department of Radiation Oncology in [address] [address] Collette Phillip M.D. 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) Discharge Disposition: Home or Self Care 12/02/2023 2:30 PM CDT - 12/02/2023 11:59 PM CDT Hospital Encounter Department of Radiation Oncology in [address] [address] Collette Phillip M.D. Discharge Disposition: Home or Self Care 12/01/2023 3:08 PM CDT - 12/01/2023 3:42 PM CDT Hospital Encounter Department of Radiation Oncology in [address] [address] Collette Phillip M.D. Grieman, Kari A RTonaNTona 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) 12/01/2023 2:27 PM CDT - 12/01/2023 3:07 PM CDT Hospital Encounter Department of Radiation Oncology in [address] [address] Collette Phillip M.D. Discharge Disposition: Home or Self Care 11/30/2023 2:20 PM CDT - 12/01/2023 2:26 PM CDT Hospital Encounter Department of Radiation Oncology in [address] [address] Collette Phillip M.D. Hypertension Essential Primary (Primary Dx); 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); Lesion Bladder; Frequency Urinary 11/30/2023 2:20 PM CDT - 11/30/2023 11:59 PM CDT Hospital Encounter Department of Radiation Oncology in [address] [address] Collette Phillip M.D. Discharge Disposition: Home or Self Care 11/29/2023 2:23 PM CDT - 11/29/2023 11:59 PM CDT Hospital Encounter Department of Radiation Oncology in [address] [address] Collette Phillip M.D. Discharge Disposition: Home or Self Care 11/26/2023 10:34 AM CDT - 11/26/2023 1:29 PM CDT Hospital Encounter Department of Radiation Oncology in [address] [address] Marguerite Medina APRN, C.N.P., M.S.N. Em [place], RTonaNTona 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) Discharge Disposition: Home or Self Care 11/26/2023 10:33 AM CDT Hospital Encounter Department of Radiation Oncology in [address] [address] Collette Phillip M.D. Discharge Disposition: Home or Self Care 11/25/2023 2:19 PM CDT - 11/25/2023 11:59 PM CDT Hospital Encounter Department of Radiation Oncology in [address] [address] Collette Phillip M.D. Discharge Disposition: Home or Self Care 11/24/2023 2:24 PM CDT - 11/24/2023 11:59 PM CDT Hospital Encounter Department of Radiation Oncology in [address] [address] Montana Estrada M.D. Discharge Disposition: Home or Self Care 11/23/2023 3:13 PM CDT - 11/23/2023 6:06 PM CDT Hospital Encounter Department of Radiation Oncology in [address] [address] Collette Phillip M.D. 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) 11/23/2023 2:45 PM CDT - 11/23/2023 3:12 PM CDT Hospital Encounter Department of Radiation Oncology in [address] [address] Collette Phillip M.D. Discharge Disposition: Home or Self Care 11/23/2023 2:11 PM CDT - 11/23/2023 2:44 PM CDT Hospital Encounter Department of Radiation Oncology in [address] [address] Collette Phillip M.D. 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); Lesion Bladder; Frequency Urinary 11/23/2023 Orders Only Department of Radiation Oncology in [address] [address] Collette Phillip M.D. 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 Discharge Disposition: Home or Self Care 11/22/2023 1:39 PM CDT - 11/22/2023 2:44 PM CDT Hospital Encounter Department of Radiation Oncology in [address] [address] Collette Phillip M.D. 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); Lesion Bladder; Frequency Urinary 11/19/2023 2:00 PM CDT Procedure visit Department of Urology in [place], [place] [address] [place] [phone] Mike Giles M.B., B.Ch. Ana Higginbotham M.D., M.Ed. 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) 11/18/2023 Orders Only Department of Urology in [place], [place] [address] [place] [phone] Tulio Chavez M.D. 11/17/2023 Clinical Communication Department of Oncology in [place], [place] [address] [place] [phone] Lorrie Hicks M.D. Appt Request 11/11/2023 11:44 AM CDT - 11/11/2023 11:59 PM CDT Hospital Encounter Department of Radiation Oncology in [place], [place] [address] [place] [phone] Hernandez, Kash M, M.D., Ph.D. 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); Lesion Bladder; Frequency Urinary Discharge Disposition: Home or Self Care 11/11/2023 Clinical Communication Department of Urology in [place], [place] [address] [place] [phone] Barber Pruett M.D. Nurse Assessment 11/10/2023 Clinical Communication Department of Oncology in [place], [place] [address] [place] [phone] Lorrie Hicks M.D. 11/10/2023 Orders Only Department of Oncology in [place], [place] [address] [place] [phone] Lorrie Hicks M.D. 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 Stent Ureteral Indwelling Discharge Disposition: Home or Self Care 11/09/2023 1:00 PM CDT Procedure visit Department of Urology in [address] [address] Mike Giles M.B., B.Ch. Nancy Sorensen, R.N. 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) 11/09/2023 Clinical Communication Department of Urology in [place], [place] [address] [place] [phone] Tulio Chavez M.D. 11/09/2023 Clinical Communication Department of Urology in [place], [place] [address] [place] [phone] Bienvenido Cruz M.D. Biopsy Results 11/08/2023 Clinical Communication Department of Urology in [place], [place] [address] [place] [phone] Anita Vivar M.D. 11/04/2023 9:59 AM CDT Anesthesia Event Outpatient Procedure Center in [place], [place] [address] [place] [address] Mitchel Rowland APRN, CRNA [place], Andrew N, M.D., M.B.A. 11/04/2023 9:35 AM CDT Ancillary Procedure Department of General Surgery 11/04/2023 9:30 AM CDT Ancillary Procedure Department of General Surgery 11/04/2023 9:30 AM CDT - 11/04/2023 11:13 AM CDT Surgery [facility] in [place], [place] [address] [place] [address] Jacob Galo M.D., M.P.H. CYSTOSCOPY, TRANSURETHRAL RESECTION LESION BLADDER, maximal re-resection. 11/04/2023 7:58 AM CDT - 11/04/2023 3:21 PM CDT Hospital Encounter Outpatient Procedure Center in [place], [place] [address] [place] [address] Bienvenido Cruz M.D. 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) Discharge Disposition: Home or Self Care from Last 3 Months Immunizations Name Administration Dates Next Due Influenza high dose QV(65 years or older) (PF) 0 07/17/2023 Family History Medical History Relation Name Comments Coronary artery disease Father Gaudencio Relation Name Status Comments Father Gaudencio Social History Tobacco Use Types Packs/Day Years Used Date Smoking Tobacco: Never Smokeless Tobacco: Never Tobacco Cessation:Counseling Given: Not Answered Alcohol Use Standard Drinks/Week Comments Yes 3 (1 standard drink = 0.6 oz pur e alcohol) [facility] Utilities Answer Date Recorded In the past 12 months has e Diar[employer], oil, or water [place] threatened to shut off services in your [...] your living situation today? I have a [facility] place to live 07/19/2023 Sex and Gender Information Value Date Recorded Sex Assigned at Male 04/23/2023 8:28 AM CAMPAIGN FUNDRAISER Gender Identity Male 04/23/2023 8:28 AM CAMPAIGN FUNDRAISER Sexual Orientation Straight 04/23/2023 8: 28 AM CAMPAIGN FUNDRAISER Last Filed Vital Signs Vital Sign Reading Time Taken Comments Blood Pressure 149/76 01/17/2024 2:38 PM CDT Pulse 70 01/17/2024 2:38 PM CDT Temperature 36.7 ??C (98 ??F) 01/17/2024 2:38 PM CDT Respiratory Rate 21 11/04/2023 1:35 PM CDT Oxygen Saturation 94% 11/04/2023 1:35 PM CDT Inhaled Oxygen Concentration - - Weight 94.2 kg (207 lb 10.8 oz) 01/17/2024 2:38 PM CDT Height 171.9 cm (5' 7.68) 12/02/2023 2:36 PM CD T Body Mass Index 31.88 12/02/2023 2:36 PM CDT Plan of Treatment Upcoming Encounters Date Type Department Care Team (Late st Contact Info) Description 03/21/2024 9:30 AM CDT Appointment Department of Laboratory Medicine and Pathology, [facility] in [place], [place] [address] [place] [phone] Anita Alvarez APRN, C.N.P., D.N.P. [address] [place] [phone] 03/21/2024 10:30 AM CDT Appointment Department of Radiology, [facility], in [place], [place] [address] [place] [phone] Anita Alvarez APRN, C.N.P., D.N.P. [address] [place] [phone] 03/21/2024 3:30 PM CDT Procedure visit Department of Urology in [place], [place] [address] [place] [phone] Anita Alvarez APRN, C.N.P., D.N.P. [address] [place] [phone] 03/27/2024 11:30 AM CDT Appointment Department of Radiation Oncology in [place] [id number] [place] [address] Collette Phillip M.D. [address] [place] [address] Health Maintenance Due Date Last Done Comments Zoster Vaccines (1 of 2) 01/12/1959 DTaP,Tdap,and Td Vaccines (2 - Td or Tdap) 02/01/2022 02/02/2012, 05/08/2002, 04/02/1995 COVID-19 Vaccine (4 - season) 2023 05/02/2021, 07/31/2020, 07/03/2020 Depression Screening (Annual PHQ-2) 06/14/2023 Office Visit for Blood Pressure Check / Re-check 01/21/2024 10/21/2023 Influenza Vaccine (#1) 2024 , 02/19/2022, 03/27/2021, Additional history exists Creatinine Level (Kidney Function Test) 07/18/2024 07/18/2023, 07/18/2023, 07/17/2023, Additional history exists Potassium Level 07/18/2024 07/18/2023, 02/0 09/2023, 07/17/2023, Additional history exists Sodium Level 07/18/2024 07/18/2023, 02/0 09/2023, 07/17/2023, Additional history exists Pneumococcal vaccine (65+ years) Completed 03/22/2014, 03/26/2006 Fall Risk Screen (Annual) Completed 11/26/2023 HPV Vaccines Aged Out No longer eligi ble based on patient's age to complete this topic Medical Devices Implanted Type Area Program Advisor Device Identifier Shelf Expiration Date Model / Serial / Lot Knee Implant Knee Implant Right: Knee Ocular (Eye) Implant Ocular (Eye) Implant Bilatera l: Eye Explanted Type Area Program Advisor Device Identifier Shelf Expiration Date Model / Serial / Lot Stnt Uret Inl [id number] - [id number] Implanted:Qty : 1 on 11/04/2023 by Bienvenido Cruz M.D. at [facility] Loza/Gonda Explanted:Qty : 1 on 11/19/2023 by Ana Higginbotham M.D., M.Ed. Ureteral Stent [employer] [id number] 12/17/2026 [id number] / / [id number] Description:indwelling Procedures Procedure Name Priority Date/Time Associated Diagnosis Comments ARIA DAILY TREATMENT INFORMATION Routine 12/20/2023 3:49 PM CDT ARIA DAILY TREATMENT INFORMATION Routine 12/17/2023 2:22 PM CDT ARIA DAILY TREATMENT INFORMATION Routine 12/15/2023 3:18 PM CDT ARIA DAILY TREATMENT INFORMATION Routine 12/14/2023 2:41 PM CDT ARIA DAILY TREATMENT INFORMATION Routine 12/13/2023 1:11 PM CDT ARIA DAILY TREATMENT INFORMATION Routine 12/10/2023 3:13 PM CDT ARIA DAILY TREATMENT INFORMATION Routine 12/09/2023 3:09 PM CDT ARIA DAILY TREATMENT INFORMATION Routine 12/08/2023 10:27 AM CDT ARIA DAILY TREATMENT INFORMATION Routine 12/07/2023 2:55 PM CDT ARIA DAILY TREATMENT INFORMATION Routine 12/06/2023 2:51 PM CDT ARIA DAILY TREATMENT INFORMATION Routine 12/03/2023 2:46 PM CDT ARIA DAILY TREATMENT INFORMATION Routine 12/02/2023 2:50 PM CDT ARIA DAILY TREATMENT INFORMATION Routine 12/01/2023 2:53 PM CDT ARIA DAILY TREATMENT INFORMATION Routine 11/30/2023 2:56 PM CDT ARIA DAILY TREATMENT INFORMATION Routine 11/29/2023 2:45 PM CDT ARIA DAILY TREATMENT INFORMATION Routine 11/26/2023 10:57 AM CDT ARIA DAILY TREATMENT INFORMATION Routine 11/25/2023 2:43 PM CDT ARIA DAILY TREATMENT INFORMATION Routine 11/24/2023 2:47 PM CDT [facility] COURSE COMPLETE TREATMENT INFORMATION Routine 11/24/2023 1:00 PM CDT ARIA DAILY TREATMENT INFORMATION Routine 11/23/2023 3:52 PM CDT VERIFICATION/RE-SIM Routine 11/23/2023 3 :13 PM CDT 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) ARIA DAILY TREATMENT INFORMATION Routine 11/22/2023 3:44 PM CDT BACTERIAL CULTURE, AEROBIC + SUSC, URINE Routine 11/19/2023 2:12 PM CDT 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) SD CYSTHRSCPY RMVL FB/STENT SMPL Routine 11/19/2023 2:00 PM CDT 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) INITIAL RAD ONC TREATMENT PLANNING CT SIMULATION Routine 11/11/2023 12:30 PM CDT 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) Lesion Bladder Frequency Urinary BACTERIAL CULTURE, AEROBIC + SUSC, URINE Routine 11/09/2023 1:47 PM CDT Stent Ureteral Indwelling FL FLUORO LESS THAN 1 HOUR RAD - Routine (most inpatients and all outpatients) 11/04/2023 1:24 PM CDT SURGICAL PATHOLOGY Routine 11/04/2023 10:40 AM CDT 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) LDA ANE ENDOTRACHEAL AIRWAY Routine 11/04/2023 10:18 AM CDT RETROGRADE PYELOGRAM 11/04/2023 9:44 AM CDT 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) Special Needs Pruett primary CYSTOURETHROSCOPY WITH PLACEMENT URETERAL STENT 11/04/2023 9:44 AM CDT 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) Special Needs Pruett primary CYSTOSCOPY WITH TRANSURETHRAL RESECTION LESION BLADDER 11/04/2023 9:44 AM CDT 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) Special Needs Pruett primary SURGERY IMAGE EXAM Routine 11/04/2023 9: 35 AM CDT SURGERY IMAGE EXAM Routine 11/04/2023 9: 30 AM CDT BASIC METABOLIC PANEL, S/P Timed 07/18/2023 7:44 PM CAMPAIGN FUNDRAISER from Last 3 Months or Most Recently Relevant to Health Maintenance Results * Aria Daily Treatment Information (12/20/2023 3:49 PM CDT) Only the most recent of20 resultswithin the time period is included. Course ID [id number] LOZA ARIA Course Start Date 4 15:48 CDT LOZA ARIA First Treatment Date 4 15:42 CDT LOZA ARIA Last Treatment Date 4 15:49 CDT LOZA ARIA Treatment Elapsed Days 28 LOZA ARIA Reference Point [id number] LOZA ARIA Dosage Given to Date cGy 5500 LOZA ARIA Session Dosage Given 275 LOZA ARIA Plan ID [id number] LOZA ARIA Fractions Treated to Date 18 LOZA ARIA Planned Total Fractions 18 LOZA ARIA Prescribed Dose Per Fraction 275 LOZA ARIA Prescription Dose in cGy 4950 LOZA ARIA Plan Primary Reference Point [id number] LOZA ARIA 12/20/2023 3:49 PM CDT Provider Not In System RADIATION ONCOLOG Y ORDERABLES JOSE WILKESA na * Aria Course Complete Treatment Information (11/24/2023 1:00 PM CDT) Course ID planning LOZA ARIA Course Start Date 11/24/2023 12:58 CDT LOZA ARIA Course End Date 11/24/2023 12:59 CDT [facility] Reference Point [id number] LOZA ARIA Dosage Given to Date cGy 0 LOZA [facility] Plan ID [id number] LOZA ARIA Fractions Treated to Date 0 [facility] Planned Total Fractions 20 LOZA [facility] Prescribed Dose Per Fraction 275 [facility] Prescription Dose in cGy 5500 [facility] Plan Primary Reference Point [id number] [facility] 11/24/2023 1:00 PM CDT Provider Not In System RADIATION ONCOLOG Y ORDERABLES Performing Organization Address City[facility]/ZIP Co de Phone Number JOSE JARAMILLO na * Verification/Re-Sim (11/23/2023 3:13 PM CDT) Narrative [facility] - 11/23/2023 3:13 PM CDT This exam does not require a oncologist review or interpretation. Please refer to the patient? s medical record on this date for clinical details. Collette Phillip M.D. RADIATION ONCOLOG Y ORDERABLES Performing Organization Address City/[facility]/ZIP Co de Phone Number JOSE JARAMILLO na * Bacterial Culture, Aerobic + Susceptibility, Urine (11/19/2023 2:12 PM CDT) Only the most recent of2 resultswithin the time period is included. Urine Culture No growth after 1 day of incubation. 11/20/2023 12:31 PM CDT DTL Urine (Urine, Midstream) 11/19/2023 2:12 PM CDT 11/19/2023 3:07 PM CDT Comment:Specimen Source Site : Urine Tulio Chavez M.D. LAB MICROBIOLOGY - GENERAL ORDERABLES [facility] [address] [place] [address], [place] DTL [facility] [address] [place] [address] * SD CYSTHRSCPY RMVL FB/STENT SMPL (11/19/2023 2:00 PM CDT) Narrative Ana Higginbotham M.D., M.Ed. - 11/19/2023 2:00 PM CDT Ana Higginbotham M.D., M.Ed. ? 11/19/2023 ??2:21 PM Cysto w/stent removal Performed by: Ana Higginbotham M.D., M.Ed. Authorized by: Mike Giles M.B., B.. ?? Care team members present 1. Ana Higginbotham M.D., M.Ed. IMPRESSION normal post-surgical changes and foreign body Additional procedures performed: cystoscopy and stent removal ?? PROCEDURE DETAILS: Ureteral stent removed: ??Side performed: ??Left Removal: simple ?? A flexible cystoscope was inserted through the urethra into the bladder. Cystoscope was removed at the end of procedure. History of Present Illness. 83 y/o M recently underwent maximal TURBT on 11/12/2023 including resection close to the left ureteral orifice thus a stent was placed. He presents for cystoscopy with stent removal. System Review: Patient has had no interval problems. Procedure and Findings: ?? After appropriate informed consent and proper identification of patient by name and number, they were prepped and draped in dorsal lithotomy position. The 17 Irish Olympus video scope was introduced at [facility]. Brief cystoscopy revealed multiple areas of prior recent resection with overlying necrotic debris, no large obvious tumor visualized. ??A stent was visualized emanating from the left ureteral orifice with no evidence of biofilm or encrustation, this was grasped using the stent graspers and removed in its entirety. ??Patient tolerated the procedure well. Impression: Uncomplicated left ureteral stent removal Plan: - He has follow-up arranged with radiation oncology CONSENT Consent obtained: verbal Consent given by: patient The benefits, risks and alternatives to the procedure and the potential need for sedation or anesthesia as well as the names, roles, and responsibilities of healthcare team members performing significant interventional tasks were discussed with the patient and/or decision maker. UNIVERSAL PROTOCOL All relevant documentation and testing were reviewed and available. All required blood products, implants, devices and or special equipment were made available as applicable. Pre-procedure verification was conducted and the correct site was marked if required. A fire risk assessment was done as applicable. The procedural time-out to verify correct patient, correct side/site, and procedure was conducted prior to performing the procedure and confirmed in a procedural pause. PRE-PROCEDURE DETAILS Procedure purpose: ??Diagnostic SEDATION / ANESTHESIA Anesthesia method: none POST-PROCEDURE DETAILS Procedure completed successfully: yes ?? Complications: no apparent complications ?? Mike Keith, B.Ch. UROLOGY AKUACorky GERARDOTIMOTEO * Initial Rad Onc Treatment Planning CT Simulation (11/11/2023 12:30 PM CDT) Narrative JOSE JARAMILLO - 11/11/2023 12:30 PM CDT Ruby Holt, RTT ? 11/11/2023 12:35 PM Initial Rad Onc Treatment Planning CT Simulation Performed by: Kash Hernandez M.D., Ph.D. Authorized by: Kash Hernandez M.D., Ph.D. ?? Kash Hernandez M.D., Ph.D. RADIATION ON COLOGY ORDERABLES Performing Organization Address City/[facility] Co de Phone Number JOSE JARAMILLO na * [place] Fluoro Less Than 1 Hour (11/04/2023 1:24 PM CDT) Narrative [id number] - 11/04/2023 1:24 PM CDT This exam does not require a radiologist review or interpretation. Please refer to the patient's medical record on this date for clinical details. Bienvenido Cruz M.D. IMG FLUOROSCOPY PROC EDURES Performing Organization Address City/[facility] Co de Phone Number [id number] NA * Surgical Pathology (11/04/2023 10:40 AM CDT) 11/05/2023 2:29 PM CDT DTL Participated in the Interpretation Paul Burton M.D.-Pathology Resident 11/05/2023 2:29 PM CDT DTL Report electronically signed by Agnieszka Cabello M.D., Ph.D. I verify that I have examined all relevant slides/materials for the specimen(s) and rendered or confirmed the diagnosis. 11/05/2023 2:29 PM CDT DTL Gross Description A: Received in formalin labeled with the patient's name, MRN, and bladder transurethral resection anterior wall/dome is a 0.1 g, 0.8 x0.5 x 0.2 cm aggregate of kulkarni-pink mucosal fragments and dark red clotted blood. The specimen is submitted in toto in cassette A1.Grossed by [email or web address]. B: Received in formalin labeled with the patient's name, MRN, and bladder transurethral resection left lateral wall is a 2.2 g, 3.5 x 2.7 x 0.3 cm aggregate of kulkarni-pink rubbery soft tissue fragments. ??The specimen is filtered and submitted in toto in cassettes B1-B2. ??Grossed by [email or web address]. C: Received in formalin labeled with the patient's name, MRN, and bladder transurethral resection right posterior wall is a 0.5 g, 2.0 x0.9 x 0.3 cm aggregate of kulkarni-pink rubbery soft tissue fragments. The specimen is filtered and submitted in toto in cassette C1. Grossedby [email or web address]. 11/05/2023 2:29 PM CDT DTL Interpretation FINAL DIAGNOSIS A. Urinary bladder, anterior wall/dome, transurethral resection: ??Noninvasive high-grade papillary urothelial carcinoma. ??Muscularis propria is not identified. B. 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 ??Lymphovascular invasion and perineural invasion are present. ??Background of therapy-related changes. C. Urinary bladder, right posterior wall, transurethral resection: ??Urothelial carcinoma in situ. ??Muscularis propria is present and uninvolved. ??Background of therapy-related changes. A portion of the testing process was performed at [facility] [employer] site [id number]. Digital imaging was used in the diagnostic assessment of this case. 11/05/2023 2:29 PM CDT DTL Tissue (Bladder) 11/04/2023 10:40 AM CDT Tissue (Bladder) 11/04/2023 11:00 AM CDT Tissue (Bladder) 11/04/2023 11:22 AM CDT Bienvenido Cruz M.D. LAB SURG PATH ORDERA BLES [facility] [address] [place] [address], [facility] DT [address] [place] [address] * LDA ANE ENDOTRACHEAL AIRWAY (11/04/2023 10:18 AM CDT) Narrative Mitchel Rowland APRN, CRNA - 11/04/2023 10:18 AM CDT Mitchel Rowland APRN, CRNA ? 11/04/2023 10:28 AM Airway Date/Time: 11/04/2023 10:18 AM Performed by: Mitchel Rowland APRN, CRNA Authorized by: Mitchel Rowland APRN, CRNA ?? Patient location during procedure: OR / Procedure Area PROCEDURE DETAILS: Mask difficulty assessment: not attempted Final airway type: video laryngoscope Laryngeal Manipulation: no ?? Final best view of glottic structures - Cormack/Lehane Score: grade 1 ETT location: oral VL device: glide scope [place] scope blade size: 4 Tube size: 7.5 ETT distance at teeth/gum: 23 Oral tube type: standard ETT Cuffed: yes Leak Test Performed: no ?? Number of attempt to successful placement: 1 Airway confirmation: bilateral breath sounds, positive ETCO2 and bilateral chest rise Other previous techniques attempted: none Additional Comments RSI ?? PRE PROCEDURE DETAILS: Pre evaluation for airway management: procedure Urgency: elective Preop assessment of probable difficulty: no difficulty anticipated Preoxygenation: bag valve mask SEDATION / ANESTHESIA Anesthesia method: anesthesia POST PROCEDURE DETAILS: ? Procedure outcome: successful ?? Notable Events: no complications Mitchel Rowland APRN, CRNA ANESTHESIA ORDERABLES * BLADDER-Surgery Image Exam (11/04/2023 9:35 AM CDT) Only the most recent of2 resultswithin the time period is included. Narrative IIMA - 11/04/2023 2:19 PM CDT This order has been created and auto-finalized to support the import of images acquired without order. The clinical documentation to support these images can be found on the encounter that produced images. Provider Not In System IMG NON RAD IMAGI NG PROCEDURES [facility] NA * Basic Metabolic Panel (07/18/2023 7:44 PM [facility]) Potassium, S 4.5 3.6 - 5.2 mmol/L 07/18/2023 8:44 PM [facility] DTL Sodium, S 137 135 - 145 mmol/L 07/18/2023 8:44 PM [facility] DTL Chloride, S 102 98 - 107 mmol/L 07/18/2023 8:44 PM [facility] DTL Bicarbonate, S 25 22 - 29 mmol/L 07/18/2023 8:44 PM [facility] DTL Anion Gap 10 7 - 15 07/18/2023 8:44 PM [facility] DTL BUN (Blood Urea Nitrogen), S 16 8 - 24 mg/dL 07/18/2023 8:44 PM [facility] DTL Creatinine 0.99 0.74 - 1.35 mg/dL 07/18/2023 8:44 PM [facility] DTL Estimated GFR (eGFR) 76 >=60 mL/min/BSA 07/18/2023 8:44 PM [facility] DTL Comment: Estimated GFR calculated using the 2020 CKD_EPI creatinine equation. Calcium, Total, S 8.8 8.8 - 10.2 mg/dL 07/18/2023 8:44 PM [facility] DTL Glucose, S 88 70 - 140 mg/dL 07/18/2023 8:44 PM [facility] DTL Blood (Blood, Venous) 07/18/2023 7:44 PM [facility] 07/18/2023 8:22 PM [facility] Demar Whitaker M.D. LAB BLOOD ADD-O N [facility] [address] [place] [address], [facility] DTL [facility] [address] [place] [address] from Last 3 Months or Most Recently Relevant to Health Maintenance Advance Directives For more information, please contact: [phone] * Full Code (Latest Code Status on File) Date Activated Date Inactivated Comments 11/04/2023 8:49 AM 11/04/2023 5:27 PM Question Answer Comments Full Code: Discussed * Full Code Date Activated Date Inactivated Comments 09/28/2023 7:01 AM 09/28/2023 1:09 PM Question Answer Comments Full Code: Discussed * Full Code Date Activated Date Inactivated Comments 07/20/2023 7:03 AM 07/21/2023 6:42 PM Question Answer Comments Full Code: Discussed * Full Code Date Activated Date Inactivated Comments 07/16/2023 12:13 PM 07/17/2023 3:27 PM Question Answer Comments Full Code: Discussed Care Teams Gold Stamper Relationship Specialty Start Date End Date Elsewhere, Pcp PCP - General Internal Medicine 07/14/23
--- OUTSIDE RECORDS SUMMARY | 2024-01-25 08:13 | XMS_ITS | Encounter Summary ---
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 [address] [place] [address] [facility] Referral ID Status Reason Start Date Expiration Date V isits Requested Visits Authorized [id number] Authorized 11/17/2023 06/13/2024 20 20 Encounter Details Date Type Department Care Team (Latest Contact Info) Description 12/15/2023 2:45 PM CDT - 12/15/2023 11:59 PM CDT Hospital Encounter Department of Radiation Oncology in [place], [place] [address] [place] [phone] Collette Phillip M.D. [address] [place] [phone] Discharge Disposition: Home or Self Care Social History Tobacco Use Types Packs/Day Years Used Date Smoking Tobacco: Never Smokeless Tobacco: Never Alcohol Use Standard Drinks/Week Comments Yes 3 (1 standard drink = 0.6 oz pur e alcohol) [facility] Utilities Answer Date Recorded In the past 12 months has [employer], gas, oil, or water [employer] threatened to shut off services in your [...] your living situation today? I have a [facility] place to live 07/19/2023 Sex and Gender Information Value Date Recorded Sex Assigned at Male 04/23/2023 8:28 AM LIVE GAMES DEALER Gender Identity Male 04/23/2023 8:28 AM LIVE GAMES DEALER Sexual Orientation Straight 04/23/2023 8: 28 AM LIVE GAMES DEALER documented as of this encounter Medications at [...] Appointment Department of Laboratory Medicine and Pathology, [facility] in [place], [place] [address] [place] [phone] Anita Alvarez APRN, C.N.P., D.N.P. [address] [place] [phone] 03/21/2024 10:30 AM CDT Appointment Department of Radiology, [facility] in [place], [place] [address] [place] [phone] Anita Alvarez APRN, C.N.P., D.N.P. [address] [place] [phone] 03/21/2024 3:30 PM CDT Procedure visit Department of Urology in [place], [place] [address] [place] [address] Anita Alvarez APRN, C.N.P., D.N.P. [address] [place] [phone] 03/27/2024 11:30 AM CDT Appointment Department of Radiation Oncology in [place], [place] [address] [place] [address] Collette Phillip M.D. [address] [place] [phone] documented as of this encounter Visit Diagnoses Not on filedocumented in this encounter Care Teams Transportation Modeler Relationship Specialty Start Date End Date Elsewhere, Pcp PCP - General Internal Medicine 07/14/23 documented as of this encounter
--- OUTSIDE RECORDS SUMMARY | 2024-01-25 08:13 | XMS_ITS ---
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 Hypertension Essential Primary 07/15/2014 Overview (11/03/2016): Hypertension (HTN) NOS Atrial Fibrillation Paroxysmal 07/15/2014 Overview (11/03/2016): Fibrillation Atrial Paroxysmal (PAF) Gastroesophageal Reflux Disease Without Esophagi tis 07/28/2009 Current Oncology Plans No current plan information found. Past Plans No past plan information found. Radiation Treatments * Plan Last Treated On Elapsed Days Fractions Treated Prescribed Fraction Dose Prescribed Total Dose [id number] 12/20/2023 28 18 of 18 275 cGy 4,950 cGy [id number] 11/23/2023 1 2 of 20 275 cGy 5,500 cGy Reference Point Last Treated On Elapsed Days Session Dose Total Dose [id number] 12/20/2023 28 275 cGy 5,500 cGy Lifetime Dose Tracking * Chemical Lifetime Dose Automatic Entry Manual Entr y Radiation 9.33 mGy 9.33 mGy 0 mGy Fluoro Time 0.917 minutes 0.917 minutes 0 minutes DAP (Gy-cm2) 0.654 Gy-cm2 0.654 Gy-cm2 0 Gy-cm2
--- OUTSIDE RECORDS SUMMARY | 2024-01-25 08:13 | XMS_ITS | Encounter Summary ---
Author Organization [facility] Address [address] [place] [address] Care Team Providers Care Room Service Associate Name Role Phone Elsewhere, Pcp Primary Care Provider Unavailabl e Encounter Details Date Type Department Care Team (Late st Contact Info) Description 12/20/2023 Documentation Department of Radiation Oncology in [place], [place] [address] [place] [phone] Collette Phillip M.D. [address] [place] [address] Social History Tobacco Use Types Packs/Day Years Used Date Smoking Tobacco: Never Smokeless Tobacco: Never Alcohol Use Standard Drinks/Week Comments Yes 3 (1 standard drink = 0.6 oz pur e alcohol) [facility] Utilities Answer Date Recorded In the past 12 months has [facility] [employer], gas, oil, or water [employer] threatened to shut off services in your [...] your living situation today? I have a [facility] place to live 07/19/2023 Sex and Gender Information Value Date Recorded Sex Assigned at Male 04/23/2023 8:28 AM MEDICAL SERVICE REPRESENTATIVE Gender Identity Male 04/23/2023 8:28 AM MEDICAL SERVICE REPRESENTATIVE Sexual Orientation Straight 04/23/2023 8: 28 AM MEDICAL SERVICE REPRESENTATIVE documented as of this encounter Miscellaneous Notes * Radiation Completion Notes - Em San RChris. - 12/20/2023 11:59 PM CDT DIAGNOSIS: 1. 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 Treatment Intent: Curative Concomitant Therapy: Chemotherapy Single Plan Treatment Course: 1xBladder Plan ID Fractions Dose / Fraction (cGy) Dose Treated (cGy) Dose Planned (cGy) First Treatment Last Treatment Elapsed Days [id number] 2 / 2 275 550 550 11/22/2023 11/23/2023 1 [id number] 18 / 18 275 4950 4950 11/24/2023 12/20/2023 26 Treatment Site Summary 5500 5500 11/22/2023 12/20/2023 Course Summary 11/22/2023 12/20/2023 Radiation Modality: Photons CLINICAL SUMMARY Paul Rae completed radiation treatment as planned without interruptions. The course of treatment was tolerated with anticipated side effects. The patient experienced toxicities of grade2 urinary frequency, grade 2 urinary retention, urgency and fatigue during radiation treatment. TREATMENT RESPONSE: Response to treatment will be determined by post-treatment imaging and/or laboratory work. RECOMMENDED FOLLOW UP: Radiation Oncologist. Dr. Phillip will see patient in follow up in 1 month Signed by: Em San R.N., 01/24/2024 4:51 PM CDT [facility] [address] [place] [address] documented in this encounter Plan of Treatment Upcoming Encounters Date Type Department Care Team (Late st Contact Info) Description 03/21/2024 9:30 AM CDT Appointment Department of Laboratory Medicine and Pathology, [facility] in [place], [place] [address] [place] [phone] Anita Alvarez APRN, C.N.P., D.N.P. [address] [place] [phone] 03/21/2024 10:30 AM CDT Appointment Department of Radiology, [facility] in [place], [place] [address] [place] [address] Anita Alvarez APRN, C.N.P., D.N.P. [address] [place] [phone] 03/21/2024 3:30 PM CDT Procedure visit Department of Urology in [place], [place] [address] [place] [phone] Anita Alvarez APRN, C.N.P., D.N.P. [address] [place] [phone] 03/27/2024 11:30 AM CDT Appointment Department of Radiation Oncology in [place], [place] [address] [place] [phone] Collette Phlilip M.D. 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
--- OUTSIDE RECORDS SUMMARY | 2024-01-25 08:13 | XMS_ITS | Encounter Summary ---
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 [address] [place] [address] [facility] Referral ID Status Reason Start Date Expiration Date V isits Requested Visits Authorized [id number] Authorized 11/17/2023 06/13/2024 20 20 Encounter Details Date Type Department Care Team (Latest Contact Info) Description 12/17/2023 1:35 PM CDT - 12/17/2023 11:59 PM CDT Hospital Encounter Department of Radiation Oncology in [place], [place] [address] [place] [phone] Collette Phillip M.D. [address] [place] [phone] Discharge Disposition: Home or Self Care Social History Tobacco Use Types Packs/Day Years Used Date Smoking Tobacco: Never Smokeless Tobacco: Never Alcohol Use Standard Drinks/Week Comments Yes 3 (1 standard drink = 0.6 oz pur e alcohol) [facility] Utilities Answer Date Recorded In the past 12 months has [employer], gas, oil, or water [employer] threatened to shut off services in your [...] your living situation today? I have a [facility] place to live 07/19/2023 Sex and Gender Information Value Date Recorded Sex Assigned at Male 04/23/2023 8:28 AM BLANKMAKER Gender Identity Male 04/23/2023 8:28 AM BLANKMAKER Sexual Orientation Straight 04/23/2023 8: 28 AM BLANKMAKER documented as of this encounter Medications at [...] 12/07/2023 01/19/2024 documented as of this encounter Miscellaneous Notes * Telephone Encounter - Brittney Penaloza P.A.-C., M.S. - 12/17/2023 2:45 PM CDT The patient called today and I spoke to him as the on-call provider for Radiation Oncology. He reports having one day left of radiation to his bladder. He reports pain with urination, which has been present since before treatment. He also reports persistent difficulty with low volume urine output and urgency, which also has been present since before treatment. He is able to urinate on his own. Hedenies hematuria or systemic symptoms such as fever or chills. Overall, he states having these urinary symptoms for weeks without an acute change. He states that Medical Oncology provided him with anantibiotic for a presumed UTI 3 weeks ago with these same symptoms. He states that he did not have a UA performed at that time. He is requesting another antibiotic prescription now. I explained that these symptoms could be related to an infection, but they can also be side effects of radiation therapy. Due to multiple possible causes of the symptoms as well as recent treatment with an antibiotic,I recommend urinalysis testing prior to prescribing an antibiotic. I also explained that sensitivity testing would help determine which antibiotic would be effective if he does have an infection. Since it is the weekend, I explained that he would need to go to the local urgent care or ER for evaluation and testing. He was hesitant to go in for testing, which I again recommended at this time. I also explained the importance of going to the ER for further evaluation if he would get worse urinary symptoms, especially decreased urine output or an inability to urinate, or develop fever, chills, orother new symptoms. He verbally expressed his understanding. He can contact us back with further questions or concerns. Brittney Penaloza P.A.-C. documented in this encounter Plan of Treatment Upcoming Encounters Date Type Department Care Team (Late st Contact Info) Description 03/21/2024 9:30 AM CDT Appointment Department of Laboratory Medicine and Pathology, [facility] in [place], [place] [address] [place] [phone] Anita Alvarez APRN, Agapito.N.P., D.N.P. [address] [place] [phone] 03/21/2024 10:30 AM CDT Appointment Department of Radiology, [facility], in [place], [place] [address] [place] [phone] Anita Alvarez APRN, C.N.P., D.N.P. [address] [place] [phone] 03/21/2024 3:30 PM CDT Procedure visit Department of Urology in [place], [place] [address] [place] [phone] Anita Alvarez APRN, C.N.P., D.N.P. [address] [place] [phone] 03/27/2024 11:30 AM CDT Appointment Department of Radiation Oncology in [place], [place] [address] [place] [phone] Collette Phillip M.D. [address] [place] [phone] documented as of this encounter Visit Diagnoses Not on filedocumented in this encounter Care Teams Questioned Documents Examiner Relationship Specialty Start Date End Date Elsewhere, Pcp PCP - General Internal Medicine 07/14/23 documented as of this encounter
--- OUTSIDE RECORDS SUMMARY | 2024-01-25 08:13 | XMS_ITS | Encounter Summary ---
Author Organization [facility] Address [address] [place] [address] Care Team Providers Care Poultry Husbandman Name Role Phone Elsewhere, Pcp Primary Care Provider Unavailabl e Encounter Details Date Type Department Care Team (Late st Contact Info) Description 01/19/2024 Clinical Communication Department of Radiation Oncology in [place], [place] [address] [place] [phone] Collette Phillip M.D. [address] [place] [phone] Social History Tobacco Use Types Packs/Day Years Used Date Smoking Tobacco: Never Smokeless Tobacco: Never Alcohol Use Standard Drinks/Week Comments Yes 3 (1 standard drink = 0.6 oz pur e alcohol) [facility] Utilities Answer Date Recorded In the past 12 months has [facility] [employer], gas, oil, or water [employer] threatened to shut off services in your [...] Sex Assigned at Male 04/23/2023 8:28 AM POLICE DETECTIVE Gender Identity Male 04/23/2023 8:28 AM POLICE DETECTIVE Sexual Orientation Straight 04/23/2023 8: 28 AM POLICE DETECTIVE documented as of this encounter Miscellaneous Notes * Telephone Encounter - Vangie Montemayor - 01/19/2024 12:34 PM CDT Other Reason for Call Caller: Atif Relationships to patient: Self Reason for call: Atif called because the [facility] pharmacy in [place] has not gotten the prescription for Trospium. He said he was out starting Wednesday and that Dr. Phillip/Anita was going to refill it for him. He asked if this could be done as he really needs it. documented in this encounter Plan of Treatment Upcoming Encounters Date Type Department Care Team (Late st Contact Info) Description 03/21/2024 9:30 AM CDT Appointment Department of Laboratory Medicine and Pathology, [facility] in [place], [place] [address] [place] [phone] Anita Alvarez APRN, C.N.P., D.N.P. [address] [place] [phone] 03/21/2024 10:30 AM CDT Appointment Department of Radiology, [facility] in [place], [place] [address] [place] [phone] Anita Alvarez APRN, C.N.P., D.N.P. [address] [place] [phone] 03/21/2024 3:30 PM CDT Procedure visit Department of Urology in [place], [place] [address] [place] [phone] Anita Alvarez APRN, C.N.P., D.N.P. [address] [place] [phone] 03/27/2024 11:30 AM CDT Appointment Department of Radiation Oncology in [place] [id number] [place] [phone] Collette Phillip M.D. [address] [place] [phone] documented as of this encounter Visit Diagnoses Not on filedocumented in this encounter Care Teams Poultry Husbandman Relationship Specialty Start Date End Date Elsewhere, Pcp PCP - General Internal Medicine 07/14/23 documented as of this encounter
--- OUTSIDE RECORDS SUMMARY | 2024-01-25 08:13 | XMS_ITS | Encounter Summary ---
Author Organization [facility] Address [address] [place] [address] Care Team Providers Care Hair Rooting Machine Operator Name Role Phone Elsewhere, Pcp Primary Care Provider Unavailabl e Reason for Referral * Outpatient (Routine) - Closed Specialty Diagnoses / Procedures Referred By Contac t Referred To Contact Radiation Oncology Collette Phillip M.D. 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 [address] [place] [address] [facility] Region Referral ID Status Reason Start Date Expiration Date Visits Re quested Visits Authorized [id number] Closed 10/21/2023 10/20/2024 4 4 Encounter Details Date Type Department Care Team (Latest Contact Info) Description 12/15/2023 2:00 PM CDT - 12/15/2023 2:44 PM CDT Hospital Encounter Department of Radiation Oncology in [place], [place] [address] [place] [address] Collette Phillip M.D. 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 I have a [facility] place to live 07/19/2023 Sex and Gender Information Value Date Recorded Sex Assigned at Male 04/23/2023 8:28 AM SOCIAL SCIENTIST Gender Identity Male 04/23/2023 8:28 AM SOCIAL SCIENTIST Sexual Orientation Straight 04/23/2023 8: 28 AM SOCIAL SCIENTIST documented as of this encounter Last Filed Vital Signs Vital Sign Reading Time Taken Comments Blood Pressure 106/65 12/15/2023 2:24 PM CDT Pulse 75 12/15/2023 2:24 PM CDT Temperature 36.5 ??C (97.7 ??F) 12/15/2023 2:24 PM CD T Respiratory Rate - - Oxygen Saturation - - Inhaled Oxygen Concentration - - Weight 90.2 kg (198 lb 13.7 oz) 12/15/2023 2:24 PM CDT Height - - Body Mass Index 30.53 12/02/2023 2:36 PM CDT documented in this [...] as of this encounter Progress Notes * Collette Phillip M.D. - 12/15/2023 2:30 PM CDT ATTESTATION FOR MANAGEMENT VISIT I saw and evaluated the patient and participated in the beck portions of the service as noted below.I reviewed the documentation of Ms. Sophie Gagnon RN and agree with the findings and plan. Thepatient appears well on exam. We will continue with radiation as planned and we anticipate that he will complete treatments this coming Wednesday We anticipate that Paul Rae will complete radiation treatment as planned without interruptions. The course of treatment was tolerated well. The patient experienced toxicities of grade 2urinary frequency, grade 2 urinary retention, urgency and fatigue during radiation treatment. Follow-up will be with me in 1 month; he knows to call sooner if he is having difficulties. Collette Phillip M.D., 12/15/2023 SUBJECTIVE REASON FOR VISIT Evaluation for side effects while receiving radiation treatment for 1. 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 Lesion Bladder 3. Frequency Urinary SUPERVISED BY: Collette Phillip M.D. HISTORY OF PRESENT ILLNESS Paul Rae is a 83 y.o. male with bladder cancer. He is now undergoing radiation therapy with concurrent chemotherapy. Dr. Akers is managing chemotherapy. He is receiving Mitomycin and Fluorouracil Treatment Course: 1xBladder Plan ID Fractions Dose / Fraction (cGy) Dose Treated (cGy) Dose Planned (cGy) First Treatment Last Treatment Elapsed Days [id number] 11/22/2023 11/23/2023 [id number] 11/24/2023 12/14/2023 Treatment Site Summary [id number] 11/22/2023 12/14/2023 Course Summary 11/22/2023 12/14/2023 The patient was seen and examined today with Dr. Phillip. Patient reports to be feeling well overall. He notes that he is feeling more fatigue since he beinghooked up to his 5 FU pump this week. He also attributes the fatigue to having to get up frequentlyat night to go the bathroom. He notes that he gets up at least once an hour if not more and at the most he will get a 2 hours stretch of sleep. He continues to take Flomax 0.8 mg and Trospium. He doesn't know if the Trospium has helped. He feels that the Flomax helps with his day time urinary symptoms but doesn't help much at night. He notes that he has tried taking the Flomax at different times and this seems to work best. He reports last night he had a bladder spasm that last 2 hours and was very painful. He took a dose of Extra Strength Tylenol and found it helpful. He does note some pain with urination but that was present prior to radiation. He reports frequently having to double void and voiding small amounts. He denies hematuria or rectal bleeding. He notes soft bowel movements butnot diarrhea . PATIENT REPORTED SYMPTOM SCREEN FATIGUE (Scale: 0 = no fatigue; 10 = worst fatigue you can imagine): PAIN (Scale: 0 = no pain; 10 = worst pain you can imagine): OVERALL QUALITY OF LIFE (Scale: 0 = as bad as can be; 10 = as good as can be): OBJECTIVE BP 106/65 (BP Location: Right arm, Patient Position: Sitting, Cuff Size: Regular) Pulse 75 Temp36.5 ??C (Temporal) Wt 90.2 kg BMI 30.53 kg/m?? PHYSICAL EXAM General: Alert and oriented in no apparent distress. 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 Patient can continue to take Flomax 0.8 mg and Trospium to help with urinary symptoms. He can take Tylenol as needed for bladder discomfort. Discussed with patient that radiation related side effects will start to resolve in the coming weeks. Patient has an appointment with Dr. Akers on December 27, 2023. He will seen Dr. Phillip in one month for a follow up visit. He will contact us with any questions or concerns. We willcontinue with radiation treatment as planned. Toxicities reviewed with Dr. Phillip. Signed by: Sophie Gagnon R.N. 12/15/2023 3:13 PM CDT documented in this encounter Plan of Treatment Upcoming Encounters Date Type Department Care Team (Late st Contact Info) Description 03/21/2024 9:30 AM CDT Appointment Department of Laboratory Medicine and Pathology, [facility] in [place], [place] [address] [place] [phone] Anita Alvarez APRN, C.N.P., D.N.P. [address] [place] [phone] 03/21/2024 10:30 AM CDT Appointment Department of Radiology, [facility], in [place], [place] [address] [place] [phone] Anita Alvarez APRN, C.N.P., D.N.P. [address] [place] [phone] 03/21/2024 3:30 PM CDT Procedure visit Department of Urology in [place], [place] [address] [place] [address] Anita Alvarez APRN, C.N.Shamika, D.N.P. [address] [place] [phone] 03/27/2024 11:30 AM CDT Appointment Department of Radiation Oncology in [place], [place] [address] [place] [phone] Collette Phillip M.D. 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
--- OUTSIDE RECORDS SUMMARY | 2024-01-25 08:13 | XMS_ITS | Referral Summary ---
Author Organization [facility] Address [address] [place] [address] Care Team Providers Care Clinical Law Professor Name Role Phone Elsewhere, Pcp Primary Care Provider Unavailabl e Source Comments Patient records contain information from all sites at [facility]. For routine questions regarding patient records, call [phone] during business hours, M-F 8:00 AM - 5:00 PM Central Time. Record requests for emergency care only can be directed to [phone] at any time.[facility] Encounters Date Type Department Care Team Description 01/19/2024 Clinical Communication Department of Radiation Oncology in [address] [phone] Collette Phillip M.D. 01/17/2024 2:29 PM CDT - 01/17/2024 4:58 PM CDT Hospital Encounter Department of Radiation Oncology in [address] [address] Collette Phillip M.D. 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 12/20/2023 2:59 PM CDT - 12/20/2023 11:59 PM CDT Hospital Encounter Department of Radiation Oncology in [address] [address] Collette Phillip M.D. Discharge Disposition: Home or Self Care 12/17/2023 1:35 PM CDT - 12/17/2023 11:59 PM CDT Hospital Encounter Department of Radiation Oncology in [address] [address] Collette Phillip M.D. Discharge Disposition: Home or Self Care 12/15/2023 2:00 PM CDT - 12/15/2023 2:44 PM CDT Hospital Encounter Department of Radiation Oncology in [address] [address] Collette Phillip M.D. 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 Discharge Disposition: Home or Self Care 12/14/2023 2:19 PM CDT - 12/14/2023 11:59 PM CDT Hospital Encounter Department of Radiation Oncology in [address] [address] Collette Phillip M.D. Discharge Disposition: Home or Self Care 12/13/2023 12:37 PM CDT - 12/13/2023 11:59 PM CDT Hospital Encounter Department of Radiation Oncology in [address] [address] Collette Phillip M.D. Discharge Disposition: Home or Self Care 12/10/2023 2:20 PM CDT - 12/10/2023 11:59 PM CDT Hospital Encounter Department of Radiation Oncology in [address] [address] Collette Phillip M.D. Discharge Disposition: Home or Self Care 12/09/2023 2:22 PM CDT - 12/09/2023 11:59 PM CDT Hospital Encounter Department of Radiation Oncology in [address] [address] Collette Phillip M.D. Discharge Disposition: Home or Self Care 12/08/2023 9:46 AM CDT - 12/08/2023 11:59 PM CDT Hospital Encounter Department of Radiation Oncology in [address] [address] Collette Phillip M.D. Discharge Disposition: Home or Self Care 12/07/2023 2:53 PM CDT - 12/07/2023 4:57 PM CDT Hospital Encounter Department of Radiation Oncology in [address] [address] Collette Phillip M.D. 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 Discharge Disposition: Home or Self Care 12/06/2023 2:31 PM CDT - 12/06/2023 11:59 PM CDT Hospital Encounter Department of Radiation Oncology in [address] [address] Collette Phillip M.D. Discharge Disposition: Home or Self Care 12/03/2023 2:28 PM CDT - 12/03/2023 11:59 PM CDT Hospital Encounter Department of Radiation Oncology in [address] [address] Collette Phillip M.D. Discharge Disposition: Home or Self Care 12/02/2023 2:30 PM CDT - 12/02/2023 11:59 PM CDT Hospital Encounter Department of Radiation Oncology in [address] [address] Collette Phillip M.D. 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 Discharge Disposition: Home or Self Care 12/01/2023 3:08 PM CDT - 12/01/2023 3:42 PM CDT Hospital Encounter Department of Radiation Oncology in [address] [address] Collette Phillip M.D. Grieman, Kari A RSeverino 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) 12/01/2023 2:27 PM CDT - 12/01/2023 3:07 PM CDT Hospital Encounter Department of Radiation Oncology in [address] [address] Collette Phillip M.D. Discharge Disposition: Home or Self Care 11/30/2023 2:20 PM CDT - 12/01/2023 2:26 PM CDT Hospital Encounter Department of Radiation Oncology in [address] [address] Collette Phillip M.D. 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 Discharge Disposition: Home or Self Care 11/29/2023 2:23 PM CDT - 11/29/2023 11:59 PM CDT Hospital Encounter Department of Radiation Oncology in [address] [address] Collette Phillip M.D. Discharge Disposition: Home or Self Care 11/26/2023 10:34 AM CDT - 11/26/2023 1:29 PM CDT Hospital Encounter Department of Radiation Oncology in [address] [address] Marguerite Medina APRN, C.NTonaPTona, M.S.N. Em San, R.NTona 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) Discharge Disposition: Home or Self Care 11/26/2023 10:33 AM CDT Hospital Encounter Department of Radiation Oncology in [address] [address] Collette Phillip M.D. Discharge Disposition: Home or Self Care 11/25/2023 2:19 PM CDT - 11/25/2023 11:59 PM CDT Hospital Encounter Department of Radiation Oncology in [address] [address] Collette Phillip M.D. Discharge Disposition: Home or Self Care 11/24/2023 2:24 PM CDT - 11/24/2023 11:59 PM CDT Hospital Encounter Department of Radiation Oncology in [address] [address] [place] Estrada M.D. Discharge Disposition: Home or Self Care 11/23/2023 2:45 PM CDT - 11/23/2023 3:12 PM CDT Hospital Encounter Department of Radiation Oncology in [address] [address] Collette Phillip M.D. Discharge Disposition: Home or Self Care 11/23/2023 3:13 PM CDT - 11/23/2023 6:06 PM CDT Hospital Encounter Department of Radiation Oncology in [address] [address] Collette Phillip M.D. 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); Lesion Bladder; Frequency Urinary 11/22/2023 2:45 PM CDT - 11/22/2023 11:59 PM CDT Hospital Encounter Department of Radiation Oncology in [address] [address] Collette Phillip M.D. Discharge Disposition: Home or Self Care 11/19/2023 2:00 PM CDT Procedure visit Department of Urology in [address] [address] Mike Giles M.B., B.Ch. Ana Higginbotham M.D., M.Ed. 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) 11/18/2023 Orders Only Department of Urology in [address] [address] Tulio Chavez M.D. 11/17/2023 Clinical Communication Department of Oncology in [place], [place] [address] [place] [phone] Lorrie Hicks M.D. Appt Request 11/11/2023 Clinical Communication Department of Urology in [place], [place] [address] [place] [phone] Barber Pruett M.D. Nurse Assessment 11/11/2023 11:44 AM CDT - 11/11/2023 11:59 PM CDT Hospital Encounter Department of Radiation Oncology in [place], [place] [address] [place] [phone] Kash Hernandez M.D., Ph.D. 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); Lesion Bladder; Frequency Urinary Discharge Disposition: Home or Self Care 11/10/2023 Clinical Communication Department of Oncology in [place], [place] [address] [place] [phone] Lorrie Hicks M.D. 11/10/2023 Orders Only Department of Oncology in [place], [place] [address] [place] [phone] Lorrie Hicks M.D. 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 11/09/2023 1:36 PM CDT - 11/09/2023 11:59 PM CDT Hospital Encounter Department of Laboratory Medicine and Pathology, [facility] in [place], [place] [address] [place] [phone] Bienvenido Cruz M.D. Stent Ureteral Indwelling Discharge Disposition: Home or Self Care 11/09/2023 Clinical Communication Department of Urology in [place], [place] [address] [place] [phone] Bienvenido Cruz M.D. Biopsy Results 11/09/2023 1:00 PM CDT Procedure visit Department of Urology in [place], [place] [address] [place] [phone] Mike Giles M.B., B.Ch. Nancy Sorensen R.N. 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) 11/08/2023 Clinical Communication Department of Urology in [address] [address] Anita Vivar M.D. 11/04/2023 9:35 AM CDT Ancillary Procedure Department of General Surgery 11/04/2023 9:30 AM CDT Ancillary Procedure Department of General Surgery 11/04/2023 9:30 AM CDT - 11/04/2023 11:13 AM CDT Surgery Outpatient Procedure Center in [place], [place] [address] [place] [phone] Jacob Galo M.D., M.P.H. CYSTOSCOPY, TRANSURETHRAL RESECTION LESION BLADDER, maximal re-resection. 11/04/2023 9:59 AM CDT Anesthesia Event Outpatient Procedure Center in [address] [address] Mitchel Rowland, LIGHT TECHNICIAN, Brayan Alvarez M.D., M.B.A. 11/04/2023 7:58 AM CDT - 11/04/2023 3:21 PM CDT Hospital Encounter Outpatient Procedure Center in [address] [address] Bienvenido Cruz M.D. 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 Hypertension Essential Primary 07/15/2014 Overview (11/03/2016): Hypertension (HTN) NOS Atrial Fibrillation Paroxysmal 07/15/2014 Overview (11/03/2016): Fibrillation Atrial Paroxysmal (PAF) Gastroesophageal Reflux Disease Without Esophagi tis 07/28/2009 Immunizations Name Administration Dates Next Due Influenza high dose QV(65 years or older) (PF) 0 07/17/2023 Social History Tobacco Use Types Packs/Day Years Used Date Smoking Tobacco: Never Smokeless Tobacco: Never Tobacco Cessation:Counseling Given: Not Answered Alcohol Use Standard Drinks/Week Comments Yes 3 (1 standard drink = 0.6 oz pur e alcohol) [facility] Utilities Answer Date Recorded In the past 12 months has [facility] [employer], [employer], or water [employer] threatened to shut off services in your [...] your living situation today? I have a [facility] place to live 07/19/2023 Sex and Gender Information Value Date Recorded Sex Assigned at Male 04/23/2023 8:28 AM SUPERCHARGE REPAIR SUPERVISOR Gender Identity Male 04/23/2023 8:28 AM SUPERCHARGE REPAIR SUPERVISOR Sexual Orientation Straight 04/23/2023 8: 28 AM SUPERCHARGE REPAIR SUPERVISOR Last Filed Vital Signs Vital Sign Reading [...] Medicine and Pathology, [facility] in [place], [place] [address] [place] [phone] Anita Alvarez APRN, C.N.P., D.N.P. [address] [place] [phone] 03/21/2024 10:30 AM CDT Appointment Department of Radiology, [facility], in [place], [place] [address] [place] [phone] Anita Alvarez APRN, C.N.P., D.N.P. [address] [place] [phone] 03/21/2024 3:30 PM CDT Procedure visit Department of Urology in [place], [place] [address] [place] [phone] Anita Alvarez APRN, C.N.P., D.N.P. [address] [place] [phone] 03/27/2024 11:30 AM CDT Appointment Department of Radiation Oncology in [place], [place] [address] [place] [address] Collette Phillip M.D. [address] [place] [phone] Medical Devices Implanted Type Area Summer Child Caregiver Device Identifier Shelf Expiration Date Model / Serial / Lot Knee Implant Knee Implant Right: Knee Ocular (Eye) Implant Ocular (Eye) Implant Bilatera l: Eye Explanted Type Area Summer Child Caregiver Device Identifier Shelf Expiration Date Model / Serial / Lot Stnt Uret Inl [id number] - [id number] Implanted:Qty : 1 on 11/04/2023 by Bienvenido Cruz M.D. at [facility] Loza/Gonda Explanted:Qty : 1 on 11/19/2023 by Ana Higginbotham M.D., M.Ed. Ureteral Stent [employer] [id number] 12/17/2026 [id number] / / [id number] Description:indwelling Procedures Procedure Name Priority Date/Time Associated [...] TREATMENT INFORMATION Routine 11/24/2023 2:47 PM CDT ARIA COURSE COMPLETE TREATMENT INFORMATION Routine 11/24/2023 1:00 PM CDT ARIA DAILY TREATMENT INFORMATION Routine 11/23/2023 3:52 PM CDT VERIFICATION/RE-SIM Routine 11/23/2023 3 :13 PM CDT 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) ARIA DAILY TREATMENT INFORMATION Routine 11/22/2023 3:44 PM CDT BACTERIAL CULTURE, AEROBIC + SUSC, URINE Routine 11/19/2023 2:12 PM CDT 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) AR CYSTHRSCPY RMVL FB/STENT SMPL Routine 11/19/2023 2:00 [...] Of Bladder Multiple Site (HCC) Special Needs Flynn primary CYSTOURETHROSCOPY WITH PLACEMENT URETERAL STENT 11/04/2023 9:44 AM CDT 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) Special Needs Flynn primary CYSTOSCOPY WITH TRANSURETHRAL RESECTION LESION BLADDER 11/04/2023 9:44 AM CDT 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) Special Needs Flynn primary SURGERY IMAGE EXAM Routine 11/04/2023 9: 35 AM CDT SURGERY IMAGE EXAM Routine 11/04/2023 9: 30 AM CDT BASIC METABOLIC PANEL, S/P Timed 07/18/2023 7:44 PM SUPERCHARGE REPAIR SUPERVISOR from Last 3 Months or Most Recently Relevant to Health Maintenance Results * Aria Daily Treatment Information (12/20/2023 3:49 PM CDT) Only the most recent of20 resultswithin the time period is included. Course ID 1xBladder [facility] Course Start Date 4 15:48 CDT [facility] First Treatment Date 4 15:42 CDT [facility] Last Treatment Date 4 15:49 CDT [facility] Treatment Elapsed Days 28 [facility] Reference Point [id number] [facility] Date cGy 5500 [facility] Session Dosage Given 275 [facility] Plan ID [id number] [facility] Fractions Treated to Date 18 LOZA ARIA Planned Total Fractions 18 LOZA ARIA Prescribed Dose Per Fraction 275 LOZA ARIA Prescription Dose in cGy 4950 LOZA ARIA Plan Primary Reference Point [id number] LOZA ARIA 12/20/2023 3:49 PM CDT Provider Not In System RADIATION ONCOLOG Y ORDERABLES Performing Organization Address City/[facility] Co de Phone Number JOSE JARAMILLO na * Aria Course Complete Treatment Information (11/24/2023 1:00 PM CDT) Course ID planning LOZA ARIA Course Start Date 11/24/2023 12:58 CDT LOZA ARIA Course End Date 11/24/2023 12:59 CDT LOZA ARIA Reference Point [id number] LOZA ARIA Dosage Given to Date cGy 0 LOZA ARIA Plan ID [id number] LOZA ARIA Fractions Treated to Date 0 LOZA ARIA Planned Total Fractions 20 LOZA ARIA Prescribed Dose Per Fraction 275 LOZA ARIA Prescription Dose in cGy 5500 LOZA ARIA Plan Primary Reference Point [id number] LOZA ARIA 11/24/2023 1:00 PM CDT Provider Not In System RADIATION ONCOLOG Y ORDERABLES Performing Organization Address [facility] Co de Phone Number JOSE JARAMILLO na * Verification/Re-Sim (11/23/2023 3:13 PM CDT) Narrative [facility] - 11/23/2023 3:13 PM CDT This exam does not require a oncologist review or interpretation. Please refer to the patient? s medical record on this date for clinical details. Collette Phillip M.D. RADIATION ONCOLOG Y ORDERABLES Performing Organization Address City/[facility]/ZIP Co de Phone Number JOSE JARAMILLO [...] Chavez M.D. LAB MICROBIOLOGY - GENERAL ORDERABLES [facility] [address] [place] [address], [facility] DTL [facility] [address] [place] [address] * AR CYSTHRSCPY RMVL FB/STENT SMPL (11/19/2023 2:00 PM CDT) Narrative Ana Higginbotham M.D., M.Ed. - 11/19/2023 2:00 PM CDT Ana Higginbotham M.D., M.Ed. ? 11/19/2023 ??2:21 PM Cysto w/stent removal Performed by: Ana Higginbotham M.D., M.Ed. Authorized by: Mike Giles M.B., B.Ch. ?? Care team members present 1. Ana [...] draped in dorsal lithotomy position. The 17 [place] Olympus video scope was introduced at [facility]. Brief cystoscopy revealed multiple areas of prior [...] apparent complications ?? Mike Keith, B.Ch. UROLOGY RODRIGO WILLETT * Initial Rad Onc Treatment Planning CT Simulation (11/11/2023 12:30 PM CDT) Narrative JOSE JARAMILLO - 11/11/2023 12:30 PM CDT Ruby Holt, RTT ? 11/11/2023 12:35 PM Initial Rad Onc Treatment Planning CT Simulation Performed by: Kash Hernandez M.D., Ph.D. Authorized by: Kash Hernandez M.D., Ph.D. ?? Kash Hernandez M.D., Ph.D. RADIATION ON COLOGY ORDERABLES JOSE JARAMILLO na * FL Fluoro Less Than 1 Hour (11/04/2023 1:24 PM CDT) Narrative [id number] - 11/04/2023 1:24 PM CDT This exam does not require a radiologist review or interpretation. Please refer to the patient's medical record on this date for clinical details. Bienvenido Cruz M.D. IMG FLUOROSCOPY PROC EDURES [id number] NA * Surgical Pathology (11/04/2023 10:40 AM [...] of the testing process was performed at [facility] site [id number]. Digital imaging was used in the diagnostic assessment of this case. 11/05/2023 2:29 PM CDT DTL Tissue (Bladder) 11/04/2023 10:40 AM CDT Tissue (Bladder) 11/04/2023 11:00 AM CDT Tissue (Bladder) 11/04/2023 11:22 AM CDT Bienvenido Cruz M.D. LAB SURG PATH ORDERA BLES [facility] [address] [place] [address], [facility] DTL [address] [place] [address] * LDA ANE ENDOTRACHEAL AIRWAY (11/04/2023 10:18 [...] ETT location: oral VL device: glide scope [place] scope blade size: 4 Tube size: 7.5 [...] Notable Events: no complications Mitchel Rowland APRN, JOMAR ANESTHESIA ORDERABLES * BLADDER-Surgery Image Exam (11/04/2023 9:35 AM CDT) Only the most recent of2 resultswithin the time period is included. Narrative [facility] - 11/04/2023 2:19 PM CDT This order has been created and auto-finalized to support the import of images acquired without order. The clinical documentation to support these images can be found on the encounter that produced images. Provider Not In System IMG NON RAD IMAGI NG PROCEDURES [facility] NA * Basic Metabolic Panel (07/18/2023 7:44 PM SUPERCHARGE REPAIR SUPERVISOR) Potassium, S 4.5 3.6 - 5.2 mmol/L 07/18/2023 8:44 PM SUPERCHARGE REPAIR SUPERVISOR DTL Sodium, S 137 135 - 145 mmol/L 07/18/2023 8:44 PM SUPERCHARGE REPAIR SUPERVISOR DTL Chloride, S 102 98 - 107 mmol/L 07/18/2023 8:44 PM SUPERCHARGE REPAIR SUPERVISOR DTL Bicarbonate, S 25 22 - 29 mmol/L 07/18/2023 8:44 PM SUPERCHARGE REPAIR SUPERVISOR DTL Anion Gap 10 7 - 15 07/18/2023 8:44 PM SUPERCHARGE REPAIR SUPERVISOR DTL BUN (Blood Urea Nitrogen), S 16 8 - 24 mg/dL 07/18/2023 8:44 PM SUPERCHARGE REPAIR SUPERVISOR DTL Creatinine 0.99 0.74 - 1.35 mg/dL 07/18/2023 8:44 PM SUPERCHARGE REPAIR SUPERVISOR DTL Estimated GFR (eGFR) 76 >=60 mL/min/BSA 07/18/2023 8:44 PM SUPERCHARGE REPAIR SUPERVISOR DTL Comment: Estimated GFR calculated using the 2020 CKD_EPI creatinine equation. Calcium, Total, S 8.8 8.8 - 10.2 mg/dL 07/18/2023 8:44 PM SUPERCHARGE REPAIR SUPERVISOR DTL Glucose, S 88 70 - 140 mg/dL 07/18/2023 8:44 PM SUPERCHARGE REPAIR SUPERVISOR DTL Blood (Blood, Venous) 07/18/2023 7:44 PM SUPERCHARGE REPAIR SUPERVISOR 07/18/2023 8:22 PM SUPERCHARGE REPAIR SUPERVISOR Demar Whitaker M.D. LAB BLOOD ADD-O N [facility] [address] [place] [address], [place] DTL [facility] [address] [place] [address] from Last 3 Months or Most Recently Relevant to Health Maintenance Advance Directives For more information, please contact: [phone] * Full Code (Latest Code Status on [...] Answer Comments Full Code: Discussed Care Teams Clinical Law Professor Relationship Specialty Start Date End Date Elsewhere, Pcp PCP - General Internal Medicine 07/14/23
--- OUTSIDE RECORDS SUMMARY | 2024-01-25 08:14 | XMS_ITS | Encounter Summary ---
Author Organization [facility] Address [address] [place] [address] Care Team Providers Care Seed Specialist Name Role Phone Elsewhere, Pcp Primary Care Provider Unavailabl e Reason for Visit * Radiation Therapy (Routine) - Authorized Specialty Diagnoses / Procedures Referred By Myrna maki Referred To Contact Diagnoses 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) Lesion Bladder Frequency Urinary Procedures Prior Auth Rad Tx [place] IMRT COMPLEX IMRT Kash Hernandez M.D., Ph.D. 200 [place] [address] [facility] Referral ID Status Reason Start Date Expiration Date V isits Requested Visits Authorized [id number] Authorized 11/17/2023 06/13/2024 20 20 Encounter Details Date Type Department Care Team (Latest Contact Info) Description 12/09/2023 2:22 PM CDT - 12/09/2023 11:59 PM CDT Hospital Encounter Department of Radiation Oncology in [place], [place] [address] [place] [phone] Collette Phillip M.D. [address] [place] [phone] Discharge Disposition: Home or Self Care Social History Tobacco Use Types Packs/Day Years Used Date Smoking Tobacco: Never Smokeless Tobacco: Never Alcohol Use Standard Drinks/Week Comments Yes 3 (1 standard drink = 0.6 oz pur e alcohol) [facility] Utilities Answer Date Recorded In the past 12 months has [employer], gas, oil, or water [employer] threatened to shut off services in your [...] your living situation today? I have a [facility] place to live 07/19/2023 Sex and Gender Information Value Date Recorded Sex Assigned at Male 04/23/2023 8:28 AM CLIENT SUPPORT REPRESENTATIVE Gender Identity Male 04/23/2023 8:28 AM CLIENT SUPPORT REPRESENTATIVE Sexual Orientation Straight 04/23/2023 8: 28 AM CLIENT SUPPORT REPRESENTATIVE documented as of this encounter Medications at [...] Appointment Department of Laboratory Medicine and Pathology, [facility] in [place], [place] [address] [place] [phone] Anita Alvarez APRN, C.N.P., D.N.P. [address] [place] [phone] 03/21/2024 10:30 AM CDT Appointment Department of Radiology, [facility] in [place], [place] [address] [place] [phone] Anita Alvarez APRN, C.N.P., D.N.P. [address] [place] [phone] 03/21/2024 3:30 PM CDT Procedure visit Department of Urology in [place], [place] [address] [place] [address] Anita Alvarez APRN, C.N.P., D.N.P. [address] [place] [address] 03/27/2024 11:30 AM CDT Appointment Department of Radiation Oncology in [place], [place] [address] [place] [address] Collette Phillip M.D. [address] [place] [address] documented as of this encounter Visit Diagnoses Not on filedocumented in this encounter Care Teams Seed Specialist Relationship Specialty Start Date End Date Elsewhere, Pcp PCP - General Internal Medicine 07/14/23 documented as of this encounter
--- OUTSIDE RECORDS SUMMARY | 2024-01-25 08:14 | XMS_ITS | Encounter Summary ---
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 200 [place] [address] [facility] Region Referral ID Status Reason Start Date Expiration Date Visits Re quested Visits Authorized [id number] Closed 11/30/2023 05/31/2025 1 1 Scheduling Instructions Please schedule on 12/01 after or before radiation treatment. 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 200 [place] [address] [facility] Region Referral ID Status Reason Start Date Expiration Date Visits Re quested Visits Authorized [id number] Closed 10/21/2023 10/20/2024 4 4 Encounter Details Date Type Department Care Team (Latest Contact Info) Description 11/30/2023 2:20 PM CDT - 12/01/2023 2:26 PM CDT Hospital Encounter Department of Radiation Oncology in [place], [place] [address] [place] [address] Collette Phillip M.D. 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 I have a [facility] place to live 07/19/2023 Sex and Gender Information Value Date Recorded Sex Assigned at Male 04/23/2023 8:28 AM SLIDE FASTENER REPAIRER Gender Identity Male 04/23/2023 8:28 AM SLIDE FASTENER REPAIRER Sexual Orientation Straight 04/23/2023 8: 28 AM SLIDE FASTENER REPAIRER documented as of this encounter Last Filed Vital Signs Vital Sign Reading Time Taken Comments Blood Pressure 120/69 11/30/2023 3:10 PM CDT Pulse 74 11/30/2023 3:10 PM CDT Temperature 36.3 ??C (97.3 ??F) 11/30/2023 3:10 PM CD T Respiratory Rate - - Oxygen Saturation - - Inhaled Oxygen Concentration - - Weight 89.3 kg (196 lb 13.9 oz) 11/30/2023 3:10 PM CDT Height - - Body Mass Index 30.22 10/21/2023 8:51 AM CDT documented in this encounter Medications at [...] tablet Take 5 mg by mouth daily. topiramate (TOPAMAX) 100 mg tablet Take 100 mg by mouth at bedtime. 02/25/2023 tamsulosin (FLOMAX) 0.4 mg 24 hr capsule Take 1 capsule (0.4 mg total) by mouth 2 (two) times a day. 180 capsule 3 08/02/2023 12/07/2023 trospium (SANCTURA) 20 mg tablet Take 1 tablet (20 mg total) by mouth 2 (two) times a day as needed (bladder spasms). 20 tablet 09/28/2023 12/07/2023 documented as of this encounter Progress Notes * Collette Phillip M.D. - 11/30/2023 3:00 PM CDT ATTESTATION FOR MANAGEMENT VISIT I saw and evaluated the patient and participated in the beck portions of the service as noted below.I reviewed the documentation of Ms. Sophie Gagnon RN and agree with the findings and plan. Thepatient appears well on exam. We will continue with radiation as planned and monitor weekly. Collette Phillip M.D., 11/30/2023 SUBJECTIVE REASON FOR VISIT Evaluation for side effects while receiving radiation treatment for 1. Hypertension Essential Primary 2. 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 Lesion Bladder 4. Frequency Urinary SUPERVISED BY: Collette Phillip M.D. HISTORY OF PRESENT ILLNESS Paul Rae is a 83 y.o. male with bladder cancer. He is now undergoing radiation therapy with concurrent chemotherapy. Dr. Akers is managing chemotherapy. He is receiving Mitomycin and Fluorouracil Treatment Course: 1xBladder Plan ID Fractions Dose / Fraction (cGy) Dose Treated (cGy) Dose Planned (cGy) First Treatment Last Treatment Elapsed Days [id number] [phone] 11/22/2023 11/23/2023 1 [id number] [id number] 11/24/2023 11/30/2023 6 Treatment Site Summary 1925 5500 11/22/2023 11/30/2023 8 Course Summary 11/22/2023 11/30/2023 8 The patient was seen and examined today with Dr. Phillip. Patient reports that he has been struggling with urination this past week. He reports good urination for 4 days post stent removal. Then after those 4 day his urination returned to how it was prior to having the sent placed. He reports urinating small amounts frequently. He feels like he can't empty his bladder completely. He reports mild dysuria. He denies hematuria. He is taking Flomax 0.4 mg daily in the morning. He has also been experiencing constipation. He is taking Senakot-S and did havea bowel movement yesterday. Patient is also struggling with food and fluid intake since starting treatment. He did receive a liter of fluid [facility] at [facility]. He is experiencing some nausea and hiccups that have deterred him for eating and drinking like he should. He does take anti-emetics when needed for nausea. Today he reports that he drank 36 oz of fluid prior to treatmentand verbalizes that he would drink that same amount after treatment today. He denies feeling dizzy or lightheaded with movement. He denies any other issus or concerns at this time. PATIENT REPORTED SYMPTOM SCREEN FATIGUE (Scale: 0 = no fatigue; 10 = worst fatigue you can imagine): PAIN (Scale: 0 = no pain; 10 = worst pain you can imagine): OVERALL QUALITY OF LIFE (Scale: 0 = as bad as can be; 10 = as good as can be): OBJECTIVE BP 120/69 (BP Location: Right arm, Patient Position: Sitting, Cuff Size: Regular) Pulse 74 Temp36.3 ??C (Temporal) Wt 89.3 kg BMI 30.22 kg/m?? PHYSICAL EXAM General: Alert and oriented in no apparent distress. 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 Patient has lost 4.8 kg since starting treatment last week. We will place an order for him to meet with the dietitian this. Dicussed with patient that he can take nausea medications on a scheduled basis if needed for nausea control. Patient was provided with HC Boost and Ensure Clear drinks to sample. Encouragedpatient to drink 64 oz of non-caffeinated liquids daily to maintain adequate hydration. If patient is unable to take in adequate amounts of fluid and it starting to feel dehydrated he needs to contact our care team or Dr. Akers's care team so IV fluids can be arranged. Per Dr. Phillip patient will s tart taking Flomax 0.4 mg twice daily to see if that helps with urinary symptoms. Reviewed orthostatic precautions with patient. We will see patient in weekly management visits through out his courseof radiation therapy. He will contact us with any questions or concerns. We will continue with radiation treatment as planned. Signed by: Sophie Gagnon R.N. 11/30/2023 4:05 PM CDT documented in this encounter Plan of Treatment Upcoming Encounters Date Type Department Care Team (Late st Contact Info) Description 03/21/2024 9:30 AM CDT Appointment Department of Laboratory Medicine and Pathology, [facility] in [place], [place] [address] [place] [phone] Anita Alvarez APRN, C.N.P., D.N.P. [address] [place] [address] 03/21/2024 10:30 AM CDT Appointment Department of Radiology, [facility], in [place], [place] [address] [place] [address] Anita Alvarez APRN, C.N.P., D.N.P. [address] [place] [phone] 03/21/2024 3:30 PM CDT Procedure visit Department of Urology in [place], [place] [address] [place] [address] Anita Alvarez APRN, C.N.P., D.N.P. [address] [place] [phone] 03/27/2024 11:30 AM CDT Appointment Department of Radiation Oncology in [place], [place] [address] [place] [address] Collette Phillip M.D. 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
--- OUTSIDE RECORDS SUMMARY | 2024-01-25 08:14 | XMS_ITS | Encounter Summary ---
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 [address] [place] [address] [facility] Referral ID Status Reason Start Date Expiration Date V isits Requested Visits Authorized [id number] Authorized 11/17/2023 06/13/2024 20 20 Encounter Details Date Type Department Care Team (Latest Contact Info) Description 12/06/2023 2:31 PM CDT - 12/06/2023 11:59 PM CDT Hospital Encounter Department of Radiation Oncology in [place], [place] [address] [place] [phone] Collette Phillip M.D. [address] [place] [phone] Discharge Disposition: Home or Self Care Social History Tobacco Use Types Packs/Day Years Used Date Smoking Tobacco: Never Smokeless Tobacco: Never Alcohol Use Standard Drinks/Week Comments Yes 3 (1 standard drink = 0.6 oz pur e alcohol) [facility] Utilities Answer Date Recorded In the past 12 months has [employer], gas, oil, or water [employer] threatened to shut off services in your [...] your living situation today? I have a [facility] place to live 07/19/2023 Sex and Gender Information Value Date Recorded Sex Assigned at Male 04/23/2023 8:28 AM FILTER PRESS TENDER HEAD Gender Identity Male 04/23/2023 8:28 AM FILTER PRESS TENDER HEAD Sexual Orientation Straight 04/23/2023 8: 28 AM FILTER PRESS TENDER HEAD documented as of this encounter Medications at [...] 09/28/2023 12/07/2023 documented as of this encounter Plan of Treatment Upcoming Encounters Date Type Department Care Team (Late st Contact Info) Description 03/21/2024 9:30 AM CDT Appointment Department of Laboratory Medicine and Pathology, [facility] in [place], [place] [address] [place] [phone] Anita Alvarez APRN, C.N.P., D.N.P. [address] [place] [phone] 03/21/2024 10:30 AM CDT Appointment Department of Radiology, [facility] in [place], [place] [address] [place] [phone] Anita Alvarez APRN, C.N.P., D.N.P. [address] [place] [phone] 03/21/2024 3:30 PM CDT Procedure visit Department of Urology in [place], [place] [address] [place] [address] Anita Alvarez APRN, C.N.P., D.N.P. [address] [place] [phone] 03/27/2024 11:30 AM CDT Appointment Department of Radiation Oncology in [place], [place] [address] [place] [address] Collette Phillip M.D. [address] [place] [phone] documented as of this encounter Visit Diagnoses Not on filedocumented in this encounter Care Teams Rapid Outsole Stitcher Relationship Specialty Start Date End Date Elsewhere, Pcp PCP - General Internal Medicine 07/14/23 documented as of this encounter
--- OUTSIDE RECORDS SUMMARY | 2024-01-25 08:14 | XMS_ITS | Encounter Summary ---
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 200 [place] [address] [facility] Region Referral ID Status Reason Start Date Expiration Date Visits Re quested Visits Authorized [id number] Closed 11/30/2023 05/31/2025 1 1 Scheduling Instructions Please schedule on 12/01 after or before radiation treatment. 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 [address] [place] [address] [facility] Region Referral ID Status Reason Start Date Expiration Date Visits Re quested Visits Authorized [id number] Closed 11/30/2023 05/31/2025 1 1 Encounter Details Date Type Department Care Team (Latest Contact Info) Description 12/02/2023 2:30 PM CDT - 12/02/2023 11:59 PM CDT Hospital Encounter Department of Radiation Oncology in [address] [place] [address] Collette Phillip M.D. 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 I have a [facility] place to live 07/19/2023 Sex and Gender Information Value Date Recorded Sex Assigned at Male 04/23/2023 8:28 AM AUTO TRANSMISSION SPECIALIST Gender Identity Male 04/23/2023 8:28 AM AUTO TRANSMISSION SPECIALIST Sexual Orientation Straight 04/23/2023 8: 28 AM AUTO TRANSMISSION SPECIALIST documented as of this encounter Last Filed Vital Signs Vital Sign Reading Time Taken Comments Blood Pressure - - Pulse - - Temperature - - Respiratory Rate - - Oxygen Saturation - - Inhaled Oxygen Concentration - - Weight 89.2 kg (196 lb 10.4 oz) 12/02/2023 2:35 PM CDT Height 171.9 cm (5' 7.68) 12/02/2023 2:36 PM CD T Body Mass Index 30.19 12/02/2023 2:35 PM CDT documented in this encounter Medications [...] as of this encounter Progress Notes * Deanna Kasper Agapito, RDN - 12/02/2023 3:00 PM CDT CHIEF COMPLAINT/REASON FOR VISIT 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 PAST MEDICAL HISTORY The medical history was reviewed today from the electronic medical record. Please see the electronic medical record for complete details of the PAST MEDICAL HISTORY. Met with patient and daughter. ASSESSMENT Relevant Social and Family History Mr. Rae lives in [place]. His daughter is staying with him currently. Nutrition Focused Physical Findings Mouth/esophagus/Throat: none Bowels: some constipation and loose stools, managed with meds Nausea/vomiting: none Food/Nutrition Related History Patient reports a good appetite. He reports he has been sleeping in recently and skipping breakfast. He would normally have a yogurt and coffee at breakfast. Currently, his first meal is at lunch. Today he had an [employer] roast beef sandwich with a few fries. Last night for supper he had two egg rolls with noodles. He reports that he likes to snack on cheese sticks, chips and pretzels. He also just started taking one ensure supplement each day. He reports having another supplement brand at home. He is unsure of the name. He reports it is higher in protein. He drinks water, gatorade, coffee and V-8 juice. He reports that thinks he is drinking more than 9 cups fluid each day. Weight History Date: 12/02/23: Weight: 89.7 kg Height 171.9 cm Body mass index is 30.2 kg/m??. Patient reports UBW is 195-203# (88.6-92.3 kg). 11/26/23: 94.0 kg 11/22/23: 94.1 kg - starting weight 05/09/24: 92.0 kg 09/28/23: 92.7 kg Estimation of Nutritional Needs Weight Used for Equation Calculations: 89.2 kg Date: 12/01/23 Total Calorie Needs: 1316-2293 kcals (HB basal to HB basal + 20-30%) Estimated Protein Needs: 90-107 grams per day (1.0-1.2 g/kg) Estimated Fluid Needs: 2200 ml per day (25 ml/kg) NUTRITION DIAGNOSIS Food- and nutrition-related knowledge deficit related to cancer with chemoradiation as evidenced byneed for nutrition education to maintain weight and nutrition status during treatment Nutrition Diagnosis Reassessment: Ongoing Unintentional weight loss related to decreased appetite and nausea as evidenced by 4.4 kg/4.7% weight loss in the last 10 days. Nutrition Diagnosis Reassessment: Ongoing Nutrition Prescription/Recommendation [phone] kcals, 90-107+ grams protein, 9+ cups fluid INTERVENTION Education: Discussed importance of weight maintenance during treatment within 5- 10% of starting weight. Provided patient with calorie, protein and fluid goals. Discussed that he is not meeting his protein needs currently. We discussed ideas for protein and ways he can increase this. Also discussed different options for nutrition supplements. He was encouraged to start drinking 2 supplements each d ay. He was also encouraged to keep track of his calorie, protein and fluid intake each day. Also discussed tips for bowel management. Eating Hints for Cancer booklet provided as well as calorie and protein content of foods handout. MONITORING AND EVALUATION: Nutrition parameter to monitor: Weight Desired Outcome: Maintain weight within 5-10% of starting weight Patient Goal(s): 1. Current diet with addition of nutrition supplements to meet estimated nutrition needs. 2. Aim for 9+ cups of fluid per day. 3. Track calorie, protein and fluid intake. FOLLOW UP PLAN: He will follow up further as needed. RDN's contact information provided and he was encouraged to call with questions. Time spent with patient (minutes): 30 documented in this encounter Plan of Treatment Upcoming Encounters Date Type Department Care Team (Late st Contact Info) Description 03/21/2024 9:30 AM CDT Appointment Department of Laboratory Medicine and Pathology, [facility] in [place], [place] [address] [place] [address] Anita Alvarez APRN, Agapito.N.PTona, D.N.P. [address] [place] [phone] 03/21/2024 10:30 AM CDT Appointment Department of Radiology, [facility], in [place], [place] [address] [place] [address] Anita Alvarez APRN, C.N.PTona, D.N.P. [address] [place] [phone] 03/21/2024 3:30 PM CDT Procedure visit Department of Urology in [place], [place] [address] [place] [address] Anita Alvarez APRN, Agapito.N.P., D.N.P. [address] [place] [phone] 03/27/2024 11:30 AM CDT Appointment Department of Radiation Oncology in [place], [place] [address] [place] [address] Collette Phillip M.D. 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
--- OUTSIDE RECORDS SUMMARY | 2024-01-25 08:14 | XMS_ITS | Encounter Summary ---
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 200 [place] [address] [facility] Region Referral ID Status Reason Start Date Expiration Date Visits Re quested Visits Authorized [id number] Closed 10/21/2023 10/20/2024 4 4 Encounter Details Date Type Department Care Team (Latest Contact Info) Description 12/07/2023 2:53 PM CDT - 12/07/2023 4:57 PM CDT Hospital Encounter Department of Radiation Oncology in [address] [place] [phone] 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 I have a [facility] place to live 07/19/2023 Sex and Gender Information Value Date Recorded Sex Assigned at Male 04/23/2023 8:28 AM CABLEMAN Gender Identity Male 04/23/2023 8:28 AM CABLEMAN Sexual Orientation Straight 04/23/2023 8: 28 AM CABLEMAN documented as of this encounter Last Filed Vital Signs Vital Sign Reading Time Taken Comments Blood Pressure 149/64 12/07/2023 3:12 PM CDT Pulse 75 12/07/2023 3:12 PM CDT Temperature 36.1 ??C (97 ??F) 12/07/2023 3:12 PM CDT Respiratory Rate - - Oxygen Saturation - - Inhaled Oxygen Concentration - - Weight 91.6 kg (201 lb 15.1 oz) 12/07/2023 3:12 PM CDT Height - - Body Mass Index 31 12/02/2023 2:36 PM CDT documented in this encounter Medications at Time of Discharge Medication Sig Dispensed Refills Start Date End Date tamsulosin (Flomax) 0.4 mg 24 hr capsule Take 2 capsules (0.8 mg total) by mouth daily. 180 capsule 3 12/07/2023 12/06/2024 amitriptyline (ELAVIL) 25 mg tablet Take 100 [...] Progress Notes * Collette Phillip M.D. - 12/07/2023 3:15 PM CDT ATTESTATION FOR MANAGEMENT VISIT I saw and evaluated the patient and participated in the beck portions of the service as noted below.I reviewed the documentation of Ms. Sophie Gagnon RN and agree with the findings and plan. Thepatient appears well on exam. We will continue with radiation as planned and monitor weekly. Collette Phillip M.D., 12/07/2023 SUBJECTIVE REASON FOR VISIT Evaluation for side [...] (cGy) First Treatment Last Treatment Elapsed Days [id number] 275 550 550 11/22/2023 11/23/2023 1 [id number] 275 2750 4950 11/24/2023 12/07/2023 13 Treatment Site Summary 3300 5500 11/22/2023 12/07/2023 15 Course Summary 11/22/2023 12/07/2023 15 The patient was seen and examined today with Dr. Phillip. Patient reports to be feeling well overall. He reports that he doing better with eating and stayinghydrated. He does note that he is continuing to experience increased urinary symptoms. He notes that last night he took his Flomax 0.8 mg 2 hours before bed and he only got up 3 times at night to urinate. The previous nights he took the Flomax right before bed and reports that he was urinating every 20-25 minutes, very small amounts. He does note dysuria, urgency and frequency with urination. He is wondering if her can try Trospium as he has taken is previously for bladder spasms. He reports regular bowel movement and is not longer taking stool softeners. He denies blood or pain with bowel movements. PATIENT REPORTED SYMPTOM SCREEN FATIGUE (Scale: 0 = no fatigue; 10 = worst fatigue you can imagine): PAIN (Scale: 0 = no pain; 10 = worst pain you can imagine): OVERALL QUALITY OF LIFE (Scale: 0 = as bad as can be; 10 = as good as can be): OBJECTIVE BP 149/64 (BP Location: Right arm, Patient Position: Sitting, Cuff Size: Regular) Pulse 75 Temp36.1 ??C (Temporal) Wt 91.6 kg BMI 31.00 kg/m?? PHYSICAL EXAM General: Alert and oriented in no apparent distress. 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 Patient's weight is stable this week. Patient can continue to take Flomax 0.8 mg a few hours before bed to help with nocturia. Per Dr. Phillip he can trial the Trospium and see if that is helpful with urinary symptoms. We will see patient in weekly management visits through out his course of radiation therapy. He will contact us with any questions or concerns. We will continue with radiation treatment as planned. Signed by: Sophie Gagnon R.N. 12/07/2023 3:45 PM CDT documented in this encounter Miscellaneous Notes * Addendum Note - Sophie Gagnon R.N. - 12/07/2023 3:15 PM CDTEncounter addended by: Sophie Gagnon R.N. on: 12/08/2023 9:46 AM Actions taken: Order Reconciliation Section accessed documented in this encounter Plan of Treatment Upcoming Encounters Date Type Department Care Team (Late st Contact Info) Description 03/21/2024 9:30 AM CDT Appointment Department of Laboratory Medicine and Pathology, [facility] in [place], [place] [address] [place] [phone] Anita Alvarez APRN, C.N.P., D.N.P. [address] [place] [phone] 03/21/2024 10:30 AM CDT Appointment Department of Radiology, [facility], in [place], [place] [address] [place] [phone] Anita Alvarez APRN, C.N.P., D.N.P. [address] [place] [phone] 03/21/2024 3:30 PM CDT Procedure visit Department of Urology in [place], [place] [address] [place] [phone] Anita Alvarez APRN, C.N.P., D.N.P. [address] [place] [phone] 03/27/2024 11:30 AM CDT Appointment Department of Radiation Oncology in [place] [address] [place] [phone] Collette Phillip M.D. 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
--- OUTSIDE RECORDS SUMMARY | 2024-01-25 08:14 | XMS_ITS | Encounter Summary ---
Author Organization [facility] Address [address] [place] [address] Care Team Providers Care Sr. 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 [address] [place] [phone] [facility] Referral ID Status Reason Start Date Expiration Date V isits Requested Visits Authorized [id number] Authorized 11/17/2023 06/13/2024 20 20 Encounter Details Date Type Department Care Team (Latest Contact Info) Description 12/08/2023 9:46 AM CDT - 12/08/2023 11:59 PM CDT Hospital Encounter Department of Radiation Oncology in [place] [address] [place] [phone] Collette Phillip M.D. [address] [place] [phone] Discharge Disposition: Home or Self Care Social History Tobacco Use Types Packs/Day Years Used Date Smoking Tobacco: Never Smokeless Tobacco: Never Alcohol Use Standard Drinks/Week Comments Yes 3 (1 standard drink = 0.6 oz pur e alcohol) [facility] Utilities Answer Date Recorded In the past 12 months has [employer], gas, oil, or water [employer] threatened to shut off services in your [...] your living situation today? I have a [facility] place to live 07/19/2023 Sex and Gender Information Value Date Recorded Sex Assigned at Male 04/23/2023 8:28 AM CLASSIFIED AD TAKER Gender Identity Male 04/23/2023 8:28 AM CLASSIFIED AD TAKER Sexual Orientation Straight 04/23/2023 8: 28 AM CLASSIFIED AD TAKER documented as of this encounter Medications at [...] Appointment Department of Laboratory Medicine and Pathology, [facility] in [place], [place] [address] [place] [phone] Anita Alvarez APRN, C.N.P., D.N.P. [address] [place] [phone] 03/21/2024 10:30 AM CDT Appointment Department of Radiology, [facility] in [place], [place] [address] [place] [phone] Anita Alvarez APRN, C.N.P., D.N.P. [address] [place] [phone] 03/21/2024 3:30 PM CDT Procedure visit Department of Urology in [place], [place] [address] [place] [address] Anita Alvarez APRN, C.N.P., D.N.P. [address] [place] [address] 03/27/2024 11:30 AM CDT Appointment Department of Radiation Oncology in [place], [place] [address] [place] [address] Collette Phillip M.D. [address] [place] [address] documented as of this encounter Visit Diagnoses Not on filedocumented in this encounter Care Teams Sr. Director Relationship Specialty Start Date End Date Elsewhere, Pcp PCP - General Internal Medicine 07/14/23 documented as of this encounter
--- OUTSIDE RECORDS SUMMARY | 2024-01-25 08:14 | XMS_ITS | Encounter Summary ---
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 [address] [place] [phone] [facility] Referral ID Status Reason Start Date Expiration Date V isits Requested Visits Authorized [id number] Authorized 11/17/2023 06/13/2024 20 20 Encounter Details Date Type Department Care Team (Latest Contact Info) Description 12/13/2023 12:37 PM CDT - 12/13/2023 11:59 PM CDT Hospital Encounter Department of Radiation Oncology in [place], [place] [address] [place] [phone] Collette Phillip M.D. [address] [place] [phone] Discharge Disposition: Home or Self Care Social History Tobacco Use Types Packs/Day Years Used Date Smoking Tobacco: Never Smokeless Tobacco: Never Alcohol Use Standard Drinks/Week Comments Yes 3 (1 standard drink = 0.6 oz pur e alcohol) [facility] Utilities Answer Date Recorded In the past 12 months has [employer], gas, oil, or water [email or web address] threatened to shut off services in your [...] your living situation today? I have a [facility] place to live 07/19/2023 Sex and Gender Information Value Date Recorded Sex Assigned at Male 04/23/2023 8:28 AM QUARTER SUPERVISOR Gender Identity Male 04/23/2023 8:28 AM QUARTER SUPERVISOR Sexual Orientation Straight 04/23/2023 8: 28 AM QUARTER SUPERVISOR documented as of this encounter Medications at [...] Appointment Department of Laboratory Medicine and Pathology, [facility] in [place], [place] [address] [place] [phone] Anita Alvarez APRN, C.N.P., D.N.P. [address] [place] [phone] 03/21/2024 10:30 AM CDT Appointment Department of Radiology, [facility] in [place], [place] [address] [place] [phone] Anita Alvarez APRN, C.N.P., D.N.P. [address] [place] [phone] 03/21/2024 3:30 PM CDT Procedure visit Department of Urology in [place], [place] [address] [place] [phone] Anita Alvarez APRN, C.N.P., D.N.P. [address] [place] [phone] 03/27/2024 11:30 AM CDT Appointment Department of Radiation Oncology in [place], [place] [address] [place] [address] Collette Phillip M.D. [address] [place] [address] documented as of this encounter Visit Diagnoses Not on filedocumented in this encounter Care Teams Warehouse Examiner Relationship Specialty Start Date End Date Elsewhere, Pcp PCP - General Internal Medicine 07/14/23 documented as of this encounter
--- OUTSIDE RECORDS SUMMARY | 2024-01-25 08:14 | XMS_ITS | Encounter Summary ---
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 200 [place] [address] [facility] Region Referral ID Status Reason Start Date Expiration Date V isits Requested Visits Authorized [id number] Authorized 12/01/2023 06/01/2025 10 10 Encounter Details Date Type Department Care Team (Latest Contact Info) Description 12/01/2023 3:08 PM CDT - 12/01/2023 3:42 PM CDT Hospital Encounter Department of Radiation Oncology in [address] [phone] Collette Phillip M.D. 200 [place] [phone] Em San R.N. 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 I have a [facility] place to live 07/19/2023 Sex and Gender Information Value Date Recorded Sex Assigned at Male 04/23/2023 8:28 AM LOGGING ASSISTANT Gender Identity Male 04/23/2023 8:28 AM LOGGING ASSISTANT Sexual Orientation Straight 04/23/2023 8: 28 AM LOGGING ASSISTANT documented as of this encounter Last Filed Vital Signs Vital Sign Reading Time Taken Comments Blood Pressure - - Pulse - - Temperature - - Respiratory Rate - - Oxygen Saturation - - Inhaled Oxygen Concentration - - Weight 89.2 kg (196 lb 10.4 oz) 12/01/2023 3:00 PM CDT Height - - Body Mass Index 30.19 10/21/2023 8:51 AM CDT documented in this [...] as of this encounter Progress Notes * Em San RChris. - 12/01/2023 3:15 PM CDT SUBJECTIVE REASON FOR VISIT Evaluation for side [...] (cGy) First Treatment Last Treatment Elapsed Days [id number] / 275 550 550 11/22/2023 11/23/2023 1 R1Rmltfei 275 1650 4950 11/24/2023 12/01/2023 7 Treatment Site Summary 2200 5500 11/22/2023 12/01/2023 9 Course Summary 11/22/2023 12/01/2023 9 The patient was seen and examined today with Dr. Phillip. Patient reports that he took 1 tablet of Flomax at bedtime yesterday. He reports that nocturia seemed worse last night and this affected his sleep. Patient denies dizziness or falls or other new symptoms. Patient found prescription for Trospium that he was prescribed but is not currently taking. Patient is asking if he should start Trospium. Patient notes that part of his wisdom tooth broke last night. OBJECTIVE There were no vitals taken for this visit. PHYSICAL EXAM General: Alert and oriented in no apparent distress. ASSESSMENT / PLAN I have discussed symptoms and questions with Dr. Phillip today. Dr. Phillip notes that patient is lining up well for daily radiation treatments. Patient can trial taking 2 Flomax at bedtime instead of twice a day dosing. Patient will keep journal of current Flomax dosing at bedtime and level of nocturia each night. Dr. Phillip recommended that patient reach out to provider who wrote for Trospium to discuss prescription instructions further. Patient will be calling his Dental office today to followup. Reviewed orthostatic precautions with patient. We will see patient in weekly management visits through out his course of radiation therapy. He will contact us with any questions or concerns. We will continue with radiation treatment as planned. Signed by: mE San R.N. 12/01/2023 3:36 PM CDT documented in this encounter Plan of Treatment Upcoming Encounters Date Type Department Care Team (Late st Contact Info) Description 03/21/2024 9:30 AM CDT Appointment Department of Laboratory Medicine and Pathology, [facility] in [place], [place] [address] [place] [phone] Anita Alvarez APRN, C.N.P., D.N.P. [address] [place] [phone] 03/21/2024 10:30 AM CDT Appointment Department of Radiology, [facility], in [place], [place] [address] [place] [phone] Anita Alvarez APRN, C.N.P., D.N.P. [address] [place] [phone] 03/21/2024 3:30 PM CDT Procedure visit Department of Urology in [place], [place] [address] [place] [phone] Anita Alvarez APRN, C.N.P., D.N.P. [address] [place] [phone] 03/27/2024 11:30 AM CDT Appointment Department of Radiation Oncology in [place] [address] [place] [phone] Collette Phillip M.D. 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
--- OUTSIDE RECORDS SUMMARY | 2024-01-25 08:14 | XMS_ITS | Encounter Summary ---
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 200 [place] [address] [facility] Referral ID Status Reason Start Date Expiration Date V isits Requested Visits Authorized [id number] Authorized 11/17/2023 06/13/2024 20 20 Encounter Details Date Type Department Care Team (Latest Contact Info) Description 12/01/2023 2:27 PM CDT - 12/01/2023 3:07 PM CDT Hospital Encounter Department of Radiation Oncology in [place], [place] [address] [place] [phone] Collette Phillip M.D. [address] [place] [phone] Discharge Disposition: Home or Self Care Social History Tobacco Use Types Packs/Day Years Used Date Smoking Tobacco: Never Smokeless Tobacco: Never Alcohol Use Standard Drinks/Week Comments Yes 3 (1 standard drink = 0.6 oz pur e alcohol) [facility] Utilities Answer Date Recorded In the past 12 months has [employer], gas, oil, or water [employer] threatened to shut off services in your [...] your living situation today? I have a [facility] place to live 07/19/2023 Sex and Gender Information Value Date Recorded Sex Assigned at Male 04/23/2023 8:28 AM TRAVEL CONSULTANT Gender Identity Male 04/23/2023 8:28 AM TRAVEL CONSULTANT Sexual Orientation Straight 04/23/2023 8: 28 AM TRAVEL CONSULTANT documented as of this encounter Medications at [...] Appointment Department of Laboratory Medicine and Pathology, [facility] in [place], [place] [address] [place] [phone] Anita Alvarez APRN, C.N.P., D.N.P. [address] [place] [phone] 03/21/2024 10:30 AM CDT Appointment Department of Radiology, [facility] in [place], [place] [address] [place] [phone] Anita Alvarez APRN, C.N.P., D.N.P. [address] [place] [phone] 03/21/2024 3:30 PM CDT Procedure visit Department of Urology in [place], [place] [address] [place] [address] Anita Alvarez APRN, C.N.P., D.N.P. [address] [place] [phone] 03/27/2024 11:30 AM CDT Appointment Department of Radiation Oncology in [place], [place] [address] [place] [address] Collette Phillip M.D. [address] [place] [phone] documented as of this encounter Visit Diagnoses Not on filedocumented in this encounter Care Teams Increment Manager Relationship Specialty Start Date End Date Elsewhere, Pcp PCP - General Internal Medicine 07/14/23 documented as of this encounter
--- OUTSIDE RECORDS SUMMARY | 2024-01-25 08:14 | XMS_ITS | Encounter Summary ---
Author Organization 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 200 [place] [address] [facility] Referral ID Status Reason Start Date Expiration Date V isits Requested Visits Authorized [id number] Authorized 11/17/2023 06/13/2024 20 20 Encounter Details Date Type Department Care Team (Latest Contact Info) Description 12/10/2023 2:20 PM CDT - 12/10/2023 11:59 PM CDT Hospital Encounter Department of Radiation Oncology in [place], [place] [address] [place] [phone] Collette Phillip M.D. [address] [place] [phone] Discharge Disposition: Home or Self Care Social History Tobacco Use Types Packs/Day Years Used Date Smoking Tobacco: Never Smokeless Tobacco: Never Alcohol Use Standard Drinks/Week Comments Yes 3 (1 standard drink = 0.6 oz pur e alcohol) [facility] Utilities Answer Date Recorded In the past 12 months has [employer], gas, oil, or water [employer] threatened to shut off services in your [...] your living situation today? I have a [facility] place to live 07/19/2023 Sex and Gender Information Value Date Recorded Sex Assigned at Male 04/23/2023 8:28 AM SOFTWARE ADMINISTRATOR Gender Identity Male 04/23/2023 8:28 AM SOFTWARE ADMINISTRATOR Sexual Orientation Straight 04/23/2023 8: 28 AM SOFTWARE ADMINISTRATOR documented as of this encounter Medications at [...] Department of Laboratory Medicine and Pathology, [facility] in [place], [place] [address] [place] [phone] Anita Alvarez APRN, C.N.P., D.N.P. [address] [place] [phone] 03/21/2024 10:30 AM CDT Appointment Department of Radiology, [facility] in [place], [place] [address] [place] [phone] Anita Alvarez APRN, C.N.P., D.N.P. [address] [place] [phone] 03/21/2024 3:30 PM CDT Procedure visit Department of Urology in [place], [place] [address] [place] [phone] Anita Alvarez APRN, C.N.P., D.N.P. [address] [place] [phone] 03/27/2024 11:30 AM CDT Appointment Department of Radiation Oncology in [place], [place] [address] [place] [address] Collette Phillip M.D. [address] [place] [phone] documented as of this encounter Visit Diagnoses Not on filedocumented in this encounter Care Teams Septic Technician Relationship Specialty Start Date End Date Elsewhere, Pcp PCP - General Internal Medicine 07/14/23 documented as of this encounter
--- OUTSIDE RECORDS SUMMARY | 2024-01-25 08:14 | XMS_ITS | Encounter Summary ---
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 200 [place] [address] [facility] Referral ID Status Reason Start Date Expiration Date V isits Requested Visits Authorized [id number] Authorized 11/17/2023 06/13/2024 20 20 Encounter Details Date Type Department Care Team (Latest Contact Info) Description 12/03/2023 2:28 PM CDT - 12/03/2023 11:59 PM CDT Hospital Encounter Department of Radiation Oncology in [place], [place] [address] [place] [phone] Collette Phillip M.D. [address] [place] [phone] Discharge Disposition: Home or Self Care Social History Tobacco Use Types Packs/Day Years Used Date Smoking Tobacco: Never Smokeless Tobacco: Never Alcohol Use Standard Drinks/Week Comments Yes 3 (1 standard drink = 0.6 oz pur e alcohol) [facility] Utilities Answer Date Recorded In the past 12 months has [employer], gas, oil, or water [employer] threatened to shut off services in your [...] your living situation today? I have a [facility] place to live 07/19/2023 Sex and Gender Information Value Date Recorded Sex Assigned at Male 04/23/2023 8:28 AM MACHINE PACKAGING TECHNICIAN Gender Identity Male 04/23/2023 8:28 AM MACHINE PACKAGING TECHNICIAN Sexual Orientation Straight 04/23/2023 8: 28 AM MACHINE PACKAGING TECHNICIAN documented as of this encounter Medications at [...] Appointment Department of Laboratory Medicine and Pathology, [facility] in [place], [place] [address] [place] [phone] Anita Alvarez APRN, C.N.P., D.N.P. [address] [place] [phone] 03/21/2024 10:30 AM CDT Appointment Department of Radiology, [facility] in [place], [place] [address] [place] [phone] Anita Alvarez APRN, C.N.P., D.N.P. [address] [place] [phone] 03/21/2024 3:30 PM CDT Procedure visit Department of Urology in [place], [place] [address] [place] [phone] Anita Alvarez APRN, C.N.P., D.N.P. [address] [place] [phone] 03/27/2024 11:30 AM CDT Appointment Department of Radiation Oncology in [place], [place] [address] [place] [address] Collette Phillip M.D. [address] [place] [phone] documented as of this encounter Visit Diagnoses Not on filedocumented in this encounter Care Teams Tire Retreader Relationship Specialty Start Date End Date Elsewhere, Pcp PCP - General Internal Medicine 07/14/23 documented as of this encounter
--- OUTSIDE RECORDS SUMMARY | 2024-01-25 08:14 | XMS_ITS | Encounter Summary ---
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 200 [place] [address] [facility] Referral ID Status Reason Start Date Expiration Date V isits Requested Visits Authorized [id number] Authorized 11/17/2023 06/13/2024 20 20 Encounter Details Date Type Department Care Team (Latest Contact Info) Description 11/30/2023 2:20 PM CDT - 11/30/2023 11:59 PM CDT Hospital Encounter Department of Radiation Oncology in [place], [place] [address] [place] [phone] Collette Phillip M.D. [address] [place] [phone] Discharge Disposition: Home or Self Care Social History Tobacco Use Types Packs/Day Years Used Date Smoking Tobacco: Never Smokeless Tobacco: Never Alcohol Use Standard Drinks/Week Comments Yes 3 (1 standard drink = 0.6 oz pur e alcohol) [facility] Utilities Answer Date Recorded In the past 12 months has [employer], gas, oil, or water [employer] threatened to shut off services in your [...] Sex Assigned at Male 04/23/2023 8:28 AM NETWORK SUPPORT SPECIALIST Gender Identity Male 04/23/2023 8:28 AM NETWORK SUPPORT SPECIALIST Sexual Orientation Straight 04/23/2023 8: 28 AM NETWORK SUPPORT SPECIALIST documented as of this encounter Medications at [...] 100 mg by mouth at bedtime. 02/25/2023 olopatadine (PATANOL) 0.1 % ophthalmic solution Administer 1-2 drops into both eyes 2 (two) times a day as needed for allergies. 12/01/2023 tamsulosin (FLOMAX) 0.4 mg 24 hr capsule [...] Appointment Department of Laboratory Medicine and Pathology, [facility] in [place], [place] [address] [place] [phone] Anita Alvarez APRN, C.N.P., D.N.P. [address] [place] [phone] 03/21/2024 10:30 AM CDT Appointment Department of Radiology, [facility], in [place], [place] [address] [place] [phone] Anita Alvarez APRN, C.N.P., D.N.P. [address] [place] [phone] 03/21/2024 3:30 PM CDT Procedure visit Department of Urology in [place], [place] [address] [place] [phone] Anita Alvarez APRN, C.N.P., D.N.P. [address] [place] [phone] 03/27/2024 11:30 AM CDT Appointment Department of Radiation Oncology in [place], [place] [address] [place] [address] Collette Phillip M.D. [address] [place] [phone] documented as of this encounter Visit Diagnoses Not on filedocumented in this encounter Care Teams Finished Cloth Examiner Relationship Specialty Start Date End Date Elsewhere, Pcp PCP - General Internal Medicine 07/14/23 documented as of this encounter
--- OUTSIDE RECORDS SUMMARY | 2024-01-25 08:14 | XMS_ITS | Encounter Summary ---
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 200 [place] [address] [facility] Referral ID Status Reason Start Date Expiration Date V isits Requested Visits Authorized [id number] Authorized 11/17/2023 06/13/2024 20 20 Encounter Details Date Type Department Care Team (Latest Contact Info) Description 12/07/2023 2:20 PM CDT - 12/07/2023 2:52 PM CDT Hospital Encounter Department of Radiation Oncology in [place], [place] [address] [place] [phone] Collette Phillip M.D. [address] [place] [phone] Discharge Disposition: Home or Self Care Social History Tobacco Use Types Packs/Day Years Used Date Smoking Tobacco: Never Smokeless Tobacco: Never Alcohol Use Standard Drinks/Week Comments Yes 3 (1 standard drink = 0.6 oz pur e alcohol) [facility] Utilities Answer Date Recorded In the past 12 months has [employer], gas, oil, or water [employer] threatened to shut off services in your [...] your living situation today? I have a [facility] place to live 07/19/2023 Sex and Gender Information Value Date Recorded Sex Assigned at Male 04/23/2023 8:28 AM EXTRACTING MACHINE OPERATOR Gender Identity Male 04/23/2023 8:28 AM EXTRACTING MACHINE OPERATOR Sexual Orientation Straight 04/23/2023 8: 28 AM EXTRACTING MACHINE OPERATOR documented as of this encounter Medications at Time of Discharge Medication Sig Dispensed Refills Start Date End Date amitriptyline (ELAVIL) 25 mg tablet Take 100 mg by mouth at bedtime. 07/15/2014 carvediloL (COREG) 6.25 mg tablet Take 1 tablet by mouth 2 (two) times a day with meals. 12/11/2022 cholecalciferol (VITAMIN D3) 50 mcg (2,000 Unit) tablet Take 1 tablet by mouth daily. clotrimazole-betamethaso ne (LOTRISONE) 1-0.05 % cream Apply 1 Application topically 2 (two) times a day as needed (irritation). diazePAM (VALIUM) 5 mg tablet Take 0.5 tablets (2.5 mg total) by mouth 3 (three) times a day as needed for muscle spasms. 25 tablet 07/17/2023 finasteride (PROSCAR) 5 mg tablet Take 5 mg by mouth daily. 02/12/2023 lisinopril-hydroCHLOROth iazide (PRINZIDE,ZESTORETIC) 20-25 mg per tablet Take 1 tablet by mouth daily. 07/15/2014 loratadine (CLARITIN REDITABS) 10 mg disintegrating tablet Dissolve 10 mg in the mouth daily. oxyCODONE (ROXICODONE) 5 mg immediate release tabletIndications:Acute Pain Exception Take 1 tablet (5 mg [...] Take 20 mg by mouth as needed. sulfamethoxazole-trimeth oprim (BACTRIM DS) 800-160 mg per tablet Take 1 tablet by mouth 2 (two) times a day. Please start morning of stent removal 2 tablet 11/18/2023 SUMAtriptan (IMITREX) 100 mg tablet Take 100 mg by mouth as needed. 02/25/2023 tadalafiL (CIALIS) 5 mg tablet Take 5 mg by mouth daily. topiramate (TOPAMAX) 100 mg tablet Take 100 mg by mouth at bedtime. 02/25/2023 documented as of this encounter Plan of Treatment Upcoming Encounters Date Type Department Care Team (Late st Contact Info) Description 03/21/2024 9:30 AM CDT Appointment Department of Laboratory Medicine and Pathology, [facility] in [place], [place] [address] [place] [phone] Anita Alvarez APRN, C.N.P., D.N.P. [address] [place] [phone] 03/21/2024 10:30 AM CDT Appointment Department of Radiology, [facility], in [place], [place] [address] [place] [phone] Anita Alvarez APRN, C.N.P., D.N.P. [address] [place] [phone] 03/21/2024 3:30 PM CDT Procedure visit Department of Urology in [address] [phone] Anita Alvarez APRN, C.N.P., D.N.P. [address] [place] [phone] 03/27/2024 11:30 AM CDT Appointment Department of Radiation Oncology in [place], [place] [address] [place] [address] Collette Phillip M.D. [address] [place] [phone] documented as of this encounter Visit Diagnoses Not on filedocumented in this encounter Care Teams Traffic Technician Relationship Specialty Start Date End Date Elsewhere, Pcp PCP - General Internal Medicine 07/14/23 documented as of this encounter
--- OUTSIDE RECORDS SUMMARY | 2024-01-25 08:14 | XMS_ITS | Encounter Summary ---
Author Organization [facility] Address [address] [place] [address] Care Team Providers Care Personnel Arbitrator Name Role Phone Elsewhere, Pcp Primary Care Provider Unavailabl e Encounter Details Date Type Department Care Team (Latest Contact Info) Description 12/02/2023 2:30 PM CDT - 12/02/2023 11:59 PM CDT Hospital Encounter Department of Radiation Oncology in [place], [place] [address] [place] [phone] Collette Phillip M.D. [address] [place] [phone] Discharge Disposition: Home or Self Care Social History Tobacco Use Types Packs/Day Years Used Date Smoking Tobacco: Never Smokeless Tobacco: Never Alcohol Use Standard Drinks/Week Comments Yes 3 (1 standard drink = 0.6 oz pur e alcohol) [facility] Utilities Answer Date Recorded In the past 12 months has [facility] [employer], oil, or water [employer] threatened to shut off services in your [...] your living situation today? [facility] a [facility] place to live 07/19/2023 Sex and Gender Information Value Date Recorded Sex Assigned at Male 04/23/2023 8:28 AM PIPE LINE REPAIRER Gender Identity Male 04/23/2023 8:28 AM PIPE LINE REPAIRER Sexual Orientation Straight 04/23/2023 8: 28 AM PIPE LINE REPAIRER documented as of this encounter Medications at [...] and Pathology, [facility] in [place], [place] [address] [place] [phone] Anita Alvarez APRN, C.N.P., D.N.P. [address] [place] [phone] 03/21/2024 10:30 AM CDT Appointment Department of Radiology, [facility] in [place], [place] [address] [place] [phone] Anita Alvarez APRN, C.N.P., D.N.P. [address] [place] [phone] 03/21/2024 3:30 PM CDT Procedure visit Department of Urology in [place], [place] [address] [place] [phone] Anita Alvarez APRN, C.N.P., D.N.P. [address] [place] [phone] 03/27/2024 11:30 AM CDT Appointment Department of Radiation Oncology in [place], [place] [address] [place] [phone] Collette Phillip M.D. [address] [place] [phone] documented as of this encounter Visit Diagnoses Not on filedocumented in this encounter Care Teams Personnel Arbitrator Relationship Specialty Start Date End Date Elsewhere, Pcp PCP - General Internal Medicine 07/14/23 documented as of this encounter
--- OUTSIDE RECORDS SUMMARY | 2024-01-25 08:15 | XMS_ITS | Encounter Summary ---
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 [address] [place] [phone] [facility] Referral ID Status Reason Start Date Expiration Date V isits Requested Visits Authorized [id number] Authorized 11/17/2023 06/13/2024 20 20 Encounter Details Date Type Department Care Team (Latest Contact Info) Description 11/24/2023 2:24 PM CDT - 11/24/2023 11:59 PM CDT Hospital Encounter Department of Radiation Oncology in [place] [phone] [place] [phone] [place] Estrada M.D. [address] [place] [phone] Discharge Disposition: Home or Self Care Social History Tobacco Use Types Packs/Day Years Used Date Smoking Tobacco: Never Smokeless Tobacco: Never Alcohol Use Standard Drinks/Week Comments Yes 3 (1 standard drink = 0.6 oz pur e alcohol) [facility] Utilities Answer Date Recorded In the past 12 months has [employer], gas, oil, or water [employer] threatened to shut off services in your [...] your living situation today? I have a [facility] place to live 07/19/2023 Sex and Gender Information Value Date Recorded Sex Assigned at Male 04/23/2023 8:28 AM LIBRARIAN SPECIALIST Gender Identity Male 04/23/2023 8:28 AM LIBRARIAN SPECIALIST Sexual Orientation Straight 04/23/2023 8: 28 AM LIBRARIAN SPECIALIST documented as of this encounter Medications [...] 100 mg by mouth at bedtime. 02/25/2023 bacitracin 500 unit/gram ointment Apply 1 Application topically 2 (two) times a day. Apply to tip of penis while catheter remains in place. 09/28/2023 11/26/2023 olopatadine (PATANOL) 0.1 % ophthalmic solution Administer [...] Appointment Department of Laboratory Medicine and Pathology, [facility] in [place], [place] [address] [place] [phone] Anita Alvarez APRN, C.N.P., D.N.P. [address] [place] [phone] 03/21/2024 10:30 AM CDT Appointment Department of Radiology, [facility], in [place], [place] [address] [place] [phone] Anita Alvarez APRN, C.N.P., D.N.P. [address] [place] [phone] 03/21/2024 3:30 PM CDT Procedure visit Department of Urology in [place], [place] [address] [place] [phone] Anita Alvarez APRN, C.N.P., D.N.P. [address] [place] [phone] 03/27/2024 11:30 AM CDT Appointment Department of Radiation Oncology in [place], [place] [address] [place] [phone] Collette Phillip M.D. [address] [place] [phone] documented as of this encounter Visit Diagnoses Not on filedocumented in this encounter Care Teams Brokerage Office Manager Relationship Specialty Start Date End Date Elsewhere, Pcp PCP - General Internal Medicine 07/14/23 documented as of this encounter
--- OUTSIDE RECORDS SUMMARY | 2024-01-25 08:15 | XMS_ITS | Encounter Summary ---
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 [address] [place] [phone] [facility] Region Referral ID Status Reason Start Date Expiration Date Visits Re quested Visits Authorized [id number] Closed 11/23/2023 11/22/2024 1 1 Encounter Details Date Type Department Care Team (Late st Contact Info) Description 11/23/2023 Orders Only Department of Radiation Oncology in [place], [place] [address] [place] [phone] Collette Phillip M.D. 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 I have a [facility] place to live 07/19/2023 Sex and Gender Information Value Date Recorded Sex Assigned at Male 04/23/2023 8:28 AM STEEL HANDLER Gender Identity Male 04/23/2023 8:28 AM STEEL HANDLER Sexual Orientation Straight 04/23/2023 8: 28 AM STEEL HANDLER documented as of this encounter Plan of Treatment Upcoming Encounters Date Type Department Care Team (Late st Contact Info) Description 03/21/2024 9:30 AM CDT Appointment Department of Laboratory Medicine and Pathology, [facility] in [place], [place] [address] [place] [address] Anita Alvarez APRN, C.N.P., D.N.P. [address] [place] [phone] 03/21/2024 10:30 AM CDT Appointment Department of Radiology, [facility] in [place], [place] [address] [place] [phone] Anita Alvarez APRN, C.N.P., D.N.P. [address] [place] [phone] 03/21/2024 3:30 PM CDT Procedure visit Department of Urology in [place], [place] [address] [place] [phone] Anita Alvarez APRN, C.N.P., D.N.P. [address] [place] [phone] 03/27/2024 11:30 AM CDT Appointment Department of Radiation Oncology in [place], [place] [address] [place] [phone] Collette Phillip M.D. [address] [place] [phone] documented as of this encounter Results * Verification/Re-Sim (11/23/2023 3:13 PM CDT) Narrative JOSE JARAMILLO - 11/23/2023 3:13 PM CDT This exam does not require a oncologist review or interpretation. Please refer to the patient? s medical record on this date for clinical details. Collette Phillip M.D. 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
--- OUTSIDE RECORDS SUMMARY | 2024-01-25 08:15 | XMS_ITS | Encounter Summary ---
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 200 [place] [address] 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 200 [place] [address] [facility] Region Referral ID Status Reason Start Date Expiration Date Visits Re quested Visits Authorized [id number] Closed 10/21/2023 10/20/2024 4 4 Encounter Details Date Type Department Care Team (Latest Contact Info) Description 11/23/2023 2:11 PM CDT - 11/23/2023 2:44 PM CDT Hospital Encounter Department of Radiation Oncology in [address] [place] [phone] 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 Utilities Answer Date Recorded In the past 12 months has e electric, gas, oil, or water [employer] threatened to shut off services in your [...] your living situation today? I have a [facility] place to live 07/19/2023 Sex and Gender Information Value Date Recorded Sex Assigned at Male 04/23/2023 8:28 AM SQL REPORT WRITER Gender Identity Male 04/23/2023 8:28 AM SQL REPORT WRITER Sexual Orientation Straight 04/23/2023 8: 28 AM SQL REPORT WRITER documented as of this encounter Medications at [...] Progress Notes * Collette Phillip M.D. - 11/23/2023 3:00 PM CDT ATTESTATION FOR MANAGEMENT VISIT I saw and evaluated the patient and participated in the beck portions of the service as noted below.I reviewed the documentation of Ms. Em San RN and agree with the findings and plan. The patient appears well on exam. We will continue with radiation as planned and monitor weekly. He is able to empty his bladder more, so we will re-simulate him to create a smaller volume and stay off bowel. Collette Phillip M.D., 11/23/2023 SUBJECTIVE REASON FOR VISIT Evaluation for side effects while receiving radiation treatment for 1. 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 Lesion Bladder 3. Frequency Urinary SUPERVISED BY: Collette Phillip M.D. HISTORY OF PRESENT ILLNESS Paul Rae is a 83 y.o. male with bladder cancer. He is now undergoing radiation therapy with concurrent chemotherapy. Dr. Akers is managing chemotherapy pump. Treatment Course: 1xBladder Plan ID Fractions Dose / Fraction (cGy) Dose Treated (cGy) Dose Planned (cGy) First Treatment Last Treatment Elapsed Days [id number] 11/22/2023 11/23/2023 1 Course Summary 11/22/2023 11/23/2023 1 The patient was seen and examined today with Dr. Phillip. The patient reports that he has been doing well post cystoscopy with stent removal done this past Wednesday. He does note that today he is needing to double void and urinary stream weaker. Patient denies fevers, chills, hematuria, rectal bleeding or diarrhea. Dysuria is quite minimal since cystoscopy. PATIENT REPORTED SYMPTOM SCREEN FATIGUE (Scale: 0 = no fatigue; 10 = worst fatigue you can imagine): PAIN (Scale: 0 = no pain; 10 = worst pain you can imagine): OVERALL QUALITY OF LIFE (Scale: 0 = as bad as can be; 10 = as good as can be): OBJECTIVE There were no vitals taken for this visit. PHYSICAL EXAM General: Alert and oriented in no apparent distress. 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 Patient will notify our care team if urinary stream does not improve or worsens. We will see patient in weekly management visits through out his course of radiation therapy. He will contact us with any questions or concerns. We will continue with radiation treatment as planned. Signed by: Em San R.N. 11/23/2023 4:11 PM CDT documented in this encounter Plan of Treatment Upcoming Encounters Date Type Department Care Team (Late st Contact Info) Description 03/21/2024 9:30 AM CDT Appointment Department of Laboratory Medicine and Pathology, [facility] in [place], [place] [address] [place] [phone] Anita Alvarez APRN, C.N.P., D.N.P. [address] [place] [phone] 03/21/2024 10:30 AM CDT Appointment Department of Radiology, [facility], in [place], [place] [address] [place] [phone] Anita Alvarez APRN, C.N.P., D.N.P. [address] [place] [phone] 03/21/2024 3:30 PM CDT Procedure visit Department of Urology in [place], [place] [address] [place] [address] Anita Alvarez APRN, C.N.P., D.N.P. 200 [place] [address] 03/27/2024 11:30 AM CDT Appointment Department of Radiation Oncology in [place], [place] [address] [place] [address] Collette Phillip M.D. 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
--- OUTSIDE RECORDS SUMMARY | 2024-01-25 08:15 | XMS_ITS | Encounter Summary ---
Author Organization [facility] Address [address] [place] [address] Care Team Providers Care Sas Clinical Programmer Name Role Phone Elsewhere, Pcp Primary Care Provider Unavailabl e Reason for Referral * Specialty Diagnoses / Procedures Referred By Myrna t Referred To Contact Marguerite Medina APRN, C.N.P., M.S.N. 200 [place] [address] [facility] Referral ID Status Reason Start Date Expiration Date Visits Re quested Visits Authorized Encounter Details Date Type Department Care Team (Latest Contact Info) Description 11/26/2023 10:34 AM CDT - 11/26/2023 1:29 PM CDT Hospital Encounter Department of Radiation Oncology in [place], [place] [address] [place] [phone] Marguerite Medina APRN, C.N.P., M.S.N. 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 I have a [facility] place to live 07/19/2023 Sex and Gender Information Value Date Recorded Sex Assigned at Male 04/23/2023 8:28 AM SHRINKING MACHINE OPERATOR Gender Identity Male 04/23/2023 8:28 AM SHRINKING MACHINE OPERATOR Sexual Orientation Straight 04/23/2023 8: 28 AM SHRINKING MACHINE OPERATOR documented as of this encounter Last Filed Vital Signs Vital Sign Reading Time Taken Comments Blood Pressure - - Pulse - - Temperature - - Respiratory Rate - - Oxygen Saturation - - Inhaled Oxygen Concentration - - Weight 94 kg (207 lb 3.7 oz) 11/26/2023 1:00 PM CDT Height - - Body Mass Index 31.81 10/21/2023 8:51 AM CDT documented in this [...] of this encounter Progress Notes * Em San, R.N. - 11/26/2023 11:00 AM CDT Patient was educated on side effects of radiation therapy. Their questions were answered to the best of my ability. The patient was encouraged to contact the team at any point, with questions or concerns. documented in this encounter Plan of Treatment Upcoming Encounters Date Type Department Care Team (Late st Contact Info) Description 03/21/2024 9:30 AM CDT Appointment Department of Laboratory Medicine and Pathology, [facility] in [place], [place] [address] [place] [phone] Anita Alvarez APRN, C.N.P., D.N.P. [address] [place] [phone] 03/21/2024 10:30 AM CDT Appointment Department of Radiology, [facility] in [place], [place] [address] [place] [phone] Anita Alvarez APRN, C.N.P., D.N.P. [address] [place] [phone] 03/21/2024 3:30 PM CDT Procedure visit Department of Urology in [place], [place] [address] [place] [phone] Anita Alvarez APRN, C.N.P., D.N.P. [address] [place] [phone] 03/27/2024 11:30 AM CDT Appointment Department of Radiation Oncology in [place], [place] [address] [place] [phone] Collette Phillip M.D. 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
--- OUTSIDE RECORDS SUMMARY | 2024-01-25 08:15 | XMS_ITS | Encounter Summary ---
Author Organization [facility] Address [address] [place] [address] Care Team Providers Care Fine Grade Operator Name Role Phone Elsewhere, Pcp Primary Care Provider Unavailabl e Encounter Details Date Type Department Care Team (Latest Contact Info) Description 11/23/2023 2:45 PM CDT - 11/23/2023 3:12 PM CDT Hospital Encounter Department of Radiation Oncology in [place], [place] [address] [place] [phone] Collette Phillip M.D. [address] [place] [phone] Discharge Disposition: Home or Self Care Social History Tobacco Use Types Packs/Day Years Used Date Smoking Tobacco: Never Smokeless Tobacco: Never Alcohol Use Standard Drinks/Week Comments Yes 3 (1 standard drink = 0.6 oz pur e alcohol) [facility] Utilities Answer Date Recorded In the past 12 months has [facility] [employer], oil, or water [employer] threatened to shut off services in your [...] your living situation today? I have a [facility] place to live 07/19/2023 Sex and Gender Information Value Date Recorded Sex Assigned at Male 04/23/2023 8:28 AM SHELLFISH HARVESTER Gender Identity Male 04/23/2023 8:28 AM SHELLFISH HARVESTER Sexual Orientation Straight 04/23/2023 8: 28 AM SHELLFISH HARVESTER documented as of this encounter Medications at [...] Appointment Department of Laboratory Medicine and Pathology, [place], [place] [address] [place] [phone] Anita Alvarez APRN, C.N.P., D.N.P. [address] [place] [phone] 03/21/2024 10:30 AM CDT Appointment Department of Radiology, [facility], in [place], [place] [address] [place] [phone] Anita Alvarez APRN, C.N.P., D.N.P. [address] [place] [phone] 03/21/2024 3:30 PM CDT Procedure visit Department of Urology in [place], [place] [address] [place] [address] Anita Alvarez APRN, C.N.P., D.N.P. [address] [place] [phone] 03/27/2024 11:30 AM CDT Appointment Department of Radiation Oncology in [place], [place] [address] [place] [phone] Collette Phillip M.D. [address] [place] [phone] documented as of this encounter Visit Diagnoses Not on filedocumented in this encounter Care Teams Fine Grade Operator Relationship Specialty Start Date End Date Elsewhere, Pcp PCP - General Internal Medicine 07/14/23 documented as of this encounter
--- OUTSIDE RECORDS SUMMARY | 2024-01-25 08:15 | XMS_ITS | Encounter Summary ---
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 200 [place] [address] [facility] Region Referral ID Status Reason Start Date Expiration Date Visits Re quested Visits Authorized [id number] Closed 10/21/2023 04/21/2025 1 1 Encounter Details Date Type Department Care Team (Latest Contact Info) Description 11/22/2023 1:39 PM CDT - 11/22/2023 2:44 PM CDT Hospital Encounter Department of Radiation Oncology in [place], [place] [address] [place] [phone] 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); Lesion Bladder; Frequency Urinary Social History Tobacco Use Types Packs/Day Years Used Date Smoking Tobacco: Never Smokeless Tobacco: Never Alcohol Use Standard Drinks/Week Comments Yes 3 (1 standard drink = 0.6 oz pur e alcohol) [facility] Utilities Answer Date Recorded In the [...] Sex Assigned at Male 04/23/2023 8:28 AM TRAY WORKER Gender Identity Male 04/23/2023 8:28 AM TRAY WORKER Sexual Orientation Straight 04/23/2023 8: 28 AM TRAY WORKER documented as of this encounter Last Filed Vital Signs Vital Sign Reading Time Taken Comments Blood Pressure 148/69 11/22/2023 2:13 PM CDT Pulse 67 11/22/2023 2:13 PM CDT Temperature 36.3 ??C (97.4 ??F) 11/22/2023 2:13 PM CD T Respiratory Rate - - Oxygen Saturation - - Inhaled Oxygen Concentration - - Weight 94.1 kg (207 lb 7.3 oz) 11/22/2023 2:13 P M CDT Height - - Body Mass Index 31.84 10/21/2023 8:51 AM CDT documented in this [...] 09/28/2023 12/07/2023 documented as of this encounter Consult Notes * Collette Phillip M.D. - 11/22/2023 2:15 PM CDT SUBJECTIVE REQUESTING PROVIDER Kash Hernandez M.D., Ph.D., Radiation Oncology [place] REASON FOR CONSULT Bladder cancer HISTORY OF PRESENT ILLNESS Paul Rae is a very pleasant 83 y.o. male with bladder cancer, who presents today to help facilitate the delivery of radiation therapy here in [place] after being seen, simulated, andplanned in [place]. He was initially consulted by Dr. Kash Hernandez in [place]. His oncologic history is as follows: Oncology [...] to achieve hemostasis. 3. Placement of [address] Phelps catheter with 10 cc [...] or T4 disease. 7. Placement of 22 Latvian Pehlps catheter with 15 cc in the balloon. [...] present and uninvolved. Background of therapy-related changes. 11/17/2023 - Radiation Therapy Radiation Therapy Treatment Details (Noted on 10/21/2023) Site: Bladder Technique: No technique specified Goal: Curative Planned Treatment Start Date: 11/17/2023 11/19/2023 Surgery and Procedures Uncomplicated left ureteral stent removal. Brief cystoscopy revealed multiple areas of prior recent resection with overlying necrotic debris, no large obvious tumor visualized. 11/22/2023 - Chemotherapy Patient is receiving Mitomycin C and Infusional F-5U under the direction of Dr. Akers at [facility]. She is considering Nivolumab maintenance. INTERVAL HISTORY The patient reports that he is feeling better since the left ureteral stent was removed on Wednesday. He was urinating at night 5-8 times, and this is now down to 3-4 times per night. He notes no urinary pain or bleeding. He denies abdominal pain or discomfort. He states that his energy is poor as he is not sleeping due to the urinary frequency. He is having new left sided pain for the last three weeks. He isn't sure if this is his hip and from sitting around most days. We looked at his PET/CT from October and do not note any lesions on that scan. We will watch this for now. The patient denies a history of prior radiation therapy, connective tissue disorders, or inflammatory bowel disease. The patient denies any electronic implanted devices. His ECOG performance status is 2. REVIEW OF SYSTEMS Review of systems was negative except as documented above. PATIENT REPORTED SYMPTOM SCREEN FATIGUE (Scale: 0 = no fatigue; 10 = worst fatigue you can imagine): 6 PAIN (Scale: 0 = no pain; 10 = worst pain you can imagine): 5 OVERALL QUALITY OF LIFE (Scale: 0 = as bad as can be; 10 = as good as can be): 8 PAST MEDICAL HISTORY Past Medical History: Diagnosis Date Apnea Sleep Obstructive Arthritis Cataract Gastroesophageal Reflux Disease NOS Hypertension NOS Migraine Headache 07/15/2023 Other Injury Of Unspecified Body Region Polyp Colon Seizure (HCC) medication induced Skin Cancer (Primary) NOS 2020 Sleep Apnea Transient Ischemic Attack PAST SURGICAL HISTORY Past Surgical History: Procedure Laterality Date APPENDECTOMY CYSTOSCOPY WITH TRANSURETHRAL RESECTION LESION BLADDER N/A 09/28/2023 Procedure: CYSTOSCOPY WITH TRANSURETHRAL RESECTION LESION BLADDER; Surgeon: Bienvenido Cruz M.D.; Location: [facility] OR CYSTOSCOPY WITH TRANSURETHRAL RESECTION LESION BLADDER N/A 11/04/2023 Procedure: CYSTOSCOPY, TRANSURETHRAL RESECTION LESION BLADDER, maximal re- resection.; Surgeon: Jacob Galo M.D., M.P.H.; Location: [facility] OR CYSTOURETHROSCOPY WITH PLACEMENT URETERAL STENT 11/04/2023 Procedure: CYSTOURETHROSCOPY WITH PLACEMENT URETERAL STENT LEFT; Surgeon: Jacob Galo M.D., M.P.H.; Location: [facility] OR DECOMPRESSION POSTERIOR LUMBAR AND INSTRUMENTED FUSION N/A 07/16/2023 Procedure: DECOMPRESSION POSTERIOR LUMBAR, L3-4 decompression.; Surgeon: Marcelo Carter M.D.; Location: [facility] GALLBLADDER SURGERY 1987 JOINT REPLACEMENT 2021 OTHER SURGICAL HISTORY 1987 bilroth1 RETROGRADE PYELOGRAM 11/04/2023 Procedure: RETROGRADE PYELOGRAM LEFT; Surgeon: Jacob Galo M.D., M.P.H.; Location: [facility] OR FAMILY HISTORY Family History Problem Relation Name Age of Onset Coronary artery disease Father Gaudencio SOCIAL HISTORY Social History Socioeconomic History Marital status: Tobacco Use Smoking status: Never Smokeless tobacco: Never Vaping Use Vaping status: never used Substance and Sexual Activity Alcohol use: Yes Alcohol/week: 3.0 standard drinks of alcohol Types: 3 Standard drinks or equivalent per week Drug use: Never Sexual activity: Not Currently Partners: Female Social Determinants of Health Food Insecurity: No Food Insecurity (07/19/2023) Hunger Vital Sign Worried About Running Out of Food in the Last Year: Never true Ran Out of Food in the Last Year: Never true Transportation Needs: No Transportation Needs (07/19/2023) PRAPARE - Transportation Lack of Transportation (Medical): No Lack of Transportation (Non-Medical): No Physical Activity: Unknown (04/23/2023) Exercise Vital Sign Days of Exercise per Week: 2 days Intimate Partner Violence: Not At Risk (07/19/2023) Humiliation, Afraid, Rape, and Kick questionnaire Fear of Current or Ex-Partner: No Emotionally Abused: No Physically Abused: No Sexually Abused: No Housing Stability: Low Risk (07/19/2023) Housing Stability Housing: Living Situation: I have a steady place to live OBJECTIVE BP 148/69 (BP Location: Right arm, Patient Position: Sitting, Cuff Size: Regular) Pulse 67 Temp36.3 ??C (Temporal) Wt 94.1 kg BMI 31.84 kg/m?? PHYSICAL EXAM General: Patient is alert and oriented in no apparent distress. 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 Rae today. I had a detailed discussion with him and his daughter regarding his bladder cancer diagnosis. We reviewed the oncologic history as detailed above. The patient met with Dr. Kash Hernandez in Radiation Oncology in [place] who recommended radiation treatment to his bladder; he also met with Dr. Akers who will be deliver his chemotherapy. The patient has been simulated and planned for radiation treatment in [place] and is here today to initiatetreatment in [place]. We discussed the risks, benefits, and alternatives of radiotherapy in thissetting. We reviewed the plan for radiation treatment to be delivered daily in 20 fractions with concurrent chemotherapy. I discussed the logistics as well as the acute and chronic side effects of treatment in detail. Theacute side effects are common and may include, but not limited to, urinary frequency and urgency, possible pain with urination, possible bleeding with urination, increased frequency and urgency of bowel movements, diarrhea, gaseous bloating/discomfort, skin irritation, and fatigue. Long-term side effects could include, but are not limited to, stool or urinary incontinence, blood in stool or urine, rectal narrowing, arthritis of the hips, dry ejaculate and possible infertility, and risk of developing a secondary malignancy. His questions were answered to their verbalized satisfaction. The patient is scheduled to initiate radiation treatment today here in [place]. He will be seen in weekly management visits throughout his treatment. He started chemotherapy with Dr. Akers at [facility] today. We will watch his left SI pain for now. Their questions were answered; they were comfortable with this plan. EDUCATION Ready to learn, no apparent learning barriers were identified; learning preferences include listening. Explained diagnosis and treatment plan; patient expressed understanding of the content. Consent Discussed the risks, benefits, alternatives, and the necessity of other members of the healthcare team participating in the procedure. All questions answered and consent given. I personally spent 35 minutes in care of the patient today. Time includes both non face to face andface to face patient care. Signed by: Collette Phillip M.D. 11/22/2023 6:17 PM CDT [facility] [address] [place] [address] documented in this encounter Plan of Treatment Upcoming Encounters Date Type Department Care Team (Late st Contact Info) Description 03/21/2024 9:30 AM CDT Appointment Department of Laboratory Medicine and Pathology, [facility] in [place], [place] [address] [place] [phone] Anita Alvarez APRN, C.N.P., D.N.P. [address] [place] [phone] 03/21/2024 10:30 AM CDT Appointment Department of Radiology, [facility], in [place], [place] [address] [place] [phone] Anita Alvarez APRN, C.N.P., D.N.P. [address] [place] [phone] 03/21/2024 3:30 PM CDT Procedure visit Department of Urology in [place], [place] [address] [place] [address] Anita Alvarez APRN, C.N.P., D.N.P. [address] [place] [address] 03/27/2024 11:30 AM CDT Appointment Department of Radiation Oncology in [place], [place] [address] [place] [phone] Collette Phillip M.D. 200 [place] [phone] Scheduled Referrals Name Type Priority Associated Diagnoses Order Schedule Radiation Oncology - consult (clinic) Outpatient Referral Routine 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) Lesion Bladder Frequency Urinary Once for 1 Occurrences starting 11/22/2023 until 11/22/2023 documented as of this encounter Visit Diagnoses Diagnosis 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) Lesion Bladder Frequency Urinary documented in this encounter Care Teams Channel Cementer Relationship Specialty Start Date End Date Elsewhere, Pcp PCP - General Internal Medicine 07/14/23 documented as of this encounter
--- OUTSIDE RECORDS SUMMARY | 2024-01-25 08:15 | XMS_ITS | Encounter Summary ---
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 [address] [place] [address] [facility] Referral ID Status Reason Start Date Expiration Date V isits Requested Visits Authorized [id number] Authorized 11/17/2023 06/13/2024 20 20 Encounter Details Date Type Department Care Team (Latest Contact Info) Description 11/22/2023 2:45 PM CDT - 11/22/2023 11:59 PM CDT Hospital Encounter Department of Radiation Oncology in [place], [place] [address] [place] [phone] Collette Phillip M.D. [address] [place] [phone] Discharge Disposition: Home or Self Care Social History Tobacco Use Types Packs/Day Years Used Date Smoking Tobacco: Never Smokeless Tobacco: Never Alcohol Use Standard Drinks/Week Comments Yes 3 (1 standard drink = 0.6 oz pur e alcohol) [facility] Utilities Answer Date Recorded In the past 12 months has [employer], gas, oil, or water [employer] threatened to shut off services in your [...] your living situation today? 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 [address] [place] [address] 03/21/2024 10:30 AM CDT Appointment Department of Radiology, [facility], in [place], [place] [address] [place] [address] Anita Alvarez APRN, C.N.P., D.N.P. [address] [place] [phone] 03/21/2024 3:30 PM CDT Procedure visit Department of Urology in [place], [place] [address] [place] [address] Anita Alvarez APRN, C.N.P., D.N.P. [address] [place] [phone] 03/27/2024 11:30 AM CDT Appointment Department of Radiation Oncology in [place], [place] [address] [place] [phone] Collette Phillip M.D. [address] [place] [phone] documented as of this encounter Visit Diagnoses Not on filedocumented in this encounter Care Teams Pretzel Twister Relationship Specialty Start Date End Date Elsewhere, Pcp PCP - General Internal Medicine 07/14/23 documented as of this encounter
--- OUTSIDE RECORDS SUMMARY | 2024-01-25 08:15 | XMS_ITS | Encounter Summary ---
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 [address] [place] [address] [facility] Region Referral ID Status Reason Start Date Expiration Date Visits Re quested Visits Authorized [id number] Closed 11/23/2023 11/22/2024 1 1 Encounter Details Date Type Department Care Team (Latest Contact Info) Description 11/23/2023 3:13 PM CDT - 11/23/2023 6:06 PM CDT Hospital Encounter Department of Radiation Oncology in [address] [place] [phone] Collette Phillip M.D. 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 Physician was immediately available to provide assistance and direction throughout the procedure. The patient was appropriately identified and placed in the treatment position using the necessary immobilization. Area scanned:Pelvis Contrast used for the simulation procedure: None Motion management: None Reason for Re-Sim:Anatomy change Immobilization:No changes made CT guidance: Following positioning of the patient, a series of slices was obtained to be utilized in treatment planning. CT images were transferred to the [employer] treatment planning system. Verification treatment planning will take place prior to treatment delivery as directed by physician. Patient set up and imaging was appropriate and completed without incident. Canal Boat Captain use:No Associated attestation - Collette Phillip M.D. - 11/23/2023 6:06 PM CDT I was present during all critical and beck portions of the procedure(s) and immediately available [facility] services the entire duration. See note for details. documented in this encounter Plan of Treatment Upcoming Encounters Date Type Department Care Team (Late st Contact Info) Description 03/21/2024 9:30 AM CDT Appointment Department of Laboratory Medicine and Pathology, [place], [place] [address] [place] [address] Anita Alvarez APRN, C.N.P., D.N.P. [address] [place] [address] 03/21/2024 10:30 AM CDT Appointment Department of Radiology, [facility] in [place], [place] [address] [place] [address] Anita Alvarez APRN, C.N.P., D.N.P. [address] [place] [phone] 03/21/2024 3:30 PM CDT Procedure visit Department of Urology in [place], [place] [address] [place] [phone] Anita Alvarez APRN, C.NTonaPTona, D.N.P. [address] [place] [phone] 03/27/2024 11:30 AM CDT Appointment Department of Radiation Oncology in [place], [place] [address] [place] [address] Collette Phillip M.D. 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
--- OUTSIDE RECORDS SUMMARY | 2024-01-25 08:15 | XMS_ITS | Encounter Summary ---
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 [address] [place] [address] [facility] Referral ID Status Reason Start Date Expiration Date V isits Requested Visits Authorized [id number] Authorized 11/17/2023 06/13/2024 20 20 Encounter Details Date Type Department Care Team (Latest Contact Info) Description 11/25/2023 2:19 PM CDT - 11/25/2023 11:59 PM CDT Hospital Encounter Department of Radiation Oncology in [place], [place] [address] [place] [phone] Collette Phillip M.D. [address] [place] [phone] Discharge Disposition: Home or Self Care Social History Tobacco Use Types Packs/Day Years Used Date Smoking Tobacco: Never Smokeless Tobacco: Never Alcohol Use Standard Drinks/Week Comments Yes 3 (1 standard drink = 0.6 oz pur e alcohol) [facility] Utilities Answer Date Recorded In the past 12 months has [employer], gas, oil, or water [employer] threatened to shut off services in your [...] your living situation today? I have a [facility] place to live 07/19/2023 Sex and Gender Information Value Date Recorded Sex Assigned at Male 04/23/2023 8:28 AM GAS PIT WORKER Gender Identity Male 04/23/2023 8:28 AM GAS PIT WORKER Sexual Orientation Straight 04/23/2023 8: 28 AM GAS PIT WORKER documented as of this encounter Medications at [...] Appointment Department of Laboratory Medicine and Pathology, [facility] in [place], [place] [address] [place] [phone] Anita Alvarez APRN, C.N.P., D.N.P. [address] [place] [address] 03/21/2024 10:30 AM CDT Appointment Department of Radiology, [facility], in [place], [place] [address] [place] [address] Anita Alvarez APRN, C.N.P., D.N.P. [address] [place] [phone] 03/21/2024 3:30 PM CDT Procedure visit Department of Urology in [place], [place] [address] [place] [address] Anita Alvarez APRN, C.N.P., D.N.P. [address] [place] [phone] 03/27/2024 11:30 AM CDT Appointment Department of Radiation Oncology in [place], [place] [address] [place] [phone] Collette Phillip M.D. [address] [place] [phone] documented as of this encounter Visit Diagnoses Not on filedocumented in this encounter Care Teams Heeler Machine Relationship Specialty Start Date End Date Elsewhere, Pcp PCP - General Internal Medicine 07/14/23 documented as of this encounter
--- OUTSIDE RECORDS SUMMARY | 2024-01-25 08:15 | XMS_ITS | Encounter Summary ---
Author Organization [facility] Address [address] [place] [address] Care Team Providers Care Print Project Manager Name Role Phone Elsewhere, Pcp Primary Care Provider Unavailabl e Encounter Details Date Type Department Care Team (Late st Contact Info) Description 11/18/2023 Orders Only Department of Urology in [place], [place] [address] [place] [phone] Tulio Chavez M.D. [address] [place] [phone] Social History Tobacco Use Types Packs/Day Years Used Date Smoking Tobacco: Never Smokeless Tobacco: Never Alcohol Use Standard Drinks/Week Comments Yes 3 (1 standard drink = 0.6 oz pur e alcohol) [facility] Utilities Answer Date Recorded In the past 12 months has [facility] electric, gas, oil, or water company threatened [...] your living situation today? I have a [facility] place to live 07/19/2023 Sex and Gender Information Value Date Recorded Sex Assigned at Male 04/23/2023 8:28 AM JEWELRY MODEL MAKER Gender Identity Male 04/23/2023 8:28 AM JEWELRY MODEL MAKER Sexual Orientation Straight 04/23/2023 8: 28 AM JEWELRY MODEL MAKER documented as of this encounter Plan of Treatment Upcoming Encounters Date Type Department Care Team (Late st Contact Info) Description 03/21/2024 9:30 AM CDT Appointment Department of Laboratory Medicine and Pathology, [facility], in [place], [place] [address] [place] [address] Anita Alvarez APRN, C.N.P., D.N.P. [address] [place] [phone] 03/21/2024 10:30 AM CDT Appointment Department of Radiology, [facility], in [place], [place] [address] [place] [phone] Anita Alvarez APRN, C.NStefany, D.N.P. [address] [place] [phone] 03/21/2024 3:30 PM CDT Procedure visit Department of Urology in [place], [place] [address] [place] [phone] Anita Alvarez APRN, C.NStefany, D.N.P. [address] [place] [phone] 03/27/2024 11:30 AM CDT Appointment Department of Radiation Oncology in [place], [place] [address] [place] [phone] Collette Phillip M.D. [address] [place] [phone] documented as of this encounter Visit Diagnoses Not on filedocumented in this encounter Care Teams Print Project Manager Relationship Specialty Start Date End Date Elsewhere, Pcp PCP - General Internal Medicine 07/14/23 documented as of this encounter
--- OUTSIDE RECORDS SUMMARY | 2024-01-25 08:15 | XMS_ITS | Encounter Summary ---
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 200 [place] [address] [facility] Referral ID Status Reason Start Date Expiration Date V isits Requested Visits Authorized [id number] Authorized 11/17/2023 06/13/2024 20 20 Encounter Details Date Type Department Care Team (Latest Contact Info) Description 11/29/2023 2:23 PM CDT - 11/29/2023 11:59 PM CDT Hospital Encounter Department of Radiation Oncology in [place], [place] [address] [place] [phone] Collette Phillip M.D. 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 [address] [place] [phone] 03/21/2024 10:30 AM CDT Appointment Department of Radiology, [facility], in [place], [place] [address] [place] [phone] Anita Alvarez APRN, C.N.P., D.N.P. [address] [place] [phone] 03/21/2024 3:30 PM CDT Procedure visit Department of Urology in [place], [place] [address] [place] [phone] Anita Alvarez APRN, C.N.P., D.N.P. [address] [place] [phone] 03/27/2024 11:30 AM CDT Appointment Department of Radiation Oncology in [place], [place] [address] [place] [phone] Collette Phillip M.D. [address] [place] [phone] documented as of this encounter Visit Diagnoses Not on filedocumented in this encounter Care Teams Ux Consultant Relationship Specialty Start Date End Date Elsewhere, Pcp PCP - General Internal Medicine 07/14/23 documented as of this encounter
--- OUTSIDE RECORDS SUMMARY | 2024-01-25 08:15 | XMS_ITS | Encounter Summary ---
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 200 [place] [address] [facility] Referral ID Status Reason Start Date Expiration Date V isits Requested Visits Authorized [id number] Authorized 11/17/2023 06/13/2024 20 20 Encounter Details Date Type Department Care Team (Latest Contact Info) Description 11/26/2023 10:33 AM T Hospital Encounter Department of Radiation Oncology in [place], [place] [address] [place] [phone] Collette Phillip M.D. [address] [place] [phone] Discharge Disposition: Home or Self Care Social [...] your living situation today? I have a [facility] place to live 07/19/2023 Sex and Gender Information Value Date Recorded Sex Assigned at Male 04/23/2023 8:28 AM SECONDARY SCHOOL REGISTRAR Gender Identity Male 04/23/2023 8:28 AM SECONDARY SCHOOL REGISTRAR Sexual Orientation Straight 04/23/2023 8: 28 AM SECONDARY SCHOOL REGISTRAR documented as of this encounter Medications at [...] Appointment Department of Laboratory Medicine and Pathology, [place], [place] [address] [place] [phone] Anita Alvarez APRN, C.N.P., D.N.P. [address] [place] [phone] 03/21/2024 10:30 AM CDT Appointment Department of Radiology, [facility] in [place], [place] [address] [place] [phone] Anita Alvarez APRN, C.NStefany, D.N.P. [address] [place] [phone] 03/21/2024 3:30 PM CDT Procedure visit Department of Urology in [place], [place] [address] [place] [phone] Anita Alvarez APRN, C.NStefany, D.N.P. [address] [place] [phone] 03/27/2024 11:30 AM CDT Appointment Department of Radiation Oncology in [place], [place] [address] [place] [phone] Collette Phillip M.D. [address] [place] [phone] documented as of this encounter Visit Diagnoses Not on filedocumented in this encounter Care Teams Community Development Worker Relationship Specialty Start Date End Date Elsewhere, Pcp PCP - General Internal Medicine 07/14/23 documented as of this encounter
--- OUTSIDE RECORDS SUMMARY | 2024-01-25 08:15 | XMS_ITS | Encounter Summary ---
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 [address] [place] [phone] [facility] Referral ID Status Reason Start Date Expiration Date Visits Re quested Visits Authorized [id number] Closed 11/04/2023 11/03/2024 1 1 Encounter Details Date Type Department Care Team (Latest Contact Info) Description 11/19/2023 2:00 PM CDT Procedure visit Department of Urology in [place], [place] [address] [place] [phone] Mike Giles M.B., B.Ch. [address] [place] [phone] Ana Higginbotham M.D., M.Ed. 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 [facility] 07/19/2023 Sex and Gender Information Value Date Recorded Sex Assigned at Male 04/23/2023 8:28 AM WOOD DRILL OPERATOR Gender Identity Male 04/23/2023 8:28 AM WOOD DRILL OPERATOR Sexual Orientation Straight 04/23/2023 8: 28 AM WOOD DRILL OPERATOR documented as of this encounter Patient Instructions * Patient Instructions* Rubio Reyes - 11/19/2023 2:00 PM CDT Care after your cystoscopy Possible blood in your urine You may see some blood the first few times you urinate after the cystoscopy. There could be some small clots of blood in your urine. Or your urine could be pink or light red. These effects are commonafter a cystoscopy. Discomfort For the first day or two after your cystoscopy, you may need to urinate often, and you may have a mild burning feeling while urinating. You also may have mild low abdominal pain for a day. To relievediscomfort, drink two 8-ounce glasses of water each hour for two hours after the test (a total of four glasses in two hours). This will help flush your bladder. To relieve discomfort, if your provider says it???s OK, you may take a warm tub bath for 20 minutes. Or you may hold a clean, warm, moist washcloth over the urethral opening for 20 minutes. Some common pain relievers can affect blood thinning. Examples include aspirin, aspirin-containing products, ibuprofen (Advil, Motrin), and naproxen(Aleve, Naprosyn). Talk with your health care providers about what you can take for pain. Activity Rest for the remainder of the day after your cystoscopy. Gradually return to your usual activity level when you feel able. Diet For the first two days after your cystoscopy, while you are awake, you may find it more comfortableif you drink at least one glass of fluid every one to two hours. This will help flush your bladder.Drink fluids such as water, juice, caffeine-free carbonated beverages and tea. Resume your usual diet after the procedure, unless you are scheduled for more tests or procedures that require a specialdiet. When to get medical help Contact your health care provider right away if you: Are not able to urinate for 6 to 8 hours. Have blood clots or bright red blood in your urine (not pink or rust colored) that lasts for 4 to 5hours despite increased intake of fluids. Have frequent urination with any of the following: - Pain not relieved by increasing fluids. - Chills. - Temperature of 100.4 degrees Fahrenheit (38 degrees Celsius) or higher. Have a burning feeling while urinating on day three or after. documented in this encounter Progress Notes * Ana Higginbotham M.D., MKiran. - 11/19/2023 2:00 PM CDT Patient here for a cystoscopy performed by Dr. Ana Higginbotham Cystoscope CYF-VH #[id number] was used during today's cystoscopy procedure. Accessories used: disposable stop cock and stent grasper. Load number from processing via [employer]: [id number] Urines sent: Yes. UA and Culture via midstream 4. Was dye used? No documented in this encounter Procedure Notes * Ana Higginbotham M.D., Antwan. 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 Authorized by: Mike Giles M.B., B.Ch. Care team members present 1. Ana Higginbotham M.D., DebbieEd. IMPRESSION normal post-surgical changes and foreign body Additional procedures performed: cystoscopy and stent removal PROCEDURE DETAILS: Ureteral stent removed: Side performed: Left Removal: simple A flexible cystoscope was inserted through the urethra into the bladder. Cystoscope was removed at the end of procedure. History of Present Illness. 83 y/o M recently underwent maximal TURBT on 11/12/2023 including resection close to the left ureteral orifice thus a stent was placed. He presents for cystoscopy with stent removal. System Review: Patient has had no interval problems. Procedure and Findings: After appropriate informed consent and proper identification of patient by name and number, they were prepped and draped in dorsal lithotomy position. The 17 Greek Olympus video scope was introducedat plain jelly. Brief cystoscopy revealed multiple areas of prior recent resection with overlying necrotic debris, no large obvious tumor visualized. A stent was visualized emanating from the left ureteral orifice with no evidence of biofilm or encrustation, this was grasped using the stent graspers and removed in its entirety. Patient tolerated the procedure well. Impression: Uncomplicated left [...] a procedural pause. PRE-PROCEDURE DETAILS Procedure purpose: Diagnostic SEDATION / ANESTHESIA Anesthesia method: none POST-PROCEDURE DETAILS Procedure completed successfully: yes Complications: no apparent complications documented in this encounter Plan of Treatment Upcoming Encounters Date Type Department Care Team (Late st Contact Info) Description 03/21/2024 9:30 AM CDT Appointment Department of Laboratory Medicine and Pathology, [facility], in [place] [address] [place] [phone] Anita Alvarez APRN C.N.P., D.N.P. [address] [place] [phone] 03/21/2024 10:30 AM CDT Appointment Department of Radiology, [facility], in [place], [place] [address] [place] [address] Anita Alvarez APRN, C.N.P., D.N.P. [address] [place] [phone] 03/21/2024 3:30 PM CDT Procedure visit Department of Urology in [place], [place] [address] [place] [phone] Anita Alvarez APRN, Agapito.N.P., D.N.P. [address] [place] [phone] 03/27/2024 11:30 AM CDT Appointment Department of Radiation Oncology in [place] [address] [place] [phone] Collette Phillip M.D. 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 11/20/2023 12:31 PM CDT DTL Urine (Urine, Midstream) 11/19/2023 2:12 PM CDT 11/19/2023 3:07 PM CDT Comment:Specimen Source Site : Urine Tulio Chavez M.D. LAB MICROBIOLOGY - GENERAL ORDERABLES [facility] [address] [place] [address], [facility] DTL [facility] [address] [place] [address] * TN CYSTHRSCPY RMVL FB/STENT SMPL (11/19/2023 2:00 PM [...] draped in dorsal lithotomy position. The 17 Greek Olympus video scope was introduced at [facility]. Brief cystoscopy revealed multiple areas of prior [...] ?? Complications: no apparent complications ?? Mike Keith B. 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
--- OUTSIDE RECORDS SUMMARY | 2024-01-25 08:15 | XMS_ITS | Encounter Summary ---
Author Organization [facility] Address [address] [place] [address] Care Team Providers Care Ingot Stripper Name Role Phone Elsewhere, Pcp Primary Care Provider Unavailabl e Reason for Visit * Reason Onset Date Comments Appt Request 11/17/2023 Encounter Details Date Type Department Care Team (Late st Contact Info) Description 11/17/2023 Clinical Communication Department of Oncology in [place], [place] [address] [place] [phone] Lorrie Hicks M.D. [address] [place] [phone] Appt Request Social History Tobacco Use Types Packs/Day Years Used Date Smoking Tobacco: Never Smokeless Tobacco: Never Alcohol Use Standard Drinks/Week Comments Yes 3 (1 standard drink = 0.6 oz pur e alcohol) [facility] Utilities Answer Date Recorded In the past 12 months has [facility] [employer], gas, oil, or water [employer] threatened to shut off services in your [...] your living situation today? I have a [facility] place to live 07/19/2023 Sex and Gender Information Value Date Recorded Sex Assigned at Male 04/23/2023 8:28 AM SURVEY SUPERINTENDENT Gender Identity Male 04/23/2023 8:28 AM SURVEY SUPERINTENDENT Sexual Orientation Straight 04/23/2023 8: 28 AM SURVEY SUPERINTENDENT documented as of this encounter Plan of Treatment Upcoming Encounters Date Type Department Care Team (Late st Contact Info) Description 03/21/2024 9:30 AM CDT Appointment Department of Laboratory Medicine and Pathology, [facility], in [place], [place] [address] [place] [address] Anita Alvarez APRN, C.N.P., D.N.P. [address] [place] [phone] 03/21/2024 10:30 AM CDT Appointment Department of Radiology, [facility], in [place], [place] [address] [place] [phone] Anita Alvarez APRN, C.N.PTona, D.N.P. [address] [place] [phone] 03/21/2024 3:30 PM CDT Procedure visit Department of Urology in [place], [place] [address] [place] [phone] Anita Alvarez APRN, C.N.P., D.N.P. [address] [place] [phone] 03/27/2024 11:30 AM CDT Appointment Department of Radiation Oncology in [place] [address] [place] [phone] Collette Phillip M.D. [address] [place] [phone] documented as of this encounter Visit Diagnoses Not on filedocumented in this encounter Care Teams Ingot Stripper Relationship Specialty Start Date End Date Elsewhere, Pcp PCP - General Internal Medicine 07/14/23 documented as of this encounter
--- OUTSIDE RECORDS SUMMARY | 2024-01-25 08:16 | XMS_ITS | Encounter Summary ---
Author Organization [facility] Address [address] [place] [address] Care Team Providers Care Granite Polisher Machine Name Role Phone Elsewhere, Pcp Primary Care Provider Unavailabl e Encounter Details Date Type Department Care Team (Late st Contact Info) Description 11/04/2023 9:35 AM CDT Ancillary Procedure Department of General Surgery Social History Tobacco Use Types Packs/Day Years Used Date Smoking Tobacco: Never Smokeless Tobacco: Never Alcohol Use Standard Drinks/Week Comments Yes 3 (1 standard drink = 0.6 oz pur e alcohol) [facility] Utilities Answer Date Recorded In the [...] living situation today? I have a [facility] place to live 07/19/2023 Sex and Gender Information Value Date Recorded Sex Assigned at Male 04/23/2023 8:28 AM YARN CONDITIONER Gender Identity Male 04/23/2023 8:28 AM YARN CONDITIONER Sexual Orientation Straight 04/23/2023 8: 28 AM YARN CONDITIONER documented as of this encounter Plan of Treatment Upcoming Encounters Date Type Department Care Team (Late st Contact Info) Description 03/21/2024 9:30 AM CDT Appointment Department of Laboratory Medicine and Pathology, [place], [place] 200 [place] [address] Anita Alvarez APRN, C.N.P., D.N.P. 200 [place] [phone] 03/21/2024 10:30 AM CDT Appointment Department of Radiology, [facility], [place] [address] [place] [address] Anita Alvarez APRN, Agapito.N.P., D.N.P. [address] [place] [phone] 03/21/2024 3:30 PM CDT Procedure visit Department of Urology in [place], [place] [address] [place] [address] Anita Alvarez APRN, C.N.Samuel., D.N.P. [address] [place] [phone] 03/27/2024 11:30 AM CDT Appointment Department of Radiation Oncology in [place], [place] [address] [place] [phone] Collette Phillip M.D. [address] [place] [phone] documented as of this encounter Procedures Procedure Name Priority Date/Time Associated Diagnosis Comments SURGERY IMAGE EXAM Routine 11/04/2023 9: 35 AM CDT documented in this encounter Results * BLADDER-Surgery Image Exam (11/04/2023 9:35 AM CDT) Narrative [facility] - 11/04/2023 2:19 PM CDT This order has been created and auto-finalized to support the import of images acquired without order. The clinical documentation to support these images can be found on the encounter that produced images. Provider Not In System IMG NON RAD IMAGI NG PROCEDURES [facility] NA documented in this encounter Visit Diagnoses Not on filedocumented in this encounter Care Teams Granite Polisher Machine Relationship Specialty Start Date End Date Elsewhere, Pcp PCP - General Internal Medicine 07/14/23 documented as of this encounter
--- OUTSIDE RECORDS SUMMARY | 2024-01-25 08:16 | XMS_ITS | Encounter Summary ---
Author Organization [facility] Address [address] [place] [address] Care Team Providers Care Maitre D' Name Role Phone Elsewhere, Pcp Primary Care Provider Unavailabl e Encounter Details Date Type Department Care Team (Late st Contact Info) Description 11/08/2023 Clinical Communication Department of Urology in [place], [place] [address] [place] [phone] Anita Vivar M.D. [address] [place] [phone] Social History Tobacco Use Types Packs/Day Years Used Date Smoking Tobacco: Never Smokeless Tobacco: Never Alcohol Use Standard Drinks/Week Comments Yes 3 (1 standard drink = 0.6 oz pur e alcohol) [facility] Utilities Answer Date Recorded In the past 12 months has [facility] [employer], gas, oil, or water [employer] threatened to shut off services in your [...] money to buy more. Never true 07/19/19 Within the past 12 months, t he [...] your living situation today? I have a [facility] place to live 07/19/2023 Sex and Gender Information Value Date Recorded Sex Assigned at Male 04/23/2023 8:28 AM WEB DEVELOPMENT INTERN Gender Identity Male 04/23/2023 8:28 AM WEB DEVELOPMENT INTERN Sexual Orientation Straight 04/23/2023 8: 28 AM WEB DEVELOPMENT INTERN documented as of this encounter Miscellaneous Notes * Telephone Encounter - Anita Vivar M.D. - 11/08/2023 12:31 PM CDT Mr. Rae underwent re-TURBT and left ureteral stent placement in [facility] on 11/03. Catheter still in place. He now describes some penile swelling edema of the glans and pain. He has some bleeding around the catheter and has been applying bacitracin and using alcohol wipes on the tip of the penis. No issues with catheter drainage. He has an appointment for catheter removal tomorrow. I advised starting antibiotics before this so sent a prescription for Bactrim to his local pharmacy. Advised him to switch to a non-antibiotic ointment such as aquaphor or vaseline to lubricate but fewer irritatingagents in the ointment compared to bacitracin, and to stop using alcohol wipes as these can be quite caustic. Would recommend keeping the stent for at least 3 weeks as the ureteral orifice heals. Anita Vivar M.D. documented in this encounter Plan of Treatment Upcoming Encounters Date Type Department Care Team (Late st Contact Info) Description 03/21/2024 9:30 AM CDT Appointment Department of Laboratory Medicine and Pathology, [facility] in [place], [place] [address] [place] [phone] Anita Alvarez APRN, C.N.P., D.N.P. [address] [place] [phone] 03/21/2024 10:30 AM CDT Appointment Department of Radiology, [facility], in [place], [place] [address] [place] [phone] Anita Alvarez APRN, C.N.P., D.N.P. [address] [place] [phone] 03/21/2024 3:30 PM CDT Procedure visit Department of Urology in [place], [place] [address] [place] [phone] Anita Alvarez APRN, C.N.P., D.N.P. [address] [place] [phone] 03/27/2024 11:30 AM CDT Appointment Department of Radiation Oncology in [place], [place] [address] [place] [phone] Collette Phillip M.D. [address] [place] [phone] documented as of this encounter Visit Diagnoses Not on filedocumented in this encounter Care Teams Maitre D' Relationship Specialty Start Date End Date Elsewhere, Pcp PCP - General Internal Medicine 07/14/23 documented as of this encounter
--- OUTSIDE RECORDS SUMMARY | 2024-01-25 08:16 | XMS_ITS | Encounter Summary ---
Author Organization [facility] Address [address] [place] [address] Care Team Providers Care Mold Setter Name Role Phone Elsewhere, Pcp Primary Care Provider Unavailabl e Encounter Details Date Type Department Care Team (Late st Contact Info) Description 11/09/2023 Clinical Communication Department of Urology in [place], [place] [address] [place] [phone] Tulio Chavez M.D. [address] [place] [phone] Social History Tobacco Use Types Packs/Day Years Used Date Smoking Tobacco: Never Smokeless Tobacco: Never Alcohol Use Standard Drinks/Week Comments Yes 3 (1 standard drink = 0.6 oz pur e alcohol) [facility] Utilities Answer Date Recorded In the past 12 months has [facility], gas, oil, or water company threatened [...] your living situation today? I have a [facility] place to live 07/19/2023 Sex and Gender Information Value Date Recorded Sex Assigned at Male 04/23/2023 8:28 AM MOLD BLOWER Gender Identity Male 04/23/2023 8:28 AM MOLD BLOWER Sexual Orientation Straight 04/23/2023 8: 28 AM MOLD BLOWER documented as of this encounter Miscellaneous Notes * Telephone Encounter - Tulio Chavez M.D. - 11/09/2023 5:21 PM CDT Called patient. 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 LVI and perineural invasion present. Patient was planning to undergo TMT therapy. He has a simulation planning on 11/11/2023 with radiation oncology. He plans to pursue medical oncology locally in [place] however has not been contacted by this team. I will reach out to Dr. Hicks's team to facilitate. Patient also concerned because he can not read his op note from his most recent surgery on 11/04/2023. I read the critical findings to the patient. All questions answered. Patient encouraged to reach out to his medical oncology team for further guidance. documented in this encounter Plan of Treatment Upcoming Encounters Date Type Department Care Team (Late st Contact Info) Description 03/21/2024 9:30 AM CDT Appointment Department of Laboratory Medicine and Pathology, [facility] in [place], [place] [address] [place] [phone] Anita Alvarez APRN, C.N.P., D.N.P. [address] [place] [phone] 03/21/2024 10:30 AM CDT Appointment Department of Radiology, [facility], in [place], [place] [address] [place] [phone] Anita Alvarez APRN, Agapito.N.P., D.N.P. [address] [place] [phone] 03/21/2024 3:30 PM CDT Procedure visit Department of Urology in [place], [place] [address] [place] [phone] Anita Alvarez APRN, C.N.P., D.N.P. [address] [place] [phone] 03/27/2024 11:30 AM CDT Appointment Department of Radiation Oncology in [address] [phone] Collette Phillip M.D. 200 [place] [phone] documented as of this encounter Visit Diagnoses Not on filedocumented in this encounter Care Teams Mold Setter Relationship Specialty Start Date End Date Elsewhere, Pcp PCP - General Internal Medicine 07/14/23 documented as of this encounter
--- OUTSIDE RECORDS SUMMARY | 2024-01-25 08:16 | XMS_ITS | Encounter Summary ---
Author Organization [facility] Address [address] [place] [address] Care Team Providers Care Credit Associate Name Role Phone Elsewhere, Pcp Primary Care Provider Unavailabl e Encounter Details Date Type Department Care Team (Late st Contact Info) Description 11/10/2023 Clinical Communication Department of Oncology in [place], [place] [address] [place] [phone] Lorrie Hicks M.D. [address] [place] [phone] Social History Tobacco Use Types Packs/Day Years Used Date Smoking Tobacco: Never Smokeless Tobacco: Never Alcohol Use Standard Drinks/Week Comments Yes 3 (1 standard drink = 0.6 oz pur e alcohol) [facility] Utilities Answer Date Recorded In the past 12 months has [facility] [employer], gas, oil, or water [email or web address] threatened to shut off services in your [...] your living situation today? I have a [facility] place to live 07/19/2023 Sex and Gender Information Value Date Recorded Sex Assigned at Male 04/23/2023 8:28 AM BUFFER AUTOMATIC Gender Identity Male 04/23/2023 8:28 AM BUFFER AUTOMATIC Sexual Orientation Straight 04/23/2023 8: 28 AM BUFFER AUTOMATIC documented as of this encounter Plan of Treatment Upcoming Encounters Date Type Department Care Team (Late st Contact Info) Description 03/21/2024 9:30 AM CDT Appointment Department of Laboratory Medicine and Pathology, [facility], in [place], [place] [address] [place] [phone] Anita Alvarez APRN, C.N.P., D.N.P. [address] [place] [phone] 03/21/2024 10:30 AM CDT Appointment Department of Radiology, [facility], in [place], [place] [address] [place] [address] Anita Alvarez APRN, Agapito.N.PTona, D.N.P. [address] [place] [phone] 03/21/2024 3:30 PM CDT Procedure visit Department of Urology in [place], [place] [address] [place] [phone] Anita Alvarez APRN, C.N.P., D.N.P. [address] [place] [phone] 03/27/2024 11:30 AM CDT Appointment Department of Radiation Oncology in [place] [address] [place] [phone] Collette Phillip M.D. [address] [place] [phone] documented as of this encounter Visit Diagnoses Not on filedocumented in this encounter Care Teams Credit Associate Relationship Specialty Start Date End Date Elsewhere, Pcp PCP - General Internal Medicine 07/14/23 documented as of this encounter
--- OUTSIDE RECORDS SUMMARY | 2024-01-25 08:16 | XMS_ITS | Encounter Summary ---
Author Organization [facility] Address [address] [place] [address] Care Team Providers Care Clinique Counter Manager Name Role Phone Elsewhere, Pcp Primary Care Provider Unavailabl e Encounter Details Date Type Department Care Team (Late st Contact Info) Description 11/04/2023 9:30 AM CDT Ancillary Procedure Department of General Surgery Social History Tobacco Use Types Packs/Day Years Used Date Smoking Tobacco: Never Smokeless Tobacco: Never Alcohol Use Standard Drinks/Week Comments Yes 3 (1 standard drink = 0.6 oz pur e alcohol) [facility] Utilities Answer Date Recorded In the [...] Sex Assigned at Male 04/23/2023 8:28 AM ORACLE DATABASE DEVELOPER Gender Identity Male 04/23/2023 8:28 AM ORACLE DATABASE DEVELOPER Sexual Orientation Straight 04/23/2023 8: 28 AM ORACLE DATABASE DEVELOPER documented as of this encounter Plan of Treatment Upcoming Encounters Date Type Department Care Team (Late st Contact Info) Description 03/21/2024 9:30 AM CDT Appointment Department of Laboratory Medicine and Pathology, [place], [place] 200 [place] [address] Anita Alvarez APRN, C.N.P., D.N.P. 200 [place] [address] 03/21/2024 10:30 AM CDT Appointment Department of Radiology, [facility], [place] [address] [place] [address] Anita Alvarez APRN, Agapito.N.P., D.N.P. [address] [place] [phone] 03/21/2024 3:30 PM CDT Procedure visit Department of Urology in [place], [place] [address] [place] [phone] Anita Alvarez APRN, C.N.P., D.N.P. [address] [place] [phone] 03/27/2024 11:30 AM CDT Appointment Department of Radiation Oncology in [place], [place] [address] [place] [phone] Collette Phillip M.D. [address] [place] [phone] documented as of this encounter Procedures Procedure Name Priority Date/Time Associated Diagnosis Comments SURGERY IMAGE EXAM Routine 11/04/2023 9: 30 AM CDT documented in this encounter Results * BLADDER-Surgery Image Exam (11/04/2023 9:30 AM CDT) 11/04/2023 9:28 AM CDT Narrative IIM[facility] - 11/04/2023 1:08 PM CDT This order has been created and auto-finalized to support the import of images acquired without order. The clinical documentation to support these images can be found on the encounter that produced images. Provider Not In System IMG NON RAD IMAGI NG PROCEDURES [facility] NA documented in this encounter Visit Diagnoses Not on filedocumented in this encounter Care Teams Clinique Counter Manager Relationship Specialty Start Date End Date Elsewhere, Pcp PCP - General Internal Medicine 07/14/23 documented as of this encounter
--- OUTSIDE RECORDS SUMMARY | 2024-01-25 08:16 | XMS_ITS | Encounter Summary ---
Author Organization [facility] Address [address] [place] [address] Care Team Providers Care [employer] Name Role Phone Elsewhere, Pcp Primary Care Provider Unavailabl e Encounter Details Date Type Department Care Team (Latest Contact Info) Description 11/09/2023 1:36 PM CDT - 11/09/2023 11:59 PM CDT Hospital Encounter Department of Laboratory Medicine and Pathology, [facility] in [place], [place] [address] [place] [phone] Bienvenido Cruz M.D. [address] [place] [phone] Stent Ureteral Indwelling Discharge Disposition: Home or Self Care Social History Tobacco Use Types Packs/Day Years Used Date Smoking Tobacco: Never Smokeless Tobacco: Never Alcohol Use Standard Drinks/Week Comments Yes 3 (1 standard drink = 0.6 oz pur e alcohol) [facility] Utilities Answer Date Recorded In the past 12 months has [employer] gas, oil, or water [employer] threatened to shut off services in your [...] your living situation today? I have a [facility] place to live 07/19/2023 Sex and Gender Information Value Date Recorded Sex Assigned at Male 04/23/2023 8:28 AM UNDERWRITING DIRECTOR Gender Identity Male 04/23/2023 8:28 AM UNDERWRITING DIRECTOR Sexual Orientation Straight 04/23/2023 8: 28 AM UNDERWRITING DIRECTOR documented as of this encounter Medications at [...] Take 20 mg by mouth as needed. SUMAtriptan (IMITREX) 100 mg tablet Take 100 mg by mouth as needed. 02/25/2023 tadalafiL (CIALIS) 5 mg tablet Take 5 mg by mouth daily. topiramate (TOPAMAX) 100 mg tablet Take 100 mg by mouth at bedtime. 02/25/2023 sulfamethoxazole-trime thoprim (BACTRIM DS) 800-160 mg per tablet Take 1 tablet by mouth 2 (two) times a day for 3 days. 6 tablet 11/08/2023 11/11/2023 bacitracin 500 unit/gram ointment Apply 1 Application [...] Appointment Department of Laboratory Medicine and Pathology, [facility] in [place], [place] [address] [place] [phone] Anita Alvarez APRN, C.N.P., D.N.P. [address] [place] [phone] 03/21/2024 10:30 AM CDT Appointment Department of Radiology, [facility], in [place], [place] [address] [place] [phone] Anita Alvarez APRN, C.N.P., D.N.P. [address] [place] [phone] 03/21/2024 3:30 PM CDT Procedure visit Department of Urology in [place], [place] [address] [place] [phone] Anita Alvarez APRN, C.N.P., D.N.P. [address] [place] [phone] 03/27/2024 11:30 AM CDT Appointment Department of Radiation Oncology in [place], [place] [address] [place] [phone] Collette Phillip M.D. [address] [place] [phone] documented as of this encounter Procedures Procedure Name Priority Date/Time Associated Diagnosis Comments BACTERIAL CULTURE, AEROBIC + SUSC, URINE Routine 11/09/2023 1:47 PM CDT Stent Ureteral Indwelling documented in this encounter Results * Bacterial Culture, Aerobic + Susceptibility, Urine (11/09/2023 1:47 PM CDT) Urine Culture No growth after 1 day of incubation. 11/10/2023 8:19 AM CDT DTL Urine (Urine, Midstream) 11/09/2023 1:47 PM CDT 11/09/2023 3:14 PM CDT Comment:Specimen Source Site : Urine Bienvenido Cruz M.D. LAB MICROBIOLOGY - G ENERAL ORDERABLES [facility] [address] [place] [address], [place] DTL [facility] 200 [place] [address] documented in this encounter Visit Diagnoses Diagnosis Stent Ureteral Indwelling documented in this encounter Care Teams [employer] Relationship Specialty Start Date End Date Elsewhere, Pcp PCP - General Internal Medicine 07/14/23 documented as of this encounter
--- OUTSIDE RECORDS SUMMARY | 2024-01-25 08:16 | XMS_ITS | Encounter Summary ---
Author Organization [facility] Address [address] [place] [address] Care Team Providers Care Printer Operator Name Role Phone Elsewhere, Pcp Primary Care Provider Unavailabl e Encounter Details Date Type Department Care Team (Late st Contact Info) Description 11/10/2023 Orders Only Department of Oncology in [place], [place] [address] [place] [phone] Lorrie Hicks M.D. 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 I have a [facility] place to live 07/19/2023 Sex and Gender Information Value Date Recorded Sex Assigned at Male 04/23/2023 8:28 AM WAREHOUSE DELIVERY MANAGER Gender Identity Male 04/23/2023 8:28 AM WAREHOUSE DELIVERY MANAGER Sexual Orientation Straight 04/23/2023 8: 28 AM WAREHOUSE DELIVERY MANAGER documented as of this encounter Plan of Treatment Upcoming Encounters Date Type Department Care Team (Late st Contact Info) Description 03/21/2024 9:30 AM CDT Appointment Department of Laboratory Medicine and Pathology, [facility], in [place], [place] [address] [place] [address] Anita Alvarez APRN, C.N.PTona, D.N.P. [address] [place] [phone] 03/21/2024 10:30 AM CDT Appointment Department of Radiology, [facility], in [place], [place] [address] [place] [address] Anita Alvarez APRN, C.N.PTona, D.N.P. [address] [place] [phone] 03/21/2024 3:30 PM CDT Procedure visit Department of Urology in [place], [place] [address] [place] [phone] Anita Alvarez APRN, C.N.P., D.N.P. [address] [place] [phone] 03/27/2024 11:30 AM CDT Appointment Department of Radiation Oncology in [place], [place] [address] [place] [phone] Collette Phillip M.D. [address] [place] [phone] documented as of this encounter Visit Diagnoses Diagnosis 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)- Primary documented in this encounter Care Teams Printer Operator Relationship Specialty Start Date End Date Elsewhere, Pcp PCP - General Internal Medicine 07/14/23 documented as of this encounter
--- OUTSIDE RECORDS SUMMARY | 2024-01-25 08:16 | XMS_ITS | Encounter Summary ---
Author Organization [facility] Address [address] [place] [address] Care Team Providers Care Call Out Operator Name Role Phone Elsewhere, Pcp Primary Care Provider Unavailabl e Reason for Visit * Reason Onset Date Comments Biopsy Results 11/09/2023 Encounter Details Date Type Department Care Team (Latest Contact Info) Description 11/09/2023 Clinical Communication Department of Urology in [place], [place] [address] [place] [phone] Bienvenido Cruz M.D. [address] [place] [phone] Biopsy Results Social History Tobacco Use Types Packs/Day Years Used Date Smoking Tobacco: Never Smokeless Tobacco: Never Alcohol Use Standard Drinks/Week Comments Yes 3 (1 standard drink = 0.6 oz pur e alcohol) [facility] Utilities Answer Date Recorded In the past 12 months has e [employer] gas, oil, or water [employer] threatened to shut off services in your [...] your living situation today? I have a [facility] place to live 07/19/2023 Sex and Gender Information Value Date Recorded Sex Assigned at Male 04/23/2023 8:28 AM MOTORCYCLE ASSEMBLER Gender Identity Male 04/23/2023 8:28 AM MOTORCYCLE ASSEMBLER Sexual Orientation Straight 04/23/2023 8: 28 AM MOTORCYCLE ASSEMBLER documented as of this encounter Plan of Treatment Upcoming Encounters Date Type Department Care Team (Late st Contact Info) Description 03/21/2024 9:30 AM CDT Appointment Department of Laboratory Medicine and Pathology, [facility], in [place], [place] [address] [place] [address] Anita Alvarez APRN, C.N.PTona, D.N.P. [address] [place] [phone] 03/21/2024 10:30 AM CDT Appointment Department of Radiology, [facility], in [place], [place] [address] [place] [address] Anita Alvarez APRN, C.N.PTona, D.N.P. [address] [place] [phone] 03/21/2024 3:30 PM CDT Procedure visit Department of Urology in [place], [place] [address] [place] [phone] Anita Alvarez APRN, Agapito.N.P., D.N.P. [address] [place] [phone] 03/27/2024 11:30 AM CDT Appointment Department of Radiation Oncology in [place], [place] [address] [place] [address] Collette Phillip M.D. [address] [place] [phone] documented as of this encounter Visit Diagnoses Not on filedocumented in this encounter Care Teams Call Out Operator Relationship Specialty Start Date End Date Elsewhere, Pcp PCP - General Internal Medicine 07/14/23 documented as of this encounter
--- OUTSIDE RECORDS SUMMARY | 2024-01-25 08:16 | XMS_ITS | Encounter Summary ---
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 [address] [place] [phone] CYSTOSCOPY, TRANSURETHRAL RESECTION LESION BLADDER, maximal re-resection. Social History Tobacco Use Types Packs/Day Years Used Date Smoking Tobacco: Never Smokeless Tobacco: Never Alcohol Use Standard Drinks/Week Comments Yes 3 (1 standard drink = 0.6 oz pur e alcohol) [facility] Utilities Answer Date Recorded In [...] your living situation today? 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 CANDY MAKER Gender Identity Male 04/23/2023 8:28 AM FUDGE CANDY MAKER Sexual Orientation Straight 04/23/2023 8: 28 AM FUDGE CANDY MAKER documented as of this encounter Last Filed Vital Signs Vital Sign Reading Time Taken Comments Blood Pressure 149/68 11/04/2023 9:15 AM CDT Pulse 62 11/04/2023 9:20 AM CDT Temperature 36.7 ??C (98.1 ??F) 11/04/2023 9:15 AM CD T Respiratory Rate 15 11/04/2023 9:20 AM CDT Oxygen Saturation 99% 11/04/2023 9:20 AM CDT Inhaled Oxygen Concentration - - Weight - - Height - - Body Mass Index - - documented in this encounter Discharge Instructions * Attachments The following attachments cannot be sent through Care Everywhere. * Indwelling Catheter Care With Drainage Bag Instructions (Greek) * VIDEO: CARE OF YOUR INDWELLING CATHETER: INDWELLING CATHETER CARE FOR MEN (NIGERIAN) documented in this encounter Medications at Time of Discharge Medication Sig Dispensed Refills Start Date End Date carvediloL (COREG) 6.25 mg tablet Take 1 tablet by mouth 2 (two) times a day with meals. 12/11/2022 lisinopril-hydroCHLORO thiazide (PRINZIDE,ZESTORETIC) 20-25 mg per tablet Take 1 tablet by mouth daily. 07/15/2014 pantoprazole (PROTONIX) 40 mg EC tablet Take 40 mg by mouth every morning before breakfast. 11/10/2022 amitriptyline (ELAVIL) 25 mg tablet Take 100 mg by mouth at bedtime. 07/15/2014 cholecalciferol (VITAMIN D3) 50 mcg (2,000 Unit) [...] Take 5 mg by mouth daily. 02/12/2023 loratadine (CLARITIN REDITABS) 10 mg disintegrating tablet Dissolve 10 mg in the mouth daily. oxyCODONE (ROXICODONE) 5 mg immediate release tabletIndications:Acut e Pain Exception Take 1 tablet (5 mg total) by mouth every 4 (four) hours as needed for moderate pain or score 4-6 of 10 Indication: Acute Pain Exception. 25 tablet 07/28/2023 polyethylene glycol (MIRALAX) 17 gram powder packet [...] 09/28/2023 12/07/2023 documented as of this encounter OR Notes * Op Note - Mike Giles M.B., B.. 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 Findings As expected. Complications None Operative Note Narrative FINDINGS: 1. Cystoscopy demonstrated healing changes at resection [...] or T4 disease. 7. Placement of 22 Surinamese Phelps catheter with 15 cc in the balloon. PROCEDURE: After appropriate patient identification and verification of informed consent, the patient was brought into the OR and placed under general anesthesia. The patient was then prepped and draped in the standard sterile fashion in the dorsal lithotomy position. After surgical pause and confirmation of antibiotic administration, we proceeded with a rigid cystoscopy. The anterior urethra appeared normal. The sphincter coapted appropriately. The prostatic urethra was moderately obstructing in nature. The bladder was systematically examined which demonstrated multiple papillary lesions noted on the anterior bladder wall and around resection beds. Otherwise healing changes noted on the resection beds at left bladder wall posterior, left lateral bladder wall, and right bladder wall posterior. Therewere some cellules, diverticula, and trabeculations. The left and right ureteral orifices were identified in their orthotopic position. Some papillary changes noted close to left UO. We then proceeded with transurethral resection. The urethra was first serially dilated using Gaston sounds from 24- to 30-Surinamese. A continuous-flow bipolar resectoscope was placed. We performed the resection of left lateral bladder wall lesion and connecting it to the left posterior bladder wall. Resection was deep to the muscles and involving left UO. The resection bed was fulgurated extensive ly, and hemostasis was excellent. The ureteral orifices were again examined and noted efflux of Pyridium urine. The patient's bladder was drained. Samples were labeled as left lateral bladder wall. We then underwent resection of anterior bladder wall lesions with fulguration of papillary islands noted around resection area. The resection fragments were drained out and sent as a specimen labeled anterior bladder wall. Reinspection of the bladder revealed excellent hemostasis. We also underwent re-resection of right bladder wall posterior lesion. Extensive fulguration performed again and noted excellent hemostasis. We examined the ureteral orifices again in noted effluxing Pyridium clear. However, we decided to proceed with stent placement to maintain adequate drainage of left ureteral orifice. After lateralitypause, a 0.035 sensor-tip wire was advanced through the Left UO without difficulty until the tip was visualized up in the renal collecting system. Next, a tigertail was advanced, the wire was withdrawn, and a limited retrograde pyelogram was performed which demonstrated no filling defects or contrast extravasation. Ureteral length was measured with the tigertail. Next a 7-Surinamese x 22-cm double-J ureteral stent was advanced up to the level of the Left renal pelvis. The wire was removed, and a good proximal curl was confirmed fluoroscopicallyand excellent distal curl confirmed cystoscopically . Next, a 22-Surinamese Phelps catheter was placed with 15 cc in the balloon. The patient's bladder was irrigated to Pyridium clear. A bimanual exam was performed and was negative for evidence of T3 or T4 disease. The patient tolerated the procedure well and was transferred to the recovery room in satisfactory condition. PLAN: - Return to urology clinic for UCO/VT on 11/08/2023 - cystoscopy with ureteral stent removal in a week - Patient will be contacted via phone for pathology results. Sagar Masters, B.Ch. documented in this encounter Plan of Treatment Upcoming Encounters Date Type Department Care Team (Late st Contact Info) Description 03/21/2024 9:30 AM CDT Appointment Department of Laboratory Medicine and Pathology, [facility] in [place], [place] [address] [place] [phone] Anita Alvarez APRN, C.N.P., D.N.P. [address] [place] [phone] 03/21/2024 10:30 AM CDT Appointment Department of Radiology, [facility] in [place], [place] [address] [place] [phone] Anita Alvarez APRN, Agapito.N.P., D.N.P. [address] [place] [phone] 03/21/2024 3:30 PM CDT Procedure visit Department of Urology in [place], [place] [address] [place] [phone] Anita Alvarez APRN, C.N.P., D.N.P. [address] [place] [phone] 03/27/2024 11:30 AM CDT Appointment Department of Radiation Oncology in [place], [place] [address] [place] [phone] Collette Phillip M.D. 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 The 17 Surinamese Olympus video scope was introduced at [facility]. Brief cystoscopy revealed multiple areas of prior [...] Mike Keith, B.Ch. UROLOGY RODRIGO WILLETT * FL Fluoro Less Than 1 Hour (11/04/2023 1:24 PM CDT) Narrative [id number] - 11/04/2023 1:24 PM CDT This exam does not require a radiologist review or interpretation. Please refer to the patient's medical record on this date for clinical details. Bienvenido FAIRCHILDG FLUOROSCOPY PROC EDURES [id number] NA * Surgical Pathology (11/04/2023 10:40 AM [...] of the testing process was performed at [facility] site [id number]. Digital imaging was used in the diagnostic assessment of this case. 11/05/2023 2:29 PM CDT DTL Tissue (Bladder) 11/04/2023 10:40 AM CDT Tissue (Bladder) 11/04/2023 11:00 AM CDT Tissue (Bladder) 11/04/2023 11:22 AM CDT Bienvenido Cruz M.D. 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 Do not use if given in last 6 hours, Restriction Criteria (Pharmacy will review and approve if criteria met): Unable to take or tolerate medications administered via the enteral route or orally (not just NPO) acetaminophen tablet 1,000 mg (TYLENOL) 1,000 mg, oral, Once as needed, other, If patient has not received in the previous 6 hours, Starting on Maricel 11/04/23 at 1309, For 1 dose, PACU (only), Oral unless RASS less than -1 or nausea/vomiting. Do not use if given in last 6 hours acetaminophen tablet 1,000 mg (TYLENOL) 1,000 mg, oral, Once, On Maricel 11/04/23 at 0915, For 1 dose, Pre-Op, PreOp give in preprocedural area. Given 11/04/2023 9:17 AM CDT 1,000 mg chlorhexidine 0.12 % mouthwash 15 mL (PERIDEX) 15 mL, swish & spit, Once as needed, Chlorhexidine mouthwash (Peridex) should be given if patient did not complete oral care, if completion is greater than 4 hours prior to surgery or procedure start time and they do not have the opportunity to brush their teeth now (or at this time)., Starting on Maricel 11/04/23 at 0849, For 1 dose, Pre-Op, Instruct patient to swish entire content of Chlorhexidine 0.12% mouthwash (PERIDEX) 15 mL cup for 30 seconds, then spit, swish & spit. If patient is at risk for aspiration, apply Chlorhexidine 0.12% mouthwash to a swab and gently swab the patient's teeth and gums. Ensure swab is not oversaturated. iohexoL 300 mg iodine/mL solution (OMNIPAQUE) As needed, Starting on Maricel 11/04/23 at 1205, Intra-Op Given 11/04/2023 12:05 PM CDT 5 mL Other Lactated Ringer's 20 mL/hr, intravenous, Continuous, Starting on Maricel 11/04/23 at 0915, Pre-Op New Bag 11/04/2023 9:17 AM CDT 20 mL/hr 20 mL/hr oxyBUTYnin tablet 5 mg (DITROPAN) 5 mg, oral, Once as needed, If patient is not required to void prior to dismissal, Starting on Maricel 11/04/23 at 1309, For 1 dose, PACU (only) Given 11/04/2023 1:09 PM CDT 5 mg phenazopyridine tablet 200 mg (PYRIDIUM) 200 mg, oral, Every 8 hours PRN, painful urination, Starting on Maricel 11/04/23 at 0849, Pre-Op, Drug Monitoring Program: Pharmacist to adjust medication dosing based on indication and drug clearance factors. Given 11/04/2023 9:02 AM CDT 200 mg sodium chloride 0.9 % injection 10 mL 10 mL, intravenous, As needed, line care, Starting on Maricel 11/04/23 at 0849, Pre-Op, Peripheral Intravenous Catheter and Rapid Infusion Catheter, prior to blood sampling, post blood transfusion or post blood sampling sodium chloride 0.9 % injection 3 mL 3 mL, intravenous, As needed, line care, Starting on Maricel 11/04/23 at 0849, Pre-Op, Prior to and following infusion and between multiple consecutive infusions: sodium chloride 0.9 % injection sodium chloride 0.9 % injection 3 mL 3 mL, intravenous, Every 12 hours scheduled, First dose on Maricel 11/04/23 at 2100, Pre-Op, Peripheral Intravenous Catheter and Rapid Infusion Catheter, when no infusion to maintain patency sulfamethoxazole-trimethoprim 800-160 mg per tablet 1 tablet (BACTRIM DS) 1 tablet, oral, Every 12 hours scheduled, First dose on Maricel 11/04/23 at 2100, Pre-Op, Drug Monitoring Program: Pharmacist to adjust medication dosing based on indication and drug clearance factors., Indications: Prophylaxis, surgical Given 11/04/2023 9:05 AM CDT 1 tablet documented in this encounter Active and Recently Administered Medications Times are shown in CDT. Scheduled Medication Order 11/02/2023 11/03/2023 11/04/2023 acetaminophen tablet 1,000 mg (TYLENOL) 1,000 mg, oral, Once, On Maricel 11/04/23 at 0915, For 1 dose, Pre-Op 0915 (Due) acetaminophen tablet 1,000 mg (TYLENOL) (COMPLETED) 1,000 mg, oral, Once, On Maricel 11/04/23 at 0915, For 1 dose, Pre-Op, PreOp give in preprocedural area. 0917 (Given - Provid er: Pratibha Perez R.N.) lidocaine 10 mg/mL (1 %) injection 1 mL (XYLOCAINE) 1 mL, infiltration, Once, On Maricel 11/04/23 at 0915, For 1 dose, Pre-Op, May admin up to 1 mL at the site of IV site if not allergic to lidocaine 0915 (Due) sodium chloride 0.9 % injection 3 mL 3 mL, intravenous, Every 12 hours scheduled, First dose on Maricel 11/04/23 at 2100, Pre-Op, Peripheral Intravenous Catheter and Rapid Infusion Catheter, when no infusion to maintain patency sodium chloride 0.9 % injection 3 mL 3 mL, intravenous, Every 12 hours scheduled, First dose on Maricel 11/04/23 at 2100, Pre-Op, Peripheral Intravenous Catheter and Rapid Infusion Catheter, when no infusion to maintain patency sulfamethoxazole-trimethoprim 800-160 mg per tablet 1 tablet (BACTRIM DS) 1 tablet, oral, Every 12 hours scheduled, First dose on Maricel 11/04/23 at 2100, Pre-Op, Drug Monitoring Program: Pharmacist to adjust medication dosing based on indication and drug clearance factors., Indications: Prophylaxis, surgical 09 (Given - Provid er: Pratibha Perez R.N.) Continuous Medication Order 11/02/2023 11/03/2023 11/04/2023 Lactated Ringer's 20 mL/hr, intravenous, Continuous, Starting on Maricel 11/04/23 at 0915, Pre-Op 0917 (New Bag - Prov ider: Pratibha Perez R.N.) PRN Medication Order 11/02/2023 11/03/2023 11/04/2023 acetaminophen injection 1,000 mg(Linked Group 1) 1,000 mg, intravenous, at 400 mL/hr, Administer over 15 Minutes, Once as needed, other, If patient has not received in previous 6 hours, Starting on Maricel 11/04/23 at 1309, For 1 dose, PACU (only), Oral unless RASS less than -1 or nausea/vomiting. Do not use if given in last 6 hours, Restriction Criteria (Pharmacy will review and approve if criteria met): Unable to take or tolerate medications administered via the enteral route or orally (not just NPO) acetaminophen tablet 1,000 mg (TYLENOL)(Linked Group 1) 1,000 mg, oral, Once as needed, other, If patient has not received in the previous 6 hours, Starting on Maricel 11/04/23 at 1309, For 1 dose, PACU (only), Oral unless RASS less than -1 or nausea/vomiting. Do not use if given in last 6 hours chlorhexidine 0.12 % mouthwash 15 mL (PERIDEX) 15 mL, swish & spit, Once as needed, Chlorhexidine mouthwash (Peridex) should be given if patient did not complete oral care, if completion is greater than 4 hours prior to surgery or procedure start time and they do not have the opportunity to brush their teeth now (or at this time)., Starting on Maricel 11/04/23 at 0849, For 1 dose, Pre-Op, Instruct patient to swish entire content of Chlorhexidine 0.12% mouthwash (PERIDEX) 15 mL cup for 30 seconds, then spit, swish & spit. If patient is at risk for aspiration, apply Chlorhexidine 0.12% mouthwash to a swab and gently swab the patient's teeth and gums. Ensure swab is not oversaturated. fentaNYL injection 25 mcg (SUBLIMAZE) 25 mcg, intravenous, Every 5 min PRN, moderate pain or score 4-6 of 10, severe pain or score 7-10 of 10, Starting on Maricel 11/04/23 at 1309, For 6 doses, PACU (only), Up to maximum total dose of 150 mcg iohexoL 300 mg iodine/mL solution (OMNIPAQUE) (CANCELED) As needed, Starting on Maricel 11/04/23 at 1205, Intra-Op 1205 (Given - Provid er: Sagar Sneed, B.Ch. - Comment: Left) oxyBUTYnin tablet 5 mg (DITROPAN) (COMPLETED) 5 mg, oral, Once as needed, If patient is not required to void prior to dismissal, Starting on Maricel 11/04/23 at 1309, For 1 dose, PACU (only) 1309 (Given - Provid er: Carrie Kinney R.N.) phenazopyridine tablet 200 mg (PYRIDIUM) 200 mg, oral, Every 8 hours PRN, painful urination, Starting on Maricel 11/04/23 at 0849, Pre-Op, Drug Monitoring Program: Pharmacist to adjust medication dosing based on indication and drug clearance factors. 0902 (Given - Provid er: Pratibha Perez R.N.) sodium chloride 0.9 % injection 10 mL 10 mL, intravenous, As needed, line care, Starting on Maricel 11/04/23 at 0849, Pre-Op, Peripheral Intravenous Catheter and Rapid Infusion Catheter, prior to blood sampling, post blood transfusion or post blood sampling sodium chloride 0.9 % injection 10 mL 10 mL, intravenous, As needed, line care, Starting on Maricel 11/04/23 at 0849, Pre-Op, Peripheral Intravenous Catheter and Rapid Infusion Catheter, prior to blood sampling, post blood transfusion or post blood sampling sodium chloride 0.9 % injection 3 mL 3 mL, intravenous, As needed, line care, Starting on Maricel 11/04/23 at 0849, Pre-Op, Prior to and following infusion and between multiple consecutive infusions: sodium chloride 0.9 % injection sodium chloride 0.9 % injection 3 mL 3 mL, intravenous, As needed, line care, Starting on Maricel 11/04/23 at 0849, Pre-Op, Prior to and following infusion and between multiple consecutive infusions: sodium chloride 0.9 % injection Linked Groups Order Group 1: acetaminophen tablet 1,000 mg (TYLENOL)Jump to med 1,000 mg, oral, Once as needed, other, If patient has not received in the previous 6 hours, Starting on Maricel 11/04/23 at 1309, For 1 dose, PACU (only), Oral unless RASS less than -1 or nausea/vomiting. Do not use if given in last 6 hours Or acetaminophen injection 1,000 mgJump to med 1,000 mg, intravenous, at 400 mL/hr, Administer over 15 Minutes, Once as needed, other, If patient has not received in previous 6 hours, Starting on Maricel 11/04/23 at 1309, For 1 dose, PACU (only), Oral unless RASS less than -1 or nausea/vomiting. Do not use if given in last 6 hours, Restriction Criteria (Pharmacy will review and approve if criteria met): Unable to take or tolerate medications administered via the enteral route or orally (not just NPO) documented in this encounter Care Teams Director Of Religious Life Relationship Specialty Start Date End Date Elsewhere, Pcp PCP - General Internal Medicine 07/14/23 documented as of this encounter
--- OUTSIDE RECORDS SUMMARY | 2024-01-25 08:16 | XMS_ITS | Encounter Summary ---
Author Organization 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 I have a [facility] place to live 07/19/2023 Sex and Gender Information Value Date Recorded Sex Assigned at Male 04/23/2023 8:28 AM SENIOR COMPLIANCE ANALYST Gender Identity Male 04/23/2023 8:28 AM SENIOR COMPLIANCE ANALYST Sexual Orientation Straight 04/23/2023 8: 28 AM SENIOR COMPLIANCE ANALYST documented as of this encounter Last Filed Vital Signs Vital Sign Reading Time Taken Comments Blood Pressure 151/65 11/04/2023 1:30 PM CDT Pulse 55 11/04/2023 1:35 PM CDT Temperature 36.9 ??C (98.4 ??F) 11/04/2023 1:01 PM CD T Respiratory Rate 21 11/04/2023 1:35 PM CDT Oxygen Saturation 94% 11/04/2023 1:35 PM CDT Inhaled Oxygen Concentration - - Weight - - Height - - Body Mass Index - - documented in this encounter Discharge Instructions * Attachments The following attachments cannot be sent through Care Everywhere. * Indwelling Catheter Care With Drainage Bag Instructions (Palauan) * VIDEO: CARE OF YOUR INDWELLING CATHETER: INDWELLING CATHETER CARE FOR MEN (INDONESIAN) documented in this encounter Medications at Time [...] * Op Note - Mike Giles M.B., B.Ch. 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 7. Placement of 22 Saudi Arabian Phelps catheter with 15 cc in the [...] The urethra was first serially dilated using Dike sounds from 24- to 30-Saudi Arabian. A continuous-flow bipolar resectoscope was placed. We [...] was measured with the tigertail. Next a 7-Saudi Arabian x 22-cm double-J ureteral stent was advanced up to the level of the Left renal pelvis. The wire was removed, and a good proximal curl was confirmed fluoroscopicallyand excellent distal curl confirmed cystoscopically . Next, a 22-Saudi Arabian Phelps catheter was placed with 15 cc [...] and Pathology, [facility] in [place], [place] [address] [place] [phone] Anita Alvarez APRN, C.N.P., D.N.P. [address] [place] [phone] 03/21/2024 10:30 AM CDT Appointment Department of Radiology, [facility] in [place], [place] [address] [place] [phone] Anita Alvarez APRN, Agapito.N.P., D.N.P. [address] [place] [phone] 03/21/2024 3:30 PM CDT Procedure visit Department of Urology in [place], [place] [address] [place] [phone] Anita Alvarez APRN, C.N.P., D.N.P. [address] [place] [address] 03/27/2024 11:30 AM CDT Appointment Department of Radiation Oncology in [place], [place] [address] [place] [address] Collette Phillip M.D. 200 [place] [phone] Scheduled Orders Name Type Priority Associated Diagnoses [...] Multiple Site (HCC) Special Needs Pruett primary documented in this encounter Results * NE CYSTHRSCPY RMVL FB/STENT SMPL (11/19/2023 2:00 PM [...] draped in dorsal lithotomy position. The 17 Saudi Arabian Olympus video scope was introduced at [facility]. Brief cystoscopy revealed multiple areas of prior [...] Complications: no apparent complications ?? Mike Keith BTonaChTona UROLOGY RODRIGO WILLETT * FL Fluoro Less Than 1 Hour (11/04/2023 1:24 PM CDT) Narrative [id number] - 11/04/2023 1:24 PM CDT This exam does not require a radiologist review or interpretation. Please refer to the patient's medical record on this date for clinical details. Bienvenido Cruz M.D. IMG FLUOROSCOPY PROC EDURES [id number] NA * Surgical Pathology (11/04/2023 10:40 AM [...] of the testing process was performed at [facility] site [id number]. Digital imaging was used in the diagnostic assessment of this case. 11/05/2023 2:29 PM CDT DTL Tissue (Bladder) 11/04/2023 10:40 AM CDT Tissue (Bladder) 11/04/2023 11:00 AM CDT Tissue (Bladder) 11/04/2023 11:22 AM CDT Bienvenido Cruz M.D. LAB SURG PATH ORDERA BLES [facility] [address] [place] [address], [facility] [address] [place] [address] documented in this encounter Visit Diagnoses Diagnosis [...] and gums. Ensure swab is not oversaturated. Lactated Ringer's 20 mL/hr, intravenous, Continuous, Starting on Maricel 11/04/23 at 0915, Pre-Op New Bag 11/04/2023 9:17 AM CDT 20 mL/hr 20 mL/h r oxyBUTYnin tablet 5 mg (DITROPAN) 5 mg, [...] and drug clearance factors., Indications: Prophylaxis, surgical 0905 (Given - Provid er: Pratibha Perez R.N.) [...] NPO) documented in this encounter Care Teams Civil Preparedness Officer Relationship Specialty Start Date End Date Elsewhere, Pcp PCP - General Internal Medicine 07/14/23 documented as of this encounter
--- OUTSIDE RECORDS SUMMARY | 2024-01-25 08:16 | XMS_ITS | Encounter Summary ---
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 [address] [place] [phone] 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 200 [place] [address] [facility] Referral ID Status Reason Start Date Expiration Date Visits Re quested Visits Authorized [id number] Closed 10/21/2023 10/20/2024 1 1 Encounter Details Date Type Department Care Team (Latest Contact Info) Description 11/11/2023 11:44 AM CDT - 11/11/2023 11:59 PM CDT Hospital Encounter Department of Radiation Oncology in [place], [place] 200 [place] [address] Kash Hernandez M.D., Ph.D. 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); Lesion Bladder; Frequency Urinary Discharge Disposition: Home or Self Care Social History Tobacco Use Types Packs/Day Years Used Date Smoking Tobacco: Never Smokeless Tobacco: Never Alcohol Use Standard Drinks/Week Comments Yes 3 (1 standard drink = 0.6 oz pur e alcohol) [facility] Utilities Answer Date Recorded In the past 12 months has e electric, gas, oil, or water [employer] threatened to shut off services in your [...] Assigned at Male 04/23/2023 8:28 AM FILTER TENDER Gender Identity Male 04/23/2023 8:28 AM FILTER TENDER Sexual Orientation Straight 04/23/2023 8: 28 AM FILTER TENDER documented as of this encounter Medications at [...] as of this encounter Procedure Notes * Jonathon Ruby Ko, RTT - 11/11/2023 12:30 PM CDTAssociated Order(s): Initial Rad Onc Treatment Planning CT Simulation Pre-Procedure Diagnose(s): 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 Authorized by: Kash Hernandez M.D., Ph.D. Simulation was performed under physician supervision based on physician order in preparation for radiation therapy. Physician was immediately available to provide assistance and direction throughout the procedure. Written consent for treatment was completed or confirmed. The patient was appropriately identified and placed in the treatment position using the necessary immobilization to ensure a reproducible treatment position. Reference luis were placed to facilitate marking of isocenter. Area scanned:Abdomen and Pelvis Contrast used for the simulation procedure: None Patient position:head first supine Custom immobilization: Knee Cushion Motion management: None Bolus: No CT guidance: Following positioning of the patient, a series of slices was obtained to be utilized in treatment planning. CT images were transferred to the Eclipse treatment planning system, after a reference isocenter was determined and marked. Segmentation and treatment planning will take place prior to treatment delivery. Patient set up and imaging was appropriate and completed without incident. Program Admin use:No Associated attestation - Kash Hernandez M.D., Ph.D. - 11/26/2023 9:49 AM CDT I communicated my intent for the simulation process to the radiation therapy team prior to the procedure and was available throughout. documented in this encounter Plan of Treatment Upcoming Encounters Date Type Department Care Team (Late st Contact Info) Description 03/21/2024 9:30 AM CDT Appointment Department of Laboratory Medicine and Pathology, [facility] in [place] [address] [place] [address] KurttiAnita APRN, C.N.P., D.N.P. [address] [place] [phone] 03/21/2024 10:30 AM CDT Appointment Department of Radiology, [facility], in [place], [place] [address] [place] [phone] Anita Alvarez APRN, C.N.PTona, D.N.P. [address] [place] [phone] 03/21/2024 3:30 PM CDT Procedure visit Department of Urology in [place], [place] [address] [place] [phone] Anita Alvarez APRN, C.N.P., D.N.P. [address] [place] [phone] 03/27/2024 11:30 AM CDT Appointment Department of Radiation Oncology in [place], [place] [address] [place] [address] Collette Phillip M.D. 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 11/11/2023 12:35 PM Initial Rad Onc Treatment Planning CT Simulation Performed by: Kash Hernandez M.D., Ph.D. Authorized by: Kash Hernandez M.D., Ph.D. ?? Kash Hernandez M.D., Ph.D. 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
--- OUTSIDE RECORDS SUMMARY | 2024-01-25 08:16 | XMS_ITS | Encounter Summary ---
Author Organization [facility] Address [address] [place] [address] Care Team Providers Care Toolroom Clerk Name Role Phone Elsewhere, Pcp Primary Care Provider Unavailabl e Encounter Details Date Type Department Care Team (Late st Contact Info) Description 10/22/2023 Orders Only Department of Urology in [place], [place] [address] [place] [phone] Anita Vivar M.D. [address] [place] [phone] Social History Tobacco Use Types Packs/Day Years Used Date Smoking Tobacco: Never Smokeless Tobacco: Never Alcohol Use Standard Drinks/Week Comments Yes 3 (1 standard drink = 0.6 oz pur e alcohol) [facility] Utilities Answer Date Recorded In the past 12 months has [facility] [employer], gas, oil, or water [employer] threatened to shut off services in your [...] your living situation today? I have a [facility] place to live 07/19/2023 Sex and Gender Information Value Date Recorded Sex Assigned at Male 04/23/2023 8:28 AM BREAKFAST ATTENDANT Gender Identity Male 04/23/2023 8:28 AM BREAKFAST ATTENDANT Sexual Orientation Straight 04/23/2023 8: 28 AM BREAKFAST ATTENDANT documented as of this encounter Plan of Treatment Upcoming Encounters Date Type Department Care Team (Late st Contact Info) Description 03/21/2024 9:30 AM CDT Appointment Department of Laboratory Medicine and Pathology, [facility], in [place], [place] [address] [place] [address] Anita Alvarez APRN, C.N.P., D.N.P. [address] [place] [phone] 03/21/2024 10:30 AM CDT Appointment Department of Radiology, [facility], in [place], [place] [address] [place] [address] Anita Alvarez APRN, C.N.PTona, D.N.P. [address] [place] [phone] 03/21/2024 3:30 PM CDT Procedure visit Department of Urology in [place], [place] [address] [place] [phone] Anita Alvarez APRN, C.N.Shamika, D.N.P. [address] [place] [phone] 03/27/2024 11:30 AM CDT Appointment Department of Radiation Oncology in [place] [address] [place] [address] Collette Phillip M.D. [address] [place] [phone] documented as of this encounter Visit Diagnoses Not on filedocumented in this encounter Care Teams Toolroom Clerk Relationship Specialty Start Date End Date Elsewhere, Pcp PCP - General Internal Medicine 07/14/23 documented as of this encounter
--- OUTSIDE RECORDS SUMMARY | 2024-01-25 08:16 | XMS_ITS | Encounter Summary ---
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 [address] [place] [phone] [facility] Referral ID Status Reason Start Date Expiration Date Visits Re quested Visits Authorized [id number] Closed 11/04/2023 11/03/2024 1 1 Encounter Details Date Type Department Care Team (Late st Contact Info) Description 11/09/2023 1:00 PM CDT Procedure visit Department of Urology in [place], [place] [address] [place] [phone] Mike Giles M.B., B.Ch. [address] [place] [phone] Nancy Sorensen R.N. 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 I have a [facility] place to live 07/19/2023 Sex and Gender Information Value Date Recorded Sex Assigned at Male 04/23/2023 8:[address] MANAGER Gender Identity Male 04/23/2023 8:[address] MANAGER Sexual Orientation Straight 04/23/2023 8: [address] MANAGER documented as of this encounter Progress Notes * Nancy Sorensen RChris. - 11/09/2023 1:00 PM CDT CHIEF COMPLAINT Reason for visit, urinary catheter removal post: TURBT Re-resection by Dr. Bienvenido Cruz on 11/04/23. IMPRESSION/REPORT/PLAN Nursing Intervention: Patient presents with clear yellow urine in his catheter bag. Patient was prefilled with about 180 ml's of normal saline, catheter balloon was deflated and catheter was removed intact. Patient voided 200 ml's with a pvr per bladder scan of 68 ml's. Patient tolerated procedure well. Patient education: use of incontinence pads and leakage of urine , to push fluids , to urinate 1 more times before leaving the clinic and if they urinate to their satisfaction they may leave , to urinate often , to complete the antibiotic Bactrim DS, and to return to clinic if having voiding issuesif before 4PM, if after hours to report to their local emergency room if unable to void documented in this encounter Plan of Treatment Upcoming Encounters Date Type Department Care Team (Late st Contact Info) Description 03/21/2024 9:30 AM CDT Appointment Department of Laboratory Medicine and Pathology, [facility], in [place], [place] [address] [place] [phone] Anita Alvarez APRN, C.N.P., D.N.P. [address] [place] [address] 03/21/2024 10:30 AM CDT Appointment Department of Radiology, [facility], in [place], [place] [address] [place] [address] Anita Alvarez APRN, Agapito.NTonaPTona, D.N.P. [address] [place] [phone] 03/21/2024 3:30 PM CDT Procedure visit Department of Urology in [place], [place] [address] [place] [address] Anita Alvarez APRN, C.NBrandon., D.N.P. [address] [place] [phone] 03/27/2024 11:30 AM CDT Appointment Department of Radiation Oncology in [place], [place] [address] [place] [phone] Collette Phillip M.D. 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
--- OUTSIDE RECORDS SUMMARY | 2024-01-25 08:16 | XMS_ITS | Encounter Summary ---
Author Organization [facility] Address [address] [place] [address] Care Team Providers Care Proof Technician Helper Name Role Phone Elsewhere, Pcp Primary Care Provider Unavailabl e Reason for Visit * Reason Onset Date Comments Nurse Assessment 11/11/2023 Encounter Details Date Type Department Care Team (Latest Contact Info) Description 11/11/2023 Clinical Communication Department of Urology in [place], [place] [address] [place] [address] Barber Pruett M.D. [address] [place] [phone] Nurse Assessment Social History Tobacco Use Types Packs/Day Years Used Date Smoking Tobacco: Never Smokeless Tobacco: Never Alcohol Use Standard Drinks/Week Comments Yes 3 (1 standard drink = 0.6 oz pur e alcohol) [facility] Utilities Answer Date Recorded In the past 12 months has e [employer], gas, oil, or water [employer] threatened to shut off services in your [...] living situation today? I have a [facility] place to live 07/19/2023 Sex and Gender Information Value Date Recorded Sex Assigned at Male 04/23/2023 8:28 AM GYROSCOPE REPAIRER Gender Identity Male 04/23/2023 8:28 AM GYROSCOPE REPAIRER Sexual Orientation Straight 04/23/2023 8: 28 AM GYROSCOPE REPAIRER documented as of this encounter Miscellaneous Notes * Telephone Encounter - Mary Ann Solomon R.N. - 11/11/2023 10:58 AM CDT SUBJECTIVE CHIEF COMPLAINT / REASON FOR CALL Nurse Assessment ASSESSMENT Spoke with patient. He states that he has been experiencing intermittent blood in the urine. He hasno difficulty urinating. He has no fever, chills, nausea, or any other symptoms. PLAN Reassurance given. Encourage to increase fluid intake. Reviewed signs and symptoms to be concerned. Disposition/Recommendation: self-care is appropriate at this time, patient encouraged to call back with questions. Information/Education: patient/caller able to teach back. Caller agreeable to plan of care: yes. The following references were used: nursing clinical judgement. documented in this encounter Plan of Treatment Upcoming Encounters Date Type Department Care Team (Late st Contact Info) Description 03/21/2024 9:30 AM CDT Appointment Department of Laboratory Medicine and Pathology, [facility] in [place], [place] [address] [place] [phone] Anita Alvarez APRN, C.N.P., D.N.P. [address] [place] [phone] 03/21/2024 10:30 AM CDT Appointment Department of Radiology, [facility], in [place], [place] [address] [place] [phone] Anita Alvarez APRN, C.N.P., D.N.P. [address] [place] [phone] 03/21/2024 3:30 PM CDT Procedure visit Department of Urology in [place], [place] [address] [place] [phone] Anita Alvarez APRN, C.N.P., D.N.P. [address] [place] [phone] 03/27/2024 11:30 AM CDT Appointment Department of Radiation Oncology in [address] [phone] [place] [phone] documented as of this encounter Visit Diagnoses Not on filedocumented in this encounter Care Teams Proof Technician Helper Relationship Specialty Start Date End Date Elsewhere, Pcp PCP - General Internal Medicine 07/14/23 documented as of this encounter
--- OUTSIDE RECORDS SUMMARY | 2024-01-25 08:16 | XMS_ITS | Encounter Summary ---
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) Procedures NV CYSTHRSCPY W FULG LESNS MINOR NV CYSTHRSCPY FULG BLAD TMR LRG CYSTOSCOPY WITH TRANSURETHRAL RESECTION LESION BLADDER, POSTOPERATIVE INTRAVESICAL GEMCITABINE INSTILLATION IF INDICATED Referral ID Status Reason Start Date Expiration Date Visits Re quested Visits Authorized [id number] 1 1 Encounter Details Date Type Department Care Team (Late st Contact Info) Description 11/04/2023 9:59 AM CDT Anesthesia Event Outpatient Procedure Center in [place], [place] [address] [place] [phone] Mitchel Rowland APRN, ARCHITECTURE INTERN [address] [place] [phone] Brayan Grimm M.D., M.B.A. [address] [place] [phone] Anesthesia Record Procedure Summary Procedure Name Responsible Anesthesiologist Anesthesia Start Time Anesthesia Stop Time CYSTOSCOPY, TRANSURETHRAL RESECTION LESION BLADDER, maximal re-resection. Mitchel Rowland APRN, ARCHITECTURE INTERN 11/04/23 0959 11/04/23 1301 Events Date Time Event Comment 11/04/2023 0959 An Start Machine/Equipme nt Checked Infection Precautions Followed Procedure/Site Verified NPO Status Verified Supine Standard ASA Monitors Applied 1015 An Induction 1018 An Intubation 1020 Turnover to Proceduralist 1040 Proc Start 1243 Proc Fin 1250 Turnover to ANE Staff 1253 Airway Removal Criteria Met 1253 Extubation/Airway Removed 1254 an stop data 1301 An End I completed my handoff to the receiving staff during which we 1. Identified the patient 2. Identified the responsible provider 3. Reviewed the pertinent medical history 4. Discussed the surgical course 5. Reviewed intra-op anesthesia management and issues during anesthesia 6. Set expectations for post-procedure period 7. Allowed opportunity for questions and acknowledgement of understanding. Meds Name Total fentanyl injection 50 mcg/mL 100 mcg lidocaine 2% (mg) injection 100 mg rocuronium 10 mg/mL injection 70 mg succinylcholine 20 mg/mL injection 100 m g ondansetron 4 mg/2 mL injection 4 mg sugammadex 100 mg/mL injection 200 mg propofol 10 mg/mL infusion 1,690.5 mg propofol 10 mg/mL injection 180 mg dexAMETHasone (DECADRON) injection 4 mg/ mL 4 mg magnesium sulfate 2 g in water 50 mL IVP B 2 g Lactated Ringers Free Drip 1,225 mL * Agents No agents on file. * Blood No blood administrations on file. Lines, Drains, and Airways Type Details Placement Removal Peripheral IV Placement Date: 11/04/23; Placement Time: 912; Orientation: Anterior, Distal, Left, Upper; Location: Antecubital; Site Prep: Chlorhexidine (Preferred); Technique: Anatomical landmarks; Inserted by: ANGÉLICA Whitten; Insertion Attempts: 1; Removal Date: 11/04/23; Removal Time: 151; Removal Reason: Patient discharged 11/04/23912 by Pratibha Perez, R.NTona 11/04/231515 by Fish Jimenez, R.NTona ETT Placement Date: 11/04/23; Placement Time: 101 (created via procedure documentation); Mask Ventilation: Not attempted; Technique: Video laryngoscopy; Type: Standard ETT; Single Lumen Tube Size: 7.5 mm; Cuffed: Yes; Location: Oral; Grade View: Grade 1; Insertion Attempts: 1; Placement Verification: Bilateral breath sounds, Positive ETCO2, Symmetrical chest wall movement; Airway Comment: RSI; Removal Date: 11/04/23; Removal Time: 12511/04/23 1018 by Mitchel Rowland APRN, CRNA 11/04/23 1253 by Mitchel Rowland APRN, CRNA Indwelling Urinary Catheter Placement Date: 11/04/23; Placement Time: 1241; Type: Latex; Size: 22 Fr.; Balloon Size: 5 mL (15 cc sterile water); Urine Returned: Yes; Removal Date: 11/09/23; Removal Time: 1308; Removal Reason: Per order 11/04/23 1241 by Suki Johnson, R.NTona 11/09/23 1308 by Nancy Sorensen RSeverino documented in this encounter Social History Tobacco Use Types Packs/Day Years Used Date Smoking Tobacco: Never Smokeless Tobacco: Never Alcohol Use Standard Drinks/Week Comments Yes 3 (1 standard drink = 0.6 oz pur e alcohol) [facility] Utilities Answer Date Recorded In the past 12 months has [facility] [employer], gas, oil, or water [employer] threatened to shut off services in your [...] your living situation today? I have a [facility] place to live 07/19/2023 Sex and Gender Information Value Date Recorded Sex Assigned at Male 04/23/2023 8:28 AM RN CASE MANAGEMENT Gender Identity Male 04/23/2023 8:28 AM RN CASE MANAGEMENT Sexual Orientation Straight 04/23/2023 8: 28 AM RN CASE MANAGEMENT documented as of this encounter OR Notes * Anesthesia Postprocedure Evaluation - Mitchel Rowland APRN, CRNA - 11/04/2023 1:01 PM CDT Patient: Paul Rae Procedure Summary Date: 11/04/23 Room / Location: [address] / [facility] in [place], [place] Anesthesia Start: 0959 Anesthesia Stop: 1301 Procedures: CYSTOSCOPY, TRANSURETHRAL RESECTION LESION BLADDER, maximal re-resection. 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 Responsible Provider: Mitchel Rowland APRN, CRNA Anesthesia Type: general ASA Status: 2 Anesthesia Type: general Last vitals Vitals Value Taken Time BP Temp Pulse 67 11/04/23 1301 Resp 18 11/04/23 1301 SpO2 94 % 11/04/23 1301 Vitals shown include unfiled device data. Please reference Vitals flowsheet for most recent vital signs. Anesthesia Post Evaluation Patient Disposition: dismissal Cardiovascular status: hemodynamics (HR & BP) acceptable Respiratory status: patent airway with spontaneous effort Temperature: normothermic Oxygen requirements: room air Level of consciousness: awake Pain score: pain adequately controlled and/or at baseline Post Op nausea/vomiting: none Hydration status: euvolemic * Anesthesia Procedure Notes - Mitchel Rowland APRN, CRNA - 11/04/2023 10:27 AM CDTAssociated Order(s): Airway Airway Date/Time: 11/04/2023 10:18 AM Performed by: Mitchel Rowland APRN, CRNA Authorized by: Mitchel Rowland APRN, CRNA Patient location during procedure: OR / Procedure Area PROCEDURE DETAILS: Mask difficulty assessment: not attempted Final airway type: video laryngoscope Laryngeal Manipulation: no Final best view of glottic structures - Cormack/Lehane Score: grade 1 ETT location: oral VL device: glide scope [place] scope blade size: 4 Tube size: 7.5 ETT distance at teeth/gum: 23 Oral tube type: standard ETT Cuffed: yes Leak Test Performed: no Number of attempt to successful placement: 1 Airway confirmation: bilateral breath sounds, positive ETCO2 and bilateral chest rise Other previous techniques attempted: none Additional Comments RSI PRE PROCEDURE DETAILS: Pre evaluation for airway management: procedure Urgency: elective Preop assessment of probable difficulty: no difficulty anticipated Preoxygenation: bag valve mask SEDATION / ANESTHESIA Anesthesia method: anesthesia POST PROCEDURE DETAILS: Procedure outcome: successful Notable Events: no complications * Anesthesia Preprocedure Evaluation - Brayan Grimm M.D., M.B.A. - 11/04/2023 9:07 AM CDT Preprocedure Anesthesia & H&P Assessment Procedure Summary Date/Time: 11/04/23929 Procedure: CYSTOSCOPY, TRANSURETHRAL RESECTION LESION BLADDER, maximal re-resection. 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 Location: [place] [address] / [facility] in [place], [place] Surgeons: Bienvenido Cruz M.D. Pertinent components of the patient's history including current problem list, medical history, surgical history, family history, social history, medications and allergies were reviewed. Present illness and pre-op diagnosis were confirmed. The planned surgery / procedure was verified with the patient / legal guardian. The patient's general health condition remains unchanged RELEVANT COMORBID CONDITIONS CV (+) Atrial Fibrillation Paroxysmal (HCC) (+) Hypertension Essential Primary GI (+) Gastroesophageal Reflux Disease Without Esophagitis (Patient reports hiatal hernia and partial gastrectomy. Reflux into throat occasionally.) OBJECTIVE PHYSICAL EXAMINATION Airway (HEENT) Mallampati: II TM Distance: >3 FB Neck ROM: Full Mouth Opening: >3 cm Cardiovascular Rhythm: Regular Rate: Normal Pulmonary Pulmonary Assessment: Non labored General / Constitutional Constitutional Assessment: Normal Neurological Neurologic Assessment: alert and alert and oriented x 3 Dental Normal ASSESSMENT / PLAN ANESTHESIA PLAN ASA: 2 Anesthesia Plan: general Plan for GETA RSI. Patient seen and allergies reviewed, anesthesia plan and risks discussed directly with patient /legal guardian or through an almond paste molder. Risks/Benefits/Alternatives of Blood transfusion discussed with patient / legal guardian, includingan opportunity to ask questions and/or decline some or all transfusion therapies. The patient / legal guardian consented to the use of all blood products, as deemed medically necessary Approval to Proceed: approved for anesthesia documented in this encounter Miscellaneous Notes * Addendum Note - Mitchel Rowland APRN, CRNA - 11/24/2023 8:55 AM CDT Addendum created 11/24/23854 by Mitchel Rowland APRN, CRNA Clinical Note Signed documented in this encounter Plan of Treatment Upcoming Encounters Date Type Department Care Team (Late st Contact Info) Description 03/21/2024 9:30 AM CDT Appointment Department of Laboratory Medicine and Pathology, [facility] in [place], [place] [address] [place] [phone] Anita Alvarez APRN, C.N.P., D.N.P. [address] [place] [phone] 03/21/2024 10:30 AM CDT Appointment Department of Radiology, [facility], in [place], [place] [address] [place] [phone] Anita Alvarez APRN, C.N.P., D.N.P. [address] [place] [phone] 03/21/2024 3:30 PM CDT Procedure visit Department of Urology in [place], [place] [address] [place] [phone] Anita Alvarez APRN, C.N.P., D.N.P. [address] [place] [phone] 03/27/2024 11:30 AM CDT Appointment Department of Radiation Oncology in [place], [place] [address] [place] [phone] Collette Phillip M.D. [address] [place] [phone] documented as of this encounter Procedures Procedure Name Priority Date/Time Associated Diagnosis Comments LDA ANE ENDOTRACHEAL AIRWAY Routine 11/04/2023 10:18 AM CDT documented in this encounter Results * LDA ANE ENDOTRACHEAL AIRWAY (11/04/2023 10:18 [...] ETT location: oral VL device: glide scope [place] scope blade size: 4 Tube size: 7.5 [...] complications Mitchel Rowland APRN, CRNA ANESTHESIA ORDERABLES documented in this encounter Visit Diagnoses Not on filedocumented in this encounter Administered Medications Inactive Administered Medications - up to 3 most recent administrations Medication Order MAR Action Action Date Dose Rate Site dexAMETHasone injection (DECADRON) intravenous, As needed, Starting on Maricel 11/04/23 at 1026, Anesthesia Intra-op Given 11/04/2023 10:26 AM CDT 4 mg fentaNYL injection (SUBLIMAZE) intravenous, As needed, Starting on Maricel 11/04/23 at 1015, Anesthesia Intra-op Given 11/04/2023 10:15 AM CDT 100 mcg Lactated Ringer's intravenous, Continuous Infusion: Per Instructions PRN, Starting on Maricel 11/04/23 at 0959, Anesthesia Intra-op New Bag 11/04/2023 11:20 AM CDT New Bag 11/04/2023 9:59 AM CDT lidocaine (PF) (cardiac) injection intravenous, As needed, Starting on Maricel 11/04/23 at 1015, Anesthesia Intra-op Given 11/04/2023 10:15 AM CDT 100 mg magnesium sulfate in water IVPB intravenous, Administer over 120 Minutes, As needed, Starting on Maricel 11/04/23 at 1118, Anesthesia Intra-op Given 11/04/2023 11:18 AM CDT 2 g ondansetron (PF) injection (ZOFRAN) intravenous, As needed, Starting on Maricel 11/04/23 at 1026, Anesthesia Intra-op Given 11/04/2023 10:26 AM CDT 4 mg propofol 10 mg/mL infusion (DIPRIVAN) intravenous, Continuous Infusion: Per Instructions PRN, Starting on Maricel 11/04/23 at 1015, Anesthesia Intra-op New Bag 11/04/2023 11:57 AM CDT 125 mcg/kg/min 69 mL/hr New Bag 11/04/2023 11:16 AM CDT 125 mcg/kg/min 69 mL/hr New Bag 11/04/2023 10:15 AM CDT 125 mcg/kg/min 69 mL/hr propofoL injection (DIPRIVAN) intravenous, As needed, Starting on Maricel 11/04/23 at 1015, Anesthesia Intra-op Given 11/04/2023 10:15 AM CDT 180 mg rocuronium injection (ZEMURON) intravenous, As needed, Starting on Maricel 11/04/23 at 1022, Anesthesia Intra-op Given 11/04/2023 12:17 PM CDT 5 mg Given 11/04/2023 12:13 PM CDT 5 mg Given 11/04/2023 11:44 AM CDT 10 mg succinylcholine (PF) injection (ANECTINE) intravenous, As needed, Starting on Maricel 11/04/23 at 1015, Anesthesia Intra-op Given 11/04/2023 10:15 AM CDT 100 mg sugammadex injection (BRIDION) intravenous, As needed, Starting on Maricel 11/04/23 at 1243, Anesthesia Intra-op Given 11/04/2023 12:43 PM CDT 200 mg documented in this encounter Care Teams Turkey Egg Gatherer Relationship Specialty Start Date End Date Elsewhere, Pcp PCP - General Internal Medicine 07/14/23 documented as of this encounter
--- OUTSIDE RECORDS SUMMARY | 2024-01-25 08:17 | XMS_ITS | Clinical Summary ---
Author Organization [facility] Address [address] [place] [address] Care Team Providers Care Carpenter Assembler Name Role Phone Jersey Wilson MD Primary Care Provider [phone] Allergies Active Allergy Reactions Criticality Noted Date Comments Hydromorphone Hives High 03/08/2023 Patient report Meperidine Other (See Comments) 01/17/2022 seizure Shellfish-Derived Products 01/17/2022 Medications Medication Sig Dispensed Refills Start Date End Date Status amitriptyline (ELAVIL) 25 MG tablet Take 100 mg by mouth at bedtime Active vitamin D3 (CHOLECALCIFEROL) 50 mcg (2000 units) tablet Take 1 tablet by mouth daily Active metoclopramide (REGLAN) 5 MG tablet Take 5 mg by mouth 2 times daily Active olopatadine (PATANOL) 0.1 % ophthalmic solution Place 1-2 drops into both eyes 2 times daily as needed for allergies Active pantoprazole (PROTONIX) 40 MG EC tablet Take 40 mg by mouth daily Active sildenafil (REVATIO) 20 MG tablet Take 20 mg by mouth as needed Active SUMAtriptan (IMITREX) 100 MG tablet Take 100 mg by mouth at onset of headache for migraine Active tamsulosin (FLOMAX) 0.4 MG capsule Take 0.4 mg by mouth daily Active topiramate (TOPAMAX) 25 MG capsule Take 100 mg by mouth At Bedtime (4 x 25 mg = 100 mg) Active acetaminophen (TYLENOL) 325 MG tabletIndications:To brittany knee replacement status, right Take 3 tablets (975 mg) by mouth every 6 hours as needed for mild pain 100 tablet 03/04/2022 Active loratadine (CLARITIN REDITABS) 10 MG ODT Take 10 mg by mouth daily Active clotrimazole-betamet hasone (LOTRISONE) 1-0.05 % external cream Apply topically 2 times daily Active finasteride (PROSCAR) 5 MG tablet Take 5 mg by mouth daily 02/12/2023 Active lisinopril-hydrochlo rothiazide (ZESTORETIC) 20-25 MG tablet Take 1 tablet by mouth daily 12/11/2022 Active oxyCODONE (ROXICODONE) 5 MG tablet Take 5 mg by mouth every 12 hours as needed 03/18/2023 Active tadalafil (CIALIS) 5 MG tablet Take 5 mg by mouth daily Active carvedilol (COREG) 6.25 MG tablet Take 6.25 mg by mouth 2 times daily (with meals) 12/11/2022 Active Active Problems Problem Noted Date Diagnosed Date Total knee replacement status, right 03/03/2022 Social History Tobacco Use Types Packs/Day Years Used Date Smoking Tobacco: Never Smokeless Tobacco: Never Alcohol Use Standard Drinks/Week Comments Yes 0 (1 standard drink = 0.6 oz pur e alcohol) 3-4x a week Adolescent Education Answer Date Record ed Getting School Help Needed Not on file 03/16 Sex and Gender Information Value Date Recorded Sex Assigned at Not on file Gender Identity Not on file Sexual Orientation Not on file Last Filed Vital Signs Vital Sign Reading Time Taken Comments Blood Pressure 158/81 04/05/2023 9:45 AM CDT Pulse 65 04/05/2023 9:45 AM CDT Temperature 37.1 ??C (98.8 ??F) 04/05/2023 9:45 AM CD T Respiratory Rate 16 04/05/2023 9:45 AM CDT Oxygen Saturation 98% 04/05/2023 9:45 AM CDT Inhaled Oxygen Concentration - - Weight 92.1 kg (203 lb) 04/05/2023 6:29 AM CDT Height 177.8 cm (5' 10) 03/29/2023 11:00 AM CDT Body Mass Index 29.13 03/29/2023 11:00 AM CDT Plan of Treatment Health Maintenance Due Date Last Done Comments ADVANCE CARE PLANNING 1941 ANNUAL REVIEW OF HM ORDERS 1940 ZOSTER IMMUNIZATION (1 of 2) 1991 RSV VACCINE ( & 60+) (1 - 1-dose 60+ series) 2001 FALL RISK ASSESSMENT 2006 DTAP/TDAP/TD IMMUNIZATION (2 - Td or Tdap) 02/01/2022 02/02/2012, 05/08/2002, 04/02/1995 COVID-19 Vaccine (4 - season) 2023 05/02/2021, 07/31/2020, 07/03/2020 PHQ-2 (once per calendar year) 2023 MEDICARE ANNUAL WELLNESS VISIT 11/11/2023 11/10/2022, 07/23/2021, 08/27/2020, Additional history exists INFLUENZA VACCINE (#1) 2024 , 02/19/2022, 03/27/2021, Additional history exists Pneumococcal Vaccine: 65+ Years Completed 03/22/2014, 03/26/2006 HPV IMMUNIZATION Aged Out No longer e ligible based on patient's age to complete this topic IPV IMMUNIZATION Aged Out No longer e ligible based on patient's age to complete this topic MENINGITIS IMMUNIZATION Aged Out No l onger eligible based on patient's age to complete this topic RSV MONOCLONAL ANTIBODY Aged Out No l onger eligible based on patient's age to complete this topic Medical Devices Implanted Type Area Color Buffer Device Identifier Shelf Expiration Date Model / Serial / Lot Bone Cement Strk Simplex P Speedset 6192-1-001 - [id number] Implanted:Qty : 1 on 03/03/2022 by Marie Shine MD at [facility] Cement, Bone Right: Knee [employer] 11/11/2022 6192-1-00 / / [id number] Bone Cement Strk Simplex P Speedset 6192-1-001 - [id number] Implanted:Qty : 1 on 03/03/2022 by Marie Shine MD at [facility] Cement, Bone Right: Knee [employer] 11/11/2022 6192-1-00 / / [id number] Imp Comp Fem Strk Triathln Ps Rt 5 5515-F-502 - [id number] Implanted:Qty : 1 on 03/03/2022 by Marie Shine MD at [facility] Total Joint Component /Insert Right: Knee [employer] [id number] 12/03/2026 5515-F-50 2 / / [id number] Imp Comp Patella Howm Tri 35 10mm 5551-L-350 - [id number] Implanted:Qty : 1 on 03/03/2022 by Marie Shine MD at [facility] Total Joint Component /Insert Right: Knee [employer] [id number] 10/27/2026 5551-L-35 0 / / [id number] Imp Baseplate Tibial Howm Tri 5 5520-B-500 - [id number] Implanted:Qty : 1 on 03/03/2022 by Marie Shine MD at [facility] Total Joint Component /Insert Right: Knee [employer] [id number] 10/04/2026 5520-B-50 0 / / [id number] Imp Insert Tibial Strk Tri Size 5 10mm 3685-C-343-E - [id number] Implanted:Qty : 1 on 03/03/2022 by Marie Shine MD at [facility] Total Joint Component /Insert Right: Knee [employer] [id number] 02/18/2026 5532-G-51 0-E / / [id number] Advance Directives For more information, please contact: [phone] * Full Code (Latest Code Status on File) Date Activated Date Inactivated Comments 03/03/2022 11:54 AM 03/04/2022 1:15 PM All basic a nd advanced life-sustaining interventions are performed as appropriate Question Answer Comments Code status determined by: Unable to det ermine; FULL CODE until documents or legal decision maker available Care Teams Carpenter Assembler Relationship Specialty Start Date End Date Jersey Wilson MD [address] [facility] [place] [id number] PCP - General Internal Medicine 03/03/22
--- OUTSIDE RECORDS SUMMARY | 2024-01-25 08:17 | XMS_ITS | Clinical Summary ---
[facility] Address [address] [place] [address] Care Team Providers Care Dialysis Rn Name Role Phone Jersey Wilson MD Primary Care Provider [phone] Source Comments You are receiving this document as you are listed as the primary care provider,follow-up provider, or the patient has been referred to you for consultation.This is in compliance with the Medicare and[facility] EHR Incentive Program,which states Providers who transition their patient to another setting of careor provider of care or refers their patient to another provider of care shouldprovide summary care record for each transition of care or referral. [facility] Allergies Active Allergy Reactions Criticality Noted Date Comments Hydromorphone Hcl Hives High 03/08/2023 Patient report Meperidine Other, see comments 04/19/2003 SEIZURE Meperidine Hcl Seizures 04/02/2023 Seafood Other, see comments,Hives High 12/11/2022 Shellfish-Derived Products Other, see comments 10/25/2014 Trazodone Syncope 11/10/2022 Medications Medication Sig Dispensed Refills Start Date End Date Status cholecalciferol (VITAMIND3) 50 MCG (1999) tablet Take 1 Tablet (2,000 Units) by mouth daily. Active olopatadine (PATANOL) 0.1 % eye drop solution Place 1-2 Drops into eye(s) two times daily as needed. Active pantoprazole DR (PROTONIX) 40 MG tabletIndications :Gastroesophageal reflux disease without esophagitis Take 1 Tablet (40 mg) by mouth daily. 90 Tablet 3 11/10/2022 Active tamsulosin (FLOMAX) 0.4 MG CAPS capsuleIndication s:Benign prostatic hyperplasia, unspecified whether lower urinary tract symptoms present Take 1 Capsule (0.4 mg) by mouth daily. 90 Capsule 3 11/10/2022 Active finasteride (PROSCAR) 5 MG tablet Take 1 Tablet (5 mg) by mouth daily. Active Tadalafil (CIALIS) 5 MG tablet Take 1 Tablet (5 mg) by mouth daily. Active sildenafil (REVATIO) 20 MG tablet Take 1 Tablet (20 mg) by mouth as needed. Active clotrimazole-beta methasone (LOTRISONE) 1-0.05 % cream Apply topically two times a day. Active Loratadine (CLARITIN OR) Active SUMAtriptan (IMITREX) 100 MG tablet 1 tab at onset of typical headache. May repeat in 1-2 hours. Max 2/per day. Max 9 days per month. 9 Tablet 5 02/25/2023 Active acetaminophen 500 MG tablet Take 2 Tablets (1,000 mg) by mouth. 07/17/2023 Active indocyanine green (IC-GREEN) 25 MG injection Administer 5 mg intravenously. 07/15/2023 Active polyethylene glycol (MIRALAX) 17 g packet Take 17 g by mouth. 07/17/2023 Active sennosides-docusa te sodium (SENOKOT S) 8.6-50 MG per tablet Take 2 Tablets by mouth. 07/17/2023 Active trospium (SANCTURA) 20 MG tablet Take 1 Tablet (20 mg) by mouth two times daily as needed. 09/28/2023 Active bacitracin 500 UNIT/GM ointment Apply 1 Application topically. 09/28/2023 Active gabapentin (NEURONTIN) 300 MG capsule Take 1 Capsule (300 mg) by mouth three times a day. 07/28/2023 Active carvedilol (COREG) 6.25 MG tabletIndications :Essential hypertension (HRC) Take 1 Tablet (6.25 mg) by mouth two times a day with meals. 180 Tablet 11/22/2023 11/22/19 25 Active lisinopril-hydroC HLOROthiazide (PRINZIDE) 20-25 MG tabletIndications :Essential hypertension (HRC) Take 1 Tablet by mouth daily. 90 Tablet 11/22/2023 11/22/19 25 Active topiramate (TOPAMAX) 100 MG tabletIndications :Chronic migraine without aura without status migrainosus, not intractable Take 1 Tablet (100 mg) by mouth daily at bedtime. 90 Tablet 1 11/23/2023 11/23/19 25 Active amitriptyline (ELAVIL) 100 MG tabletIndications :Chronic migraine without aura without status migrainosus, not intractable Take 1 Tablet (100 mg) by mouth every evening. 30 Tablet 3 01/07/2024 01/07/20 25 Active amitriptyline (ELAVIL) 25 MG tablet Take 4 tablets by mouth nightly. 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 PSG done: 02/09/17 AHI 6 (HTN) [...] Diverticulitis of colon 07/28/2009 Essential hypertension 03/02/2006 Other nonthrombocytopenic purpura Resolved Problems Problem Noted Date Diagnosed Date [...] Encounters Date Type Department Care Team Description 01/07/2024 Telephone [facility] [address] Neurology [address] [place] [address] Anushka Curran PA-C Note Entered 11/25/2023 E-Visit [facility] [address] [facility] [place] [address] Mychart, Generic Provider 11/23/2023 Telephone [facility] Neurology [address] [place] [address] Anushka Curran PA-C Note Entered; Refill 11/22/2023 Refill [place] [facility] [address] [facility] [place] [address] Jersey Wilson MD Refill 10/28/2023 1:00 PM CDT Telemedicine [facility] [address] [facility] [place] [address] Jersey Wilson MD Encounter for Medicare annual wellness exam (Primary Dx); Insomnia, unspecified type 10/27/2023 Telephone [facility] [address] [place] [address] Jersey Wilson MD Future Appointments 10/26/2023 Nurse Triage [facility] [address] [facility] [place] [address] Jersey Wilson MD SLEEP PROBLEM--ED from Last 3 Months Immunizations Name Administration Dates Next Due Flu Vac Preserv Free (3+yrs) 04/02/2012, 02/26/2010,02/20/2009,2005 Influenza IIV3 (Trivalent) F luzone Highdose, 65+ Yrs (31230) 03/14/2019,03/28/2018,02/23/2017,2015,04/01/2015,03/22/2014 Influenza IIV4 (Quadrivalent ) 0.5mL (25001) 06/20/2013 Influenza IIV4 (Quadrivalent ) Fluad, 65+ Yrs 02/19/2022,03/27/2021,03/27/2020 Influenza IIV4 (Quadrivalent ) Fluzone, 65+ Yrs 07/17/2023 Influenza, Unspecified Formulation 04/02/1995 Moderna Monovalent 12+ 05/02/2021,07/31/2020, PCV13 (Prevnar) 03/22/2014 PPSV23 (Pneumovax) 03/26/2006 TDAP (ADACEL) 02/02/2012 Td 05/08/2002,04/02/1995 Family History Medical History Relation Name Comments Cataract Father Coronary Artery Disease Father Heart Attack Father fatal Migraines Mother Heart Disease Brother Santos Him and 3 sons also Stroke Brother Santos Him and 3 sons also Migraines Daughter Fuchs Sister Amblyopia/Strabismus Negative Family History Diabetes Negative Family History Glaucoma Negative Family History Macular Degeneration Negative Family History Retinal Detachment Negative Family History Relation Name Status Comments Father Mother Brother Santos Daughter Maternal Grandfather Maternal Grandmother Paternal Grandfather Paternal Grandmother Sister Social History Tobacco Use Types Packs/Day Years Used Date Smoking Tobacco: Never Smokeless Tobacco: Never Tobacco Cessation:Counseling Given: Not Answered Alcohol Use Standard Drinks/Week Comments Yes 3 (1 standard drink = 0.6 oz pur e alcohol) 3-4 drinks a week PHQ-2 Answer Date Recorded PHQ-2 Score 1 10/28/2023 Sex and Gender Information Value Date Recorded Sex Assigned at Not on file Gender Identity Not on file Sexual Orientation Not on file Last Filed Vital Signs Vital Sign Reading Time Taken Comments Blood Pressure 159/79 05/26/2023 12:35 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 Pulse 64 05/26/2023 12:35 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 Temperature 36.3 ??C (97.3 ??F) 03/16/2023 12:23 [...] Care Team (Late st Contact Info) Description 03/28/2024 12:45 PM CDT Appointment [facility] [address] [place], [place] [address] Anushka Curran PA-C [address] [place], [place] [phone] 08/09/2024 1:45 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 Appointment [place] [address] [place] [address] [phone] [place] [address] [place] [address] [phone] Health Maintenance Due Date Last Done Comments Zoster/Shingles (1 of 2) 1991 Colonoscopy 12/14/2020 12/14/2017, 0909/2012 (Completed), 07/06/2007 DTaP/Tdap/Td (2 - Tdap) 02/01/2022 02/02/20 12, 05/08/2002, 04/02/1995 COVID-19 Vaccine ( season) 2023 05/02/2021, 07/31/2020, 07/03/2020 Prediabetes: HGBA1C 11/11/2023 11/10/2022, 06/02/2021, 05/28/2020, Additional history exists Influenza (#1) 2024 07/17/2023, 01/2022, 03/27/2021, Additional history exists Medicare Annual Wellness Visit 10/27/2024 10/28/2023, 11/10/2022, 07/23/2021, Additional history exists Pneumococcal 65+ Yrs Completed [...] Procedure Name Priority Date/Time Associated Diagnosis Comments HGB A1C Routine 11/10/2022 11:33 AM CDT IFG (impaired fasting glucose) ENDOSCOPY, COLON, SCREENING/DIAGNOSTI C Routine 12/14/2017 3:06 PM CDT Iron deficiency anemia, unspecified iron deficiency anemia type from Last 3 Months or Most Recently Relevant to Health Maintenance Results * Hgb A1C (11/10/2022 11:33 AM CDT) Hemoglobin A1C 5.1 <=5.6 % 11/11/2022 8:52 AM CDT [facility] Estimated Average Glucose (Calc) 100 < 117 mg/dL 11/11/2022 8:52 AM CDT [facility] Comment:Estimated average gl ucose (eAG) converts A1c into glucose units (mg/dL) and estimates average glucose over the past approximately 3 months. The eAG reference interval (<117 mg/dL) corresponds to an A1c of <5.7%. Blood Venipuncture / Unknown 11/10/2022 11:33 AM CDT 11/10/2022 11:33 AM CDT Jersey Wilson MD LAB_1 [facility] [address] [place] [address], [facility] [phone] * Endoscopy, colon, diagnostic (12/14/2017 3:06 PM CDT) 12/14/2017 3:06 PM CDT Narrative GI ([facility]) - 12/14/2017 3:06 PM CDT Patient Name: Paul Rae Procedure Date: 12/14/2017 3:06 PM Date of : 1940 Admit Type: Outpatient Age: 77 Gender: Male Note Status: Finalized Attending MD: Gaudencio Mahan MD Procedure: ? Colonoscopy Indications: ? Iron deficiency anemia Providers: ? Gaudencio Mahan MD, Aleyda Hogan, ? RN Referring MD: ?Jersey Wilson MD Complications: ? No immediate complications. Procedure: ? After I obtained informed consent, ? the scope was passed under direct ? vision. Throughout the procedure, the ? patient's blood pressure, pulse, and ? oxygen saturations were monitored ? continuously. The [id number] was ? introduced through the anus and ? advanced to the cecum, identified by ? appendiceal orifice and ileocecal ? valve. The colonoscopy was performed ? with moderate difficulty due to ? restricted mobility of the colon. The ? patient tolerated the procedure well. ? The quality of the bowel preparation ? was good. Findings: ? Multiple small and large-mouthed diverticula were ? found in the sigmoid colon and distal descending ? colon. ? A 5 mm polyp was found in the cecum. The polyp was ? flat. The polyp was removed with a cold snare. ? Resection and retrieval were complete. ? The exam was otherwise without abnormality. Impression: ?- Diverticulosis in the sigmoid colon ? and in the distal descending colon. ? - One 5 mm polyp in the cecum, ? removed with a cold snare. Resected ? and retrieved. ? - The examination was otherwise ? normal. ? - This exam does NOT provide a ? structural explanation for the ? patients HALIE. ? - HALIE is probably related, at least ? in part, to prior B1 surgery with ? decreased absorption of oral iron. ? MR. Rae will likely require ? periodic monitoring of hgb with ? intermittent IV iron infusion to ? maintain iron and hgb levels. ? - unable to intubate the TI despite ? changing to supine and prone ? positions due to looping. Recommendation: ?- Await pathology results. ? - no further routine colonoscopic ? screening or surveillance is required. ? - see impression. Monitor hgb as ? outpt periodically. Utilize IV iron ? infusion as needed to maintain iron ? and hgb levels. Procedure Code(s): ?? --- Professional --- ? 65919, Colonoscopy, flexible; with ? removal of tumor(s), polyp(s), or ? other lesion(s) by snare technique Diagnosis Code(s): ?? --- Professional --- ? D12.0, Benign neoplasm of cecum ? D50.9, Iron deficiency anemia, ? unspecified ? K57.30, Diverticulosis of large ? intestine without perforation or ? abscess without bleeding CPT copyright 2016 [employer]. All rights reserved. The codes documented in this report are preliminary and upon agent review may be revised to meet current compliance requirements. Gaudencio Mahan MD 12/14/2017 3:45:32 PM This document has been electronically signed. Number of Addenda: 0 Note Initiated On: 12/14/2017 3:06 PM ? Endoscopy Report Procedure Note Gaudencio Mahan MD - 12/14/2017 Patient Name: Paul Rae Procedure Date: 12/14/2017 3:06 PM Date of : 1940 Admit Type: Outpatient Age: 77 Gender: Male Note Status: Finalized Attending MD: Gaudencio Mahan MD Procedure: Colonoscopy Indications: Iron deficiency anemia Providers: Gaudencio Mahan MD, Aleyda Hogan RN Referring MD: Jersey Wilson MD Complications: No immediate complications. Procedure: After I obtained informed consent, the scope was passed under direct vision. Throughout the procedure, the patient's blood pressure, pulse, and oxygen saturations were monitored continuously. The [id number] was introduced through the anus and advanced to the cecum, identified by appendiceal orifice and ileocecal valve. The colonoscopy was performed with moderate difficulty due to restricted mobility of the colon. The patient tolerated the procedure well. The quality of the bowel preparation was good. Findings: Multiple small and large-mouthed diverticula were found in the sigmoid colon and distal descending colon. A 5 mm polyp was found in the cecum. The polyp was flat. The polyp was removed with a cold snare. Resection and retrieval were complete. The exam was otherwise without abnormality. Impression: - Diverticulosis in the sigmoid colon and in the distal descending colon. - One 5 mm polyp in the cecum, removed with a cold snare. Resected and retrieved. - The examination was otherwise normal. - This exam does NOT provide a structural explanation for the patients HALIE. - HALIE is probably related, at least in part, to prior B1 surgery with decreased absorption of oral iron. MR. Rae will likely require periodic monitoring of hgb with intermittent IV iron infusion to maintain iron and hgb levels. - unable to intubate the TI despite changing to supine and prone positions due to looping. Recommendation: - Await pathology results. - no further routine colonoscopic screening or surveillance is required. - see impression. Monitor hgb as outpt periodically. Utilize IV iron infusion as needed to maintain iron and hgb levels. Procedure Code(s): --- Professional --- 14145, Colonoscopy, flexible; with removal of tumor(s), polyp(s), or other lesion(s) by snare technique Diagnosis Code(s): --- Professional --- D12.0, Benign neoplasm of cecum D50.9, Iron deficiency anemia, unspecified K57.30, Diverticulosis of large intestine without perforation or abscess without bleeding CPT copyright 2016 [employer]. All rights reserved. The codes documented in this report are preliminary and upon agent review may be revised to meet current compliance requirements. Gaudencio Maahn MD 12/14/2017 3:45:32 PM This document has been electronically signed. Number of Addenda: 0 Note Initiated On: 12/14/2017 3:06 PM Endoscopy Report Gaudencio Mahan MD PN GI PROCEDURE [facility] [place], [place] from Last 3 Months or Most Recently Relevant to Health Maintenance Care Teams Dialysis Rn Relationship Specialty Start Date End Date Jersey Wilson MD [address] [address] PCP - General Family Practice 07/23/16
--- OUTSIDE RECORDS SUMMARY | 2024-01-25 08:17 | XMS_ITS | Encounter Summary ---
Author Organization [facility] Address [address] [place] [address] Care Team Providers Care Consumer Marketing Analyst Name Role Phone Elsewhere, Pcp Primary Care Provider Unavailabl e Encounter Details Date Type Department Care Team (Late st Contact Info) Description 10/21/2023 Documentation Preoperative Evaluation Center in [place], [place] [address] [place] [phone] Ellie Momin, MARTIN, C.N.P. [address] [place] [phone] Social History Tobacco Use Types Packs/Day Years Used Date Smoking Tobacco: Never Smokeless Tobacco: Never Alcohol Use Standard Drinks/Week Comments Yes 3 (1 standard drink = 0.6 oz pur e alcohol) [facility] Utilities Answer Date Recorded In the past 12 months has [facility] [employer], gas, oil, or water [employer] threatened to shut off services in your [...] Sex Assigned at Male 04/23/2023 8:28 AM CDL PROGRAM COORDINATOR Gender Identity Male 04/23/2023 8:28 AM CDL PROGRAM COORDINATOR Sexual Orientation Straight 04/23/2023 8: 28 AM CDL PROGRAM COORDINATOR documented as of this encounter Progress Notes * Ellie Momin APRN, C.N.P. - 10/21/2023 2:09 PM CDT This is a JONATHAN pre-screening chart review to ascertain if a JONATHAN appointment is necessary. A comprehensive review of [facility] EMR was performed. We reviewed Care Everywhere and Documents Viewer or primary care or specialty care notes, laboratory testing, cardiac testing with in the last6 months and prior anesthesia encounters. Based on the EMR review, the patient is an acceptable candidate for the planned procedure and may proceed without additional preoperative evaluation or testing. The patient was not seen in JONATHAN. Please call [phone] (JONATHAN Doc of the day) weekdays between 8 am and 4:30 pm with any questions. Upon chart review, this patient was noted to be anemic within the last 90 days. If you would like to have an anemia evaluation the order will need to be placed by the surgical team. This can be done at anytime and will not impede surgical plans. To place order type: ANEMIA (Preoperative medical evaluation - JONATHAN anemia Consult) [id number] (PM code). Please select CBC with reflex panel under lab option within the order for the anemia provider to make clinical decision. documented in this encounter Plan of Treatment Upcoming Encounters Date Type Department Care Team (Late st Contact Info) Description 03/21/2024 9:30 AM CDT Appointment Department of Laboratory Medicine and Pathology, [facility] in [place], [place] [address] [place] [phone] Anita Alvarez APRN, C.N.P., D.N.P. [address] [place] [phone] 03/21/2024 10:30 AM CDT Appointment Department of Radiology, [facility], in [place], [place] [address] [place] [phone] Anita Alvarez APRN, C.N.P., D.N.P. [address] [place] [phone] 03/21/2024 3:30 PM CDT Procedure visit Department of Urology in [place], [place] [address] [place] [phone] Anita Alvarez APRN, C.N.P., D.N.P. [address] [place] [phone] 03/27/2024 11:30 AM CDT Appointment Department of Radiation Oncology in [place], [place] [address] [place] [phone] Collette Phillip M.D. [address] [place] [phone] documented as of this encounter Visit Diagnoses Not on filedocumented in this encounter Care Teams Consumer Marketing Analyst Relationship Specialty Start Date End Date Elsewhere, Pcp PCP - General Internal Medicine 07/14/23 documented as of this encounter
--- OUTSIDE RECORDS SUMMARY | 2024-01-25 08:17 | XMS_ITS | Encounter Summary ---
Author Organization [facility] Address [address] [place] [address] Care Team Providers Care Linux Support Engineer Name Role Phone Elsewhere, Pcp Primary Care Provider Unavailabl e Reason for Referral * Outpatient (Routine) - Closed Specialty Diagnoses / Procedures Referred By Contac t Referred To Contact Diagnoses Aftercare Orthopedic Postoperative Non-Injury Procedures DX Lumbar Spine 2-3 Views Marcelo Carter M.D. 200 [place] [phone] [facility] Referral ID Status Reason Start Date Expiration Date Visits Re quested Visits Authorized [id number] Closed 08/02/2023 08/01/2024 1 1 Reason for Visit * Outpatient (Routine) - Closed Specialty Diagnoses / Procedures Referred By Contac t Referred To Contact Diagnoses Aftercare Orthopedic Postoperative Non-Injury Procedures DX Lumbar Spine 2-3 Views Marcel[place] [address] [facility] Referral ID Status Reason Start Date Expiration Date Visits Re quested Visits Authorized [id number] Closed 08/02/2023 08/01/2024 1 1 Encounter Details Date Type Department Care Team (Latest Contact Info) Description 10/19/2023 7:00 AM CDT - 10/19/2023 11:59 PM CDT Hospital Encounter Department of Radiology, [facility], in [place], [place] 200 [place] [phone] Marcelo Carter M.D. [address] [place] [address] Aftercare Orthopedic Postoperative Non-Injury Discharge Disposition: Home or Self Care Social History Tobacco Use Types Packs/Day Years Used Date Smoking Tobacco: Never Smokeless Tobacco: Never Alcohol Use Standard Drinks/Week Comments Yes 3 (1 standard drink = 0.6 oz pur e alcohol) [facility] Utilities Answer Date Recorded In the past 12 months has e [employer], gas, oil, or water [employer] threatened to shut off services in your [...] your living situation today? I have a [facility] to live 07/19/2023 Sex and Gender Information Value Date Recorded Sex Assigned at Male 04/23/2023 8:28 AM FACILITIES ASSISTANT Gender Identity Male 04/23/2023 8:28 AM FACILITIES ASSISTANT Sexual Orientation Straight 04/23/2023 8: 28 AM FACILITIES ASSISTANT documented as of this encounter Medications at [...] of Laboratory Medicine and Pathology, [facility] in [place], [place] [address] [place] [phone] Anita Alvarez APRN, C.N.P., D.N.P. [address] [place] [phone] 03/21/2024 10:30 AM CDT Appointment Department of Radiology, [facility] in [place], [place] [address] [place] [phone] Anita Alvarez APRN, C.N.P., D.N.P. [address] [place] [phone] 03/21/2024 3:30 PM CDT Procedure visit Department of Urology in [place], [place] [address] [place] [phone] Anita Alvarez APRN, C.N.P., D.N.P. [address] [place] [phone] 03/27/2024 11:30 AM CDT Appointment Department of Radiation Oncology in [place], [place] [address] [place] [phone] Collette Phillip M.D. [address] [place] [phone] documented as of this encounter Procedures Procedure Name Priority Date/Time Associated Diagnosis Comments DX LUMBAR SPINE 2-3 VIEWS RAD - Routine (most inpatients and all outpatients) 10/19/2023 7:25 AM CDT Aftercare Orthopedic Postoperative Non-Injury documented in this encounter Results * DX Lumbar Spine 2-3 Views (10/19/2023 7:25 AM CDT) Anatomical Region Laterality Modality Lumbar Spine, Musculoskeleta l RST LOS, Neuroradiology ARZ LOS, Muskuloskeletal FLA LOS N/A Digital Radiography Impressions 10/19/2023 8:02 AM CDT Demineralization. Posterior decompression L3-4. Moderate degenerative disc height loss at L3-4. Moderate lower lumbar facet arthropathy. Postoperative changes in the upper abdomen. 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 Narrative 10/19/2023 8:02 AM CDT EXAM: ??DX LUMBAR SPINE 2-3 VIEWS Procedure Note Carolann Edmonds M.D. - 10/19/2023 EXAM: DX LUMBAR SPINE 2-3 VIEWS IMPRESSION: Demineralization. Posterior decompression L3-4. Moderate degenerative discheight loss at L3-4. Moderate lower lumbar facet arthropathy.Postoperative changes in the upper abdomen. Degenerative arthritis both SIjoints and hips. Marcelo Carter M.D. [facility] PROCEDURES documented in this encounter Visit Diagnoses Diagnosis Aftercare Orthopedic Postoperative Non-Injury documented in this encounter Care Teams Linux Support Engineer Relationship Specialty Start Date End Date Elsewhere, Pcp PCP - General Internal Medicine 07/14/23 documented as of this encounter
--- OUTSIDE RECORDS SUMMARY | 2024-01-25 08:17 | XMS_ITS | Referral Summary ---
Author Organization [facility] Address [address] [place] [id number] Care Team Providers Care Distribution Lead Name Role Phone Jersey Wilson MD Primary Care Provider [phone] Allergies Active Allergy Reactions Criticality Noted Date [...] 03/29/2023 11:00 AM CDT Plan of Treatment Not on file Medical Devices Implanted Type Area Government Relations Analyst Device Identifier Shelf Expiration Date Model / Serial / Lot Bone Cement Strk Simplex P [facility] 6192-1-001 - [id number] Implanted:Qty : 1 on 03/03/2022 by Marie Shine MD at [facility] Cement, Bone Right: Knee [employer] 11/11/2022 6192-100 / / [id number] Bone Cement Strk Simplex P Speedset 6192-1-001 - [id number] Implanted:Qty : 1 on 03/03/2022 by Marie Shine MD at [facility] Cement, Bone Right: Knee [employer] 11/11/2022 6192- 1 / / [id number] Imp Comp Fem Strk Triathln Ps Rt 5 5515-F-502 - [id number] Implanted:Qty : 1 on 03/03/2022 by Marie Sihne MD at [facility] Total Joint Component /Insert Right: Knee [employer] [id number] 12/03/2026 5515-F-50 2 / / [id number] Imp Comp Patella Howm Tri 35 10mm 5551-L-350 - [id number] Implanted:Qty : 1 on 03/03/2022 by Marie Shine MD at [facility] Total Joint Component /Insert Right: Knee [employer] [id number] 10/27/2026 5551-L-35 0 / / [id number] Imp Baseplate Tibial Howm Tri 5 5520-B-500 - [id number] Implanted:Qty : 1 on 03/03/2022 by Marie Shine MD at [facility] Total Joint Component /Insert Right: Knee [employer] [id number] 10/04/2026 5520-B-50 0 / / [id number] Imp Insert Tibial Strk Tri Size 5 10mm 5085-H-510-E - [id number] Implanted:Qty : 1 on 03/03/2022 by Marie Shine MD at [facility] Total Joint Component /Insert Right: Knee [employer] [id number] 02/18/2026 5532-G-51 0-E / / [id number] Advance Directives For more information, please contact: [phone] * Full Code (Latest Code Status on File) Date Activated Date Inactivated Comments 03/03/2022 11:54 AM 03/04/2022 1:15 PM All basic a nd advanced life-sustaining interventions are performed as appropriate Question Answer Comments Code status determined by: Unable to det ermine; FULL CODE until documents or legal decision maker available Care Teams Distribution Lead Relationship Specialty Start Date End Date Jersey Wilson MD [address] [facility] [place] [phone] PCP - General Internal Medicine 03/03/22
--- OUTSIDE RECORDS SUMMARY | 2024-01-25 08:17 | XMS_ITS | Encounter Summary ---
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 [address] [place] [phone] [facility] Referral ID Status Reason Start Date Expiration Date Visits Re quested Visits Authorized [id number] Closed 10/08/2023 04/08/2025 1 1 Encounter Details Date Type Department Care Team (Latest Contact Info) Description 10/21/2023 9:00 AM CDT Comprehensive Visit Department of Oncology in [place], [place] [address] [place] [phone] Lorrie Hicks M.D. 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 I have a [facility] to live 07/19/2023 Sex and Gender Information Value Date Recorded Sex Assigned at Male 04/23/2023 8:28 AM BEAVER TRAPPER Gender Identity Male 04/23/2023 8:28 AM BEAVER TRAPPER Sexual Orientation Straight 04/23/2023 8: 28 AM BEAVER TRAPPER documented as of this encounter Last Filed Vital Signs Vital Sign Reading Time Taken Comments Blood Pressure 153/84 10/21/2023 8:51 AM CDT Pulse 67 10/21/2023 8:51 AM CDT Temperature 36.9 ??C (98.4 ??F) 10/21/2023 8:51 AM CD T Respiratory Rate 16 10/21/2023 8:51 AM CDT Oxygen Saturation 96% 10/21/2023 8:51 AM CDT Inhaled Oxygen Concentration - - Weight 91.7 kg (202 lb 4.4 oz) 10/21/2023 8:51 A M CDT Height 171.9 cm (5' 7.68) 10/21/2023 8:51 AM CD T Body Mass Index 31.05 10/21/2023 8:51 AM CDT documented in this encounter Consult Notes * Lorrie Hicks M.D. - 10/21/2023 9:00 AM CDT SUBJECTIVE HISTORY OF PRESENT ILLNESS Mr. Rae is a 83 y.o. 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 Rae presents for consultation regarding bladder cancer. I had the pleasure to meet the patient and 1 of his children, a daughter who live in [place]. The patient lost his many years about a year and a half ago due to complications of Alzheimer's disease. 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 He lives just [place] of [facility]. The patient is otherwise healthy but he has complicated bowel surgery years ago. His performance status is 0. He had recent spine surgery for benign condition, decompression L3-L4 left side. REVIEW OF SYSTEMS Pertinent items are noted in HPI; all other review of systems was negative. OBJECTIVE VITAL SIGNS Vitals: 10/21/23 0851 BP: 153/84 BP Location: Right arm Patient Position: Sitting Cuff Size: Regular Pulse: 67 Resp: 16 Temp: 36.9 ??C TempSrc: Tympanic SpO2: 96% Weight: 91.7 kg Height: 171.9 cm DIAGNOSTICS I reviewed the imaging studies and agree with the interpretation as recorded. I reviewed the pertinent laboratory and diagnostic data. 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 We discussed very much in detail what the urothelium is and we look at a cartoons showing the renalpelvis, ureters and bladder. We discussed the natural history of urothelial cancer including the propensity for new primaries and for metastasis. We also discussed how do we cure bladder cancer, withsurgery or we radiation therapy and the chemotherapy has a small role in each situation. We discussed that he has an unusual variant of bladder cancer, micro papillary in which the use of chemotherapy before surgery is controversial, with some groups same that we should use it in some groups we should not use it. I discussed the patient care also carefully with Dr. Pruett in Urology and we both recommended for Mr. Rae to receive radiation therapy instead of surgery with intention of cure. I also discussed this with David in Radiation Oncology. He will be much easier for the patient to receive his treatment in [place]. We discussed that the role of chemotherapy here is minor, they there is to make the radiation therapy more powerful and that they are different regimens that we could use. I will leave this to my colleagues in [place], for them to choose the 1 that they are more familiar with. We discussed the frequently in my practice I stopped chemotherapy due to side effects of the treatment, trying not to start radiation therapy that is the main form to cure cancer. We also discussed the importance of follow-up with urine cytology and imaging, usually CTs. This can be done in [place]. It was a pleasure to meet the patient and his daughter. On multiple occasions we discussed that we are aiming to cure him with radiation and small doses of chemotherapy. PATIENT EDUCATION Ready to learn, no apparent learning barriers were identified; learning preferences include listening. Explained diagnosis and treatment plan; patient expressed understanding of the content. ADMINISTRATIVE BILLING I personally spent over half of a total 60 minutes face to face with the patient in counseling and discussion and/or coordination of care as described above. documented in this encounter Plan of Treatment Upcoming Encounters Date Type Department Care Team (Late st Contact Info) Description 03/21/2024 9:30 AM CDT Appointment Department of Laboratory Medicine and Pathology, [facility] in [place], [place] [address] [place] [phone] Anita Alvarez APRN, C.N.P., D.N.P. [address] [place] [phone] 03/21/2024 10:30 AM CDT Appointment Department of Radiology, [facility], in [place], [place] [address] [place] [phone] Anita Alvarez APRN, C.N.P., D.N.P. [address] [place] [phone] 03/21/2024 3:30 PM CDT Procedure visit Department of Urology in [place], [place] [address] [place] [phone] Anita Alvarez APRN, C.N.P., D.N.P. [address] [place] [phone] 03/27/2024 11:30 AM CDT Appointment Department of Radiation Oncology in [place] [id number] [place] [phone] Collette Phillip M.D. 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
--- OUTSIDE RECORDS SUMMARY | 2024-01-25 08:17 | XMS_ITS | Encounter Summary ---
Author Organization [facility] Address [address] [place] [phone] Care Team Providers Care American Indian Studies Professor Name Role Phone Elsewhere, Pcp Primary Care Provider Unavailabl e Reason for Referral * Specialty Diagnoses / Procedures Referred By Myrna maki Referred To Contact Marguerite Medina APRN, C.N.P., M.S.N. 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 [address] [place] [address] [facility] Referral ID Status Reason Start Date Expiration Date Visits Re quested Visits Authorized [id number] Closed 10/08/2023 04/08/2025 1 1 Encounter Details Date Type Department Care Team (Latest Contact Info) Description 10/21/2023 1:41 PM CDT - 10/21/2023 3:18 PM CDT Hospital Encounter Department of Radiation Oncology in [place], [place] [address] [place] [phone] Kash Hernandez M.D., Ph.D. 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 I have a [facility] place to live 07/19/2023 Sex and Gender Information Value Date Recorded Sex Assigned at Male 04/23/2023 8:28 AM AGRICULTURE ENGINEER Gender Identity Male 04/23/2023 8:28 AM AGRICULTURE ENGINEER Sexual Orientation Straight 04/23/2023 8: 28 AM AGRICULTURE ENGINEER documented as of this encounter Last Filed Vital Signs Vital Sign Reading Time Taken Comments Blood Pressure - - Pulse - - Temperature - - Respiratory Rate - - Oxygen Saturation - - Inhaled Oxygen Concentration - - Weight 92 kg (202 lb 13.2 oz) 10/21/2023 1:50 PM CDT Height - - Body Mass Index 31.13 10/21/2023 8:51 AM CDT documented in this [...] as of this encounter Consult Notes * Marguerite Medina, MARTIN, C.N.P., M.S.N. - 10/21/2023 2:00 PM CDT Images from the original note were not included. RADIATION ONCOLOGY Consultation Note REFERRING PROVIDER: Barber Pruett M.D. Collaborating Physician Specialist: Dr. Hernandez. SUBJECTIVE HISTORY OF PRESENT ILLNESS Paul Rae a 83 y.o. 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 He is s/p TURBT on 09/28/2023 Paul Rae presents today to discuss radiation therapy and a potential cancer management option. The prostate cancer history is as follows: Oncology History Overview Note Oncological history form Lizabeth Castellanos PA-C note of 09/30/2023 initial consultation regarding new diagnosis of bladder cancer. He presented to urology in August regarding urinary symptoms and retention. A cystoscopy was obtained and this demonstrated multiple papillary masses and erythematous lesions throughout the bladder. CT urogram demonstrated a left lateral bladder wall mass with surrounding features such as soft tissue stranding and nodularity which may suggest possible local invasion. No upper tract findings, evidence of metastatic disease. Urine cytology was positive for high-grade urothelial carcinoma. Patient underwent TURBT on 09/28/2023 which demonstrated multifocal papillary tumors along the left lateral bladder wall, right bladder dome, anterior lateral bladder wall. Largest tumor was 2 cm withat least 15 additional tumors. Bimanual examination was negative for T3 or T4 disease. Final pathology demonstrated muscle invasive high-grade urothelial carcinoma with micro papillary histology and CIS. 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 male from [place], [place]. The patient was seen in clinic inRadiation Oncology in collaboration with Dr. Hernandez to discuss prostate cancer management. He plans to pursue trigonal therapy and met with Medical Oncology this morning. He is s/p TURBT on 09/28/2023 He is scheduled for Maximal TURBT on 11/04/2023 Radiation Screening Questions: Prior Radiation therapy: None Medical Devices: None Anticoagulation: None History of afib, HTN, GERD, Sleep apnea REVIEW OF OTHER MEDICAL HISTORY The following portions of the patient's history were reviewed and updated as appropriate: allergies, current medications, medical history, surgical history, problem list, labs, imaging, pathology, and oncology history. 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 He lives [place] [facility]. Social History Socioeconomic History Marital status: , 2 children a son and a daughter Tobacco Use Smoking status: Never Smokeless tobacco: Never Vaping Use Vaping status: never used Substance and Sexual Activity Alcohol use: Yes Alcohol/week: 3.0 standard drinks of alcohol Types: 3 Standard drinks or equivalent per week Drug use: Never Sexual activity: Not Currently Partners: Female REVIEW OF SYSTEMS I-PSS I-PSS Urinary Symptoms Score: 30 I-PSS Quality of Life Score: 3 Constitutional:no complaints today. : Taking Flomax 0.8 and trospium, urinary frequency, urgency, and nocturia 4- 5x - 5 on average,he reports that he does not feel that he empties thus he double voids. He reports that he continuesto have slight pain in the tip of his penis although this is improving slowly. No dysuria, hematuria or leaking GI: Normal bowel movements. Reports one bowel movement every 1-3 days. Denied dyschezia or hematochezia. OBJECTIVE There were no vitals taken for this visit. General: Mr. Rae is seated in the examination room in no acute distress. Alert, oriented. Speech of normal rate and tone. Cognition and short- and long- term memory unremarkable LUNGS: Respirations appear easy and nonlabored, no cough. ECO - asymptomatic. Ambulates independently, does have a walker at home IMAGING Diagnostic imaging was personally reviewed and discussed with patient. PET CT Skull to Thigh FDG Impression: 1. Moderately FDG avid wall thickening in the anterior and left lateral bladder wall, correspondingwith the known urothelial neoplasm. 2. No FDG avid metastatic disease. 3. Focal metabolic activity in the proximal small bowel without corresponding abnormality on the prior CT urogram, indeterminate but favored physiologic. Attention on follow-up is suggested. Assessment Paul Rae a 83 y.o. 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 Hernandez. Discussed clinical context, nature of prostate cancer, benefits/harms of treatment, and rationale for treatment with Mr. Rae. He has met with our urologic surgeons who have had the opportunity to discuss surgical options. Mr Rae met with Medical Oncology this morning and plans to pursue trigonal therapy. We discussed radiation delivery with daily radiation treatments or 55 Gy in 20 fractions to the whole bladder this would be with concurrent chemotherapy as recommended and managed by Medical Oncology. Treatments are given weekdays only, treatment is not given on weekends or holidays. Discussed acute side effects of radiation include urinary urgency, frequency, bowel urgency or frequency, bloating, dysuria, fatigue. continuous churn buttermaker, there is increased risk of urinary or bowel dysfunction as well as the risk of small bowel obstruction or bowel perforation, and urinary or bowel bleeding. He is scheduled for Maximal TURBT on 11/04/2023. Discussed that he would return for CT simulation planning session approximately 1 week following this procedure then 1-2 weeks radiation planning he would start radiation treatments. Treatments sessions typically are 20-30 minutes in duration. Mr Rae is less than 20 miles from [place] and would ideally like to treat with our colleagues there [place] R[place] was encouraged to contact our office with any additional questions and/or ifwe may be of any additional assistance. PLAN: - He is scheduled for Maximal TURBT on 11/04/2023. - CT simulation in treatment position for radiation planning on 11/11/2023 - Treatment in [place], patient is aware that he will hear from [place] directly for treatment scheduling - 55 Gy in 20 fractions to the whole bladder with concurrent chemotherapy as recommended and managed by Medical Oncology CONSENT Discussed the risks, benefits, alternatives, and the necessity of other members of the healthcare team participating in the procedure. All questions answered and consent given. EDUCATION Ready to learn, no apparent learning barriers were identified; learning preferences include listening. Explained diagnosis and treatment plan; patient expressed understanding of the content. Patient education materials provided include: An introduction to Radiation Simulation and Treatment[[id number]] Associated attestation - Kash Hernandez M.D., Ph.D. - 11/17/2023 9:07 AM CDT I was the supervising physician in the delivery of the service and agree with the documentation provided by Marguerite Medina APRN, C.N.P., M.S.N. documented in this encounter Plan of Treatment Upcoming Encounters Date Type Department Care Team (Late st Contact Info) Description 03/21/2024 9:30 AM CDT Appointment Department of Laboratory Medicine and Pathology, [facility] in [place], [place] [address] [place] [phone] Anita Alvarez APRN, C.N.P., D.N.P. [address] [place] [phone] 03/21/2024 10:30 AM CDT Appointment Department of Radiology, [facility] in [place], [place] [address] [place] [phone] Anita Alvarez APRN, C.N.P., D.N.P. [address] [place] [phone] 03/21/2024 3:30 PM CDT Procedure visit Department of Urology in [place], [place] [address] [place] [phone] Anita Alvarez APRN, C.N.P., D.N.P. [address] [place] [phone] 03/27/2024 11:30 AM CDT Appointment Department of Radiation Oncology in [place] [id number] [place] [phone] Collette Phillip M.D. 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) Once for 1 Occurrences starting 10/21/2023 until 10/21/2023 Radiation Oncology - consult (clinic) Outpatient Referral Routine 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) Lesion Bladder Frequency Urinary Expected: 11/17/2023, Expires: 01/20/2025 Radiation Oncology - Nurse education visit (clinic) Outpatient Referral Routine 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
--- OUTSIDE RECORDS SUMMARY | 2024-01-25 08:17 | XMS_ITS | Encounter Summary ---
Author Organization [facility] Address [address] [place] [phone] Care Team Providers Care Compliance Project Manager Name Role Phone Jersey Wilson MD Primary Care Provider [phone] Encounter Details Date Type Department Care Team (Late st Contact Info) Description 01/13/2022 Orders Only [facility] Centralized Scheduling [address] [place] [address] Chintan Clemens MD [address] [place] [address] Encounter for laboratory testing for COVID-19 virus Social History Tobacco Use Types Packs/Day Years Used Date Smoking Tobacco: Never Assessed Sex and Gender Information Value Date Recorded Sex Assigned at Not on file Gender Identity Not on file Sexual Orientation Not on file COVID-19 Exposure Response Date Recorded In the last 10 days, have yo u been in contact with someone who was confirmed or suspected to have Coronavirus/COVID-19? No / Unsure 01/16/2022 12:59 PM CDT documented as of this encounter Plan of Treatment Not on file documented as of this encounter Results * Asymptomatic COVID-19 Virus (Coronavirus) by PCR Nose (01/16/2022 1:02 PM CDT) SARS CoV2 PCR Negative Negative 01/17/2022 2:32 PM CDT [facility] Comment:NEGATIVE: SARS-CoV-2 (COVID-19) RNA not detected, presumed negative. Swab NASAL STRUCTURE / Unknown Non-blood Collection / Unknown 01/16/2022 1:02 PM CDT 01/16/2022 1:02 PM CDT Narrative [facility] - 01/17/2022 2:32 PM CDT Testing was performed using the ritu SARS-CoV-2 assay on the ritu VSE EVAKUATORY ROSSII0 System. This test should be ordered for the detection of SARS-CoV-2 in individuals who meet SARS-CoV-2 clinical and/or epidemiological criteria. Test performance is unknown in asymptomatic patients. This test is for in vitro diagnostic use under the FDA EUA for laboratories certified under CLIA to perform high and/or moderate complexity testing. This test has not been FDA cleared or approved. A negative result does not rule out the presence of PCR inhibitors in the specimen or target RNA in concentration below the limit of detection for the assay. The possibility of a false negative should be considered if the patient's recent exposure or clinical presentation suggests COVID-19. This test was validated by the [facility]. This laboratory is certified under the Clinical Laboratory Improvement Amendments of 1988 (CLIA-88) as qualified to perform high and/or moderate complexity laboratory testing. Chintan Clemens MD LAB - MICRO GENERAL ORDERABLES [facility] Inf. Diseases Diag. Lab [address] [facility], [address] [place] [address], [facility] [phone] documented in this encounter Visit Diagnoses Diagnosis Encounter for laboratory testing for COVID-19 virus documented in this encounter Care Teams Compliance Project Manager Relationship Specialty [place] [address] [place] [phone] PCP - General Internal Medicine 03/03/22 documented as of this encounter
--- OUTSIDE RECORDS SUMMARY | 2024-01-25 08:17 | XMS_ITS | Encounter Summary ---
Author Organization [facility] Address [address] [place] [phone] Care Team Providers Care Wheel Cleaner Name Role Phone Elsewhere, Pcp Primary Care Provider Unavailabl e Encounter Details Date Type Department Care Team (Latest Contact Info) Description 10/21/2023 3:19 PM CDT - 10/21/2023 11:59 PM CDT Hospital Encounter Department of Laboratory Medicine and [facility], [facility] [place], [place] [address] [place] [phone] Barber Pruett M.D. 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 [address] [place] [phone] 03/21/2024 10:30 AM CDT Appointment Department of Radiology, [facility], in [place], [place] [address] [place] [phone] Anita Alvarez APRN, C.N.P., D.N.P. [address] [place] [phone] 03/21/2024 3:30 PM CDT Procedure visit Department of Urology in [place], [place] [address] [place] [phone] Anita Alvarez APRN, C.N.P., D.N.PTona [address] [place] [phone] 03/27/2024 11:30 AM CDT Appointment Department of Radiation Oncology in [place], [place] [address] [place] [phone] Collette Phillip M.D. 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 10/22/2023 3:20 PM CDT DTL Urine (Urine, Midstream) 10/21/2023 3:32 PM CDT 10/21/2023 5:31 PM CDT Comment:Specimen Source Site : Urine Barber Pruett M.D. LAB MICROBIOLOGY - G ENERAL ORDERABLES [facility] [address] [place] [address], [facility] [address] [place] [address] documented in this encounter Visit Diagnoses Diagnosis 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) Frequency Urinary documented in this encounter Care Teams Wheel Cleaner Relationship Specialty Start Date End Date Elsewhere, Pcp PCP - General Internal Medicine 07/14/23 documented as of this encounter
--- OUTSIDE RECORDS SUMMARY | 2024-01-25 08:17 | XMS_ITS | Encounter Summary ---
Author Organization [facility] Address [address] [place] [address] Care Team Providers Care General Accounting Manager Name Role Phone Elsewhere, Pcp Primary Care Provider Unavailabl e Reason for Visit * Outpatient (Routine) - Closed Specialty Diagnoses / Procedures Referred By Myrna maki Referred To Contact Urology Barber Pruett M.D. [address] [place] [phone] [facility] Referral ID Status Reason Start Date Expiration Date Visits Re quested Visits Authorized [id number] Closed 10/08/2023 04/08/2025 1 1 Encounter Details Date Type Department Care Team (Late st Contact Info) Description 10/21/2023 1:00 PM CDT Office Visit Department of Urology in [place], [place] [address] [place] [phone] Barber Pruett M.D. 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 I have a [facility] place to live 07/19/2023 Sex and Gender Information Value Date Recorded Sex Assigned at Male 04/23/2023 8:28 AM RN EMERGENCY ROOM Gender Identity Male 04/23/2023 8:28 AM RN EMERGENCY ROOM Sexual Orientation Straight 04/23/2023 8: 28 AM RN EMERGENCY ROOM documented as of this encounter Progress Notes * Tulio Chavez M.D. - 10/21/2023 1:00 PM CDT SUBJECTIVE CHIEF COMPLAINT/REASON FOR VISIT Bladder cancer follow up HISTORY OF PRESENT ILLNESS The patient is an 83-year-old male presenting for bladder cancer follow up. In September he developed urinary retention, urinary urgency and frequent nocturia. He had a CT of obtained which demonstrated a lateral bladder wall lesion. 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 CIS present. Largest area resection 2 cm in the left anterolateral bladder wall along with 15 2-3 mm satellite papillary lesions. He had a follow up PET-CT which demonstrated disease confined to the bladder. He plans to pursue trigonal therapy and met with Medical Oncology this morning. He presents today with no complaints. He endorsed pain at tip of his penis for of week following his TURBT. This is gradually resolved. He also endorses urinary frequency, urgency, and nocturia 6-8x.He otherwise denies urinary tract infections, pain with urination, gross hematuria. Medical history is significant for atrial fibrillation (not on anticoagulation), hypertension, GERD, sleep apnea, BPH OBJECTIVE There were no vitals filed for this visit. PHYSICAL EXAM General: Adult male, no acute distress ASSESSMENT / PLAN It was my pleasure to meet with Mr. Rae in clinic today. He has muscle invasive bladder cancerwith CIS s/p TURBT on 09/28/2023. He plans to pursue trimodal therapy. We discussed guideline recommendations for maximal TUR prior to radiation. Risks of the procedure including bleeding, infection, damage to surrounding structures and risks ofanesthesia including stroke, heart attack and blood clot were discussed. The patient is aware of these risks and agreeable to proceed. The informed consent document was reviewed and signed in my presence. The patient knows to be NPO after midnight the night before the procedure. The patient was providedwith a surgical checklist and given the number to call for a report time. The patient is aware that driving is not allowed within 24 hours of anesthesia and that an adult paratransit driver will need to be available for transport after the procedure or that they will need a ticket to ride. All procedure specific questions asked were answered to the patient's apparent satisfaction. No further concerns. The patient was provided with the websphere consultant's card and contact information for any further questions. Not on blood thinners. He was also significantly bothered by urinary frequency and urgency. Discussed that this could be caused by a combination of his BPH and bladder cancer. He was currently on Flomax and finasteride andrecommended that he should continue these medications. PLAN: 1. Maximal TURBT on 11.03 2. Urine culture 10-14 days prior Signed by: Tulio Chavez M.D. 10/21/2023 1:06 PM CDT documented in this encounter Plan of Treatment Upcoming Encounters Date Type Department Care Team (Late st Contact Info) Description 03/21/2024 9:30 AM CDT Appointment Department of Laboratory Medicine and Pathology, [facility] in [place], [place] [address] [place] [phone] Anita Alvarez APRN, C.N.P., D.N.P. [address] [place] [phone] 03/21/2024 10:30 AM CDT Appointment Department of Radiology, [facility], in [place], [place] [address] [place] [phone] Anita Alvarez APRN, C.N.P., D.N.P. [address] [place] [phone] 03/21/2024 3:30 PM CDT Procedure visit Department of Urology in [place], [place] [address] [place] [phone] Anita Alvarez APRN, C.N.P., D.N.P. [address] [place] [phone] 03/27/2024 11:30 AM CDT Appointment Department of Radiation Oncology in [place], [place] [address] [place] [phone] Collette Phillip M.D. [address] [place] [phone] documented as of this encounter Results * Bacterial Culture, Aerobic + Susceptibility, Urine (10/21/2023 3:32 PM CDT) Urine Culture No growth after 1 day of incubation. 10/22/2023 3:20 PM CDT DTL Urine (Urine, Midstream) 10/21/2023 3:32 PM CDT 10/21/2023 5:31 PM CDT Comment:Specimen Source Site : Urine Barber Pruett M.D. LAB MICROBIOLOGY - G ENERAL ORDERABLES [facility] [address] [place] [address], [facility] DTL [facility] [address] [place] [address] documented in this encounter Visit Diagnoses Diagnosis 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)- Primary Frequency Urinary documented in this encounter Care Teams General Accounting Manager Relationship Specialty Start Date End Date Elsewhere, Pcp PCP - General Internal Medicine 07/14/23 documented as of this encounter
--- OUTSIDE RECORDS SUMMARY | 2024-01-25 08:17 | XMS_ITS | Encounter Summary ---
Author Organization [facility] Address [address] [place] [address] Care Team Providers Care Morals Squad Police Officer Name Role Phone Jersey Wilson MD Primary Care Provider [phone] Encounter Details Date Type Department Care Team (Late st Contact Info) Description 02/09/2022 Orders Only [facility] Centralized Scheduling [address] [place] [phone] Chintan Clemens MD [address] [place] [address] Encounter for laboratory testing for COVID-19 virus Social History Tobacco Use Types Packs/Day Years Used Date Smoking Tobacco: Never Smokeless Tobacco: Never Alcohol Use Standard Drinks/Week Comments Yes 0 (1 standard drink = 0.6 oz pur e alcohol) 3-4x a week Sex and Gender Information Value Date Recorded [...] Asymptomatic COVID-19 Virus (Coronavirus) by PCR Nose (02/27/2022 1:26 PM CDT) SARS CoV2 PCR Negative Negative 02/28/2022 4:25 PM CDT [facility] Comment:NEGATIVE: SARS-CoV-2 (COVID-19) RNA not detected, presumed negative. Swab NASAL STRUCTURE / Unknown Non-blood Collection / Unknown 02/27/2022 1:26 PM CDT 02/27/2022 1:26 PM CDT Narrative [facility] - 02/28/2022 4:25 PM CDT Testing was performed using the Aptima SARS-CoV-2 Assay on the [employer] Instrument System. Additional information about this Emergency Use Authorization (EUA) assay can be found via the Lab Guide. This test should be ordered for the detection of SARS-CoV-2 in individuals who meet SARS-CoV-2 clinical and/or epidemiological criteria. Test performance is unknown in asymptomatic patients. This test is for in vitro diagnostic use under the FDA EUA for laboratories certified under CLIA to perform high complexity testing. This test has not been [...] COVID-19. This test was validated by the [facility]. This laboratory is certified under the Clinical Laboratory Improvement Amendments of 1988 (CLIA-88) as qualified to perform high complexity laboratory testing. Chintan Clemens MD LAB - MICRO GENERAL ORDERABLES [facility] Inf. Diseases Diag. Lab [address] [facility], [address] [place] [address], [facility] [phone] documented in this encounter Visit Diagnoses Diagnosis Encounter for laboratory testing for COVID-19 virus documented in this encounter Care Teams Morals Squad Police Officer Relationship Specialty Start Date End Date Jersey Wilson MD [address] [place] [address] PCP - General Internal Medicine 03/03/22 documented as of this encounter
--- OUTSIDE RECORDS SUMMARY | 2024-01-25 08:17 | XMS_ITS ---
Author Organization [facility] Address [address], [place] [address] Care Team Providers Care Tailer Off Name Role Phone Jersey Wilson MD Primary Care Provider [phone] Active Problems Problem Noted Date Diagnosed Date [...] 02/19/2017 Overview: Setting: APAP 7-15 Supplied by: [facility] PSG done: 02/09/17 AHI 6 (HTN) RDI 16 Lowest O2 Sat: 83% Kelly/Beatriz 07/25/19 pressure change 02/16/17 new, change 03-09-17; 12/8/17 compliant Cerebral microvascular disease 04/16/2016 Hyperlipidemia 11/01/2015 Gastroesophageal reflux disease without esophagi tis 05/17/2015 Mild dilation of ascending aorta 10/12/2014 Overview: Repeat ECHO in one year. Migraine, chronic, without aura 05/25/2013 IFG (impaired fasting glucose) 02/02/2012 Benign prostatic hyperplasia 02/02/2012 Diverticulitis of colon 07/28/2009 Essential hypertension 03/02/2006 Other nonthrombocytopenic purpura Current Oncology Plans No current plan information found. Past Plans No past plan information found. Radiation Treatments * No radiation treatments are documented for this patient in [facility]. Treatments may have been administered in another system. Lifetime Dose Tracking * Chemical Lifetime Dose Automatic Entry Manual Entr y Fluoro Time 0.535 minutes 0.535 minutes 0 minutes Total Air Kerma 7.48 mGy 7.48 mGy 0 mGy Resolved Problems Problem Noted Date Diagnosed Date [...]
--- OUTSIDE RECORDS SUMMARY | 2024-01-25 08:17 | XMS_ITS | Encounter Summary ---
Author Organization [facility] Address [address] [place] [address] Care Team Providers Care Gi Asst Name Role Phone Jersey Wilson MD Primary Care Provider [phone] Encounter Details Date Type Department Care Team (Late st Contact Info) Description 01/20/2022 Documentation Only INTERFACED REPORT Unknown, Provider Social History Tobacco Use Types Packs/Day Years [...] on file documented as of this encounter Visit Diagnoses Not on filedocumented in this encounter Care Teams Gi Asst Relationship Specialty Start Date End Date Jersey Wilson MD [address] [place] [address] PCP - General Internal Medicine 03/03/22 documented as of this encounter
--- OUTSIDE RECORDS SUMMARY | 2024-01-25 08:17 | XMS_ITS | Encounter Summary ---
Author Organization [facility] Address [address] [place] [address] Care Team Providers Care Lens Gauger Name Role Phone Elsewhere, Pcp Primary Care Provider Unavailabl e Reason for Visit * Outpatient (Routine) - Closed Specialty Diagnoses / Procedures Referred By Mryna maki Referred To Contact Orthopedic Surgery Marcelo Carter M.D. [address] [place] [phone] Marcelo Carter M.D. [address] [place] [phone] Referral ID Status Reason Start Date Expiration Date Visits Re quested Visits Authorized [id number] Closed 08/02/2023 01/31/2025 1 1 Encounter Details Date Type Department Care Team (Late st Contact Info) Description 10/19/2023 8:30 AM CDT Office Visit Department of Orthopedic Surgery in [place], [place] [address] [place] [phone] Marcelo Carter M.D. [address] [place] [phone] Stenosis Spinal Lumbar With Neurogenic Claudication (Primary Dx) Social History Tobacco Use Types Packs/Day Years Used Date Smoking Tobacco: Never Smokeless Tobacco: Never Alcohol Use Standard Drinks/Week Comments Yes 3 (1 standard drink = 0.6 oz pur e alcohol) [facility] Utilities Answer Date Recorded In the past 12 months has [employer], gas, oil, or water [employer] threatened to shut off services in your [...] living situation today? I have a [facility] place to live 07/19/2023 Sex and Gender Information Value Date Recorded Sex Assigned at Male 04/23/2023 8:28 AM REMOTELY PILOTED VEHICLE CONTROLLER Gender Identity Male 04/23/2023 8:28 AM REMOTELY PILOTED VEHICLE CONTROLLER Sexual Orientation Straight 04/23/2023 8: 28 AM REMOTELY PILOTED VEHICLE CONTROLLER documented as of this encounter Progress Notes * Valentina Bro M.D. - 10/19/2023 8:30 AM CDT SUBJECTIVE PATIENT: Paul Rae DATE OF : 1940 SUBJECTIVE: Paul Rae is a 83 y.o. male status post: L3/4 decompression and discectomy, performed on 07/16/2023. Current status: Doing excellent from spine surgery perspective. Unfortunately when he suffered a fall a few days postop, he was found to have a mass in his bladder incidentally on CT. He has subsequently undergone surgery for urothelial carcinoma. He meets with medical & radiation oncology on to discuss next steps. Level of satisfaction with his current outcome: Very satisfied. Preoperatively, his symptoms included: Symptom Distribution: Back: 80% Le% Right: 50% Left: 50% Postoperative Symptom Change: He reports that his: Back pain symptoms have resolved. Left lower extremity symptoms have resolved. He denies new radicular or neurological symptoms. OBJECTIVE PHYSICAL EXAMINATION: Constitutional: Alert and Oriented x 3 Abdomen: Soft, Nontender Skin: Incision (Posterior Midline): clean, dry and intact. Well healed. No evidence of infection. Distal extremities are warm and well perfused. Motor: No new myotomal deficits noted compared to preoperative state. Lower Extremity: Left Right Iliopsoas: 5/5 5/5 Quadriceps: 5/5 5/5 Tibialis Ant: 5/ 5/5 EHL: 5/5 5/5 Gastrocs: 5/5 5/5 Hamstrings: 5/ 5/5 Sense: No new dermatomal deficits noted compared to preoperative state. Straight Leg Raise: Right: No Left: No Gait: Ambulating without assistance. Assistive Device: None. IMAGING: XR LSP: Good alignment, no concerns for instability ASSESSMENT / PLAN ASSESSMENT: Lumbar stenosis with neurogenic claudication s/p L3-4 lumbar decompression Left L3-4 HNP with paracentral extrusion, compressive Severe L3-4 degenerative disc disease Lumbago - resolved PLAN: He is doing quite well after surgery from a spine surgery perspective. Preop symptoms are resolved.He can call us as needed. Reviewed current clinical outcome. Encouraged patient to lead a spine healthy lifestyle. All questions were answered to his satisfaction. Therapy: Not indicated. Next Follow-up: PRN Associated attestation - Marcelo Carter M.D. - 10/19/2023 4:05 PM CDT I saw and evaluated the patient, participating in the beck portions of the service. I reviewed the resident/fellow???s note. I agree with the resident/fellow???s findings and plan. Hx: Mr. Rae is the 83-year-old gentleman in whom I performed a L3-4 left- sided decompression on 16 July, who was then discharged on postop day one, only to return the next day with intractable back pain and some recurrent left lower extremity symptoms (vs. SI - the sx are mostly proximal). He remained until 21 July at which time he discharged. We obtained a CT scan at the time of his readmission, and it looked great. Likewise, the intraoperative microscope images, show excellent decompression. Looking back of the preoperative MRI, the onlyarea of significant stenosis in the lumbar spine was at the L3-4 level, and we address that with our diskectomy and dorsal decompression. At his wound check on 02 August, things look likely return in the corner. He had no evidence of infection. He had a relatively normal exam. No tension signs. Prior to surgery he had profound and progressive left lower extremity radiating pain and neurogenicclaudication, consistent with a left L3-4 disc herniation, which was removed at the time of surgery. The symptoms appeared to respond to our surgery, only to have some recurrence in the days following. He seems to be back on track. Newly dx'ed Bladder cancer - PET on showed no obvious new mets, some uptake in the bladder wall.Treated with surgery, now due for chemo + XRT. Daughter hospitalized last evening with a cardiac event. He has got a lot going on, but his spine is much better and he is happy. Follow up will be PRN. Assessment: 1.Left L3-4 disc herniation, extrusion on protrusion, paracentral, compressive 2.Severe lumbar spinal stenosis with neurogenic claudication and nerve root buckling 3.Advanced L3-4 degenerative disc disease 4.Lumbago 5.Bladder Ca Plan: FU PRN documented in this encounter Plan of Treatment Upcoming Encounters Date Type Department Care Team (Late st Contact Info) Description 03/21/2024 9:30 AM CDT Appointment Department of Laboratory Medicine and Pathology, [facility] in [place], [place] [address] [place] [phone] Anita Alvarez APRN, C.N.P., D.N.P. [address] [place] [phone] 03/21/2024 10:30 AM CDT Appointment Department of Radiology, [facility] in [place], [place] [address] [place] [phone] Anita Alvarez APRN, C.N.P., D.N.P. [address] [place] [phone] 03/21/2024 3:30 PM CDT Procedure visit Department of Urology in [place], [place] [address] [place] [phone] Anita Alvarez APRN, C.N.P., D.N.P. [address] [place] [phone] 03/27/2024 11:30 AM CDT Appointment Department of Radiation Oncology in [place] [address] [place] [phone] Collette Phillip M.D. [address] [place] [phone] documented as of this encounter Visit Diagnoses Diagnosis Stenosis Spinal Lumbar With Neurogenic Claudication- Primary documented in this encounter Care Teams Lens Gauger Relationship Specialty Start Date End Date Elsewhere, Pcp PCP - General Internal Medicine 07/14/23 documented as of this encounter
--- OUTSIDE RECORDS SUMMARY | 2024-01-25 08:18 | XMS_ITS | Encounter Summary ---
Author Organization [facility] Address [address] [place] [address] Care Team Providers Care Appointment Specialist Name Role Phone Jersey Wilson MD Primary Care Provider [phone] Reason for Visit * Reason Comments Note Entered Refill Encounter Details Date Type Department Care Team (Late st Contact Info) Description 11/23/2023 Telephone [facility] [address] Neurology [address] [place], [place] [phone] Anushka Curran PA-C [address] [place], [place] [phone] Note Entered; Refill Social History Tobacco Use Types Packs/Day [...] as of this encounter Nursing Notes * Nancy Joseph RN - 11/23/2023 8:56 AM CDT Topamax 100 mg refill sent. Annual appointment scheduled for 03/28/24. documented in this encounter Plan of Treatment Upcoming Encounters Date Type Department Care Team (Late st Contact Info) Description 03/28/2024 12:45 PM CDT Appointment [facility] [address] [place], [place] [phone] Anushka Curran PA-C [address] [place], [place] [phone] 08/09/2024 1:45 PM SUPERVISOR COUNSELING AND GUIDANCE Appointment [facility] [address] Dermatology [address] [place], [place] [phone] Suzanna Terrell MD, PhD [address] [place], [place] [phone] documented as of this encounter Visit Diagnoses Diagnosis Chronic migraine without aura without status migrainosus, not intractable- Primary Chronic migraine without aura, without mention of intractable migraine without mention of status migrainosus documented in this encounter Care Teams Appointment Specialist Relationship Specialty Start Date End Date Jersey Wilson MD [address] [place] [address] PCP - General Family Practice 07/23/16 documented as of this encounter
--- OUTSIDE RECORDS SUMMARY | 2024-01-25 08:18 | XMS_ITS | Encounter Summary ---
Author Organization [facility] Address [address], [place] [address] Care Team Providers Care Pyrotechnician Name Role Phone Jersey Wilson MD Primary Care Provider [phone] Reason for Visit * Reason Comments Future Appointments Encounter Details Date Type Department Care Team (Late st Contact Info) Description 10/27/2023 Telephone [facility] [address] [place] [address] Jersey Wilson MD [address] [place], [place] [phone] Future Appointments Social History Tobacco Use Types Packs/Day Years [...] as of this encounter Nursing Notes * Qian Rae, RN - 10/27/2023 9:52 PM CDT Pt called and said he had an appointment tomorrow at 6:45 am with PCP. Pt thought the appointment was a video visit but it was an office visit. Pt asked to cancel the in office appointment. Nurse scheduled a video visit for 10/28/23 1 pm. documented in this encounter Plan of Treatment Upcoming Encounters Date Type Department Care Team (Late st Contact Info) Description 03/28/2024 12:45 PM CDT Appointment [facility] [address] [place] [address] Anushka Curran PA-C [address] [place], [place] [phone] 08/09/2024 1:45 PM DISTRICT CUSTOMS DIRECTOR Appointment [facility] [address] [place] [phone] Suzanna [place] PhD [address] [place] [phone] documented as of this encounter Visit Diagnoses Not on filedocumented in this encounter Care Teams Pyrotechnician Relationship Specialty Start Date End Date Jersey Wilson MD [address] [place] [address] PCP - General Family Practice 07/23/16 documented as of this encounter
--- OUTSIDE RECORDS SUMMARY | 2024-01-25 08:18 | XMS_ITS | Encounter Summary ---
Author Organization [facility] Address [address], [place] [address] Care Team Providers Care Dry Primer Powder Blender Name Role Phone Jersey Wilson MD Primary Care Provider [phone] Reason for Visit * Reason Onset Date Comments Video Visit 10/28/2023 Sleep problems Encounter Details Date Type Department Care Team (Late st Contact Info) Description 10/28/2023 1:00 PM CDT Telemedicine [facility] [address] [facility]. [place], [place] [phone] Jersey Wilson MD [address] [place], [place] [phone] Encounter for Medicare annual wellness exam (Primary Dx); Insomnia, unspecified type Social History Tobacco Use Types Packs/Day Years [...] * Patient Instructions* Jersey Wilson MD - 10/28/2023 1:00 PM CDT Annual Wellness Visit Summary Your care [...] 2) Never done ??? Colonoscopy 12/14/2020 ??? DTaP/Tdap/Td (2 - Tdap) 02/01/2022 ??? COVID-19 Vaccine (2022-24 season) 2023 ??? Medicare Annual Wellness Visit 06/14/2023 ??? Prediabetes: HGBA1C 11/11/2023 If your Medicare Welcome or Annual Wellness Visit is showing you are due in the above list, this will be updated after this visit. You had this completed today and are not due for another year. Thank you for coming in for your Medicare Wellness Visit. To make sure we are doing our best to meet your care needs, here are a few important reminders. We want to know your thoughts as we work together to create your care plan, including stopping and starting medications. When we work together on next steps, it's called shared decision making. If there is anything else you would like to discuss, please reach out or schedule a follow-up appointmentif needed. We are here to listen. We want to help you address any concerns you have about the cost of your medications. To find options for the most cost-effective medications near you, go to https://www.[employer]/hp/pharmacy/drug-cost/index.html You can also find more information in this handout. Health care can be complicated. Sometimes, it can help to share your health information with your family or caregivers. (Caregivers can be friends as well as family.) How much you share is up to you.Here is a helpful link: https://www.[employer].Borqs/blog/vyrvvd-lbht-bmmcj-benefits/ We care about nutrition, how much physical activity you get and how much stress, worry or sadness you have in your life. Please reach out to your care team if you have additional information to shareor would like more resources or support. documented in this encounter Progress Notes * Jersey Wilson MD - 10/28/2023 1:00 PM CDT Medicare Annual Wellness Visit Subjective/Historical: Paul Rae is a 83 y.o. old male Chief Complaint Patient presents with Video Visit Sleep problems Current Concerns: See below. Mini-Cog was not administered today due to video visit. PHQ-2 was administered today with a total score of: 1 Medicare Annual Wellness Smart Form 10/28/2023 1:00 PM MEDICARE ANNUAL WELLNESS CONCERNS Unable to complete Mini-Cog due to: Video/Phone Visit In general, would you say your health is: Fair In general, would you say your dental health is: -- Do you or any of your family members have any concerns about your memory? No Does urination or leaking urine cause any problems with your daily activities or sleep? Yes Do you have difficulty hearing? -- Do you have concerns about your sexual [...] a dose more than once a week? -- Do you feel unsteady when walking? -- [...] are on file. Discussed completing advance directives. Observed Vitals: There were no vitals taken for this visit. See below. Assessment/Plan Encounter for Medicare annual wellness exam Insomnia, unspecified type - eszopiclone (LUNESTA) 1 MG tablet; Take 1-2 Tablets (1-2 mg) by mouth daily at bedtime. Other orders - acetaminophen 500 MG tablet; Take 2 Tablets (1,000 mg) by mouth. - indocyanine green (IC-GREEN) 25 MG injection; Administer 5 mg intravenously. - polyethylene glycol (MIRALAX) 17 g packet; Take 17 g by mouth. - sennosides-docusate sodium (SENOKOT S) 8.6-50 MG per tablet; Take 2 Tablets by mouth. - trospium (SANCTURA) 20 MG tablet; Take 1 Tablet (20 mg) by mouth two times daily as needed. - bacitracin 500 UNIT/GM ointment; Apply 1 Application topically. - gabapentin (NEURONTIN) 300 MG capsule; Take 1 Capsule (300 mg) by mouth three times a day. 1.Counseling and education provided today includes proper nutrition and health habits, fall prevention, and for those items ordered above. See plan for future preventive services in Patient Instructions. Jersey Wilson MD 10/28/2023, 1:04 PM Subjective: Today's visit with Atif was conducted as a scheduled video visit. Insomnia: Since July, patient has had back surgery and been diagnosed with bladder cancer. For the past several weeks has had difficulty sleeping. At times he sleeps 1-3 hours a night. He was advised to start Benadryl 25-75 mg at bedtime and he is also tried ixcx-njq-myaizhr melatonin. These have not been helpful. He does take amitriptyline 100 mg at bedtime and Topamax 100 mg at bedtime for headache treatment. Objective: There were no vitals taken for this visit. General: Alert awake. No acute distress. Non-ill appearing. Assessment/Plan: Encounter for Medicare annual wellness exam Insomnia, unspecified type - eszopiclone (LUNESTA) 1 MG tablet; Take 1-2 Tablets (1-2 mg) by mouth daily at bedtime. Other orders - acetaminophen 500 MG tablet; Take 2 Tablets (1,000 mg) by mouth. - indocyanine green (IC-GREEN) 25 MG injection; Administer 5 mg intravenously. - polyethylene glycol (MIRALAX) 17 g packet; Take 17 g by mouth. - sennosides-docusate sodium (SENOKOT S) 8.6-50 MG per tablet; Take 2 Tablets by mouth. - trospium (SANCTURA) 20 MG tablet; Take 1 Tablet (20 mg) by mouth two times daily as needed. - bacitracin 500 UNIT/GM ointment; Apply 1 Application topically. - gabapentin (NEURONTIN) 300 MG capsule; Take 1 Capsule (300 mg) by mouth three times a day. Plan: 1. Patient has not tolerated trazodone in the past. He is already taking tricyclic antidepressant. Will start Lunesta 1-2 mg at bedtime. Side effects reviewed. Follow-up in 3-4 weeks to recheck. Earlier if symptoms are not controlled. Jersey Wilson MD documented in this encounter Plan of Treatment Upcoming Encounters Date Type Department Care Team (Late st Contact Info) Description 03/28/2024 12:45 PM CDT Appointment [facility] [address] [place] [address] Anushka Curran PA-C [address] [place], [place] [address] 08/09/2024 1:45 PM ICT SUPPORT AND TEST ENGINEERS Appointment [place] [address] Dermatology [address] [place], [place] [phone] Suzanna Terrell MD, PhD [address] [place], [place] [phone] documented as of this encounter Visit Diagnoses Diagnosis Encounter for Medicare annual wellness exam- Primary Insomnia, unspecified type documented in this encounter Care Teams Dry Primer Powder Blender Relationship Specialty Start Date End Date Jersey Wilson MD [address] [place] [address] PCP - General Family Practice 07/23/16 documented as of this encounter
--- OUTSIDE RECORDS SUMMARY | 2024-01-25 08:18 | XMS_ITS | Encounter Summary ---
Author Organization [facility] Address [address], [place] [address] Care Team Providers Care Robot Operator Name Role Phone Jersey Wilson MD Primary Care Provider [phone] Reason for Visit * Reason Onset Date Comments Refill 11/22/2023 Encounter Details Date Type Department Care Team (Late st Contact Info) Description 11/22/2023 Refill [facility] [address] [facility]. [place], [place] [phone] Jersey Wilson MD [address] [place], [place] [phone] Refill Social History Tobacco Use Types Packs/Day [...] as of this encounter Nursing Notes * Payton Quintanilla - 11/25/2023 4:07 PM CDT Send message * Jersey Wilson MD - 11/22/2023 11:25 AM CDT Please call. Refilled once. Patient needs to be seen in-person in the next 1-3 months. * Cindy Thakkar RN - 11/22/2023 11:15 AM CDT Pt called cardiology but over a year since seen here and was to return only prn. Can you refill medications ? Thank-you documented in this encounter Plan of Treatment Upcoming Encounters Date Type Department Care Team (Late st Contact Info) Description 03/28/2024 12:45 PM CDT Appointment [facility] [address] [place], [place] [address] Anushka Curran PA-C [address] [place], [place] [address] 08/09/2024 1:45 PM EMERGENCY VETERINARIAN Appointment [place] [address] [place] [address] Suzanna Terrell MD, PhD [address] [place] [phone] documented as of this encounter Visit Diagnoses Diagnosis Essential hypertension (HRC)- Primary Unspecified essential hypertension documented in this encounter Care Teams Robot Operator Relationship Specialty Start Date End Date Jersey Wilson MD [address] [place] [address] PCP - General Family Practice 07/23/16 documented as of this encounter
--- OUTSIDE RECORDS SUMMARY | 2024-01-25 08:18 | XMS_ITS | Encounter Summary ---
Author Organization [facility] Address [address] [place] [address] Care Team Providers Care Digital Watch Assembler Name Role Phone Jersey Wilson MD Primary Care Provider [phone] Encounter Details Date Type Department Care Team (Late st Contact Info) Description 10/24/2023 1:30 PM CDT Telemedicine [facility] [address] [facility] [place] [address] Yu Rebolledo APRN, LOG MARKER [address] [facility] [address] [place] [address] Insomnia, unspecified type (Primary Dx) Social History Tobacco Use Types [...] as of this encounter Progress Notes * Yu Reboleldo APRN, ANA CRISTINA - 10/24/2023 1:30 PM CDT As the provider for this telehealth service, I attest that I introduced myself to the patient, provided my credentials, and determined that, based on a review of the patients chart, telemedicine is an appropriate and effective means of providing this service. Gets up to urinate once in the middle of the night. Subjective: Atif is a 83 y.o. male who presents via video visit for the following: Patient reports getting about 1-3 hours of sleep per night for several months. Denies knowledge of snoring. Denies restless legs. Denies caffeine afternoon/evening caffeine intake. Denies sob or cough when supine. Has tried several different medications for sleep but has not helped. ROS: Pertinent items are noted in HPI, remainder of complete review of systems negative. Objective: Wt Readings from Last 1 Encounters: 04/02/23 203 lb (92.1 kg) Temp Readings from Last 1 Encounters: 03/16/23 97.3 ??F (36.3 ??C) (Temporal Artery) BP Readings from Last 3 Encounters: 05/26/23 (!) 159/79 04/07/23 (!) 167/98 04/02/23 130/79 Pulse Readings from Last 3 Encounters: 05/26/23 64 04/07/23 64 04/02/23 81 GENERAL: Patient appears alert, calm, in no acute distress. HEAD: nontraumatic RESPIRATORY: Respirations appear eupnic. SKIN: No rashes. Assessment: Insomnia, unspecified type - diphenhydrAMINE (BENADRYL) 25 MG tablet; Take 1 Tablet (25 mg) by mouth at bedtime as needed for Sleep. Differential diagnosis includes but is not limited to: Restless leg Anxiety Nocturia Plan: Trial of diphenhydramine 25 mg - 50 mg qhs. Reviewed good sleep hygiene Follow up: with pcp in one month. Patient verbalized understanding and agreement with plan. Location of clinician home. Location of patient home. Billing based on: Time Total time for the visit was 30 minutes including, but not limited to, trt-waho-fk-face time spent reviewing records, counseling, and coordination of care. Yu Rebolledo APRN, ANA CRISTINA documented in this encounter Plan of Treatment Upcoming Encounters Date Type Department Care Team (Late st Contact Info) Description 03/28/2024 12:45 PM CDT Appointment [facility] [address] [place], [place] [address] Anushka Curran PA-C [address] [place], [place] [address] 08/09/2024 1:45 PM ETHYLENE OXIDE PANELBOARD OPERATOR Appointment [place] [address] [address] [place] [phone] [place] [address] [place] [phone] documented as of this encounter Visit Diagnoses Diagnosis Insomnia, unspecified type- Primary documented in this encounter Care Teams Digital Watch Assembler Relationship Specialty Start Date End Date Jersey Wilson MD [address] [facility] [place], [place] [address] PCP - General Family Practice 07/23/16 documented as of this encounter
--- OUTSIDE RECORDS SUMMARY | 2024-01-25 08:18 | XMS_ITS | Encounter Summary ---
Author Organization [facility] Address [address], [place] [address] Care Team Providers Care Digital Production Artist Name Role Phone Jersey Wilson MD Primary Care Provider [phone] Encounter Details Date Type Department Care Team (Late st Contact Info) Description 11/25/2023 E-Visit [facility] [address] [place], [place] [phone] [place] [address] Social History Tobacco Use Types Packs/Day Years [...] Info) Description 03/28/2024 12:45 PM CDT Appointment [facility] [address] [place], [place] [address] Anushka Curran PA-C [address] [place], [place] [address] 08/09/2024 1:45 PM PCI SECURITY CONSULTANT Appointment [facility] [address] Dermatology [address] [place], [place] [phone] Suzanna Terrell MD, PhD [address] [place], [place] [phone] documented as of this encounter Visit Diagnoses Not on filedocumented in this encounter Care Teams Digital Production Artist Relationship Specialty Start Date End Date Jersey Wilson MD [address] [facility] [place] [address] PCP - General Family Practice 07/23/16 documented as of this encounter
--- OUTSIDE RECORDS SUMMARY | 2024-01-25 08:18 | XMS_ITS | Encounter Summary ---
Author Organization [facility] Address [address] [place] [address] Care Team Providers Care Pipe Turner Name Role Phone Jersey Wilson MD Primary Care Provider [phone] Reason for Visit * Reason Comments Note Entered Encounter Details Date Type Department Care Team (Late st Contact Info) Description 01/07/2024 [facility]phone [facility] [address] Neurology [address] [place], [place] [phone] Anushka Curran PA-C [address] [place], [place] [address] Note Entered Social History Tobacco Use Types Packs/Day Years [...] Nursing Notes * Nancy Joseph RN - 01/07/2024 1:49 PM CDT LV 02/25/23. NV 03/28/24. Amitriptyline refill sent. documented in this encounter Plan of Treatment Upcoming Encounters Date Type Department Care Team (Late st Contact Info) Description 03/28/2024 12:45 PM CDT Appointment [facility] [address] [place], [place] [address] Anushka Curran PA-C [address] [place], [place] [phone] 08/09/2024 1:45 PM DIGITAL PHOTOGRAPHIC PRINTER Appointment [facility] [address] Dermatology [address] [place], [place] [phone] Suzanna Terrell MD, PhD [address] [place], [place] [phone] documented as of this encounter Visit Diagnoses Diagnosis Chronic migraine without aura without status migrainosus, not intractable- Primary Chronic migraine without aura, without mention of intractable migraine without mention of status migrainosus documented in this encounter Care Teams Pipe Turner Relationship Specialty Start Date End Date Jersey Wilson MD [address] [place] [address] PCP - General Family Practice 07/23/16 documented as of this encounter
--- OUTSIDE RECORDS SUMMARY | 2024-01-25 08:18 | XMS_ITS | Encounter Summary ---
Author Organization [facility] Address [address] [place] [address] Care Team Providers Care Snow Groomer Name Role Phone Jersey Wilson MD Primary Care Provider [phone] Reason for Visit * Reason Comments SLEEP PROBLEM--ED Encounter Details Date Type Department Care Team (Late st Contact Info) Description 10/26/2023 Nurse Triage [facility] [address] [facility] [place], [place] [phone] Jersey Wilson MD [address] [place], [place] [phone] SLEEP PROBLEM--ED Social History Tobacco Use Types Packs/Day Years [...] as of this encounter Nursing Notes * Loly Latham RN - 10/26/2023 12:50 PM CDT Spoke with pt. Pt bladder cancer surgery approximately 1 month ago. Has had trouble sleeping since then. Sleeping 0-3 hrs a night. Takes 50 mg melatonin nightly. Tried Trazodone in 2021. When he got up at night while on it, pt would almost pass out or would fall over. This is on pt's list of medications not to use. Pt has 1 more bladder surgery before starting radiation. Pt had a video visit 10/24/23. Was prescribed 50 mg Benadryl. Pt tried this without success. Has an appt with PCP on 10/27. No sleep in 3 d. Has a headache. Taking Sumatriptan for migraines. Has worked the last 2 d for headache. Takes amitriptyline before bed. Helps pt sleep. Pt took 125 mg last night. Pt following the good sleep advice already. Reason for Disposition Insomnia persists > 1 week and following Insomnia Care Advice Protocols used: [id number] * Radha Jeffers - 10/26/2023 12:29 PM CDT Symptoms Describe your symptoms (if pain, include location): Unable to sleep When did they start? Two weeks ago Additional comments (related to the above concern): Requesting medication for sleep If a prescription is needed, patient would like it filled at the pharmacy listed in Medication Management. Is it okay to leave a detailed message on your voicemail? Yes Is there anything else I can help you with today? documented in this encounter Plan of Treatment Upcoming Encounters Date Type Department Care Team (Late st Contact Info) Description 03/28/2024 12:45 PM CDT Appointment [facility] [address] [place] [address] Anushka Curran PA-C [address] [place], [place] [address] 08/09/2024 1:45 PM LIABILITY CLAIMS EXAMINER Appointment [place] [address] Dermatology [address] [place], [place] [phone] Suzanna Terrell MD, PhD [address] [place] [place], [place] [address] documented as of this encounter Visit Diagnoses Not on filedocumented in this encounter Care Teams Snow Groomer Relationship Specialty Start Date End Date Jersey Wilson MD [address] [facility] [place], [place] [address] PCP - General Family Practice 07/23/16 documented as of this encounter
--- OUTSIDE RECORDS SUMMARY | 2024-01-25 08:18 | XMS_ITS | Clinical Summary ---
Author Organization [facility] Address [place], [place] [address] Care Team Providers Care Personal Investment Adviser Name Role Phone [place] billy MD Primary [...] once daily at nighttime Indications: migraine prevention Active topiramate (TOPAMAX) 50 mg tablet Take 50 mg by mouth 2 times daily. Active lisinopril (PRINIVIL; ZESTRIL) 30 mg tablet Take 30 mg by mouth once daily. Active metoprolol succinate (TOPROL XL) 25 mg Sustained-Release tablet Take 25 mg by mouth once daily. Active atorvastatin (LIPITOR) 10 mg tabletIndications:pr evention of cerebrovascular accident Take 10 mg by mouth once daily. Indications: PREVENTION OF CEREBROVASCULAR ACCIDENT Active Cholecalciferol, Vitamin D3, 2,000 unit tablet Take 2,000 Units by mouth once daily. Active pantoprazole (PROTONIX) 40 mg delayed-release tablet Take 40 mg by mouth once daily. Active polyethylene glycol (MIRALAX; GLYCOLAX) 17 g powder for solution Take 1 Packet by mouth once daily if needed. As needed Active metoclopramide HCl (REGLAN) 5 mg tablet Take 5 mg by mouth 2 times daily. 02/23/2017 Active SUMAtriptan (IMITREX) 25 mg tablet Take 25 mg by mouth 2 times daily if needed for Migraine. Give at minimum 2hrs apart. Max Dose: 200mg per 24hrs. Active mupirocin (BACTROBAN OINTMENT) ointmentIndications: Skin tear of right hand without complication, initial encounter Apply topically to affected area(s) 3 times daily. 22 g 08/13/2020 Active acetaminophen-codein e (TYLENOL #3) 300-30 mg per tabletIndications:In jury of finger of left hand, initial encounter Take 1 Tablet by mouth every 4 hours if needed for Pain. Max acetaminophen dose: 4000mg in 24 hrs. 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 Temperature 37 ??C (98.6 ??F) 07/18/2023 1:00 PM 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 Respiratory Rate 16 07/18/2023 5:00 PM 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 Oxygen Saturation 95% 07/18/2023 5:00 PM 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 Inhaled Oxygen Concentration - - Weight 93 kg (205 lb) 07/18/2023 10:14 AM 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 Height 177.8 cm (5' 10) 07/18/2023 10:14 AM 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 Body Mass Index 29.41 07/18/2023 10:14 AM 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 Plan of Treatment Health Maintenance Due Date [...] 05/02/2021, 07/31/2020, 07/03/2020 Influenza for age 65+ 02/13/2024 03/22/2014 Advance Directives * Full Code (Latest Code Status on File) Date Activated Date Inactivated Comments 08/20/2021 10:08 AM 08/20/2021 3:15 PM Question Answer Comments Code Status Discussion: Not Discussed * Full Code Date Activated Date Inactivated Comments 04/08/2015 9:42 AM 04/08/2015 1:26 PM * Full Code Date Activated Date Inactivated Comments 10/19/2014 7:24 PM 10/20/2014 3:01 PM Question Answer Comments Code Status Discussion: Per Existing OrderDiscus sed * Full Code Date Activated Date Inactivated Comments 02/15/2013 11:22 AM 02/16/2013 2:17 AM * Full Code Date Activated Date Inactivated Comments 07/28/2009 3:21 AM 07/30/2009 5:00 PM Care Teams Personal Investment Adviser Relationship Specialty Start Date End Date Jersey Wilson MD [address] [facility] [place] [address] PCP - General 09/24/06
--- NOTE | 2024-01-25 09:00 | CRLHL7_ITS ---
For Patients: As a result of the 21st Century Cures Act, medical imaging exams and procedure reports are released immediately into your electronic medical record. You may view this report before your referring provider. If you have questions, please contact your health care provider. INDICATION: PT FINISHED CHEMO AND RADIATION DECEMBER 19. CHECK TO SEE RESPONSE OF BLADDER CANCER TECHNIQUE: CT of the abdomen and pelvis was obtained with 96 mL of Isovue 370 intravenous contrast. Oral water was administered. Please note that all CT scans at this facility use dose modulation, iterative reconstruction, and/or weight-based dosing when appropriate to reduce radiation dose to as low as reasonably achievable. COMPARISON: 09/10/2023 FINDINGS: Lower thorax: Normal. Liver and biliary tree: Normal. Gallbladder: Status post cholecystectomy. Spleen: Normal. Pancreas: Normal. Adrenal glands: Normal. Kidneys and ureters: Mild left hydroureteronephrosis. No obstructing renal calculi. 1.8 centimeter left renal cyst (2/64). Gastrointestinal tract: Moderate descending and sigmoid colonic diverticulosis without CT evidence of acute diverticulitis. Status post appendectomy and Billroth 1 procedure. No evidence of bowel obstruction. Duodenal diverticulum. Peritoneal cavity: Mild fat stranding surrounding the urinary bladder. Bladder: Redemonstration of irregular primarily anterior and left urinary bladder wall thickening measuring up to 7 millimeter in maximal thickness along the left lateral wall (2/124), previously measuring up to 1.9 centimeter. Pelvic organs: Mildly enlarged prostate. Vasculature: Moderate calcification. Lymph nodes: Prominent bilateral inguinal lymph nodes measuring up to 1.2 centimeter in the left groin (2/159). Abdominal wall: Postsurgical changes from midline laparotomy with associated dystrophic calcification. Musculoskeletal: Mild degenerative changes of the bilateral hips. Posterior decompression is seen at L3-4. Moderate degenerative changes of the visualized spine. IMPRESSION: 1. Slight interval decrease in size of irregular primarily anterior and left urinary bladder wall thickening measuring up to 7 millimeter in maximal thickness along the left lateral wall, previously measuring up to 1.9 centimeter. Mild fat stranding is again seen surrounding the urinary bladder, which may represent local invasion versus inflammation. 2. New mild left hydroureteronephrosis, which may represent partial obstruction of the left ureterovesical junction from the bladder mass. 3. Nonspecific prominent bilateral inguinal lymph nodes measuring up to 1.2 centimeter in the left groin. Please note that all CT scans at this facility use dose modulation, iterative reconstruction, and/or weight-based dosing when appropriate to reduce radiation dose to as low as reasonably achievable. Dictated by Jayden Palacios MD @ 01/25/2024 10:33:08 AM (Electronically Signed)
== END 2024-01-25 08:10 | disposition home or self-care (01) ==
LOC: CT 08:10
PROVIDERS: Visit Provider Internal Medicine Hematology & Oncology
DX: C67.9 Malignant neoplasm of bladder, unspecified (principal); N13.30 Unspecified hydronephrosis; R59.0 Localized enlarged lymph nodes
CPT/HCPCS: 74177; Q9967

== ENCOUNTER 2024-02-01 14:00 | Outpatient (RCR) | payer MEDICARE, SELFPAY ==
--- NOTE | 2023-11-16 13:00 | URNOTE ---
Prior auth not required for Mitomycin (J9280) and Fluorouracil (J9190) per [facility] Injectable Drug auth list.
--- NOTE | 2023-11-17 15:34 | ONC.NURNOTE ---
Chemotherapy teaching with daughter and Atif on Mitomycin and Flourouracil reviewed contents of teaching binder- reviewed possible side effects, self care at home, eating well, after hours management, go to ER if fever over 100.5, calling with concerns, antiemetics questions addressed consents and XUAN's reviewed and signed PICC line set up for 9 am on 11/21 with C1D1 treatment following XRT at 2 pm Referrals: patient requests a rehab referral for deconditioning management - will address with Dr Akers
[2023-11-22 08:46] LABS: Basophils Absolute Auto 0.03 K/uL (0.00-0.30); Basophils Percent Auto 0.5 % (0.0-3.0); Eosinophils Absolute Auto 0.26 K/uL (0.00-0.50); Eosinophils Percent Auto 4.8 % (0.0-7.0); Hematocrit 38.6 % (37.0-53.0); Hemoglobin* 12.9 gm/dL (13.5-17.5); Immature Granulocytes Abs Auto 0.01 K/uL (0.00-0.30); Immature Granulocytes Pct Auto 0.2 %; Lymphocytes Absolute Auto 1.12 K/uL (0.90-2.90); Lymphocytes Percent Auto 20.5 % (20-44); Mean Corpuscular HGB Conc 33 gm/dL (32-36); Mean Corpuscular Hemoglobin 30 pg (26-34); Mean Corpuscular Volume 89 fL (80-100); Neutrophils Absolute Auto 3.61 K/uL (1.7-7.0); Platelet Count* 227 K/uL (140-440); RDW Coefficient of Variation % 11.9 % (11.5-15.5); Red Blood Count 4.33 m/uL (4.30-5.90); Slide Review Reflex No; White Blood Count* 5.47 K/uL (4.50-11.00)
[2023-11-22 08:50] VITALS: BP 144/76; PULSE 78; RESP 16; TEMP 36; O2SAT 98
[2023-11-22 08:58] LABS: Albumin* 3.8 g/dL (3.3-5.0); Chloride* 99 mmol/L (96-114); Potassium* 4.4 mmol/L (3.6-5.1); Sodium* 136 mmol/L (135-149)
[2023-11-22 09:01] LABS: Alanine Aminotransferase* 17 U/L (4-50); Alkaline Phosphatase* 82 U/L (40-150); Anion Gap 5 mEq/L (7-15); Aspartate Amino Transferase* 24 U/L (12-35); Bilirubin Total* 0.6 mg/dL (0.1-1.5); Blood Urea Nitrogen* 18 mg/dL (7-30); Carbon Dioxide* 32 mmol/L (20-32); Creatinine* 1.4 mg/dL (0.5-1.5); Est. Creatinine Clearance* 40.68; Estimated Glomerular Filt Rate 50 ml/min; Glucose* 135 mg/dL (60-115); Total Protein* 6.4 g/dL (6.0-8.3)
[2023-11-22 09:02] LABS: Calcium* 8.8 mg/dL (8.4-10.6)
--- NOTE | 2023-11-22 09:05 | CRLHL7_ITS ---
For Patients: As a result of the Century Cures Act, medical imaging exams and procedure reports are released immediately into your electronic medical record. You may view this report before your referring provider. If you have questions, please contact your health care provider. INDICATION: PICC placement TECHNIQUE: 1 view chest radiograph COMPARISON: None. FINDINGS: Devices: Left arm PICC distal tip superior cavoatrial junction. Lung volumes are moderate. No focal or diffuse opacities. No pleural effusion. No pneumothorax. Heart size is normal. IMPRESSION: The left arm PICC is in good position at the superior cavoatrial junction. No line placement complication seen. Lungs clear. Dictated by Nancy Lieberman MD @ 11/22/2023 10:13:21 AM (Electronically Signed)
[2023-11-22] MEDS: 0.9 % SODIUM CHLORIDE 250 ml IV (11:15)
[2023-11-22] MEDS: dexAMETHasone 10 MG in 0.9 % SODIUM CHLORIDE 100 ml 100 ML 420 MG IVPB (11:15)
[2023-11-22] MEDS: PROCHLORPERAZINE 10 MG TABLET 5 MG PO (11:16)
[2023-11-22] MEDS: SODIUM CHLORIDE 0.9 % (FLUSH) 10 ML SYRINGE IVF (11:16)
[2023-11-22] MEDS: carvediloL 6.25 MG TABLET PO (11:49)
[2023-11-22] MEDS: lisinopriL 20 MG TABLET PO (11:50)
[2023-11-22] MEDS: hydroCHLOROthiazide 25 MG TABLET PO (11:50)
[2023-11-22] MEDS: NAPROXEN 250 MG TABLET 500 MG PO (11:51)
[2023-11-22] MEDS: TOPIRAMATE 50 MG TABLET 100 MG PO (11:51)
[2023-11-22] MEDS: MITOMYCIN 20 MG IVP (11:54)
--- NOTE | 2023-11-23 10:38 | PC.NURSE ---
Late Entry: Pt present at [facility] yesterday (11/23/2023) for labs, PICC line placement, and initial chemotherapy. Upon doing flame gouger, pt reported that he is out of a few medications due to an insurance mail in pharmacy change. RN spoke with Brit Gray APRN and one time doses of the following medications were given today while in clinic: Lisinopril HCTZ Carvedilol Topiramate Naproxen (headache pain) Pt called his ordering providers to request proper refills.
--- NOTE | 2023-11-23 10:45 | PC.NURSE ---
Addendum entered by Mayra Chin RN 11/23/23 10:52: Pt called back and reported that he is design great. No concerns. No nausea. Slept reasonably well. Atif is eating well and has gotten used to having his pump with him. Support offered. Original Note: Called pt today to check in after his first chemo yesterday. LM on pt's primary line and invited a call back with any questions or concerns.
--- NOTE | 2023-11-23 14:42 | PC.NURSE ---
Pt's daughter called today to clarify activity restrictions after getting chemo yesterday. We discussed good hand hygiene, avoiding people with known illness, big/crowded enclosed spaces, and spacing out tasks/errands to preserve energy. All questions answered, support offered.
[2023-11-26 09:30] VITALS: BP 133/70; PULSE 79; RESP 16; TEMP 36.6; O2SAT 97
[2023-11-26] MEDS: SODIUM CHLORIDE 0.9 % (FLUSH) 10 ML SYRINGE IVF (09:36)
[2023-11-29 14:26] LABS: Basophils Absolute Auto 0.04 K/uL (0.00-0.30); Basophils Percent Auto 0.7 % (0.0-3.0); Eosinophils Absolute Auto 0.23 K/uL (0.00-0.50); Eosinophils Percent Auto 3.8 % (0.0-7.0); Hematocrit 37.8 % (37.0-53.0); Hemoglobin* 13.1 gm/dL (13.5-17.5); Immature Granulocytes Abs Auto 0.05 K/uL (0.00-0.30); Immature Granulocytes Pct Auto 0.8 %; Lymphocytes Percent Auto 11.8 % (20-44); Mean Corpuscular HGB Conc 35 gm/dL (32-36); Mean Corpuscular Hemoglobin 30 pg (26-34); Mean Corpuscular Volume 86 fL (80-100); Monocytes Percent Auto 2.8 % (0.0-11.0); Neutrophils Percent Auto 80.1 % (42.0-72.0); Platelet Count* 241 K/uL (140-440); RDW Coefficient of Variation % 11.4 % (11.5-15.5); Red Blood Count 4.42 m/uL (4.30-5.90); White Blood Count* 6.11 K/uL (4.50-11.00)
[2023-11-29 14:30] LABS: Slide Review Reflex No
[2023-11-29 14:56] LABS: Albumin* 4.1 g/dL (3.3-5.0)
[2023-11-29 14:57] LABS: Chloride* 97 mmol/L (96-114); Potassium* 3.9 mmol/L (3.6-5.1); Sodium* 131 mmol/L (135-149)
[2023-11-29 14:59] LABS: Anion Gap 10 mEq/L (7-15); Bilirubin Total* 1.1 mg/dL (0.1-1.5); Carbon Dioxide* 24 mmol/L (20-32); Creatinine* 1.4 mg/dL (0.5-1.5); Estimated Glomerular Filt Rate 50 ml/min
[2023-11-29 15:00] LABS: Alanine Aminotransferase* 19 U/L (4-50); Alkaline Phosphatase* 88 U/L (40-150); Aspartate Amino Transferase* 22 U/L (12-35); Blood Urea Nitrogen* 36 mg/dL (7-30); Calcium* 9.1 mg/dL (8.4-10.6); Glucose* 126 mg/dL (60-115); Total Protein* 6.7 g/dL (6.0-8.3)
[2023-11-29] MEDS: SODIUM CHLORIDE 0.9 % (FLUSH) 10 ML SYRINGE IVF (15:28)
[2023-11-29] MEDS: 0.9 % SODIUM CHLORIDE 1000 ml 1,000 ML IV (15:29)
[2023-11-29 16:46] VITALS: BP 130/71; PULSE 70
--- NOTE | 2023-12-02 14:00 | ONC.NURNOTE ---
Patient did not show for appointment. Left message for patient to call us back.
[2023-12-06 13:55] LABS: Basophils Percent Auto 0.6 % (0.0-3.0); Hematocrit 31.5 % (37.0-53.0); Hemoglobin* 10.8 gm/dL (13.5-17.5); Lymphocytes Percent Auto 15.6 % (20-44); Mean Corpuscular HGB Conc 34 gm/dL (32-36); Mean Corpuscular Hemoglobin 30 pg (26-34); Mean Corpuscular Volume 88 fL (80-100); Monocytes Percent Auto 10.2 % (0.0-11.0); Neutrophils Percent Auto 69.6 % (42.0-72.0); Platelet Count* 168 K/uL (140-440); RDW Coefficient of Variation % 11.9 % (11.5-15.5); Red Blood Count 3.59 m/uL (4.30-5.90); White Blood Count* 3.53 K/uL (4.50-11.00)
[2023-12-06 14:07] LABS: Slide Review Reflex No
[2023-12-06 14:11] LABS: Chloride* 106 mmol/L (96-114)
[2023-12-06 14:12] LABS: Potassium* 3.7 mmol/L (3.6-5.1); Sodium* 137 mmol/L (135-149)
[2023-12-06 14:14] LABS: Anion Gap 8 mEq/L (7-15); Carbon Dioxide* 23 mmol/L (20-32); Creatinine* 0.9 mg/dL (0.5-1.5); Est. Creatinine Clearance* 58.81; Estimated Glomerular Filt Rate 85 ml/min
[2023-12-06 14:15] LABS: Blood Urea Nitrogen* 21 mg/dL (7-30); Calcium* 8.7 mg/dL (8.4-10.6); Glucose* 150 mg/dL (60-115)
[2023-12-13 09:55] VITALS: BP 93/62; BP 98/64; PULSE 73; PULSE 78; RESP 18; TEMP 36.2; O2SAT 97
[2023-12-13 10:22] LABS: Basophils Percent Auto 1.1 % (0.0-3.0); Hematocrit 32.4 % (37.0-53.0); Immature Granulocytes Pct Auto 1.9 %; Lymphocytes Percent Auto 19.9 % (20-44); Mean Corpuscular HGB Conc 34 gm/dL (32-36); Mean Corpuscular Hemoglobin 30 pg (26-34); Mean Corpuscular Volume 89 fL (80-100); Monocytes Percent Auto 12.2 % (0.0-11.0); Neutrophils Percent Auto 60.9 % (42.0-72.0); Platelet Count* 121 K/uL (140-440); RDW Coefficient of Variation % 13.3 % (11.5-15.5); Red Blood Count 3.63 m/uL (4.30-5.90); White Blood Count* 3.76 K/uL (4.50-11.00)
[2023-12-13 10:30] LABS: Slide Review Reflex No
[2023-12-13 10:36] LABS: Albumin* 3.7 g/dL (3.3-5.0); Chloride* 106 mmol/L (96-114)
[2023-12-13 10:37] LABS: Sodium* 137 mmol/L (135-149)
[2023-12-13 10:39] LABS: Alkaline Phosphatase* 91 U/L (40-150); Anion Gap 7 mEq/L (7-15); Aspartate Amino Transferase* 20 U/L (12-35); Bilirubin Total* 0.4 mg/dL (0.1-1.5); Blood Urea Nitrogen* 21 mg/dL (7-30); Carbon Dioxide* 24 mmol/L (20-32); Creatinine* 1.2 mg/dL (0.5-1.5); Estimated Glomerular Filt Rate 60 ml/min; Total Protein* 6.1 g/dL (6.0-8.3)
[2023-12-13 10:40] LABS: Alanine Aminotransferase* 16 U/L (4-50); Calcium* 8.8 mg/dL (8.4-10.6); Glucose* 127 mg/dL (60-115)
[2023-12-13] MEDS: 0.9 % SODIUM CHLORIDE 250 ml IV (11:04)
[2023-12-13] MEDS: SODIUM CHLORIDE 0.9 % (FLUSH) 10 ML SYRINGE IVF ×2 (11:04→11:33)
[2023-12-13] MEDS: dexAMETHasone 10 MG in 0.9 % SODIUM CHLORIDE 100 ml 100 ML 400 MG IVPB (11:04)
[2023-12-17] MEDS: SODIUM CHLORIDE 0.9 % (FLUSH) 10 ML SYRINGE IVF (13:14)
[2023-12-17 14:59] VITALS: BP 119/80; PULSE 94; RESP 16; TEMP 36.5; O2SAT 97
--- NOTE | 2023-12-20 14:29 | ONC.NURNOTE ---
Order received to discontinue picc line. Pt tolerated procedure well. Length of catheter same as insertion length documentation.
[2023-12-27 10:44] LABS: Basophils Absolute Auto 0.01 K/uL (0.00-0.30); Basophils Percent Auto 0.2 % (0.0-3.0); Eosinophils Absolute Auto 0.21 K/uL (0.00-0.50); Eosinophils Percent Auto 4.2 % (0.0-7.0); Hematocrit 33.5 % (37.0-53.0); Hemoglobin* 11.4 gm/dL (13.5-17.5); Immature Granulocytes Abs Auto 0.01 K/uL (0.00-0.30); Immature Granulocytes Pct Auto 0.2 %; Lymphocytes Percent Auto 9.1 % (20-44); Mean Corpuscular HGB Conc 34 gm/dL (32-36); Mean Corpuscular Hemoglobin 31 pg (26-34); Mean Corpuscular Volume 92 fL (80-100); Monocytes Percent Auto 7.9 % (0.0-11.0); Neutrophils Percent Auto 78.4 % (42.0-72.0); Platelet Count* 152 K/uL (140-440); RDW Coefficient of Variation % 15.7 % (11.5-15.5); Red Blood Count 3.66 m/uL (4.30-5.90); White Blood Count* 5.06 K/uL (4.50-11.00)
[2023-12-27 10:46] LABS: Slide Review Reflex No
[2023-12-27 11:03] LABS: Albumin* 3.9 g/dL (3.3-5.0); Chloride* 106 mmol/L (96-114); Potassium* 4.6 mmol/L (3.6-5.1); Sodium* 137 mmol/L (135-149)
[2023-12-27 11:06] LABS: Alanine Aminotransferase* 12 U/L (4-50); Alkaline Phosphatase* 93 U/L (40-150); Anion Gap 5 mEq/L (7-15); Aspartate Amino Transferase* 16 U/L (12-35); Bilirubin Total* 0.4 mg/dL (0.1-1.5); Blood Urea Nitrogen* 22 mg/dL (7-30); Carbon Dioxide* 26 mmol/L (20-32); Creatinine* 1.2 mg/dL (0.5-1.5); Estimated Glomerular Filt Rate 60 ml/min; Glucose* 122 mg/dL (60-115); Total Protein* 6.6 g/dL (6.0-8.3)
[2023-12-27 11:07] LABS: Calcium* 9.5 mg/dL (8.4-10.6)
--- NOTE | 2024-01-24 12:39 | ONC.NURNOTE ---
Patient called stating that he is needing to cancel his appointment for labs and CT today. He has had a headache today with nausea, and trouble sleeping the last two days. He notes that these symptoms are normal for patient, and declined trying to see PCP. He rescheduled CT and labs for tomorrow morning so that can continue with appointment as scheduled on Wednesday with oncologist.
[2024-01-25 08:18] LABS: Basophils Absolute Auto 0.03 K/uL (0.00-0.30); Basophils Percent Auto 0.6 % (0.0-3.0); Eosinophils Absolute Auto 0.17 K/uL (0.00-0.50); Eosinophils Percent Auto 3.4 % (0.0-7.0); Hematocrit 35.3 % (37.0-53.0); Hemoglobin* 11.8 gm/dL (13.5-17.5); Immature Granulocytes Abs Auto 0.03 K/uL (0.00-0.30); Immature Granulocytes Pct Auto 0.6 %; Lymphocytes Percent Auto 11.7 % (20-44); Mean Corpuscular HGB Conc 33 gm/dL (32-36); Mean Corpuscular Hemoglobin 32 pg (26-34); Mean Corpuscular Volume 95 fL (80-100); Monocytes Percent Auto 8.1 % (0.0-11.0); Neutrophils Percent Auto 75.6 % (42.0-72.0); Platelet Count* 209 K/uL (140-440); RDW Coefficient of Variation % 15.9 % (11.5-15.5); Red Blood Count 3.72 m/uL (4.30-5.90); White Blood Count* 4.96 K/uL (4.50-11.00)
[2024-01-25 08:28] LABS: Albumin* 3.8 g/dL (3.3-5.0); Chloride* 108 mmol/L (96-114)
[2024-01-25 08:29] LABS: Potassium* 4.1 mmol/L (3.6-5.1); Sodium* 139 mmol/L (135-149)
[2024-01-25 08:31] LABS: Anion Gap 4 mEq/L (7-15); Aspartate Amino Transferase* 19 U/L (12-35); Bilirubin Total* 0.6 mg/dL (0.1-1.5); Carbon Dioxide* 27 mmol/L (20-32); Creatinine* 1.1 mg/dL (0.5-1.5); Est. Creatinine Clearance* 52.54; Estimated Glomerular Filt Rate 67 ml/min; Total Protein* 6.4 g/dL (6.0-8.3)
[2024-01-25 08:32] LABS: Alanine Aminotransferase* 12 U/L (4-50); Alkaline Phosphatase* 91 U/L (40-150); Blood Urea Nitrogen* 14 mg/dL (7-30); Calcium* 9.1 mg/dL (8.4-10.6); Glucose* 125 mg/dL (60-115)
[2024-01-25 08:45] LABS: Slide Review Reflex No
== END 2024-02-13 23:59 | disposition home or self-care (01) ==
LOC: CCIC 14:00
PROVIDERS: Clinical Nurse Specialist; Physician Assistant; Visit Provider Internal Medicine Hematology & Oncology
DX: C67.9 Malignant neoplasm of bladder, unspecified (principal)
CPT/HCPCS: 36415; 36573; 36592; 74019; 80048; 80053; 84443; 85025; 96360; 96374; 96376; 96409; 96416; 99202; 99205; 99211; 99214; 99215; G0463; A4221; A9270; C1751; J1100; J7030; J7050; J9190; J9280